=== PATIENT | male | born 1945 | race Caucasian/White ===

== ENCOUNTER 2017-12-24 13:02 | Outpatient (RCR) | payer MEDICARE, OTHER ==
[2017-10-02 13:20] VITALS: BP 120/92
[2017-11-10 13:25] VITALS: BP 144/110
[~2017-12-24] VITALS: Ht 177.8 cm; Wt 99.8 kg
[~2017-12-24 13:02] MED LIST: ASP81TEC PO; CANA100T PO; CHOL10003 PO; CYAN10006 PO; FAMO20TA5 PO; FENO145T2 PO; HCT25T PO; HYDR-34 PO; LISI10TA2 PO; LSNP20T PO; LUTE10TA PO; Lutein PO; METF-380 PO; MULT-608 PO; NAPR220T76 PO; PYRI100T2 PO; RIVA20TA PO; SITA1TAB6 PO; SOTA240T PO; WRF5T PO
[2017-12-24 13:54] VITALS: BP 153/111
== END 2017-12-31 | disposition home or self-care (01) ==
LOC: SDC 13:02
PROVIDERS: ATTEND Internal Medicine
DX: D75.1 Secondary polycythemia (principal)
CPT/HCPCS: 36592; 99195

== ENCOUNTER 2018-04-02 17:13 | Emergency (ER) | payer MEDICARE, OTHER ==
[~2018-04-02] VITALS: Ht 177.8 cm; Wt 89.4 kg
--- NOTE | 2018-04-02 18:58 | Diagnostic Imaging Report ---
PROCEDURE: CT head without contrast. TECHNIQUE: Multiple contiguous axial images were obtained through the brain without the use of intravenous contrast. INDICATION: Fall. Anticoagulation therapy. COMPARISON: None. FINDINGS: Moderate generalized cerebral and cerebellar parenchymal volume loss. Moderate leukoaraiosis. No CT evidence for territorial infarction. Intracranial vascular calcifications. No intracranial hemorrhage, mass effect, hydrocephalus, or extra-axial fluid collections. The visualized paranasal sinuses and mastoids are clear. Osseous structures are intact. IMPRESSION: No acute intracranial CT findings. Dictated by: Dictated on workstation # [id number]
--- NOTE | 2018-04-02 19:42 | ED Fall/Injury ---
General Chief Complaint: Trauma-Non Activation Stated Complaint: L ARM INJ Nursing Triage Note: PT TO ROOM FT2, PT STATES FELL AT HOME TRIPPED, PT HAS SKIN TEAR R FOREARM, PT HIT HEAD DENIES LOC, PT IS ON ELAQUIS. Source: patient Exam Limitations: no limitations History of Present Illness Date Seen by Provider: Apr 02, 2018 Time Seen by Provider: 17:50 Initial Comments This 72-year-old gentleman presents to the emergency room after having a fall at home. He tripped outside and struck his head on his stairs. This resulted in an abrasion to the top of his scalp and a skin tear of the left arm. He is up-to-date on his tetanus immunization. He denies any neck pain, loss of consciousness, or neurologic deficits. He is on Eliquis. Bleeding on the skin tear is controlled. Patient was running the weed eater when he tripped. Location Injury Occurred: HOME Occurred: just prior to arrival Allergies and Home Medications Allergies Coded Allergies: No Known Drug Allergies (Unverified , 10/20/11) Home Medications Cholecalciferol (Vitamin D3) 1,000 Unit Tablet, 1,000 UNIT PO HS, (Reported) Cyanocobalamin (Vitamin B-12) 1,000 Mcg Tablet, 1,000 MCG PO HS, (Reported) Famotidine 20 Mg Tablet, 20 MG PO DAILY, (Reported) Fenofibrate,Micronized 145 Mg Tablet, 145 MG PO DAILY, (Reported) Hydrochlorothiazide 25 Mg Tablet, 1 EACH PO DAILY, (Reported) Lisinopril 10 Mg Tablet, 10 MG PO BID, (Reported) Multivitamins 1 Tab Tablet, 1 TAB PO DAILY, (Reported) Naproxen Sodium 220 Mg Tablet, 220 MG PO BID, (Reported) Pyridoxine HCl 100 Mg Tablet, 100 MG PO HS, (Reported) Rivaroxaban 20 Mg Tablet, 20 MG PO HS, (Reported) Sitagliptin Phos/Metformin HCl 1 Each Tablet, 1 EACH PO BID, (Reported) Patient Home Medication List Home Medication List Reviewed: Yes Review of Systems Review of Systems Constitutional: no symptoms reported Eyes: No Symptoms Reported Ears, Nose, Mouth, Throat: no symptoms reported Respiratory: no symptoms reported Cardiovascular: no symptoms reported Gastrointestinal: no symptoms reported Genitourinary: no symptoms reported Musculoskeletal: no symptoms reported Skin: see HPI Psychiatric/Neurological: No Symptoms Reported Past Fwcmsan-Wuueem-Cnvmzp Hx Past Med/Social Hx: Reviewed and Corrections made Patient Social History Alcohol Use: Denies Use Recreational Drug Use: No Smoking Status: Never a Smoker Recent Foreign Travel: No Contact w/Someone Who Travel: No Recent Infectious Disease Expo: No Recent Hopitalizations: No Physical Abuse: No Sexual Abuse: No Immunizations Up To Date Tetanus Booster (TDap): Less than 5yrs Date of Pneumonia Vaccine: Apr 19, 2011 Date of Influenza Vaccine: Apr 19, 2011 Past Medical History Surgeries: Yes (ORAL, LEFT INGROWN THUMBNAIL REMOVED,) Respiratory: No Cardiac: Yes Atrial Fibrillation, Hypertension Neurological: No Reproductive Disorders: No Genitourinary: No Gastrointestinal: Yes Gastroesophageal Reflux Musculoskeletal: Yes Endocrine: Yes Diabetes, Non-Insulin dep Cancer: No Psychosocial: No Integumentary: No Blood Disorders: No Physical Exam Vital Signs Vital Signs - First Documented 04/02/18 04/02/18 17:30 19:46 Temp 98.1 Pulse 100 Resp 18 B/P (MAP) 115/92 (100) Pulse Ox 99 O2 Delivery Room Air Capillary Refill : Less Than 3 Seconds Height, Weight, BMI Height: 5'10.00" Weight: 197lbs. 0.0oz. [id number]; 31.6 BMI Method:Stated General Appearance: WD/WN, no apparent distress HEENT: PERRL/EOMI, other (minor abrasion on the top of his scalp) Neck: non-tender, normal inspection Cardiovascular: regular rate, rhythm, no edema, no murmur Respiratory: lungs clear, normal breath sounds, no respiratory distress, no accessory muscle use Extremities: other (large skin tear on the left forearm) Neurologic/Psychiatric: building attendant II-XII nml as tested, no motor/sensory deficits, alert, normal mood/affect, oriented x 3 Skin: normal color, warm/dry, other (abrasion on the scalp and large skin tear on the left forearm) [place] Coma Score Best Eye Response: (4) Open Spontaneously Best Verbal Response: (5) Oriented Best Motor Response: (6) Obeys Commands [place] Total: 15 Progress/Results/Core Measures Results/Orders My Orders Orders - INNA LOPEZ MD Ct Head Wo (04/02/18 18:00) Vital Signs/I&O 04/02/18 04/02/18 17:30 19:46 Temp 98.1 97.1 Pulse 100 80 Resp 18 18 B/P (MAP) 115/92 (100) 118/81 (100) Pulse Ox 99 98 O2 Delivery Room Air Blood Pressure Mean: 100 Progress Progress Note : Progress Note CT of the head was obtained and demonstrated no intracranial injury. Skin tear on the left arm was debrided of grass and other foreign bodies. It was thoroughly irrigated and folded back over the wound. Mepilex dressings were applied. Diagnostic Imaging Diagonstic Imaging: CT Plain Films/CT/US/NM/MRI: head Comments CT viewed by me and report reviewed. See report below: NAME: MONIQUE QUEEN [facility] REC#: [id number] PT STATUS: REG ER : 1945 PHYSICIAN: INNA LOPEZ MD ADMIT DATE: 04/02/18/ER Signed Date of Exam: 04/02/18 CT HEAD WO PROCEDURE: CT head without contrast. TECHNIQUE: Multiple contiguous axial images were obtained through the brain without the use of intravenous contrast. INDICATION: Fall. Anticoagulation therapy. COMPARISON: None. FINDINGS: Moderate generalized cerebral and cerebellar parenchymal volume loss. Moderate leukoaraiosis. No CT evidence for territorial infarction. Intracranial vascular calcifications. No intracranial hemorrhage, mass effect, hydrocephalus, or extra-axial fluid collections. The visualized paranasal sinuses and mastoids are clear. Osseous structures are intact. IMPRESSION: No acute intracranial CT findings. Dictated by: Dictated on workstation # [id number] Dict: 04/02/181838 Trans: 04/02/181904 Interpreted by: DEVYN MOON MD Electronically signed by: DEVYN MOON MD 04/02/181904 Departure Impression Primary Impression: Fall on same level Qualified Codes: W18.30XA - Fall on same level, unspecified, initial encounter Additional Impressions: Abrasion of scalp Qualified Codes: S00.01XA - Abrasion of scalp, initial encounter Skin tear of left upper extremity Anticoagulated Disposition: 01 HOME, SELF-CARE Condition: Improved Departure-Patient Inst. Decision time for Depature: 19:40 Referrals: JAMIE DOMINGO MD (PCP/Family) Primary Care Physician Patient Instructions: NO INSTRUCTIONS GIVEN Add. Discharge Instructions: Return to care if you develop any symptoms of worsening head injury such as confusion, headache, changes in vision, numbness or weakness of body parts, etc. Leave the dressing on your arm for 2 or 3 days. Replace after that time if desired. Remove the dressing starting near your wrist and pulling up toward your elbow. Monitor your wounds for signs of infection including increasing redness, increasing swelling, increasing pain, puslike drainage, or fever. Return to care promptly to notice these symptoms. All discharge instructions reviewed with patient and/or family. Voiced understanding. INNA LOPEZ MD Apr 02, 2018 19:42
[2018-04-02 19:46] VITALS: BP 118/81
== END 2018-04-02 19:48 | disposition home or self-care (01) ==
LOC: EDUNIT# 17:13 → ER 17:14
DX: S51.811A Laceration without foreign body of right forearm, initial encounter (principal); S00.01XA Abrasion of scalp, initial encounter; E11.9 Type 2 diabetes mellitus without complications; Z79.01 Long term (current) use of anticoagulants; W01.0XXA Fall on same level from slipping, tripping and stumbling without subsequent striking against object, initial encounter
CPT/HCPCS: 70450

== ENCOUNTER 2018-06-04 05:34 | Outpatient (CLI) | payer MEDICARE, OTHER ==
[~2018-06-04] VITALS: Ht 177.8 cm; Wt 89.4 kg
[2018-06-04] MEDS ORDERED: LISI-552 PO (12:58)
[2018-06-04] MEDS ORDERED: MULT1TAB69 PO (12:58)
[2018-06-04] MEDS ORDERED: METO-395 PO (12:58)
[2018-06-04] MEDS ORDERED: PROC5TAB52 PO (12:58)
[2018-06-04] MEDS ORDERED: APIX5TAB PO (12:58)
[2018-06-04] MEDS ORDERED: TRAM50TA2 PO (12:58)
[2018-06-04] MEDS ORDERED: FENO145T37 PO (12:58)
== END 2018-06-04 13:00 | disposition home or self-care (01) ==
LOC: PREOP 05:34
PROVIDERS: ATTEND Surgery
DX: Z01.818 Encounter for other preprocedural examination (principal)

== ENCOUNTER 2018-06-07 07:21 | Day surgery (SDC) | payer MEDICARE, OTHER ==
[~2018-06-07] VITALS: Ht 177.8 cm; Wt 89.4 kg
[~2018-06-07 07:21] MED LIST changes: +APIX5TAB PO; +FENO145T37 PO; +LISI-552 PO; +METO-395 PO; +MULT1TAB69 PO; +PROC5TAB52 PO; +TRAM50TA2 PO
[2018-06-07 07:50] VITALS: BP 168/108
[2018-06-07] MEDS ORDERED: LACTATED RINGERS 1,000 ML IV PRN (07:53)
[2018-06-07] MEDS ORDERED: CATHETER FLUSH 10 ML SYR IV PRN (08:00)
[2018-06-07] MEDS ORDERED: ceFAZolin INJECTION 1,000 MG in NS (IVPB) 50 ML IV ONE (08:00)
[2018-06-07] MEDS ORDERED: ANCEF 2 GM/50 ML PRE-MIXED IVPB IV ONE (08:15)
[2018-06-07] MEDS ORDERED: LIDOCAINE/EPI 1%-1:100,000 (XYLOCAINE) 20ML ONE (08:31)
--- NOTE | 2018-06-07 09:01 | Progress Note-Pre Operative ---
Pre-Operative Progress Note H&P Reviewed The H&P was reviewed, patient examined and no changes noted. Time Seen by Provider: 08:52 Date H&P Reviewed: Jun 07, 2018 Time H&P Reviewed: 08:53 Pre-Operative Diagnosis: scalp mass LANCE QUILES DO Jun 07, 2018 09:01
[2018-06-07] MEDS ORDERED: fentaNYL INJECTION 100 MCG/2 ML AMP ONE (09:03)
[2018-06-07] MEDS ORDERED: proPOfol 200 MG/20 ML (DIPRIVAN) VIAL IV ONE (09:19)
[2018-06-07] MEDS ORDERED: PHENYLEPHRINE 100 MCG/ML 10 ML (ANESTHESIA) SYR ONE (09:22)
--- NOTE | 2018-06-07 09:34 | Progress Note-Post Operative ---
Post-Operative Progess Note Surgeon (s)/Parachute Panel Joiner (s) Surgeon LANCE QUILES DO Parachute Panel Joiner: none Pre-Operative Diagnosis scalp mass Post-Operative Diagnosis same pending pathology Procedure & Operative Findings Date of Procedure 06/07/18 Procedure Performed/Findings Exc of scalp mass Anesthesia Type GET Estimated Blood Loss Estimated blood loss (mL): scant Specimens/Packing Specimens Removed scalp mass LANCE QUILES DO Jun 07, 2018 09:34
--- NOTE | 2018-06-07 09:37 | Discharge Inst-Surgical ---
Discharge Inst-Surgical Depart Medication/Instructions New, Converted or Re-Newed RX: Other (Pt can take Motrin or Tylenol for pain) Patient Instructions Follow up Appt: Make appointment for 1 week. Instructions: May shower in 24 hours, no tub bath or soaking. Use incentive spirometer at home as directed. No Smoking Skin/Wound Care: May remove bandages. You need to leave the sutures in place, they will get removed in 10-14 days. Symptoms to Report: Appetite Changes, Extremity Discoloration, Numbness/Tingling, Swelling Increased , Bleeding Excessive, Eyesight Changes, Pain Increased, Urine Color Change, Constipation(Persistent), Fever over 101 degree F, Pain/Pressure in chest, Urinating Difficulty, Cough Up/Vomit Blood, Heart Beat Irreg/Pounding, Pain/ Pressure in jaw, Cramps in feet or legs, Lightheadedness, Pain/Pressure in shoulder, Diarrhea(Persistent), Memory Changes Suddenly, Questions/Concerns, Weight gain consecutive days, Dizziness/Fainting, Nausea/Vomiting, Shortness of Breath, Weight gain over 2 pounds If questions or concerns contact your physician Or seek help at emergency department. Activity Activity Instructions: Avoid Stress to Incision Driving Instructions: No Driving for 24 Hours Diet Discharge Diet: No Restrictions Diet After 24 Hours: Clear Liquid if Nauseous If Any Problems/Questions/Issu: Contact Your Physician, Go to Emergency Room Skin/Wound Care Infection Signs and Symptoms: Increased Redness, Foul Odor of Wound, Increased Drainage, Skin Itchy or Has a Rash, Increased Swelling, Temperature Above 101 F Bathing Instructions: Shower Stitches/[place]/Dermabond Dis: Care of Stitches Ice Pack: Ice On and Off Site (as needed for pain) LANCE QUILES DO Jun 07, 2018 09:37
[2018-06-07 10:25] VITALS: BP 131/89
[2018-06-07 10:55] VITALS: BP 120/90
[2018-06-07 11:30] VITALS: BP 129/85
--- NOTE | 2018-06-07 14:05 | Anesthesia-General Post-Op ---
General Patient Condition Mental Status/LOC: Same as Preop Cardiovascular: Satisfactory Nausea/Vomiting: Absent Respiratory: Satisfactory Pain: Controlled Complications: Absent Post Op Complications Complications None Follow Up Care/Instructions Patient Instructions None needed. Anesthesia/Patient Condition Patient Condition Patient is doing well, no complaints, stable vital signs, no apparent adverse anesthesia problems. No complications reported per nursing. D/C home per [facility] Criteria: Yes VAL MAHER CRNA Jun 07, 2018 14:05
--- NOTE | 2018-06-07 18:22 | OPERATIVE REPORT ---
DATE OF SERVICE: 06/07/2018 PREOPERATIVE DIAGNOSIS: Posterior scalp mass. POSTOPERATIVE DIAGNOSIS: Posterior scalp mass, pending pathology. PROCEDURE PERFORMED: Excision of scalp mass. SURGEON: Dayo Box DO. OXYACETYLENE BURNER: None. ANESTHESIA: General endotracheal tube. SPECIMEN: Scalp mass. BLOOD LOSS: Scant. FLUIDS: Per Anesthesia. POSTOPERATIVE CONDITION: Stable. INDICATION FOR PROCEDURE: The patient is a 72-year-old male who has a mass in the back of the scalp, has bled and had some discharge. As this is causing him some discomfort and it bothers him every time he brushes his hair, he wants this removed. FINDINGS: The patient had a scalp mass, removed and sent to pathology. PROCEDURE NOTE: After informed consent was obtained, the patient was brought to the operating room, placed on the operating table. He was placed on table in the right lateral decubitus position, sterilely prepped and draped in normal fashion. Local lidocaine was used to infiltrate the area around this mass and then made an elliptical incision around the mass, measured 1.4 cm, carried down through the skin into the subcutaneous tissue, then deepened down to subcutaneous tissue with a sharp dissection with a #15 blade around the mass down through the subcutaneous tissue, going completely around this mass, staying away from it and able to remove this en bloc and passed this off the table, irrigated with normal saline and hemostasis obtained using Bovie electrocautery as well as pressure and then elected to close the incision with 3-0 Prolene 2 interrupted simple stitches. Area was cleaned and dried, dressing placed and patient then transferred to recovery room in stable condition. Sponge, instrument and needle count correct at the end of the case. Job ID: [id number] DocumentID: [id number] Dictated Date: 06/07/2018 09:40:08 Sales Promotion Representative Date: 06/07/2018 18:21:26 Dictated By: DAYO BOX DO
== END 2018-06-07 11:44 | disposition home or self-care (01) ==
LOC: SDC 07:21
PROVIDERS: ATTEND Surgery
DX: C79.2 Secondary malignant neoplasm of skin (principal); C64.9 Malignant neoplasm of unspecified kidney, except renal pelvis; Z11.2 Encounter for screening for other bacterial diseases; I48.91 Unspecified atrial fibrillation; E11.9 Type 2 diabetes mellitus without complications; I10 Essential (primary) hypertension; E78.5 Hyperlipidemia, unspecified; M48.00 Spinal stenosis, site unspecified; K21.9 Gastro-esophageal reflux disease without esophagitis; Z79.899 Other long term (current) drug therapy; Z79.01 Long term (current) use of anticoagulants; Z79.84 Long term (current) use of oral hypoglycemic drugs; Z90.5 Acquired absence of kidney
CPT/HCPCS: 82962; 87081; 88305; 88341; 88342

== ENCOUNTER 2019-03-08 19:51 | Inpatient (IN) | payer MEDICARE, OTHER ==
[~2019-03-08] VITALS: Ht 177.8 cm; Wt 83.9 kg
[~2019-03-08 19:51] MED LIST changes: +CYAN-41 PO; -CYAN10006 PO; -RIVA20TA PO; +RIVA20TA2 PO
--- NOTE | 2019-03-08 20:09 | NUR ---
Pt moved to room #2 per ED bed availability. Pt amb from family room to room #2 with ED staff stand by assist. Pt continues to remain a&ox4, denying any pain or discomfort.
[2019-03-08] MEDS ORDERED: NS IV 1000 ML 1,000 ML IV SCH (20:10)
[2019-03-08 20:21] LABS: BASOPHILS % (AUTO) 0 % (0-10); EOSINOPHILS # (AUTO) 0.4 10^3/uL (0.0-0.3); EOSINOPHILS % (AUTO) 6 % (0-10); HEMATOCRIT 52 % (40-54); HEMOGLOBIN 17.5 G/DL (13.3-17.7); LYMPHOCYTES # (AUTO) 1.2 X 10^3 (1.0-4.0); LYMPHOCYTES % (AUTO) 16 % (12-44); MEAN CORPUSCULAR HEMOGLOBIN 27 PG (25-34); MEAN CORPUSCULAR HGB CONC 34 G/DL (32-36); MEAN CORPUSCULAR VOLUME 82 FL (80-99); MEAN PLATELET VOLUME 10.1 FL (7.4-10.4); MONOCYTES # (AUTO) 0.7 X 10^3 (0.0-1.0); MONOCYTES % (AUTO) 9 % (0-12); NEUTROPHILS # (AUTO) 4.9 X 10^3 (1.8-7.8); NEUTROPHILS % (AUTO) 68 % (42-75); PLATELET COUNT 220 10^3/uL (130-400); RED CELL DISTRIBUTION WIDTH 32.3 % (10.0-14.5); WHITE BLOOD COUNT 7.1 10^3/uL (4.3-11.0)
--- NOTE | 2019-03-08 20:21 | ED Syncope ---
General Chief Complaint: Trauma-Non Activation Stated Complaint: AMS Source of Information: Patient, EMS Exam Limitations: No Limitations History of Present Illness Date Seen by Provider: Mar 08, 2019 Time Seen by Provider: 19:40 Initial Comments Patient presents to ER by EMS from home with chief complaint that last thing he remembers was at 10:30 going to the bathroom and woke up in the bathroom floor just prior to calling an ambulance. The is a diabetic. EMS reports his blood sugar was 68 and had not given him anything for it yet. Patient does not remember anything after 10:30 until he woke up. He is not having any pain anywhere. He denies any recent illness such as cough, sore throat, nausea, chest pain, palpitations, fevers, chills, nausea, diarrhea, constipation, belly pain, swelling in his hands or feet, shortness of breath etc. He is on chemotherapy through [facility] for kidney cancer. About a year and a half ago he had a left nephrectomy and subsequent surgery because they think they left something behind right after the first surgery. He does not have a history of syncopal episodes. He is with atrial fibrillation and takes Eliquis. Allergies and Home Medications Allergies Coded Allergies: No Known Drug Allergies (Unverified , 10/20/11) Home Medications Apixaban 5 Mg Tablet, 5 MG PO BID, (Reported) Cholecalciferol (Vitamin D3) 1,000 Unit Tablet, 1,000 UNIT PO HS, (Reported) Cyanocobalamin (Vitamin B-12) 1,000 Mcg Tablet, 1,000 MCG PO HS, (Reported) Fenofibrate Nanocrystallized 145 Mg Tablet, 145 MG PO DAILY, (Reported) Lisinopril 20 Mg Tablet, 20 MG PO DAILY, (Reported) Metoprolol Succinate 100 Mg Tab.er.24h, 100 MG PO HS, (Reported) Multivitamin 1 Each Tablet, 1 EACH PO DAILY, (Reported) Prochlorperazine Maleate 5 Mg Tablet, 5-10 MG PO Q6H PRN for NAUSEA/VOMITING, (Reported) Pyridoxine HCl 100 Mg Tablet, 100 MG PO HS, (Reported) Sitagliptin Phos/Metformin HCl 1 Each Tablet, 1 EACH PO BID, (Reported) Tramadol HCl 50 Mg Tablet, 50 MG PO Q6H PRN for PAIN-MILD, (Reported) Patient Home Medication List Home Medication List Reviewed: Yes Review of Systems Constitutional: No chills, No diaphoresis, No fever, No malaise EENTM: No ear discharge, No hearing loss, No ear pain Respiratory: No cough, No short of breath Cardiovascular: No chest pain, No edema Gastrointestinal: No abdominal pain, No constipation, No diarrhea, No nausea, No vomiting Genitourinary: No discharge, No dysuria Musculoskeletal: No back pain, No joint pain Skin: No pruritus, No rash Psychiatric/Neurological: Denies Headache, Denies Numbness, Denies Paresthesia, Denies Seizure, Denies Weakness Past Rmrkade-Eaepli-Goutsi Hx Patient Social History Alcohol Use: Denies Use Recreational Drug Use: No Smoking Status: Never a Smoker Recent Foreign Travel: No Contact w/Someone Who Travel: No Recent Hopitalizations: No Immunizations Up To Date Tetanus Booster (TDap): Less than 5yrs Date of Pneumonia Vaccine: Apr 19, 2011 Date of Influenza Vaccine: Apr 19, 2018 Seasonal Allergies Seasonal Allergies: No Past Medical History Surgeries: Yes (ORAL, LEFT INGROWN THUMBNAIL REMOVED,) Nephrectomy Respiratory: No Cardiac: Yes Atrial Fibrillation, Hypertension Neurological: No Reproductive Disorders: No Genitourinary: No Gastrointestinal: Yes Gastroesophageal Reflux Musculoskeletal: Yes Endocrine: Yes Diabetes, Non-Insulin dep Cancer: No Kidney Did You Recieve Any Treatments: Yes What Type of Treatment Did You: Chemotherapy, Surgical Intervention Psychosocial: No Integumentary: No Blood Disorders: No Physical Exam Vital Signs Vital Signs - First Documented 03/08/19 21:10 Pulse 127 Capillary Refill : Height, Weight, BMI Height: 5'10.00" Weight: 197lbs. 0.0oz. 89.945206cg; 28.3 BMI Method:Stated General Appearance: No Apparent Distress, WD/WN HEENT: PERRL/EOMI, TMs Normal, Normal ENT Inspection, Pharynx Normal, Moist Mucous Membranes, Other (atraumatic head with no Bernabe sign or hemotympanum) Neck: Normal Inspection, Non Tender Cardiovascular: Regular Rate, Rhythm, No Edema, Normal Peripheral Pulses Respiratory: Lungs Clear, Normal Breath Sounds, No Accessory Muscle Use, No Respiratory Distress Gastrointestinal: Normal Bowel Sounds, Non Tender, Soft Extremities: Normal Capillary Refill, Normal Inspection, Normal Range of Motion, Non Tender, No Pedal Edema Neurologic/Psychiatric: Alert, Oriented x3, Normal Mood/Affect Cranial Nerves: Normal Hearing, Normal Speech, PERRL Coordination/Gait: Normal Finger to Nose, Normal Gait Motor/Sensory: No Motor Deficit, No Sensory Deficit, No Pronator Drift Skin: Other (ecchymoses bilateral forearms. A 6 cm superficial skin tears that are hemostatic on the right forearm) Progress/Results/Core Measures Results/Orders Lab Results Laboratory Tests Test 03/08/19 19:58 03/08/19 20:07 03/08/19 20:26 03/08/19 20:40 Range/Units Glucometer 37 *L 51 *L 70-110 MG/DL White Blood Count 7.1 4.3-11.0 10^3/uL Red Blood Count 6.37 H 4.35-5.85 10^6/uL Hemoglobin 17.5 13.3-17.7 G/DL Hematocrit 52 40-54 % Mean Corpuscular Volume 82 80-99 FL Mean Corpuscular Hemoglobin 27 25-34 PG Mean Corpuscular Hemoglobin Concent 34 32-36 G/DL Red Cell Distribution Width 32.3 H 10.0-14.5 % Platelet Count 220 130-400 10^3/uL Mean Platelet Volume 10.1 7.4-10.4 FL Neutrophils (%) (Auto) 68 42-75 % Lymphocytes (%) (Auto) 16 12-44 % Monocytes (%) (Auto) 9 0-12 % Eosinophils (%) (Auto) 6 0-10 % Basophils (%) (Auto) 0 0-10 % Neutrophils # (Auto) 4.9 1.8-7.8 X 10^3 Lymphocytes # (Auto) 1.2 1.0-4.0 X 10^3 Monocytes # (Auto) 0.7 0.0-1.0 X 10^3 Eosinophils # (Auto) 0.4 H 0.0-0.3 10^3/uL Basophils # (Auto) 0.0 0.0-0.1 10^3/uL Sodium Level 140 135-145 MMOL/L Potassium Level 6.0 H 3.6-5.0 MMOL/L Chloride Level 108 H 98-107 MMOL/L Carbon Dioxide Level 17 L 21-32 MMOL/L Anion Gap 15 H 5-14 MMOL/L Blood Urea Nitrogen 14 7-18 MG/DL Creatinine 1.30 0.60-1.30 MG/DL Estimat Glomerular Filtration Rate 54 BUN/Creatinine Ratio 11 Glucose Level 76 70-105 MG/DL Calcium Level 9.7 8.5-10.1 MG/DL Corrected Calcium 9.9 8.5-10.1 MG/DL Total Bilirubin 0.6 0.1-1.0 MG/DL Aspartate Amino Transf (AST/SGOT) 67 H 5-34 U/L Alanine Aminotransferase (ALT/SGPT) 91 H 0-55 U/L Alkaline Phosphatase 46 40-136 U/L Total Creatine Kinase 135 30-200 U/L Troponin I < 0.028 <0.028 NG/ML C-Reactive Protein High Sensitivity 0.91 H 0.00-0.50 MG/DL B-Type Natriuretic Peptide 301.7 H <100.0 PG/ML Total Protein 6.8 6.4-8.2 GM/DL Albumin 3.7 3.2-4.5 GM/DL Test 03/08/19 21:05 03/08/19 22:15 Range/Units Glucometer 44 *L 70-110 MG/DL Potassium Level 5.3 H 3.6-5.0 MMOL/L My Orders Orders - STEVEN ADAN Accucheck Stat ONCE (03/08/19 20:10) Ua Culture If Indicated (03/08/19 20:10) Cbc With Automated Diff (03/08/19 20:10) Comprehensive Metabolic Panel (03/08/19 20:10) Hs C Reactive Protein (03/08/19 20:10) Ed Iv/Invasive Line Start (03/08/19 20:10) Ns Iv 1000 Ml (Sodium Chloride 0.9%) (03/08/19 20:10) Accucheck Stat ONCE (03/08/19 20:10) Chest Pa/Lat (2 View) (03/08/19 20:10) Troponin I (03/08/19 20:10) Creatine Kinase (03/08/19 20:10) Ct Head/Cervical Spine Wo (03/08/19 20:10) BNP (03/08/19 20:17) Diltiazem Injection (Cardizem Injection) (03/08/19 20:45) Ns (Ivpb) (Sodium C... W/Diltiazem Iv Fo (03/08/19 20:45) Accucheck Stat ONCE (03/08/19 20:56) D5 Ns 1000 Ml Iv Solution (Dextrose 5%/0 (03/08/19 21:01) Potassium (03/08/19 21:10) D5 Ns 1000 Ml Iv Solution (Dextrose 5%/0 (03/08/19 21:15) Ekg Tracing (03/08/19 21:52) Ekg Tracing (03/08/19 22:02) Medications Given in ED Current Medications Medications Dose Ordered Sig/Brittany Route Start Time Stop Time Status Last Admin Dose Admin Diltiazem HCl 10 mg ONCE ONCE IVP 03/08/19 20:45 03/08/19 20:46 DC 03/08/19 21:09 10 MG Vital Signs/I&O 03/08/19 21:10 Pulse 127 Progress Progress Note : Time: 20:36 Progress Note EKG reveals A. fib with rapid ventricular response. We then getting him to eat and his blood sugars, to 51. Plan to give him some Cardizem, IV fluids and a Cardizem drip. He is on metoprolol succinate 100 mg daily. Skin tears cleaned with sterile saline and chlorhexidine and dressed with triple antibiotic ointment and gauze by nursing. Patient states he is up-to-date on his tetanus vaccine this year. Initial ECG Impression Date: Mar 08, 2019 Initial ECG Impression Time: 20:21 Initial ECG Rate: 119 Initial ECG Rhythm: A Fib/Flutter Initial ECG Intervals: QT (456) Initial ECG Impression: Atrial Fibrillation w/RVR Comment Atrial fibrillation with rapid ventricular response. EKG : EKG Time: 21:59 Rate: 85 Rhythm: A Fib/Flutter Intervals: QT (433) ECG Comparisson: Changed ECG Impression: Atrial Fibrillation Comment No ST elevation or depression. Diagnostic Imaging Diagonstic Imaging: Xray Plain Films/CT/US/NM/MRI: chest Comments NAME: BERNARDANGELANIGELMONIQUE D MED REC#: [id number] PT STATUS: REG ER : 1945 PHYSICIAN: STEVEN ADAN MD ADMIT DATE: 03/08/19/ER Draft Date of Exam:03/08/19 CHEST PA/LAT (2 VIEW) INDICATION: Found down COMPARISON: None FINDINGS: Frontal and lateral views of the chest demonstrate slight cardiac enlargement. The lungs are clear. There is a small hiatal hernia. There is no pneumothorax. There is an expansile right posterior fifth rib lesion that was not seen on a 01/10/[address] CT examination. Recommend nonemergent CT of the chest. IMPRESSION: 1. Slight cardiac enlargement without pulmonary edema or infiltrate. 2. Small hiatal hernia. 3. Expansile right posterior fifth rib lesion. Recommend nonemergent CT imaging. Dictated on workstation # [id number] Dict: 03/08/192056 Trans: 03/08/192112 [facility] [id number] Interpreted by: PAIGE MICHAEL Electronically signed by: Reviewed: Reviewed by Oh Diagonstic Imaging: CT (Noncontrast) Plain Films/CT/US/NM/MRI: c-spine, head Comments NAME: MONIQUE QUEEN MED REC#: [id number] PHYSICIAN: STEVEN ADAN MD CC: PAIGE MICHAEL; STEVEN ADAN Page 2 of 2 RADIOLOGY REPORT [facility] [place] CC: PAIGE MICHAEL; STEVEN ADAN Page 1 of 1 RADIOLOGY REPORT NAME: MONIQUE QUEEN MED REC#: [id number] PT STATUS: REG ER : 1945 PHYSICIAN: STEVEN ADAN MD ADMIT DATE: 03/08/19/ER Signed Date of Exam: 03/08/19 CT HEAD/CERVICAL SPINE WO PROCEDURE: CT head and CT cervical spine without contrast. TECHNIQUE: Multiple contiguous axial images were obtained through the brain and cervical spine without the use of intravenous contrast. Sagittal and coronal reformations through the cervical spine were then performed. Auto Exposure Controls were utilized during the CT exam to meet ALARA standards for radiation dose reduction. INDICATION: Found down, hypoglycemic COMPARISON: CT head 04/02/2018 CT head: Age-related cerebral volume loss and microvascular changes are present. There is no midline shift or mass effect. There is no hemorrhage or evidence of acute ischemia. There is no extra-axial fluid collection. There is no skull fracture. There is mucous retention cyst seen in the maxillary sinuses. Otherwise, paranasal sinuses and mastoids are normal. There is no skull fracture. IMPRESSION: No acute intracranial abnormalities. CT cervical spine: The alignment is normal. There is no subluxation or fracture. No osseous lesion is identified. Mild degenerative changes seen throughout the disc spaces and facet joints. Minimal carotid atherosclerosis is present. IMPRESSION: No traumatic malalignment or fracture. Dictated by: Dictated on workstation # [id number] Dict: 03/08/192049 Trans: 03/08/192101 Interpreted by: PAIGE MICHAEL Electronically signed by: PAIGE MICHAEL 03/08/192101 Reviewed: Reviewed by Me Departure Communication (Admissions) Time/Spoke to Admitting Phy: 22:50 Discussed the case with Dr. Mckenzie and he is agreed to admit the patient. Time/Spoke to Consulting Phy: 22:00 Discussed the case with Dr. Morales and since the patient is known to Dr. Lopez he would have Dr. Lpoez see him in the morning. He is okay with [facility] and troponins. Impression Primary Impression: Syncope Qualified Codes: R55 - Syncope and collapse Additional Impressions: Atrial fibrillation with rapid ventricular response Skin tear Hypoglycemia Disposition: ADMITTED INPATIENT Condition: Stable Admissions Decision to Admit Reason: Admit from ER (General) Decision to Admit/Date: Mar 08, 2019 Time/Decision to Admit Time: 22:00 Departure-Patient Inst. Referrals: JAMIE DOMINGO MD (PCP/Family) Primary Care Physician STEVEN ADAN Mar 08, 2019 20:21
[2019-03-08] MEDS ORDERED: DILTIAZEM 25 MG/5 ML INJ (CARDIZEM) VIAL IVP ONE (20:45)
[2019-03-08] MEDS ORDERED: DILTIAZEM IV FOR DRIP 125 MG in NS (IVPB) 100 ML IV SCH (20:45)
--- NOTE | 2019-03-08 20:57 | Diagnostic Imaging Report ---
PROCEDURE: CT head and CT cervical spine without contrast. TECHNIQUE: Multiple contiguous axial images were obtained through the brain and cervical spine without the use of intravenous contrast. Sagittal and coronal reformations through the cervical spine were then performed. Auto Exposure Controls were utilized during the CT exam to meet ALARA standards for radiation dose reduction. INDICATION: Found down, hypoglycemic COMPARISON: CT head 04/02/2018 CT head: Age-related cerebral volume loss and microvascular changes are present. There is no midline shift or mass effect. There is no hemorrhage or evidence of acute ischemia. There is no extra-axial fluid collection. There is no skull fracture. There is mucous retention cyst seen in the maxillary sinuses. Otherwise, paranasal sinuses and mastoids are normal. There is no skull fracture. IMPRESSION: No acute intracranial abnormalities. CT cervical spine: The alignment is normal. There is no subluxation or fracture. No osseous lesion is identified. Mild degenerative changes seen throughout the disc spaces and facet joints. Minimal carotid atherosclerosis is present. IMPRESSION: No traumatic malalignment or fracture. Dictated by: Dictated on workstation # [id number]
--- NOTE | 2019-03-08 21:00 | NUR ---
Pt noted to have consumed x4 packs of peanut butter, x2 apple juices boxes, and a sprite in an attempt to raise blood sugar.
[2019-03-08] MEDS ORDERED: D5 NS 1000 ML IV SOLUTION 1,000 ML IV ONE (21:01)
[2019-03-08 21:05] LABS: ALANINE AMINOTRANSFERASE 91 U/L (0-55); ALBUMIN 3.7 GM/DL (3.2-4.5); ALKALINE PHOSPHATASE 46 U/L (40-136); BILIRUBIN,TOTAL 0.6 MG/DL (0.1-1.0); BUN/CREATININE RATIO 11; CALCIUM 9.7 MG/DL (8.5-10.1); CARBON DIOXIDE 17 MMOL/L (21-32); CHLORIDE 108 MMOL/L (98-107); CREATINE KINASE 135 U/L (30-200); GFR ESTIMATED 54; GLUCOSE 76 MG/DL (70-105); SODIUM 140 MMOL/L (135-145); TOTAL PROTEIN 6.8 GM/DL (6.4-8.2)
--- NOTE | 2019-03-08 21:14 | Diagnostic Imaging Report ---
INDICATION: Found down COMPARISON: None FINDINGS: Frontal and lateral views of the chest demonstrate slight cardiac enlargement. The lungs are clear. There is a small hiatal hernia. There is no pneumothorax. There is an expansile right posterior fifth rib lesion that was not seen on a 01/10/2016 CT examination. Recommend nonemergent CT of the chest. IMPRESSION: 1. Slight cardiac enlargement without pulmonary edema or infiltrate. 2. Small hiatal hernia. 3. Expansile right posterior fifth rib lesion. Recommend nonemergent CT imaging. Dictated by: Dictated on workstation # [id number]
[2019-03-08] MEDS ORDERED: D5 NS 1000 ML IV SOLUTION 1,000 ML IV SCH (21:15)
[2019-03-08] MEDS ORDERED: lisINopril 10 MG (PRINIVIL) TABLET ONE (23:11)
[2019-03-08] MEDS ORDERED: APIXABAN 5 MG (ELIQUIS) TABLET PO ONE (23:15)
[2019-03-08] MEDS ORDERED: lisINopril 20 MG (PRINIVIL) TABLET PO ONE (23:15)
[2019-03-09] VITALS (20 sets, daily range): BP systolic 113–153; BP diastolic 70–115
[2019-03-09] MEDS ORDERED: ONDANSETRON 4 MG/2 ML (SDV) Z0FRAN IV PRN (01:00)
[2019-03-09] MEDS ORDERED: ACETAMINOPHEN 500 MG TAB (TYLENOL) PO PRN (01:00)
[2019-03-09] MEDS ORDERED: niCARdipine 50 MG/NS 250 ML IV DRIP IV SCH ×2 (01:00)
[2019-03-09] MEDS ORDERED: D5 NS 1000 ML IV SOLUTION 1,000 ML IV SCH (01:00)
[2019-03-09 01:20] LABS: BILIRUBIN,URINE NEGATIVE (NEGATIVE); CLARITY,URINE CLEAR; COLOR,URINE YELLOW; GLUCOSE, URINE (UA) 4+ (NEGATIVE); KETONES,URINE NEGATIVE (NEGATIVE); LEUKOCYTE ESTERASE ,URINE NEGATIVE (NEGATIVE); NITRITE,URINE NEGATIVE (NEGATIVE); PH,URINE 6 (5-9); PROTEIN,URINE NEGATIVE (NEGATIVE); UROBILINOGEN,URINE NORMAL (NORMAL)
[2019-03-09 01:32] LABS: BACTERIA,URINE FEW /HPF; SQUAMOUS EPITHELIAL CELL,UR 0-2 /HPF; WBC,URINE RARE /HPF
[2019-03-09] MEDS ORDERED: NS (IVPB) 250 ML ONE (03:51)
[2019-03-09] MEDS ORDERED: niCARdipine IV FOR DRIP 50 MG KIT ONE (03:51)
[2019-03-09 03:56] LABS: BASOPHILS % (AUTO) 0 % (0-10); EOSINOPHILS # (AUTO) 0.4 10^3/uL (0.0-0.3); EOSINOPHILS % (AUTO) 7 % (0-10); HEMATOCRIT 47 % (40-54); HEMOGLOBIN 15.4 G/DL (13.3-17.7); LYMPHOCYTES # (AUTO) 1.4 X 10^3 (1.0-4.0); LYMPHOCYTES % (AUTO) 22 % (12-44); MEAN CORPUSCULAR HEMOGLOBIN 27 PG (25-34); MEAN CORPUSCULAR HGB CONC 33 G/DL (32-36); MEAN CORPUSCULAR VOLUME 84 FL (80-99); MEAN PLATELET VOLUME 9.7 FL (7.4-10.4); MONOCYTES # (AUTO) 0.6 X 10^3 (0.0-1.0); MONOCYTES % (AUTO) 9 % (0-12); NEUTROPHILS # (AUTO) 3.9 X 10^3 (1.8-7.8); NEUTROPHILS % (AUTO) 62 % (42-75); PLATELET COUNT 176 10^3/uL (130-400); RED CELL DISTRIBUTION WIDTH 31.6 % (10.0-14.5); WHITE BLOOD COUNT 6.2 10^3/uL (4.3-11.0)
[2019-03-09 04:32] LABS: ALANINE AMINOTRANSFERASE 71 U/L (0-55); ALKALINE PHOSPHATASE 38 U/L (40-136); BILIRUBIN,TOTAL 0.4 MG/DL (0.1-1.0); BUN/CREATININE RATIO 10; CALCIUM 8.7 MG/DL (8.5-10.1); CARBON DIOXIDE 23 MMOL/L (21-32); CHLORIDE 109 MMOL/L (98-107); CREATININE SERUM 1.12 MG/DL (0.60-1.30); GFR ESTIMATED > 60; MAGNESIUM 1.3 MG/DL (1.6-2.4); PHOSPHORUS 2.4 MG/DL (2.3-4.7); POTASSIUM 3.9 MMOL/L (3.6-5.0); SODIUM 142 MMOL/L (135-145); TOTAL PROTEIN 5.6 GM/DL (6.4-8.2)
[2019-03-09 04:42] LABS: GLUCOSE 52 MG/DL (70-105)
[2019-03-09] MEDS: DILTIAZEM 125 MG/NS 100 ML IV SCH ×2 (05:07)
[2019-03-09] MEDS ORDERED: MAGNESIUM 1 GM/100 ML IVPB 200 ML IV ONE (05:34)
--- NOTE | 2019-03-09 05:59 | Pulmonary Consultation ---
History of Present Illness History of Present Illness Date of Consultation 03/09/19 05:54 Time Seen by Provider: 06:18 Date of Admission History of Present Illness 73yo with hx of NIDDM, renal cell carcinoma with mets currently undergoing chemo with [facility] and hx of left nephrectomy presented to ED via EMS secondary to syncope. No prior episodes like this in the past. Pt does have an erythematous abrasion on left forehead. Pt's BS was 68 per EMS. Denies CP/abd pain, palpitations, N/v/d. CXR while in ED shows a rib lesion. Allergies and Home Medications Allergies Coded Allergies: No Known Drug Allergies (Unverified , 10/20/11) Home Medications Apixaban 5 Mg Tablet, 5 MG PO BID, (Reported) Cholecalciferol (Vitamin D3) 1,000 Unit Tablet, 1,000 UNIT PO HS, (Reported) Cyanocobalamin (Vitamin B-12) 1,000 Mcg Tablet, 1,000 MCG PO HS, (Reported) Fenofibrate Nanocrystallized 145 Mg Tablet, 145 MG PO DAILY, (Reported) Lisinopril 20 Mg Tablet, 20 MG PO DAILY, (Reported) Metoprolol Succinate 100 Mg Tab.er.24h, 100 MG PO HS, (Reported) Multivitamin 1 Each Tablet, 1 EACH PO DAILY, (Reported) Prochlorperazine Maleate 5 Mg Tablet, 5-10 MG PO Q6H PRN for NAUSEA/VOMITING, (R eported) Pyridoxine HCl 100 Mg Tablet, 100 MG PO HS, (Reported) Sitagliptin Phos/Metformin HCl 1 Each Tablet, 1 EACH PO BID, (Reported) Tramadol HCl 50 Mg Tablet, 50 MG PO Q6H PRN for PAIN-MILD, (Reported) Past Fqzhmfh-Qxuxky-Oflbms Hx Patient Social History Alcohol Use: Denies Use Recreational Drug Use: No Smoking Status: Never a Smoker 2nd Hand Smoke Exposure: No Recent Foreign Travel: No Contact w/Someone Who Travel: No Recent Infectious Disease Expo: No Recent Hopitalizations: No Immunizations Up To Date Tetanus Booster (TDap): Less than 5yrs Date of Pneumonia Vaccine: Apr 19, 2011 Date of Influenza Vaccine: Apr 19, 2018 Seasonal Allergies Seasonal Allergies: No Past Medical History Surgeries: Yes (ORAL, LEFT INGROWN THUMBNAIL REMOVED,) Nephrectomy Respiratory: No Cardiac: Yes Atrial Fibrillation, Hypertension Neurological: No Reproductive Disorders: No Genitourinary: No Gastrointestinal: Yes Gastroesophageal Reflux Musculoskeletal: Yes Endocrine: Yes Diabetes, Non-Insulin dep Cancer: Yes Kidney Did You Recieve Any Treatments: Yes What Type of Treatment Did You: Chemotherapy, Surgical Intervention Psychosocial: No Integumentary: No Blood Disorders: No Review of Systems Time Seen by Provider: 07:35 Constitutional: No: Fever, Chills, Sweats, Weakness, Malaise, Other Eyes: No: Pain, Vision change, Conjunctivae inflammation, Eyelid inflammation, Other, Redness ENT: No: Ear pain, Ear discharge, Nose pain, Nose discharge, Nose congestion, Mouth pain, Mouth swelling, Throat pain, Throat swelling, Other Respiratory: No: Cough, Dry, Shortness of breath, SOB with excertion, Wheezing, Hemoptysis, Pleuritic Pain, Sputum, Wheezing, Other Cardiovascular: No: Chest Pain, Palpitations, Orthopnea, Paroxysmal Noc. Dyspnea, Edema, Lt Headedness, Other Gastrointestinal: No: Nausea, Vomiting, Abdominal Pain, Diarrhea, Constipation, Melena, Hematochezia, Other Genitourinary: No Dysuria, No Frequency, No Incontinence, No Hematuria, No Retention, No Other Sepsis Event Evaluation Height, Weight, BMI Height: 5'10.00" Weight: 185lbs. 4.0oz. 84.903747sn; 26.6 BMI Method:Stated Exam Exam Vital Signs Date Time Temp Pulse Resp B/P (MAP) Pulse Ox O2 Delivery O2 Flow Rate FiO2 03/09/19 05:07 116/83 03/09/19 05:00 94 15 116/83 (94) 98 Room Air 03/09/19 04:00 96.6 89 14 124/101 (109) 97 Room Air 03/09/19 03:00 79 18 120/88 (99) 96 Room Air 03/09/19 02:00 75 16 126/70 (88) 97 Room Air 03/09/19 01:00 99 03/09/19 01:00 80 22 150/102 (118) 96 Room Air 03/09/19 00:02 96.7 95 19 153/99 (117) 98 Room Air 03/09/19 00:00 97.3 77 16 122/86 (98) 99 Room Air 03/08/19 21:10 127 8/20/19 20:00 96.2 111 17 142/108 (119) 99 Room Air 03/08/19 19:51 96.2 111 18 142/108 (119) 99 Room Air I & O 03/09/19 07:00 Intake Total 1110 ml Output Total 350 ml Balance 760 ml Height & Weight Height: 5'10.00" Weight: 185lbs. 4.0oz. 84.376587uk; 26.6 BMI Method:Stated General Appearance: No Apparent Distress, WD/WN HEENT: PERRL/EOMI, TMs Normal, Normal ENT Inspection, Pharynx Normal, Moist Mucous Membranes, Other (erythema/abrasion left forehead ) Neck: Normal Inspection, Non Tender Respiratory: Lungs Clear, Normal Breath Sounds, No Accessory Muscle Use, No Respiratory Distress Cardiovascular: Regular Rate, Rhythm, No Edema, Normal Peripheral Pulses Capillary Refill: Less Than 3 Seconds Gastrointestinal: normal bowel sounds, non tender, soft, no organomegaly Extremity: Normal Capillary Refill, Normal Inspection, Normal Range of Motion, Non Tender, No Pedal Edema Neurologic/Psychiatric: Alert, Oriented x3, Normal Mood/Affect Skin: Normal Color, Warm/Dry, Other (ecchymoses bilateral forearms. A 6 cm superficial skin tears that are hemostatic on the right forearm) Lymphatic: No Adenopathy Results Lab Laboratory Tests 03/08/19 20:07 03/08/19 20:40 03/08/19 22:15 03/09/19 03:37 Assessment/Plan Assessment/Plan s/p Syncope probably secondary to hypoglycemia -Head CT negative Afib RVR -Cardizem gtt -Pt has hx of Afib -Cardiology is consulted Hypoglycemia -Currently on D5 1/2 at 100 -Monitor close Rt posterior rib lesion - per CXR on admission-- probably secondary to metastatic renal cell carcinoma -Check CT of chest Hypokalemia, hypomag Elevated LFTs -Check abd US -Check amylase lipase -Hepatitis panel Hx of metastatic renal cell carcinoma -Follows with [facility] -Currently undergoing chem with SERA FLOYD DO Mar 09, 2019 05:59
[2019-03-09] MEDS: MAGNESIUM 1 GM/100 ML IVPB 100 ML IV SCH ×5 (06:00→09:22)
[2019-03-09] MEDS: POTASSIUM CL 10MEQ/50ML IVPB 50 ML IV SCH (06:37)
[2019-03-09] MEDS: KCL 20 MEQ TAB (K-DUR) PO SCH (06:37)
[2019-03-09 07:00] LABS: AMMONIA 24 UMOL/L (11-32); AMYLASE 64 U/L (25-125); LIPASE 51 U/L (8-78)
--- NOTE | 2019-03-09 07:45 | Diagnostic Imaging Report ---
EXAM: CHEST 1 VIEW, AP/PA ONLY INDICATION: Syncope. Arrhythmia. Hypoglycemia COMPARISON: Chest radiograph 03/08/2019. FINDINGS: Normal heart size and central pulmonary vascularity. No focal pulmonary opacity, pleural effusion or pneumothorax. Stable expansion of the right fifth rib. IMPRESSION: No acute cardiopulmonary findings. Stable indeterminate expansion of the posterior right fifth rib. Dictated by: Dictated on workstation # [id number]
--- NOTE | 2019-03-09 07:58 | Consultation-Cardiology ---
HPI-Cardiology Cardiology Consultation: Date of Consultation 03/09/19 Time Seen by a Provider: 09:10 Date of Admission 03-08-19 Attending Physician Ranjan Pate MD Admitting Physician Jacobo Owens MD Consulting Physician Calin Lopez MD HPI: Chief Complaint: Syncope A-fib with RVR Mr. Blevins is a 73 year old male admitted to ICU 5 from the ED d/t syncopal episode and a-fib with RVR. He states he lives at home alone. He reports yesterday morning he had been up and used the BR. He states it was around 10:00-10:30 in the morning. The next thing he recalls is waking up on the floor in his house and it was around 5:00 in the afternoon. He denies any loss of bowl or bladder control. He reports he has had episodes of low blood sugars at home and they have been adjusting his medications. He states he believes his blood sugar was 37 when he got to the ED. He denies any c/o CP, palpitations, dyspnea. LE swelling. He denies any nausea, but reports d/t chronic heart burn and bloating he has not been able to eat much. He reports recent episodes of diarrhea, but feels this is r/t his chemo for which he is following at [facility]. He reports he has been following with Dr. Zurita at [facility] for cardiac care. He states he has chronic a-fib and is on Eliquis. Review of Systems-Cardiology Review of Systems Constitutional: No chills, No fever Eyes: No vision change Ears/Nose/Throat: No epistaxis, No recent hearing loss Respiratory: As described under HPI Cardiovascular: As described under HPI Gastrointestinal: As described under HPI Genitourinary: No dysuria, No hematuria Musculoskeletal: no symptoms reported Skin: other (abrasions to right arm following fall at home) Psychiatric/Neurological: As described under HPI; No anxiety, No depression, No seizure Hematologic: No bleeding abnormalities COU-Dzhdwo-Eqcazl Hx Patient Social History Alcohol Use: Denies Use Recreational Drug Use: No Smoking Status: Never a Smoker 2nd Hand Smoke Exposure: No Recent Foreign Travel: No Recent Infectious Disease Expo: No Hospitalization with Isolation: Denies Immunizations Up To Date Tetanus Booster (TDap): Less than 5yrs Date of Pneumonia Vaccine: Apr 19, 2011 Date of Influenza Vaccine: Apr 19, 2018 Past Medical History PMH As described under Assessment. Allergies and Home Medications Allergies Coded Allergies: No Known Drug Allergies (Unverified , 10/20/11) Home Medications Amlodipine Besylate 10 Mg Tablet, 10 MG PO DAILY, (Reported) Apixaban 5 Mg Tablet, 5 MG PO BID, (Reported) C,E,Zinc,Copper 11/Gveql2i/Lut 1 Each Capsule, 1 CAP PO DAILY, (Reported) Cabozantinib S-Malate 60 Mg Tablet, 60 MG PO DAILY, (Reported) Cholecalciferol (Vitamin D3) 1,000 Unit Tablet, 1,000 UNIT PO 1500, (Reported) Cyanocobalamin (Vitamin B-12) 1,000 Mcg Tablet, 1,000 MCG PO DAILY, (Reported) Empagliflozin 25 Mg Tablet, 25 MG PO DAILY, (Reported) Famotidine 20 Mg Tablet, 20 MG PO 1500, (Reported) Fenofibrate Nanocrystallized 145 Mg Tablet, 145 MG PO 1500, (Reported) Ferrous Sulfate 325 Mg Tablet, 325 MG PO BID, (Reported) Glimepiride 2 Mg Tablet, 4 MG PO DAILY, (Reported) TAKES 2 (2MG) TABLETS Lisinopril 40 Mg Tablet, 40 MG PO HS, (Reported) Loperamide HCl 2 Mg Tablet, 4 MG PO BID PRN for DIARRHEA, (Reported) Lutein 20 Mg Capsule, 20 MG PO DAILY, (Reported) Metoprolol Succinate 100 Mg Tab.er.24h, 200 MG PO DAILY, (Reported) TAKES 2 (100MG) TABLETS Multivit-Min/FA/Lycopene/Lut 1 Each Tablet, 1 TAB PO 1500, (Reported) Omeprazole 20 Mg Capsule.dr, 20 MG PO DAILY, (Reported) Prednisone 10 Mg Tab, 15 MG PO DAILY, (Reported) TAKES 1 & 1/2 (10MG) TABLET Prochlorperazine Maleate 5 Mg Tablet, 10 MG PO HS, (Reported) TAKES 2 (5MG) TABLETS Promethazine HCl 25 Mg Tablet, 25 MG PO Q6H PRN for NAUSEA/VOMITING-1ST LINE, (Reported) Pyridoxine HCl 100 Mg Tablet, 100 MG PO HS, (Reported) Simethicone 125 Mg Capsule, 250-375 MG PO BID PRN for GAS, (Reported) Sitagliptin Phos/Metformin HCl 1 Each Tbmp.24hr, 1 TAB PO BID, (Reported) Tramadol HCl 50 Mg Tablet, 50 MG PO BID, (Reported) Patient Home Medication List Home Medication List Reviewed: Yes Physical Exam-Cardiology Physical Exam Vital Signs/I&O 03/09/19 03/09/19 03/09/19 03/10/19 20:00 20:00 20:00 00:00 Temp 96.6 Pulse 86 Resp 18 B/P (MAP) 137/108 (118) Pulse Ox 98 97 98 O2 Delivery Room Air Room Air Room Air 03/10/19 03/10/19 03/10/19 03/10/19 00:17 01:00 01:00 02:00 Pulse 73 75 75 84 Resp 17 16 13 B/P (MAP) 132/93 (106) 140/106 (117) 121/83 (96) Pulse Ox 95 96 96 O2 Delivery Room Air Room Air Room Air 03/10/19 03/10/19 03/10/19 03/10/19 03:00 04:00 04:00 04:55 Temp 96.8 Pulse 82 98 Resp 21 16 B/P (MAP) 140/109 (119) 143/103 (116) Pulse Ox 96 98 96 O2 Delivery Room Air Room Air Room Air 03/10/19 00:00 Intake Total 2030 ml Output Total 1700 ml Balance 330 ml Capillary Refill : Less Than 3 Seconds Constitutional: AAO x 3, well-developed, well-nourished HEENT: PERRL, hearing is well preserved, oral hygience is good Neck: No carotid bruit; carotid pulses are 2 + bilaterally Respiratory: No accessory muscle use, No respiratory distress; chest expansion is symmetric, chest is bilaterally symmetric, lungs clear to auscultation Cardiovascular: irregularly irregular; No JVD; S1 and S2 Gastrointestinal: No tender; soft, round, audible bowel sounds Extremities: no lower extremity edema bilateral Neurologic/Psychiatric: grossly intact Skin: other (right arm with dressing in place; drsg D&I - not removed) Data Review Labs Laboratory Tests 03/09/19 10:26: Glucometer 111H 03/09/19 12:58: Glucometer 103 03/09/19 16:03: Glucometer 106 03/09/19 20:19: Glucometer 137H 03/10/19 00:18: Glucometer 142H 03/10/19 03:19: White Blood Count 5.8, Red Blood Count 5.60, Hemoglobin 15.7, Hematocrit 47, Mean Corpuscular Volume 84, Mean Corpuscular Hemoglobin 28, Mean Corpuscular Hemoglobin Concent 34, Red Cell Distribution Width 31.7H, Platelet Count 133, Mean Platelet Volume 10.1, Neutrophils (%) (Auto) 61, Lymphocytes (%) (Auto) 22, Monocytes (%) (Auto) 9, Eosinophils (%) (Auto) 7, Basophils (%) (Auto) 1, Neutrophils # (Auto) 3.5, Lymphocytes # (Auto) 1.3, Monocytes # (Auto) 0.5, Eosinophils # (Auto) 0.4H, Basophils # (Auto) 0.0, Sodium Level 139, Potassium Level 4.2, Chloride Level 110H, Carbon Dioxide Level 20L, Anion Gap 9, Blood Urea Nitrogen 10, Creatinine 1.30, Estimat Glomerular Filtration Rate 54, BUN/Creatinine Ratio 8, Glucose Level 139H, Calcium Level 8.1L, Phosphorus Level 2.6, Magnesium Level 2.2 Radiology NAME: MONIQUE BLEVINS Kristin MED REC#: [id number] PT STATUS: ADM IN : 1945 PHYSICIAN: RANJAN PATE MD ADMIT DATE: 03/08/19/ICU Draft Date of Exam:03/09/19 CHEST 1 VIEW, AP/PA ONLY EXAM: CHEST 1 VIEW, AP/PA ONLY INDICATION: Syncope. Arrhythmia. Hypoglycemia COMPARISON: Chest radiograph 03/08/2019. FINDINGS: Normal heart size and central pulmonary vascularity. No focal pulmonary opacity, pleural effusion or pneumothorax. Stable expansion of the right fifth rib. IMPRESSION: No acute cardiopulmonary findings. Stable indeterminate expansion of the posterior right fifth rib. Dictated on workstation # [id number] Dict: 03/09/19 0739 Trans: 03/09/19 0745 [id number] Interpreted by: DEVYN MOON MD Electronically signed by: NAME: MONIQUE BLEVINS Kristin MED REC#: [id number] PT STATUS: REG ER : 1945 PHYSICIAN: STEVEN ADAN MD ADMIT DATE: 03/08/19/ER Signed Date of Exam: 03/08/19 CT HEAD/CERVICAL SPINE WO PROCEDURE: CT head and CT cervical spine without contrast. TECHNIQUE: Multiple contiguous axial images were obtained through the brain and cervical spine without the use of intravenous contrast. Sagittal and coronal reformations through the cervical spine were then performed. Auto Exposure Controls were utilized during the CT exam to meet ALARA standards for radiation dose reduction. INDICATION: Found down, hypoglycemic COMPARISON: CT head 04/02/2018 CT head: Age-related cerebral volume loss and microvascular changes are present. There is no midline shift or mass effect. There is no hemorrhage or evidence of acute ischemia. There is no extra-axial fluid collection. There is no skull fracture. There is mucous retention cyst seen in the maxillary sinuses. Otherwise, paranasal sinuses and mastoids are normal. There is no skull fracture. IMPRESSION: No acute intracranial abnormalities. CT cervical spine: The alignment is normal. There is no subluxation or fracture. No osseous lesion is identified. Mild degenerative changes seen throughout the disc spaces and facet joints. Minimal carotid atherosclerosis is present. IMPRESSION: No traumatic malalignment or fracture. Dictated by: Dictated on workstation # [id number] Dict: 03/08/192049 Trans: 03/08/192101 Interpreted by: PAIGE MICHAEL Electronically signed by: PAIGE MICHAEL 03/08/192101 ECG Impression ECG Initial ECG Impression: Atrial Fibrillation w/RVR A/P-Cardiology Assessment/Admission Diagnosis Syncope of undetermined etiology Hypoglycemic episode (blood glucose per lab in ED 37 on 03-08-19) A-fib with RVR Chronic atrial fibrillation - managed by Dr. Zurita at [facility] Cardiology [facility] for stroke prophylaxis MPI of 01/28/16 showed no ischemia or infarction and LVEF66% Hyperlipidemia Elevated BMI of approx 33.6 DJD Spinal stenosis L ankle chronically in a metallic brace following injury 2012 DM II Hypertension Renal cancer - chemo tx being managed at [facility] H/O left nephrectomy in 2016 at [facility] Elevated liver enzymes of undetermined etiology - management per medical services Hypomagnesium Discussion and Recomendations Syncopal episode of undetermined etiology (Unwitnessed) Hypoglycemic episode which may have caused syncopal episode A-fib with RVR - rate improved on Cardizem gtt - resume home dose of BB Continue OAC with Eliquis for stroke prophylaxis Management of hypoglycemia as per medical services Monitor lab Replace electrolytes Further recs will be based on his hospital course We would like to thank medical services for this consult Clinical Quality Measures DVT/VTE Risk/Contraindication: Risk Factor Score Per Nursin RFS Level Per Nursing on Admit: 4+=Very High CRISTINA BARTON Mar 09, 2019 07:58
[2019-03-09] MEDS: D5 1/2 NS 1000 ML IV SOLUTION 1,000 ML IV SCH ×2 (08:42→18:25)
[2019-03-09] MEDS: APIXABAN 5 MG (ELIQUIS) TABLET PO SCH ×2 (08:43→20:20)
[2019-03-09] MEDS: meTOprolol SUCCINATE 100 MG (TOPROL XL) TAB PO SCH ×2 (08:43→09:27)
[2019-03-09] MEDS ORDERED: SIME125C78 PO (09:03)
[2019-03-09] MEDS ORDERED: ALPH1TAB8 PO (09:03)
[2019-03-09] MEDS ORDERED: LISI40TA PO (09:03)
[2019-03-09] MEDS ORDERED: AMLO10TA7 PO (09:03)
[2019-03-09] MEDS ORDERED: MULT-1029 PO (09:10)
[2019-03-09] MEDS ORDERED: FAMO20TA3 PO (09:10)
[2019-03-09] MEDS ORDERED: PROM25TA14 PO (09:28)
[2019-03-09] MEDS ORDERED: CABO60TA PO (09:28)
[2019-03-09] MEDS ORDERED: GLIM2TAB PO (09:28)
[2019-03-09] MEDS ORDERED: C,E,1CAP PO (09:28)
[2019-03-09] MEDS ORDERED: SITA1TBM4 PO (09:28)
[2019-03-09] MEDS ORDERED: LOPE-134 PO (09:28)
[2019-03-09] MEDS ORDERED: OMEP20CA13 PO (09:28)
[2019-03-09] MEDS ORDERED: EMPA25TA PO (09:28)
[2019-03-09] MEDS ORDERED: PRD10T PO (09:28)
[2019-03-09] MEDS ORDERED: LUTE20CA2 PO (09:28)
[2019-03-09] MEDS ORDERED: PROC5TAB9 PO (09:28)
[2019-03-09] MEDS ORDERED: FERR325T18 PO (09:39)
--- NOTE | 2019-03-09 09:44 | NUR ---
SPOKE WITH THE PATIENT ABOUT HIS MEDICATIONS. HE HAD HIS BOTTLES WITH HIM AND I COMPARED IT WITH THE EXT MED HX. HE FILLED 10MG AND 5MG OF PREDNISONE RECENTLY. HE STATS HE HAS BEEN TAKING 1 & 1/2 OF THE 10MG TO USE UP HIS TABLETS. HE HAD BEEN TAKING 20MG DAILY FOR 6 MONTHS OR SO BUT IT WAS RECENTLY DECREASED TO 15MG DAILY. HE FILLED TRAMADOL 50MG #100 FOR A 16 DAY SUPPLY 02-23-19 - HE STATES HE TAKES IT BID HE FILLED PROCHLORPERAZINE 5MG #60 FOR 7 DAYS 07-17-19 - HE STATES HE TAKES 2 HS, HE HAS NOT HAD ANY NAUSEA BUT HE HAS BEEN TAKING THAT AND HASN'T STOPPED BECAUSE HE DOES NOT WANT NAUSEA TO RETURN. IN ADDITION TO WHAT IS SHOWN ON THE EXT MED HX HE HAS A BOTTLE OF PROMETHAZINE 25MG 1 Q6H PRN #90 FILLED 11-11-17 - HE STATES HE HAS NOT HAD TO USE THIS IN SOME TIME SINCE HIS NEW CHEMO MEDICATION BUT HE KEEPS IT ON HAND IF NEEDED. OTC MEDICATIONS: SIMETHICONE 125MG 2-3 BID PRN B6 100MG HS B12 1000MCG DAILY FAMOTIDINE 20MG DAILY MTV 1500 LUTEIN 20MG DAILY OCUVITE DAILY VITAMIN D3 1000 IU 1500 IRON BID IMODIUM 2 BID PRN HE HAS A BOTTLE OF BEANO WITH HIM BUT HE STATES THE SIMETHICONE HAS BEEN WORKING BETTER BECAUSE HE COULD NOT ALWAYS REMEMBER TO TAKE THE BEANO BEFORE STARTING TO EAT AND IT DID NOT SEEM TO WORK THEN.
--- NOTE | 2019-03-09 09:54 | Diagnostic Imaging Report ---
PROCEDURE: US abdomen complete. TECHNIQUE: Multiple real-time grayscale images were obtained over the abdomen in various projections. INDICATION: Elevated liver enzymes. FINDINGS: No comparison available. The liver is normal in size and echogenicity. Pancreas is obscured by bowel gas. The gallbladder contains large stones which are not mobile. The wall is thickened measuring 6 mm. The common bile duct is obscured by bowel gas. No intrahepatic ductal dilation is seen. The spleen is normal. The aorta is obscured by bowel gas. The inferior vena cava is normal. Right kidney is normal in size and echogenicity without hydronephrosis. The left kidney has been surgically removed. No ascites is seen. IMPRESSION: 1. Large non-mobile gallstones with gallbladder wall thickening. Findings would be concerning for cholecystitis if patient has right upper quadrant pain. Dictated by: Dictated on workstation # [id number]
[2019-03-09] MEDS: CABOZANTINIB 60 MG PO SCH (10:22)
--- NOTE | 2019-03-09 11:05 | NUR ---
Pt is [employer] and declines sacraments.
--- NOTE | 2019-03-09 14:22 | Consultation-Cardiology ---
HPI-Cardiology Cardiology Consultation: Date of Consultation 03/09/19 Time Seen by a Provider: 09:15 Date of Admission Attending Physician Alexei Mckenzie MD Admitting Physician Jacobo Owens MD Consulting Physician MELISSA JACOB MD, MA, FACP, FACC, [facility], CCDS Physician requesting consult: Dr Mckenzie HPI: Chief Complaint: Reason for consultation: Syncope, A-fib with RVR HPI Mr. Blevins is a 73 year old male admitted to ICU 5 from the ED d/t syncopal episode and a-fib with RVR. He states he lives at home alone. He reports yesterday morning he had been up and used the BR. He states it was around 10:00-10:30 in the morning. The next thing he recalls is waking up on the floor in his house and it was around 5:00 in the afternoon. He denies any loss of bowl or bladder control. He reports he has had episodes of low blood sugars at home and they have been adjusting his medications. He states he believes his blood sugar was 37 when he got to the ED. He denies any c/o CP, palpitations, dyspnea. LE swelling. He denies any nausea, but reports d/t chronic heart burn and bloating he has not been able to eat much. He reports recent episodes of diarrhea, but feels this is r/t his chemo for which he is following at [facility]. He reports he has been following with Dr. Zurita at [facility] for cardiac care. He states he has chronic a-fib and is on Eliquis. Review of Systems-Cardiology Review of Systems Constitutional: No chills, No fever Eyes: No vision change Ears/Nose/Throat: No epistaxis, No recent hearing loss Respiratory: As described under HPI Cardiovascular: As described under HPI Gastrointestinal: As described under HPI Genitourinary: No dysuria, No hematuria Musculoskeletal: no symptoms reported Skin: other (abrasions to right arm following fall at home) Psychiatric/Neurological: As described under HPI; No anxiety, No depression, No seizure Hematologic: No bleeding abnormalities KAO-Yaadcl-Bazwmo Hx Patient Social History Alcohol Use: Denies Use Recreational Drug Use: No Smoking Status: Never a Smoker 2nd Hand Smoke Exposure: No Recent Foreign Travel: No Recent Infectious Disease Expo: No Hospitalization with Isolation: Denies Immunizations Up To Date Tetanus Booster (TDap): Less than 5yrs Date of Pneumonia Vaccine: Apr 19, 2011 Date of Influenza Vaccine: Apr 19, 2018 Past Medical History PMH As described under Assessment. Allergies and Home Medications Allergies Coded Allergies: No Known Drug Allergies (Unverified , 10/20/11) Home Medications Amlodipine Besylate 10 Mg Tablet, 10 MG PO DAILY, (Reported) Apixaban 5 Mg Tablet, 5 MG PO BID, (Reported) C,E,Zinc,Copper 11/Lubxf0j/Lut 1 Each Capsule, 1 CAP PO DAILY, (Reported) Cabozantinib S-Malate 60 Mg Tablet, 60 MG PO DAILY, (Reported) Cholecalciferol (Vitamin D3) 1,000 Unit Tablet, 1,000 UNIT PO 1500, (Reported) Cyanocobalamin (Vitamin B-12) 1,000 Mcg Tablet, 1,000 MCG PO DAILY, (Reported) Empagliflozin 25 Mg Tablet, 25 MG PO DAILY, (Reported) Famotidine 20 Mg Tablet, 20 MG PO 1500, (Reported) Fenofibrate Nanocrystallized 145 Mg Tablet, 145 MG PO 1500, (Reported) Ferrous Sulfate 325 Mg Tablet, 325 MG PO BID, (Reported) Glimepiride 2 Mg Tablet, 4 MG PO DAILY, (Reported) TAKES 2 (2MG) TABLETS Lisinopril 40 Mg Tablet, 40 MG PO HS, (Reported) Loperamide HCl 2 Mg Tablet, 4 MG PO BID PRN for DIARRHEA, (Reported) Lutein 20 Mg Capsule, 20 MG PO DAILY, (Reported) Metoprolol Succinate 100 Mg Tab.er.24h, 200 MG PO DAILY, (Reported) TAKES 2 (100MG) TABLETS Multivit-Min/FA/Lycopene/Lut 1 Each Tablet, 1 TAB PO 1500, (Reported) Omeprazole 20 Mg Capsule.dr, 20 MG PO DAILY, (Reported) Prednisone 10 Mg Tab, 15 MG PO DAILY, (Reported) TAKES 1 & 1/2 (10MG) TABLET Prochlorperazine Maleate 5 Mg Tablet, 10 MG PO HS, (Reported) TAKES 2 (5MG) TABLETS Promethazine HCl 25 Mg Tablet, 25 MG PO Q6H PRN for NAUSEA/VOMITING-1ST LINE, (Reported) Pyridoxine HCl 100 Mg Tablet, 100 MG PO HS, (Reported) Simethicone 125 Mg Capsule, 250-375 MG PO BID PRN for GAS, (Reported) Sitagliptin Phos/Metformin HCl 1 Each Tbmp.24hr, 1 TAB PO BID, (Reported) Tramadol HCl 50 Mg Tablet, 50 MG PO BID, (Reported) Patient Home Medication List Home Medication List Reviewed: Yes Physical Exam-Cardiology Physical Exam Vital Signs/I&O 03/09/19 03/09/19 03/09/19 03/09/19 03:00 04:00 04:00 05:00 Temp 96.6 Pulse 79 89 94 Resp 18 14 15 B/P (MAP) 120/88 (99) 124/101 (109) 116/83 (94) Pulse Ox 96 97 98 98 O2 Delivery Room Air Room Air Room Air Room Air 03/09/19 03/09/19 03/09/19 03/09/19 05:07 06:00 07:00 07:00 Pulse 92 85 97 Resp 15 20 B/P (MAP) 116/83 130/94 (106) 132/100 (111) Pulse Ox 98 95 O2 Delivery Room Air Room Air 03/09/19 03/09/19 03/09/19 03/09/19 08:00 08:00 09:00 10:00 Temp 97.0 Pulse 85 93 84 Resp 18 22 9 B/P (MAP) 116/86 (96) 143/101 (115) 139/95 (110) Pulse Ox 98 99 99 97 O2 Delivery Room Air Room Air Room Air Room Air 03/09/19 03/09/19 03/09/19 03/09/19 11:00 12:00 12:00 12:30 Temp 97.1 Pulse 84 93 Resp 10 19 B/P (MAP) 127/88 (101) 150/105 (120) Pulse Ox 94 98 98 O2 Delivery Room Air Room Air Room Air 03/09/19 00:00 Intake Total 1000 ml Balance 1000 ml Capillary Refill : Less Than 3 Seconds Constitutional: AAO x 3, well-developed, well-nourished HEENT: PERRL, hearing is well preserved, oral hygience is good Neck: No carotid bruit; carotid pulses are 2 + bilaterally Respiratory: No accessory muscle use, No respiratory distress; chest expansion is symmetric, chest is bilaterally symmetric, lungs clear to auscultation Cardiovascular: irregularly irregular; No JVD; S1 and S2 Gastrointestinal: No tender; soft, round, audible bowel sounds Extremities: no lower extremity edema bilateral Neurologic/Psychiatric: grossly intact Skin: other (right arm with dressing in place; drsg D&I - not removed) Data Review Labs Laboratory Tests 03/08/19 19:58: Glucometer 37*L 03/08/19 20:07: White Blood Count 7.1, Red Blood Count 6.37H, Hemoglobin 17.5, Hematocrit 52, Mean Corpuscular Volume 82, Mean Corpuscular Hemoglobin 27, Mean Corpuscular Hemoglobin Concent 34, Red Cell Distribution Width 32.3H, Platelet Count 220, Mean Platelet Volume 10.1, Neutrophils (%) (Auto) 68, Lymphocytes (%) (Auto) 16, Monocytes (%) (Auto) 9, Eosinophils (%) (Auto) 6, Basophils (%) (Auto) 0, Neutrophils # (Auto) 4.9, Lymphocytes # (Auto) 1.2, Monocytes # (Auto) 0.7, Eosinophils # (Auto) 0.4H, Basophils # (Auto) 0.0 03/08/19 20:26: Glucometer 51*L 03/08/19 20:40: Sodium Level 140, Potassium Level 6.0H, Chloride Level 108H, Carbon Dioxide Level 17L, Anion Gap 15H, Blood Urea Nitrogen 14, Creatinine 1.30, Estimat Glomerular Filtration Rate 54, BUN/Creatinine Ratio 11, Glucose Level 76, Calcium Level 9.7, Corrected Calcium 9.9, Total Bilirubin 0.6, Aspartate Amino Transf (AST/SGOT) 67H, Alanine Aminotransferase (ALT/SGPT) 91H, Alkaline Phosphatase 46, Total Creatine Kinase 135, Troponin I < 0.028, C-Reactive Protein High Sensitivity 0.91H, B-Type Natriuretic Peptide 301.7H, Total Protein 6.8, Albumin 3.7 03/08/19 21:05: Glucometer 44*L 03/08/19 22:15: Potassium Level 5.3H 03/08/19 23:52: Glucometer 127H 03/09/19 00:09: Glucometer 90 03/09/19 01:00: Urine Color YELLOW, Urine Clarity CLEAR, Urine pH 6, Urine Specific Williamson 1.015L, Urine Protein NEGATIVE, Urine Glucose (UA) 4+H, Urine Ketones NEGATIVE, Urine Nitrite NEGATIVE, Urine Bilirubin NEGATIVE, Urine Urobilinogen NORMAL, Urine Leukocyte Esterase NEGATIVE, Urine RBC (Auto) NEGATIVE, Urine RBC NONE, Urine WBC RARE, Urine Squamous Epithelial Cells 0-2, Urine Crystals NONE, Urine Bacteria FEWH, Urine Casts NONE, Urine Mucus NEGATIVE, Urine Culture Indicated NO 03/09/19 03:37: White Blood Count 6.2, Red Blood Count 5.66, Hemoglobin 15.4, Hematocrit 47, Mean Corpuscular Volume 84, Mean Corpuscular Hemoglobin 27, Mean Corpuscular Hemoglobin Concent 33, Red Cell Distribution Width 31.6H, Platelet Count 176, Mean Platelet Volume 9.7, Neutrophils (%) (Auto) 62, Lymphocytes (%) (Auto) 22, Monocytes (%) (Auto) 9, Eosinophils (%) (Auto) 7, Basophils (%) (Auto) 0, Neutrophils # (Auto) 3.9, Lymphocytes # (Auto) 1.4, Monocytes # (Auto) 0.6, Eosinophils # (Auto) 0.4H, Basophils # (Auto) 0.0, Sodium Level 142, Potassium Level 3.9, Chloride Level 109H, Carbon Dioxide Level 23, Anion Gap 10, Blood Urea Nitrogen 11, Creatinine 1.12, Estimat Glomerular Filtration Rate > 60, BUN/Creatinine Ratio 10, Glucose Level 52*L, Calcium Level 8.7, Corrected Calcium 9.5, Phosphorus Level 2.4, Magnesium Level 1.3L, Total Bilirubin 0.4, Aspartate Amino Transf (AST/SGOT) 50H, Alanine Aminotransferase (ALT/SGPT) 71H, Alkaline Phosphatase 38L, Total Protein 5.6L, Albumin 3.0L 03/09/19 05:22: Glucometer 62L 03/09/19 05:47: Glucometer 73 03/09/19 06:20: Ammonia 24, Amylase Level 64, Lipase 51 03/09/19 10:26: Glucometer 111H 03/09/19 12:58: Glucometer 103 Laboratory Tests 03/08/19 20:07 03/08/19 20:40 03/08/19 22:15 03/09/19 03:37 A/P-Cardiology Assessment/Admission Diagnosis Syncope of undetermined etiology: unlikely to be cardiac (pt reports syncope for may hours) suspect hypoglycemic syncope Hypoglycemic episode (blood glucose per lab in ED 37 on 03-08-19) A-fib with RVR Chronic atrial fibrillation - managed by Dr. Motley at [facility] for stroke prophylaxis MPI of 01/28/16 showed no ischemia or infarction and LVEF66% Hyperlipidemia Elevated BMI of approx 33.6 DJD Spinal stenosis L ankle chronically in a metallic brace following injury 2012 DM II Hypertension Renal cancer - chemo tx being managed at [facility] H/O left nephrectomy in 2016 at [facility] Elevated liver enzymes of undetermined etiology - management per medical services Hypomagnesium Discussion and Recomendations * Replenish lytes * Resume bb * Continue OAC * Monitor labs * I discussed his CV issues with him in detail Clinical Quality Measures DVT/VTE Risk/Contraindication: Risk Factor Score Per Nursin RFS Level Per Nursing on Admit: 4+=Very High MELISSA JACOB MD FACP [facility] CCDS Mar 09, 2019 14:22
--- NOTE | 2019-03-09 16:44 | History & Physical-Hospitalist ---
History of Present Illness HPI/Chief Complaint The patient is a 73-year-old white male who noted over the past several days morning blood sugars of been a little lower than usual for him in the 50-70 range to get up and eat and feel better now. He got up later at around 1030 felt weak and the next thing he knew it was 7 hours later around 5 o'clock p.m. he alerted EMS services and apparently his blood sugar was 60 per his report in the field although by the time he got to the emergency room his blood sugar was 37 and he was feeling weak but apparently still conversant and was given sugar with some improvement in symptoms. 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 He was still taking 2 mg of glimepiride twice a day and then tapered down to 15 mg of prednisone daily. He had no syncopal episodes denied any previous problems with confusion and denied headache night sweats chills or fever. He al so had no chest discomfort orthopnea PND or pedal edema. Appetite had been normal for him and if he denied weight loss. Further past medical history is significant for long-standing chronic atrial fibrillation with good rate control and for which she takes Elavil [place]. He has renal cell carcinoma status post left nephrectomy with pulmonary and bony metastasis. He is cared for in regards to oncology at . Date Seen 03/09/19 Time Seen by a Provider: 08:00 Attending Physician Jamie Domingo MD PCP Jamie Domingo MD Referring Physician Date of Admission Mar 08, 2019 at 23:00 Home Medications & Allergies Home Medications Reviewed patient Home Medication Reconciliation performed by pharmacy medication reconciliations poultry service technician and/or nursing. Patients Allergies have been reviewed. Allergies Allergies Coded Allergies No Known Drug Allergies (Unverified10/20/11) Past Edeeros-Gcskpa-Fxvyjj Hx Past Med/Social Hx: Reviewed and Corrections made Patient Social History Alcohol Use: Denies Use Recreational Drug Use: No Smoking Status: Never a Smoker 2nd Hand Smoke Exposure: No Recent Foreign Travel: No Contact w/other who traveled: No Recent Hopitalizations: No Recent Infectious Disease Expo: No Immunizations Up To Date Tetanus Booster (TDap): Less than 5yrs Date of Pneumonia Vaccine: Apr 19, 2011 Date of Influenza Vaccine: Apr 19, 2018 Seasonal Allergies Seasonal Allergies: No Past Medical History Surgeries: Nephrectomy Cardiac: Atrial Fibrillation, Hypertension Reproductive: No Gastrointestinal: Gastroesophageal Reflux Endocrine: Diabetes, Non-Insulin dep Cancer: Kidney Did You Recieve Any Treatments: Yes What Type of Treatment Did You: Chemotherapy, Surgical Intervention History of Blood Disorders: No Review of Systems Constitutional: see HPI Physical Exam Physical Exam Vital Signs Vital Signs - First Documented 03/08/19 19:51 Temp 96.2 Pulse 111 Resp 18 B/P (MAP) 142/108 (119) Pulse Ox 99 O2 Delivery Room Air Capillary Refill : Less Than 3 Seconds Height, Weight, BMI Height: 5'10.00" Weight: 187lbs. 1.0oz. 84.229057ob; 26.6 BMI Method:Stated General Appearance: No Apparent Distress, Chronically ill HEENT: PERRL/EOMI, Pharynx Normal Neck: Full Range of Motion, Normal Inspection, Non Tender Respiratory: Chest Non Tender, Lungs Clear, Normal Breath Sounds, No Accessory Muscle Use, No Respiratory Distress Cardiovascular: No Gallop, No JVD, No Murmur, Irregularly Irregular Gastrointestinal: Normal Bowel Sounds, No Organomegaly, No Pulsatile Mass, Non Tender, Soft Extremity: Normal Range of Motion, Non Tender, No Calf Tenderness, No Pedal Edema Neurologic/Psychiatric: Alert, Oriented x3, No Motor/Sensory Deficits, Normal Mood/Affect, organ pipe voicer II-XII Norm as Tested Skin: Normal Color, Warm/Dry Results Results/Procedures Labs Laboratory Tests 03/08/19 20:07 03/08/19 20:40 03/08/19 22:15 03/09/19 03:37 Patient resulted labs reviewed. Assessment/Plan Admission Diagnosis 1. Syncopal event most likely secondary to hypoglycemia with concerns of possibility of a hypoglycemic related seizure. Patient blood sugars have remained normal off of medication possibly due to buildup of sulfonic urea. We'll be holding this medication and likely resume metformin if blood sugars become elevated. 2. Atrial fibrillation rapid ventricular response likely due to number 2 currently heart rate is in the 90s on 5 mg of Cartia per hour IV will resume beta lauren therapy now that her sugars have normalized and can be monitored and DC Cartia drip. 3. Electrolyte abnormality secondary to number 1 in regards to hyper kalemia now resolved and hypomagnesemia being replaced continue to monitor. 4. Renal cell carcinoma with known bony skin and pulmonary metastasis. Will DC CT scan patient is due for repeat surveillance CT evaluation including the head at as he is not exhibiting any current neurologic findings with recent negative MRI doubt cerebral metastasis. 5. 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 Admission Status: Inpatient Order (span 2 midnights) Reason for Inpatient Admission: Complex medical management as per admission diagnosis Clinical Quality Measures DVT/VTE Risk/Contraindication: Risk Factor Score Per Nursin RFS Level Per Nursing on Admit: 4+=Very High JAMIE DOMINGO MD Mar 09, 2019 16:44
--- NOTE | 2019-03-09 20:30 | NUR ---
This RN reported high blood pressure of 137/[address] Desai. Order received to restart lisinopril 40mg HS. Will continue to monitor.
[2019-03-09] MEDS ORDERED: lisINopril 40 MG (PRINIVIL) TABLET PO ONE (22:15)
[2019-03-10] VITALS (7 sets, daily range): BP systolic 117–150; BP diastolic 83–109
[2019-03-10] MEDS: D5 1/2 NS 1000 ML IV SOLUTION 1,000 ML IV SCH ×3 (00:45→08:25)
[2019-03-10 03:32] LABS: BASOPHILS % (AUTO) 1 % (0-10); EOSINOPHILS # (AUTO) 0.4 10^3/uL (0.0-0.3); EOSINOPHILS % (AUTO) 7 % (0-10); HEMATOCRIT 47 % (40-54); HEMOGLOBIN 15.7 G/DL (13.3-17.7); LYMPHOCYTES # (AUTO) 1.3 X 10^3 (1.0-4.0); LYMPHOCYTES % (AUTO) 22 % (12-44); MEAN CORPUSCULAR HEMOGLOBIN 28 PG (25-34); MEAN CORPUSCULAR HGB CONC 34 G/DL (32-36); MEAN CORPUSCULAR VOLUME 84 FL (80-99); MEAN PLATELET VOLUME 10.1 FL (7.4-10.4); MONOCYTES # (AUTO) 0.5 X 10^3 (0.0-1.0); MONOCYTES % (AUTO) 9 % (0-12); NEUTROPHILS # (AUTO) 3.5 X 10^3 (1.8-7.8); NEUTROPHILS % (AUTO) 61 % (42-75); PLATELET COUNT 133 10^3/uL (130-400); RED CELL DISTRIBUTION WIDTH 31.7 % (10.0-14.5); WHITE BLOOD COUNT 5.8 10^3/uL (4.3-11.0)
[2019-03-10 04:07] LABS: CALCIUM 8.1 MG/DL (8.5-10.1); CREATININE SERUM 1.3 MG/DL (0.60-1.30); MAGNESIUM 2.2 MG/DL (1.6-2.4); PHOSPHORUS 2.6 MG/DL (2.3-4.7); POTASSIUM 4.2 MMOL/L (3.6-5.0)
--- NOTE | 2019-03-10 05:17 | Pulmonary Progress Note ---
Subjective Time Seen by a Provider: 06:19 Subjective/Events-last exam No complications noted. Sepsis Event Evaluation Height, Weight, BMI Height: 5'10.00" Weight: 187lbs. 1.0oz. 84.501829qd; 26.6 BMI Method:Stated Exam Exam Vital Signs Date Time Temp Pulse Resp B/P (MAP) Pulse Ox O2 Delivery O2 Flow Rate FiO2 03/10/19 04:55 98 16 143/103 (116) 96 Room Air 03/10/19 03:00 82 21 140/109 (119) 96 Room Air 03/10/19 02:00 84 13 121/83 (96) 96 Room Air 03/10/19 01:00 75 03/10/19 01:00 75 16 140/106 (117) 96 Room Air 03/10/19 00:17 73 17 132/93 (106) 95 Room Air 03/10/19 00:00 98 Room Air 03/09/19 20:00 86 18 137/108 (118) 97 Room Air 03/09/19 20:00 96.6 03/09/19 20:00 98 Room Air 03/09/19 19:00 92 03/09/19 18:00 91 19 153/115 (128) 98 Room Air 03/09/19 17:00 89 16 149/113 (125) 97 Room Air 03/09/19 16:00 97.0 89 18 138/100 (113) 98 Room Air 03/09/19 16:00 98 Room Air 03/09/19 15:00 34 120/87 (98) 98 Room Air 03/09/19 14:00 78 16 113/88 (96) 98 Room Air 03/09/19 13:00 86 03/09/19 13:00 85 13 138/107 (117) 98 Room Air 03/09/19 12:30 97.1 03/09/19 12:00 98 Room Air 03/09/19 12:00 93 19 150/105 (120) 98 Room Air 03/09/19 11:00 84 10 127/88 (101) 94 Room Air 03/09/19 10:00 84 9 139/95 (110) 97 Room Air 03/09/19 09:00 93 22 143/101 (115) 99 Room Air 03/09/19 08:00 97.0 85 18 116/86 (96) 99 Room Air 03/09/19 08:00 98 Room Air 03/09/19 07:00 97 03/09/19 07:00 85 20 132/100 (111) 95 Room Air 03/09/19 06:00 92 15 130/94 (106) 98 Room Air I & O 03/10/19 07:00 Intake Total 3400 ml Output Total 2725 ml Balance 675 ml Height & Weight Height: 5'10.00" Weight: 187lbs. 1.0oz. 84.129730ok; 26.6 BMI Method:Stated General Appearance: No Apparent Distress, Chronically ill HEENT: PERRL/EOMI, Pharynx Normal Neck: Full Range of Motion, Normal Inspection, Non Tender Respiratory: Chest Non Tender, Lungs Clear, Normal Breath Sounds, No Accessory Muscle Use, No Respiratory Distress Cardiovascular: No Gallop, No JVD, No Murmur, Irregularly Irregular Capillary Refill: Less Than 3 Seconds Gastrointestinal: normal bowel sounds, non tender, soft, no organomegaly Extremity: Normal Range of Motion, Non Tender, No Calf Tenderness, No Pedal Gagan ma Neurologic/Psychiatric: Alert, Oriented x3, No Motor/Sensory Deficits, Normal Mood/Affect, social science teacher II-XII Norm as Tested Skin: Normal Color, Warm/Dry Lymphatic: No Adenopathy Results Lab Laboratory Tests 03/08/19 20:07 03/08/19 20:40 03/08/19 22:15 03/09/19 03:37 03/10/19 03:19 Assessment/Plan Assessment/Plan s/p Syncope probably secondary to hypoglycemia -Head CT negative Afib RVR -Cardizem -Pt has hx of Afib -Cardiology following Hypoglycemia -Currently on D5 07/21 at 100 -Monitor close Rt posterior rib lesion - per CXR on admission-- probably secondary to metastatic renal cell carcinoma - CT of chest through [facility] -Follows with [facility] Elevated LFTs -Monitor Hx of metastatic renal cell carcinoma -Follows with [facility] -Currently undergoing chem with [facility] Transfer to 4th floor. I am going to sign off. please call with any questions. SERA PAULINO DO Mar 10, 2019 05:17
[2019-03-10 06:48] LABS: HEPATITIS C ANTIBODY C Non-Reactive (Non-Reactive)
[2019-03-10] MEDS ORDERED: predniSONE 10 MG TAB PO SCH (07:00)
[2019-03-10] MEDS ORDERED: predniSONE 5 MG TAB PO SCH (07:00)
[2019-03-10] MEDS: POTASSIUM CL 10MEQ/50ML IVPB 50 ML IV SCH (07:11)
[2019-03-10] MEDS: DILTIAZEM 125 MG/NS 100 ML IV SCH ×2 (07:11)
[2019-03-10] MEDS: KCL 20 MEQ TAB (K-DUR) PO SCH (07:11)
[2019-03-10] MEDS: MAGNESIUM 1 GM/100 ML IVPB 100 ML IV SCH (07:11)
--- NOTE | 2019-03-10 07:51 | Diagnostic Imaging Report ---
Indication: Syncope, arrhythmia, hypoglycemia Portable chest 3:53 AM There are 2 opacities in the right mid chest. One appears laterally and pleural-based measuring 3 cm in diameter. The other is more central near the hilum and measures approximately 3 cm in diameter. This could be a lesion in the right posterior fifth rib. Left lung is clear. There are no effusions or pneumothoraces. Impression: 2 opacities right lung. Inflammatory changes versus neoplasia are in the differential diagnosis. Further evaluation with CT chest should be considered. Dictated by: Dictated on workstation # [id number]
[2019-03-10] MEDS: APIXABAN 5 MG (ELIQUIS) TABLET PO SCH (08:25)
--- NOTE | 2019-03-10 08:37 | Progress Note - Cardiology ---
Cardiology SOAP Progress Note Subjective: Up to recliner at the bedside. Denies any c/o CP, palpitations, syncope, near syncope or dyspnea. Objective: I&O/Vital Signs 03/10/19 03/10/19 03/10/19 03/10/19 00:00 00:17 01:00 01:00 Pulse 73 75 75 Resp 17 16 B/P (MAP) 132/93 (106) 140/106 (117) Pulse Ox 98 95 96 O2 Delivery Room Air Room Air Room Air 03/10/19 03/10/19 03/10/19 03/10/19 02:00 03:00 04:00 04:00 Temp 96.8 Pulse 84 82 Resp 13 21 B/P (MAP) 121/83 (96) 140/109 (119) Pulse Ox 96 96 98 O2 Delivery Room Air Room Air Room Air 03/10/19 03/10/19 03/10/19 03/10/19 04:55 07:00 08:00 08:28 Pulse 98 112 94 Resp 16 18 B/P (MAP) 143/103 (116) 150/109 (123) Pulse Ox 96 98 97 O2 Delivery Room Air Room Air Room Air 03/10/19 00:00 Intake Total 2030 ml Output Total 1700 ml Balance 330 ml Weight (Pounds): 185 Weight (Ounces): 1.0 Weight (Calculated Kilograms): 83.824722 Constitutional: AAO x 3, well-developed, well-nourished Respiratory: No accessory muscle use, No respiratory distress; chest expansion is symmetric, chest is bilaterally symmetric, lungs clear to auscultation Cardiovascular: irregularly irregular; No JVD; S1 and S2 Gastrointestional: No tender; soft, round, audible bowel sounds Extremities: no lower extremity edema bilateral Neurologic/Psychiatric: grossly intact Skin: other (right arm with dressing in place; drs D&I - not removed) Results/Procedures: Labs Laboratory Tests 03/09/19 10:26: Glucometer 111H 03/09/19 12:58: Glucometer 103 03/09/19 16:03: Glucometer 106 03/09/19 20:19: Glucometer 137H 03/10/19 00:18: Glucometer 142H 03/10/19 03:19: White Blood Count 5.8, Red Blood Count 5.60, Hemoglobin 15.7, Hematocrit 47, Mean Corpuscular Volume 84, Mean Corpuscular Hemoglobin 28, Mean Corpuscular Hemoglobin Concent 34, Red Cell Distribution Width 31.7H, Platelet Count 133, Mean Platelet Volume 10.1, Neutrophils (%) (Auto) 61, Lymphocytes (%) (Auto) 22, Monocytes (%) (Auto) 9, Eosinophils (%) (Auto) 7, Basophils (%) (Auto) 1, Neutrophils # (Auto) 3.5, Lymphocytes # (Auto) 1.3, Monocytes # (Auto) 0.5, Eosinophils # (Auto) 0.4H, Basophils # (Auto) 0.0, Sodium Level 139, Potassium Level 4.2, Chloride Level 110H, Carbon Dioxide Level 20L, Anion Gap 9, Blood Urea Nitrogen 10, Creatinine 1.30, Estimat Glomerular Filtration Rate 54, BUN/Creatinine Ratio 8, Glucose Level 139H, Calcium Level 8.1L, Phosphorus Level 2.6, Magnesium Level 2.2 A/P: Assessment: Syncope of undetermined etiology: unlikely to be cardiac (pt reports syncope for november hours) suspect hypoglycemic syncope Hypoglycemic episode (blood glucose per lab in ED 37 on 03-08-19) A-fib with RVR - rate controlled Chronic atrial fibrillation - managed by Dr. Motley at [facility] for stroke prophylaxis MPI of 01/28/16 showed no ischemia or infarction and LVEF66% Hyperlipidemia Elevated BMI of approx 33.6 DJD Spinal stenosis L ankle chronically in a metallic brace following injury 2012 DM II Hypertension Renal cancer with mets to the lung and bone - chemo tx being managed at [facility] H/O left nephrectomy in 2015 at [facility] Elevated liver enzymes of undetermined etiology - management per medical services Hypomagnesium Plan: * Continue current medication regimen * Continue OAC * Monitor labs * I discussed his CV issues with him in detail Physician Assessment Physician Assessment No cp or palp or shortness of breath at rest. No syncope since admission Lungs: fair to good bilat air entry Cor: irreg Ext: no c/c/e A&R * As documented in our note above that I updated (italics) and as noted below * Continue current regimen * Monitor labs * Ok for transfer to floor from cardiac standpoint CRISTINA BARTON G[employer] PLANT TECHNICIAN Mar 10, 2019 08:37 MELISSA JACOB MD [facility] Mar 10, 2019 09:25
[2019-03-10] MEDS ORDERED: meTOprolol SUCCINATE 100 MG (TOPROL XL) TAB PO SCH (09:00)
[2019-03-10] MEDS: CABOZANTINIB 60 MG PO SCH (11:05)
--- NOTE | 2019-03-10 11:10 | NUR ---
THIS RN NOTIFIED DR JACOB OF PT INCREASED HEART RATE RANGING FROM 105-130, ORDERS RECEIVED FOR CARDIZEM CD 120MG PO NOW AND DAILY.
[2019-03-10] MEDS ORDERED: DILTIAZEM 120 MG (CARDIZEM CD) CAP PO ONE (11:12)
[2019-03-10] MEDS ORDERED: DILTIAZEM 120 MG (CARDIZEM CD) CAP PO SCH (11:15)
--- NOTE | 2019-03-10 15:25 | NUR ---
THIS RN SPOKE WITH DR JACOB REGARDING DISCHARGE ORDERS FROM DR DOMINGO AND PT HEART RATE AT 105-120S AT REST AND 105-130S WHEN WALKING IN HALLS. DR JACOB OKAYED PT TO GO HOME BUT TO GIVE AN EXTRA DOSE OF 120MG CARDIZEM CD PO NOW AND ORDER PT CARDIZEM CD 180MG DAILY OUTPATIENT.
[2019-03-10] MEDS ORDERED: DILTIAZEM 120 MG (CARDIZEM CD) CAP PO NR (15:30)
[2019-03-10] MEDS ORDERED: DILT180C67 PO (15:31)
[2019-03-10] MEDS ORDERED: lisINopril 40 MG (PRINIVIL) TABLET PO SCH (21:00)
--- NOTE | 2019-03-11 16:30 | Physician Query-Final Dx ---
YAZAN PAGAN 03/11/19 1630: Final Diagnosis Give Final Diagnosis Please give Final Diagnosis JAMIE DOMINGO MD 03/15/19 0824: Final Diagnosis Give Final Diagnosis Severe hypoglycemic reaction with type 2 DM YAZAN PAGAN Mar 11, 2019 16:30 JAMIE DOMINGO MD Mar 15, 2019 08:24
== END 2019-03-10 16:15 | disposition home or self-care (01) | DRG 638 ==
LOC: EDUNIT# 19:51 → ER 19:52 → ICU 23:00
PROVIDERS: ADMIT Internal Medicine; ATTEND Internal Medicine
DX: E11.649 Type 2 diabetes mellitus with hypoglycemia without coma (principal); R55 Syncope and collapse; I48.2 Chronic atrial fibrillation; C64.2 Malignant neoplasm of left kidney, except renal pelvis; C79.51 Secondary malignant neoplasm of bone; S00.81XA Abrasion of other part of head, initial encounter; S51.811A Laceration without foreign body of right forearm, initial encounter; S50.12XA Contusion of left forearm, initial encounter; I10 Essential (primary) hypertension; K21.9 Gastro-esophageal reflux disease without esophagitis; E87.6 Hypokalemia; E83.42 Hypomagnesemia; E78.5 Hyperlipidemia, unspecified; M19.91 Primary osteoarthritis, unspecified site; M48.00 Spinal stenosis, site unspecified; R79.89 Other specified abnormal findings of blood chemistry; W19.XXXA Unspecified fall, initial encounter; Y92.009 Unspecified place in unspecified non-institutional (private) residence as the place of occurrence of the external cause; Z79.899 Other long term (current) drug therapy; Z90.5 Acquired absence of kidney; Z79.01 Long term (current) use of anticoagulants; Z79.84 Long term (current) use of oral hypoglycemic drugs
CPT/HCPCS: 36415; 70450; 71045; 71046; 72125; 76700; 80048; 80053; 80074; 81000; 82140; 82150; 82550; 82962; 83690; 83735; 83880; 84100; 84132; 84484; 85025; 86141; 87081; 93005; 96361; 96374

== ENCOUNTER 2019-05-28 16:26 | Emergency (ER) | payer MEDICARE, OTHER ==
[~2019-05-28] VITALS: Ht 177 cm; Wt 83.0 kg
[~2019-05-28 16:26] MED LIST changes: +ALPH1TAB8 PO; +AMLO10TA7 PO; +C,E,1CAP PO; +CABO60TA PO; +DILT180C67 PO; +EMPA25TA PO; +FAMO20TA3 PO; +FERR325T18 PO; +GLIM2TAB PO; +LISI40TA PO; +LOPE-134 PO; +LUTE20CA2 PO; +MULT-1029 PO; +OMEP20CA13 PO; +PRD10T PO; +PROC5TAB9 PO; +PROM25TA14 PO; +SIME125C78 PO; +SITA1TBM4 PO
--- NOTE | 2019-05-28 17:53 | ED GI ---
General Chief Complaint: Abdominal/GI Problems Stated Complaint: DIARRHEA Nursing Triage Note: PT REPORTS DIARRHEA X 1 WEEK, WITH IT TURNING "VILE DARK GREENISH-BLACK" TODAY. DENIES ABDOMINAL PAIN, N/V. PT IS ON CHEMO SINCE RECENT NEPHRECTOMY. NO RECENT ABX USE. Sepsis Screen: No Definite Risk Source of Information: Patient Exam Limitations: No Limitations History of Present Illness Date Seen by Provider: May 28, 2019 Time Seen by Provider: 17:49 Initial Comments To ER with reports of diarrhea for one week. He is currently on chemotherapy for renal cell carcinoma treated through the [facility]. For the past week she's had diarrhea which has been darker than he is comfortable. He was concerned this may have represented blood in his stool. He denies feeling poorly overall no shortness of breath no chest pain no weakness. Timing/Duration: 1 Week Severity/Quality: Mild (no discomfort) Activities at Onset: None Allergies and Home Medications Allergies Coded Allergies: No Known Drug Allergies (Unverified , 10/20/11) Home Medications Amlodipine Besylate 10 Mg Tablet, 10 MG PO DAILY, (Reported) Apixaban 5 Mg Tablet, 5 MG PO BID, (Reported) C,E,Zinc,Copper 11/Ejprf1y/Lut 1 Each Capsule, 1 CAP PO DAILY, (Reported) Cabozantinib S-Malate 60 Mg Tablet, 60 MG PO DAILY, (Reported) Cholecalciferol (Vitamin D3) 1,000 Unit Tablet, 1,000 UNIT PO 1500, (Reported) Cyanocobalamin (Vitamin B-12) 1,000 Mcg Tablet, 1,000 MCG PO DAILY, (Reported) Diltiazem HCl 180 Mg Cap.er.24h, 180 MG PO DAILY Prescribed by: JUSTINE ELIAS on 03/10/19 1531 Empagliflozin 25 Mg Tablet, 25 MG PO DAILY, (Reported) Famotidine 20 Mg Tablet, 20 MG PO 1500, (Reported) Fenofibrate Nanocrystallized 145 Mg Tablet, 145 MG PO 1500, (Reported) Ferrous Sulfate 325 Mg Tablet, 325 MG PO BID, (Reported) Lisinopril 40 Mg Tablet, 40 MG PO HS, (Reported) Loperamide HCl 2 Mg Tablet, 4 MG PO BID PRN for DIARRHEA, (Reported) Lutein 20 Mg Capsule, 20 MG PO DAILY, (Reported) Metoprolol Succinate 100 Mg Tab.er.24h, 200 MG PO DAILY, (Reported) TAKES 2 (100MG) TABLETS Multivit-Min/FA/Lycopene/Lut 1 Each Tablet, 1 TAB PO 1500, (Reported) Omeprazole 20 Mg Capsule.dr, 20 MG PO DAILY, (Reported) Prednisone 10 Mg Tab, 15 MG PO DAILY, (Reported) TAKES 1 & 1/2 (10MG) TABLET Prochlorperazine Maleate 5 Mg Tablet, 10 MG PO HS, (Reported) TAKES 2 (5MG) TABLETS Promethazine HCl 25 Mg Tablet, 25 MG PO Q6H PRN for NAUSEA/VOMITING-1ST LINE, (Reported) Pyridoxine HCl 100 Mg Tablet, 100 MG PO HS, (Reported) Simethicone 125 Mg Capsule, 250-375 MG PO BID PRN for GAS, (Reported) Tramadol HCl 50 Mg Tablet, 50 MG PO BID, (Reported) Patient Home Medication List Home Medication List Reviewed: Yes Review of Systems Review of Systems Constitutional: see HPI EENTM: No Symptoms Reported Respiratory: No Symptoms Reported Cardiovascular: No Symptoms Reported Gastrointestinal: See HPI; Denies Abdominal Pain; Diarrhea; Denies Nausea Genitourinary: No Symptoms Reported Musculoskeletal: no symptoms reported Skin: no symptoms reported Psychiatric/Neurological: No Symptoms Reported Endocrine: No Symptoms Reported Past Dyiydfy-Dbcnsm-Yzzqby Hx Patient Social History Alcohol Use: Denies Use Recreational Drug Use: No Smoking Status: Never a Smoker 2nd Hand Smoke Exposure: No Recent Foreign Travel: No Contact w/Someone Who Travel: No Recent Infectious Disease Expo: No Recent Hopitalizations: No Immunizations Up To Date Tetanus Booster (TDap): Less than 5yrs Date of Pneumonia Vaccine: Apr 19, 2011 Date of Influenza Vaccine: Apr 19, 2018 Seasonal Allergies Seasonal Allergies: No Past Medical History Surgeries: Yes (ORAL, LEFT INGROWN THUMBNAIL REMOVED,) Nephrectomy Respiratory: No Cardiac: Yes Atrial Fibrillation, Hypertension Neurological: No Reproductive Disorders: No Genitourinary: No Gastrointestinal: Yes Gastroesophageal Reflux Musculoskeletal: Yes Endocrine: Yes Diabetes, Non-Insulin dep Cancer: Yes Kidney Did You Recieve Any Treatments: Yes What Type of Treatment Did You: Chemotherapy, Surgical Intervention Psychosocial: No Integumentary: No Blood Disorders: No Physical Exam Vital Signs Vital Signs - First Documented 05/28/19 16:36 Pulse 102 Resp 20 B/P (MAP) 105/66 (79) Pulse Ox 99 O2 Delivery Room Air Capillary Refill : Less Than 3 Seconds Height/Weight/BMI Height: 5'10.00" Weight: 185lbs. 1.0oz. 83.465936ia; 26.00 BMI Method:Stated General Appearance: WD/WN, no apparent distress HEENT: PERRL/EOMI, normal ENT inspection Respiratory: no respiratory distress, no accessory muscle use Cardiovascular: no murmur, irregularly irregular (known atrial fibrillation, on Eliquis and Cardizem 180 mg. ) Gastrointestinal: normal bowel sounds, non tender, soft Extremities: normal range of motion, non-tender Neurologic/Psychiatric: alert, normal mood/affect, oriented x 3 Skin: normal color, warm/dry Progress/Results/Core Measures Results/Orders Lab Results Laboratory Tests Test 05/28/19 18:00 05/28/19 19:55 Range/Units White Blood Count 6.2 4.3-11.0 10^3/uL Red Blood Count 4.38 4.35-5.85 10^6/uL Hemoglobin 14.6 13.3-17.7 G/DL Hematocrit 43 40-54 % Mean Corpuscular Volume 99 80-99 FL Mean Corpuscular Hemoglobin 33 25-34 PG Mean Corpuscular Hemoglobin Concent 34 32-36 G/DL Red Cell Distribution Width 17.4 H 10.0-14.5 % Platelet Count 148 130-400 10^3/uL Mean Platelet Volume 10.2 7.4-10.4 FL Neutrophils (%) (Auto) 59 42-75 % Lymphocytes (%) (Auto) 30 12-44 % Monocytes (%) (Auto) 7 0-12 % Eosinophils (%) (Auto) 3 0-10 % Basophils (%) (Auto) 0 0-10 % Neutrophils # (Auto) 3.7 1.8-7.8 X 10^3 Lymphocytes # (Auto) 1.8 1.0-4.0 X 10^3 Monocytes # (Auto) 0.5 0.0-1.0 X 10^3 Eosinophils # (Auto) 0.2 0.0-0.3 10^3/uL Basophils # (Auto) 0.0 0.0-0.1 10^3/uL Prothrombin Time 13.7 12.2-14.7 SEC INR Comment 1.0 0.8-1.4 Sodium Level 144 135-145 MMOL/L Potassium Level 2.8 L 3.6-5.0 MMOL/L Chloride Level 104 98-107 MMOL/L Carbon Dioxide Level 25 21-32 MMOL/L Anion Gap 15 H 5-14 MMOL/L Blood Urea Nitrogen 20 H 7-18 MG/DL Creatinine 1.69 H 0.60-1.30 MG/DL Estimat Glomerular Filtration Rate 40 BUN/Creatinine Ratio 12 Glucose Level 189 H 70-105 MG/DL Calcium Level 7.9 L 8.5-10.1 MG/DL Corrected Calcium 8.1 L 8.5-10.1 MG/DL Total Bilirubin 0.6 0.1-1.0 MG/DL Aspartate Amino Transf (AST/SGOT) 37 H 5-34 U/L Alanine Aminotransferase (ALT/SGPT) 63 H 0-55 U/L Alkaline Phosphatase 36 L 40-136 U/L Total Protein 6.0 L 6.4-8.2 GM/DL Albumin 3.7 3.2-4.5 GM/DL Lipase 42 8-78 U/L My Orders Orders - JULIANNE MEJIA APRN Cbc With Automated Diff (05/28/19 17:40) Comprehensive Metabolic Panel (05/28/19 17:40) Ua Culture If Indicated (05/28/19 17:40) Ed Iv/Invasive Line Start (05/28/19 17:40) Protime With Inr (05/28/19 17:40) Lipase (05/28/19 17:40) Metoprolol Tartrate Injection (Lopressor (05/28/19 18:00) Ns Iv 500 Ml (Sodium Chloride 0.9%) (05/28/19 18:00) Magnesium Oxide Tablet (Mag Ox Tablet) (05/28/19 18:45) Potassium Cl 10meq/50ml Ivpb (Kcl 10 Meq (05/28/19 18:45) Ns (Ivpb) (Sodium Chloride 0.9%) (05/28/19 18:45) Potassium Chloride (Tablet) (Klor Con Ta (05/28/19 18:45) Medications Given in ED Current Medications Medications Dose Ordered Sig/Brittany Route Start Time Stop Time Status Last Admin Dose Admin Magnesium Oxide 400 mg ONCE ONCE PO 05/28/19 18:45 05/28/19 18:46 DC 05/28/19 18:50 400 MG Metoprolol Tartrate 5 mg ONCE ONCE IV 05/28/19 18:00 05/28/19 18:01 DC 05/28/19 18:08 5 MG Potassium Chloride 40 meq ONCE ONCE PO 05/28/19 18:45 05/28/19 18:46 DC 05/28/19 18:50 40 MEQ Potassium Chloride 50 ml @ 50 mls/hr ONCE ONCE IV 05/28/19 18:45 05/28/19 19:44 DC 05/28/19 18:50 50 MLS/HR Sodium Chloride 250 ml @ 999 mls/hr Q16M ONCE IV 05/28/19 18:45 05/28/19 19:00 DC 05/28/19 18:50 999 MLS/HR Vital Signs/I&O 05/28/19 16:36 Pulse 102 Resp 20 B/P (MAP) 105/66 (79) Pulse Ox 99 O2 Delivery Room Air Blood Pressure Mean: 79 POS Fecal Occult: Negative Departure Communication (Admissions) Bedside fecal occult blood negative Impression Primary Impression: Hypokalemia Additional Impression: Diarrhea Qualified Codes: R19.7 - Diarrhea, unspecified Disposition: HOME, SELF-CARE Condition: Stable Departure-Patient Inst. Decision time for Depature: 20:15 Referrals: JAMIE DOMINGO MD (PCP/Family) Primary Care Physician Patient Instructions: Diarrhea and Traveler's Diarrhea, Adult (DC), Hypokalemia (DC) Add. Discharge Instructions: 1. Return to Er for any concerns 2. Follow up with your doctor next week 3. Potassium twice daily has been sent to [facility] to be started tomorrow All discharge instructions reviewed with patient and/or family. Voiced underst anding. Scripts Potassium Chloride (Potassium Chloride) 10 Meq Capsule.er 10 MEQ PO BID, #8 CAP Prov: JULIANNE MEJIA APRN 05/28/19 Copy Copies To 1: JAMIE DOMINGO MD, PETER J RESEARCH SCHOLAR May 28, 2019 17:53 POS
[2019-05-28] MEDS ORDERED: meTOprolol 5 MG/5 ML (LOPRESSOR) VIAL IV ONE (18:00)
[2019-05-28] MEDS ORDERED: NS IV 500 ML 500 ML IV SCH (18:00)
[2019-05-28 18:10] LABS: BASOPHILS % (AUTO) 0 % (0-10); EOSINOPHILS # (AUTO) 0.2 10^3/uL (0.0-0.3); EOSINOPHILS % (AUTO) 3 % (0-10); HEMATOCRIT 43 % (40-54); HEMOGLOBIN 14.6 G/DL (13.3-17.7); LYMPHOCYTES # (AUTO) 1.8 X 10^3 (1.0-4.0); LYMPHOCYTES % (AUTO) 30 % (12-44); MEAN CORPUSCULAR HEMOGLOBIN 33 PG (25-34); MEAN CORPUSCULAR HGB CONC 34 G/DL (32-36); MEAN CORPUSCULAR VOLUME 99 FL (80-99); MEAN PLATELET VOLUME 10.2 FL (7.4-10.4); MONOCYTES # (AUTO) 0.5 X 10^3 (0.0-1.0); MONOCYTES % (AUTO) 7 % (0-12); NEUTROPHILS # (AUTO) 3.7 X 10^3 (1.8-7.8); NEUTROPHILS % (AUTO) 59 % (42-75); PLATELET COUNT 148 10^3/uL (130-400); RED CELL DISTRIBUTION WIDTH 17.4 % (10.0-14.5); WHITE BLOOD COUNT 6.2 10^3/uL (4.3-11.0)
[2019-05-28 18:21] LABS: PROTHROMBIN TIME PATIENT 13.7 SEC (12.2-14.7)
[2019-05-28 18:31] LABS: ALBUMIN 3.7 GM/DL (3.2-4.5); BILIRUBIN,TOTAL 0.6 MG/DL (0.1-1.0); CALCIUM 7.9 MG/DL (8.5-10.1); CREATININE SERUM 1.69 MG/DL (0.60-1.30); POTASSIUM 2.8 MMOL/L (3.6-5.0)
[2019-05-28] MEDS ORDERED: MAGNESIUM OXIDE (MAG-OX)400 MG TAB PO ONE (18:45)
[2019-05-28] MEDS ORDERED: POTASSIUM CL 10MEQ/50ML IVPB 50 ML IV ONE (18:45)
[2019-05-28] MEDS ORDERED: KCL 10 MEQ TAB (MICRO K) PO ONE (18:45)
[2019-05-28] MEDS ORDERED: NS (IVPB) 250 ML IV ONE (18:45)
[2019-05-28 20:04] LABS: BILIRUBIN,URINE NEGATIVE (NEGATIVE); CLARITY,URINE CLEAR; COLOR,URINE YELLOW; GLUCOSE, URINE (UA) NEGATIVE (NEGATIVE); KETONES,URINE TRACE (NEGATIVE); LEUKOCYTE ESTERASE ,URINE TRACE (NEGATIVE); NITRITE,URINE NEGATIVE (NEGATIVE); PROTEIN,URINE TRACE (NEGATIVE)
[2019-05-28] MEDS ORDERED: POTA10CA43 PO (20:16)
[2019-05-28 20:18] LABS: AMORPHOUS SEDIMENT,UR FEW AMOR URATES /LPF; BACTERIA,URINE TRACE /HPF; HYALINE CASTS, URINE 0-2 /LPF; SQUAMOUS EPITHELIAL CELL,UR 0-2 /HPF
[2019-05-28 20:34] VITALS: BP 148/100
== END 2019-05-28 20:34 | disposition home or self-care (01) ==
LOC: EDUNIT# 16:26 → ER 16:28
DX: R19.7 Diarrhea, unspecified (principal); E87.6 Hypokalemia; I48.91 Unspecified atrial fibrillation; I10 Essential (primary) hypertension; E11.9 Type 2 diabetes mellitus without complications; K21.9 Gastro-esophageal reflux disease without esophagitis; Z85.528 Personal history of other malignant neoplasm of kidney; Z79.52 Long term (current) use of systemic steroids; Z90.5 Acquired absence of kidney
CPT/HCPCS: 36415; 80053; 81000; 82274; 83690; 85025; 85610; 87077; 87088

== ENCOUNTER → 2019-07-04 | Outpatient (CLI) | payer MEDICARE, OTHER ==
[~2019-07-04] MED LIST changes: +POTA10CA43 PO
== END ==
LOC: CARD 12:26
PROVIDERS: ATTEND Internal Medicine Cardiovascular Disease
DX: I34.0 Nonrheumatic mitral (valve) insufficiency (principal); I10 Essential (primary) hypertension; E11.9 Type 2 diabetes mellitus without complications; E78.5 Hyperlipidemia, unspecified; M79.89 Other specified soft tissue disorders
CPT/HCPCS: 93306

== ENCOUNTER → 2019-12-20 | Outpatient (CLI) | payer MEDICARE, OTHER ==
[~2019-12-20] MED LIST changes: +FENO145T26 PO; -FENO145T37 PO; -GLIM2TAB PO; +GLIM2TAB4 PO; -METO-395 PO; +MTP100TCR PO; -OMEP20CA13 PO; +OMEP20CA18 PO; +PYRI100T10 PO; -PYRI100T2 PO; -TRAM50TA2 PO; +TRM50T PO
== END ==
LOC: WOUNDCARE 12:08
PROVIDERS: ATTEND Surgery
DX: E11.621 Type 2 diabetes mellitus with foot ulcer (principal); E11.65 Type 2 diabetes mellitus with hyperglycemia; E11.52 Type 2 diabetes mellitus with diabetic peripheral angiopathy with gangrene; L97.512 Non-pressure chronic ulcer of other part of right foot with fat layer exposed; L97.521 Non-pressure chronic ulcer of other part of left foot limited to breakdown of skin; I70.261 Atherosclerosis of native arteries of extremities with gangrene, right leg; B08.4 Enteroviral vesicular stomatitis with exanthem
CPT/HCPCS: 99214

== ENCOUNTER → 2019-12-27 | Outpatient (CLI) | payer MEDICARE, OTHER | LOC: WOUNDCARE 12:26 | PROVIDERS: ATTEND Surgery | DX: E11.621 Type 2 diabetes mellitus with foot ulcer (principal); E11.65 Type 2 diabetes mellitus with hyperglycemia; I70.235 Atherosclerosis of native arteries of right leg with ulceration of other part of foot; L97.512 Non-pressure chronic ulcer of other part of right foot with fat layer exposed; L97.521 Non-pressure chronic ulcer of other part of left foot limited to breakdown of skin | CPT/HCPCS: 99212 ==

== ENCOUNTER → 2020-01-02 | Outpatient (CLI) | payer MEDICARE, OTHER | LOC: WOUNDCARE 13:53 | PROVIDERS: ATTEND Surgery | DX: E11.621 Type 2 diabetes mellitus with foot ulcer (principal); E11.52 Type 2 diabetes mellitus with diabetic peripheral angiopathy with gangrene; E11.65 Type 2 diabetes mellitus with hyperglycemia; I96 Gangrene, not elsewhere classified; L97.521 Non-pressure chronic ulcer of other part of left foot limited to breakdown of skin; L97.511 Non-pressure chronic ulcer of other part of right foot limited to breakdown of skin | CPT/HCPCS: 99212 ==

== ENCOUNTER → 2020-01-03 | Outpatient (CLI) | payer MEDICARE, OTHER ==
--- NOTE | 2020-01-03 14:45 | Diagnostic Imaging Report ---
PROCEDURE: US Renal Bilateral. TECHNIQUE: Multiple real-time grayscale images were obtained over the kidneys in various projections bilaterally. INDICATION: Renal cell carcinoma. FINDINGS: Left kidney is surgically absent. Right kidney measures 13.1 x 6.6 x 7.6 cm. There is normal cortical thickness and echogenicity. No calculus or hydronephrosis is detected. Partially filled urinary bladder is unremarkable. Ureteral jets are not visualized. IMPRESSION: Status post left nephrectomy. The right kidney is unremarkable. Dictated by: Dictated on workstation # [id number]
== END ==
LOC: RAD 13:09
PROVIDERS: ATTEND Internal Medicine
DX: C64.9 Malignant neoplasm of unspecified kidney, except renal pelvis (principal); Z90.5 Acquired absence of kidney
CPT/HCPCS: 76770

== ENCOUNTER 2020-01-21 11:50 | Observation (INO) | payer MEDICARE, OTHER ==
[~2020-01-21] VITALS: Ht 175.3 cm; Wt 97.0 kg
[~2020-01-21 11:50] MED LIST changes: +MULT-567 PO; -MULT1TAB69 PO
--- OUTSIDE RECORDS SUMMARY | 2020-01-21 11:55 | XMS REPORT | Clinical Summary ---
Author Author [facility] Organization [facility] Address Unknown Phone Unavailable Care Team Providers Care Dope Heater Name Role Phone Jacobo Owens MD PCP Ezekiel Bacon MD Unavailable Ally Grayson Unavailable Unavailable Sharlene Knox RN Unavailable Unavailable Yessenia Julien MD Unavailable Shelby Astudillo MD 3 [phone] Source Comments Some departments are not documenting in the electronic medical record. If you d o not see the information that you expected, contact Release of Information in [facility] Health Information Management department at [phone] for further assistan ce in locating additional records.[facility] Allergies No Known Allergies Medications End Date Status Medication Sig Dispensed Refills Start Date Active famotidine (PEPCID) 20 mg Take 20 mg by 0 tablet mouth every morning. Active fenofibrate Take 145 mg 0 nanocrystallized (TRICOR) by mouth 145 mg tablet daily. Active vitamins, multiple tablet Take 1 Tab by 0 mouth daily. Active pyridoxine (vitamin B6) Take 100 mg 0 (VITAMIN B-6) 100 mg by mouth tablet daily. Active cyanocobalamin (VITAMIN Take 1,000 0 B-12) 1,000 mcg tablet mcg by mouth daily. Active VIT A/C/E AC/ZNOX/CUPRIC Take 1 tablet 0 OXIDE (EYE VITAMIN AND by mouth at MINERALS PO) bedtime daily. Active cholecalciferol (VITAMIN Take 1,000 0 D-3) 1,000 units tablet Units by mouth at bedtime daily. Active Lutein 20 mg cap Take 1 0 capsule by mouth daily. Active traMADol (ULTRAM) 50 mg Take 50 mg by 0 tablet mouth twice daily. Active metoprolol XL (TOPROL XL) Take 200 mg 0 07/21 100 mg extended release by mouth 8 tablet daily. Active furosemide (LASIX) 40 mg Take 40 mg by 0 tablet mouth three times weekly. Active ferrous sulfate (FEOSOL, Take one 90 tablet 3 0 FEROSUL) 325 mg (65 mg tablet by 9 iron) tablet mouth daily. Take on an empty stomach at least 1 hour before or 2 hours after food. Active albuterol (PROAIR HFA, Inhale two 1 Inhaler 1 VENTOLIN HFA, OR puffs by 9 PROVENTIL HFA) 90 mouth into mcg/actuation the lungs inhalerIndications: every 6 hours Metastatic renal cell as needed carcinoma to (Pentamidine intra-abdominal site induced (HCC) bronchial irritation). Shake well before use. Active lisinopril (PRINIVIL, Take one 90 tablet 3 09/17 ZESTRIL) 40 mg tablet tablet by 9 mouth daily. Additional Information Patient taking differently: 20 mg Oral DAILY, Informant: Self, Reported on 08/04/2019 9:44 AM Active diltiazem CD (CARDIZEM Take 180 mg 0 CD) 180 mg capsule by mouth daily. Active Simethicone 125 mg chew Chew 1 tablet 0 by mouth twice daily as needed. Active omeprazole DR (PRILOSEC) Take one 90 capsule 3 1 20 mg capsule capsule by 9 mouth daily before breakfast. Active JARDIANCE 25 mg tablet Take 25 mg by 0 01 mouth daily. 9 Active calcium carbonate (TUMS) Chew 1,000 mg 0 500 mg (200 mg elemental by mouth calcium) chewable tablet daily. Active glimepiride (AMARYL) 2 mg Take 2 mg by 0 tablet mouth twice daily. Active potassium chloride Take 8 mEq by 0 (KLOR-CON 8) 8 mEq tablet mouth daily. Active clobetasoL (TEMOVATE) Apply a small 60 g 1 0.05 % topical amount to 0 creamIndications: Palmar blisters/sore plantar places on erythrodysesthesia hands and feet once per day. 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 Active axitinib (INLYTA) 1 mg Take two 120 tablet 3 tabletIndications: tablets by 0 Metastatic renal cell mouth twice carcinoma to daily. 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 Bacon. Clear cell RCC; pT3a N0 Mx; Radha 2. CT Abd (06/27/2016): mild nodular soft tissue thickening in the operative bed which is concerning for residual or recurrent neoplasm. MRI (09/19/2016): enhancing metastatic nodules with intralesional fat in the left nephrectomy bed/left paraspina l musculature, consistent with recurrent disease. (L) retroperitoneal mass resection -- 0 10/07/2016; Dr. Bacon. Path: Metastatic renal cell carcinoma, clear cell type. Renal cell carcinoma of left kidney 01/30/2016 Overview: Left open radical nephrectomy -- 2015; Dr. Bacon. Clear cell RCC; pT3a N0 Mx; Radha 2. CT Abd (06/27/2016): mild nodular soft tissue thickening in the operative bed which is concerning for residual or recurrent neoplasm. MRI (09/19/2016): enhancing metastatic nodules with intralesional fat in the left nephrectomy bed/left paraspina l musculature, consistent with recurrent disease. (L) retroperitoneal mass resection -- 0 10/07/2016; Dr. Bacon. Path: Metastatic renal cell carcinoma, clear cell type. L ast Assessment & Plan: 01/08/17: CT Chest, abdomen, and pelvis with no evidence of new disease recurrence, final radiology read angelique g. Labs unremarkable other than known elevated creatinine. He will plan to see Nephrology in follow-up later today. RTC 3 month with a repeat CT C/A/P, lab s Solitary kidney, acquired 01/30/2016 Overview: (R) Solitary kidney d/t (L) radical nep hrectomy -- 01/30/2016. CKD (chronic kidney disease) stage 3, G FR 30-59 ml/min Encounters Care Team Description Date Type Specialty Shelby Astudillo MD Malignant neoplasm of left kidney (HCC) (Primary Dx); Secondary malignant neoplasm of both lungs (HCC); Palmar plantar erythrodysaesthesia; Hemoptysis; Cerebritis 01/12/2020 Office Visit Oncology Shelby Astudillo MD 01/12/2020 Hospital Lab Encounter Shelby Astudillo MD 01/12/2020 Hospital Radiology Encounter 01/12/2020 Travel Shelby Astudillo MD 01/02/2020 Documentation Oncology Shelby Astudillo MD 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 - abdominal site (HCC) (Primary Dx) 12/30/2019 Orders Only Oncology Shelby Astudillo MD ERRONEOUS ENCOUNTER--DISREGARD (Primary Dx) 12/22/2019 Office Visit Oncology Telehealth Shelby Astudillo MD 12/22/2019 Documentation Oncology Sehlby Astudillo MD Appointment Request 12/21/2019 Telephone Oncology Shelby Astudillo MD Appointment Request 12/09/2019 Telephone Oncology Shelby Astudillo MD Malignant neoplasm of left kidney (HCC) (Primary Dx); Secondary malignant neoplasm of bone (HCC); Secondary malignant neoplasm of both lungs (HCC); Hemoptysis; 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 12/08/2019 Office Visit Oncology Telehealth Shelby Astudillo MD Malignant neoplasm of left kidney (HCC) (Primary Dx); 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); Autoimmune cerebritis (HCC); 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; Hemoptysis 11/24/2019 Scheduled Oncology Telephone Rut Barkley, PHARMD Heme/Onc Care 11/22/2019 Telephone Oncology Montserrat De Leongail 11/09/2019 Documentation Pharmacy Montserrat De Leongail 11/09/2019 Documentation Pharmacy Gallo Barrett, PHARMD Chemotherapy 11/08/2019 Telephone Oncology Montserrat De Leongail 11/08/2019 Documentation Pharmacy Shelby Astudillo MD Malignant neoplasm of left kidney (HCC) (Primary Dx); Autoimmune cerebritis (HCC); 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); 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); 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 11/07/2019 Office Visit Oncology Shelby Astudillo MD 11/07/2019 Hospital Radiology Encounter Shelby Astudillo MD 11/07/2019 Hospital Radiology Encounter Abeba Peters, TONID 11/07/2019 Documentation Oncology 11/07/2019 Travel from Last 3 Months Family History * Patient is adopted Medical History Relation Name Comments None Reported Father None Reported Mother Relation Name Status Comments Father Other Mother Other Social History Date Tobacco Use Types Packs/Day Years Used Never Smoker Smokeless Tobacco: Never Used Drinks/Week oz/Week Comments Alcohol Use occasionally Yes Sex Assigned at Date Recorded Male 11/24/2019 10:36 AM CDT Industry Job Start Date Occupation Not on file Not on file Not on file Travel End Travel History Travel Start No recent travel history available. Date Recorded COVID-19 Exposure Response 01/12/2020 9:34 AM CDT In the last month, have you been in contact with No / Unsure someone who was confirmed or suspected to have Coronavirus / COVID-19? Last Filed Vital Signs Reading Time Taken Comments Vital Sign 107/63 01/12/2020 2:11 PM CDT Blood Pressure 96 01/12/2020 2:11 PM CDT Pulse 36.4 C (97.5 F) 01/12/2020 2:11 PM CDT Temperature 16 01/12/2020 2:11 PM CDT Respiratory Rate 100% 01/12/2020 2:11 PM CDT Oxygen Saturation - - Inhaled Oxygen Concentration 94.1 kg (207 lb 6.4 oz) 01/12/2020 2:11 PM CDT Weight 171.5 cm (5' 7.5") 01/12/2020 2:11 PM CDT Height 32 01/12/2020 2:11 PM CDT Body Mass Index Plan of Treatment Health Maintenance Due Date Last Done Comments MEDICARE ANNUAL WELLNESS 1945 VISIT DTAP/TDAP VACCINES (1 - 1965 Tdap) HEPATITIS C SCREENING 1965 PHYSICAL (COMPREHENSIVE) 1965 EXAM COLORECTAL CANCER 1997 SCREENING SHINGLES RECOMBINANT 1997 VACCINE (1 of 2) PNEUMONIA (PPSV23) 2012 VACCINE (1 of 1 - PPSV23) INFLUENZA VACCINE 04/19/2020 06/04/2019, 04/25/2004, 04/26/1999, Additional history exists Implants Device Identifier Shelf Expiration Date Model / Serial / L ot Implanted Type Area Manufactur er 05/19/2020 [id number] / N/A / [id number] System [employer] Tract Sealant - Chest Wall Surg ical Sn/A Specialtie Implanted: Qty: 1 on 07/28/2017 by Raghu Matthews MD at [facility] Procedures Comments Procedure Name Priority Date/Time Associated Diag nosis HC CBC W/ AUTOMATED DIFF Routine 01/12/2020 Metas tatic renal cell 11:40 AM CDT carcinoma to intra-abdominal site (HCC) COMPREHENSIVE METABOLIC Routine 01/12/2020 Metast atic renal cell PANEL 11:40 AM CDT carcinoma to intra-abdominal site (HCC) CT CHEST W CONTRAST Routine 01/12/2020 Metastatic renal cell 10:56 AM CDT carcinoma to intra-abdominal site (HCC) CT ABD/PELV W CONTRAST Routine 01/12/2020 Metasta tic renal cell 10:56 AM CDT carcinoma to intra-abdominal site (HCC) HC COMPREHENSIVE 01/12/2020 METABOLIC PANEL 10:[address] CHEST W CONTRAST Routine 11/07/2019 Metastatic renal cell 12:34 PM CDT carcinoma to intra-abdominal site (HCC) CT ABD/PELV W CONTRAST Routine 11/07/2019 Metasta tic renal cell 12:34 PM CDT carcinoma to intra-abdominal site (HCC) HC TSH SCREEN Routine 11/07/2019 Metastatic amberly l cell 12:00 PM CDT carcinoma to intra-abdominal site (HCC) HC COMPREHENSIVE Routine 11/07/2019 Metastatic re nal cell METABOLIC PANEL 12:00 PM CDT carcinoma to intra-abdominal site (HCC) HC CBC W/ AUTOMATED DIFF Routine 11/07/2019 Metas tatic renal cell 12:00 PM CDT carcinoma to intra-abdominal site (HCC) from Last 3 Months Results * CBC AND DIFF (01/12/2020 11:40 AM CDT) Only the most recent of 2 results within the time period is included. White Blood 9.4 4.5 - 11.0 K/UL [facility] Cells RBC 5.20 4.4 - 5.5 M/UL [facility] Hemoglobin 15.7 13.5 - 16.5 GM/DL [facility] Hematocrit 49.0 40 - 50 % [facility] MCV 94.2 80 - 100 FL [facility] MCH 30.1 26 - 34 PG [facility] MCHC 32.0 32.0 - 36.0 G/DL [facility] RDW 16.8 (H) 11 - 15 % [facility] Platelet Count 291 150 - 400 K/UL [facility] MPV 8.4 7 - 11 FL [facility] Neutrophils 71 41 - 77 % [facility] Lymphocytes 13 (L) 24 - 44 % [facility] Monocytes 11 4 - 12 % [facility] Eosinophils 4 0 - 5 % [facility] Basophils 1 0 - 2 % [facility] Absolute 6.70 1.8 - 7.0 K/UL [facility] Neutrophil Count Absolute Lymph 1.20 1.0 - 4.8 K/UL [facility] Count Absolute 1.00 (H) 0 - 0.80 K/UL [facility] Monocyte Count Absolute 0.40 0 - 0.45 K/UL [facility] Eosinophil Count Absolute 0.10 0 - 0.20 K/UL [facility] Basophil Count Specimen Blood Performing Organization Address [facility] one Number [facility] [address] [place] [address] * COMPREHENSIVE METABOLIC PANEL (01/12/2020 11:40 AM CDT) Only the most recent of 2 results within the time period is included. [facility] Sodium 137 137 - 147 MMOL/L [facility] Potassium 4.0 3.5 - 5.1 MMOL/L [facility] Chloride 99 98 - 110 MMOL/L [facility] Glucose 141 (H) 70 - 100 MG/DL [facility] Blood Urea 25 7 - 25 MG/DL [facility] Nitrogen Creatinine 1.92 (H) 0.4 - 1.24 MG/DL [facility] Calcium 10.0 8.5 - 10.6 MG/DL [facility] Total Protein 7.0 6.0 - 8.0 G/DL [facility] Total Bilirubin 0.7 0.3 - 1.2 MG/DL [facility] Albumin 3.9 3.5 - 5.0 G/DL [facility] Alk Phosphatase 27 25 - 110 U/L [facility] AST (SGOT) 16 7 - 40 U/L [facility] CO2 27 21 - 30 MMOL/L [facility] ALT (SGPT) 13 7 - 56 U/L [facility] Anion Gap 11 3 - 12 [facility] eGFR Non 35 (L) >60 mL/min [facility] Comment: [place] The eGFR is not validated f or use in drug dosing adjustments. Continue to use estimated creatinine clearance per dosing reference text. Please contact the Clinical Pharmacist for questions. eGFR 42 (L) >60 mL/min [facility] [place] Comment: The eGFR is not validated for use in drug dosing adjustments. Continue to use estimated creatinine clearance per dosing reference text. Please contact the Clinical Pharmacist for questions. Specimen Blood Performing Organization Address [facility] one Number [facility] [address] [place] [address] * CT ABD/PELV W CONTRAST (01/12/2020 10:56 AM CDT) Only the most recent of 2 results within the time period is included. Specimen Impressions Performed At CHEST: [facility] 1. Further increase in size of left h ilar metastatic lymphadenopathy with increased postobstructive atelectasis i n the lingula. 2. Unchanged residual right pleural met astases. No new or enlarging soft tissue pulmonary nodule. 3. Unchanged posterior right sixth rib osseous metastasis. ABDOMEN AND PELVIS: 1. Previous radical left nephrectomy. Slight increase in trace, nonspecific fluid in the inferior operative bed wit hout discrete measurable mass 2. No abdominopelvic lymphadenopathy. 3. Cholelithiasis. Finalized by CHRISTINA LIN M.D. on 020 2:14 PM. Dictated by CHRISTINA LIN M.D. on 01/12/2020 1:31 PM. Narrative Performed At CT CHEST, ABDOMEN AND PELVIS [facility] Clinical Indication: Male, 74 years o ld. 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-abdominal site. Restaging. Technique: Multiple contiguous axial im ages were obtained through the chest, abdomen and pelvis following the admini stration of IV contrast material. Post processing coronal and sagittal reconst ruction images were made from the axial images. IV contrast: Yes Bowel contrast: None Comparison: CT chest, abdomen, and pelv is on 11/07/2019. CHEST FINDINGS: Lower Neck: Unremarkable Axilla, Mediastinum and Carie: No axilla ry or mediastinal lymphadenopathy. Further increase in size of left hilar cassy metastasis measuring 3.6 x 2.8 cm (series 2 image 26) previously 2.8 x 1. 6 cm. Increased postobstructive atelectasis of the lingula. Heart and Great Vessels: Overall heart is normal in size with persistent left atrial enlargement. At least mild coron megan artery calcifications. Thoracic aorta normal in caliber. Airway, Lungs and Pleura: Minute retain ed secretions in the trachea. Increased mass effect and/or extension into the l eft lingular bronchus from left hilar metastasis with increased postobstructi ve atelectasis of the lingula. Azygos lobe. No new or enlarging soft tissue p arenchymal nodule. No significant change in multifocal right pleural nodularity. Previously measured right posterolateral pleural nodule measures 2.7 x 0.9 cm (s eries 2 image 19) previously 2.9 x 1 cm. No pleural effusion. Chest Wall and Osseous Structures: Thor acic spondylosis. No significant change in posterior right sixth rib metastasis . No definite new osseous lesion. ABDOMEN AND PELVIS FINDINGS: Liver and Biliary system: Liver is norm al in size. No enhancing hepatic mass. Cholelithiasis. No biliary ductal dilat ation. Spleen: Unremarkable. Adrenal Glands and Kidneys: Previous le ft nephrectomy and adrenalectomy. Slight increase in trace fluid in the lower op erative bed (series 2 image 143). No enhancing left renal fossa mass. Right adrenal gland unremarkable. Tiny right renal hypodensities are too small to ch aracterize. No hydronephrosis. Pancreas and Retroperitoneum: Unremarka ble. Aorta and Major Vessels: Normal caliber abdominal aorta. Mild atherosclerotic plaque. Bowel, Mesentery and Peritoneal space: Unremarkable. Normal appendix. Pelvis: Unremarkable. Abdominal wall and Osseous Structures: Lumbar spondylosis with left convex curvature and mild degenerative anterol isthesis of L4 and L5. No destructive osseous lesion. Procedure Note Interface, Radiant Results - 01/12/2020 2:[address] CHEST, ABDOMEN AND PELVIS Clinical Indication: Male, 74 years old. 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-abdominal site. Restaging. Technique: Multiple contiguous axial images were obtained through the chest, abdomen and pelvis following the administration of IV contrast material. Post processing coronal and sagittal reconstruction images were made from the axial images. IV contrast: Yes Bowel contrast: None Comparison: CT chest, abdomen, and pelvis on 11/07/2019. CHEST FINDINGS: Lower Neck: Unremarkable Axilla, Mediastinum and Carie: No axillary or mediastinal lymphadenopathy. Further increase in size of left hilar cassy metastasis measuring 3.6 x 2.8 cm (series 2 image 26) previously 2.8 x 1.6 cm. Increased postobstructive atelectasis of the lingula. Heart and Great Vessels: Overall heart is normal in size with persistent left atrial enlargement. At least mild coronary artery calcifications. Thoracic aorta normal in caliber. Airway, Lungs and Pleura: Minute retained secretions in the trachea. Increased mass effect and/or extension into the left lingular bronchus from left hilar metastasis with increased postobstructive atelectasis of the lingula. Azygos lobe. No new or enlarging soft tissue parenchymal nodule. No significant change in multifocal right pleural nodularity. Previously measured right posterolateral pleural nodule measures 2.7 x 0.9 cm (series 2 image 19) previously 2.9 x 1 cm. No pleural effusion. Chest Wall and Osseous Structures: Thoracic spondylosis. No significant change in posterior right sixth rib metastasis. No definite new osseous lesion. ABDOMEN AND PELVIS FINDINGS: Liver and Biliary system: Liver is normal in size. No enhancing hepatic mass. Cholelithiasis. No biliary ductal dilatation. Spleen: Unremarkable. Adrenal Glands and Kidneys: Previous left nephrectomy and adrenalectomy. Slight increase in trace fluid in the lower operative bed (series 2 image 143). No enhancing left renal fossa mass. Right adrenal gland unremarkable. Tiny right renal hypodensities are too small to characterize. No hydronephrosis. Pancreas and Retroperitoneum: Unremarkable. Aorta and Major Vessels: Normal caliber abdominal aorta. Mild atherosclerotic plaque. Bowel, Mesentery and Peritoneal space: Unremarkable. Normal appendix. Pelvis: Unremarkable. Abdominal wall and Osseous Structures: Lumbar spondylosis with left convex curvature and mild degenerative anterolisthesis of L4 and L5. No destructive osseous lesion. IMPRESSION CHEST: 1. Further increase in size of left hil ar metastatic lymphadenopathy with increased postobstructive atelectasis in the lingula. 2. Unchanged residual right pleural meta stases. No new or enlarging soft tissue pulmonary nodule. 3. Unchanged posterior right sixth rib o sseous metastasis. ABDOMEN AND PELVIS: 1. Previous radical left nephrectomy. S light increase in trace, nonspecific fluid in the inferior operative bed without discrete measurable mass 2. No abdominopelvic lymphadenopathy. 3. Cholelithiasis. Finalized by CHRISTINA LIN M.D. on 01/12/2020 2:14 PM. Dictated by CHRISTINA LIN M.D. on 01/12/2020 1:31 PM. Performing Organization Address City/State/[facility] Ph one Number [facility] * CT CHEST W CONTRAST (01/12/2020 10:56 AM CDT) Only the most recent of 2 results within the time period is included. Specimen Impressions Performed At CHEST: [facility] 1. Further increase in size of left h ilar metastatic lymphadenopathy with increased postobstructive atelectasis i n the lingula. 2. Unchanged residual right pleural met astases. No new or enlarging soft tissue pulmonary nodule. 3. Unchanged posterior right sixth rib osseous metastasis. ABDOMEN AND PELVIS: 1. Previous radical left nephrectomy. Slight increase in trace, nonspecific fluid in the inferior operative bed wit hout discrete measurable mass 2. No abdominopelvic lymphadenopathy. 3. Cholelithiasis. Finalized by CHRISTINA LIN M.D. on 020 2:14 PM. Dictated by CHRISTINA LIN M.D. on 01/12/2020 1:31 PM. Narrative Performed At CT CHEST, ABDOMEN AND PELVIS [facility] Clinical Indication: Male, 74 years o ld. 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-abdominal site. Restaging. Technique: Multiple contiguous axial im ages were obtained through the chest, abdomen and pelvis following the admini stration of IV contrast material. Post processing coronal and sagittal reconst ruction images were made from the axial images. IV contrast: Yes Bowel contrast: None Comparison: CT chest, abdomen, and pelv is on 11/07/2019. CHEST FINDINGS: Lower Neck: Unremarkable Axilla, Mediastinum and Carie: No axilla ry or mediastinal lymphadenopathy. Further increase in size of left hilar cassy metastasis measuring 3.6 x 2.8 cm (series 2 image 26) previously 2.8 x 1. 6 cm. Increased postobstructive atelectasis of the lingula. Heart and Great Vessels: Overall heart is normal in size with persistent left atrial enlargement. At least mild coron megan artery calcifications. Thoracic aorta normal in caliber. Airway, Lungs and Pleura: Minute retain ed secretions in the trachea. Increased mass effect and/or extension into the l eft lingular bronchus from left hilar metastasis with increased postobstructi ve atelectasis of the lingula. Azygos lobe. No new or enlarging soft tissue p arenchymal nodule. No significant change in multifocal right pleural nodularity. Previously measured right posterolateral pleural nodule measures 2.7 x 0.9 cm (s eries 2 image 19) previously 2.9 x 1 cm. No pleural effusion. Chest Wall and Osseous Structures: Thor acic spondylosis. No significant change in posterior right sixth rib metastasis . No definite new osseous lesion. ABDOMEN AND PELVIS FINDINGS: Liver and Biliary system: Liver is norm al in size. No enhancing hepatic mass. Cholelithiasis. No biliary ductal dilat ation. Spleen: Unremarkable. Adrenal Glands and Kidneys: Previous le ft nephrectomy and adrenalectomy. Slight increase in trace fluid in the lower op erative bed (series 2 image 143). No enhancing left renal fossa mass. Right adrenal gland unremarkable. Tiny right renal hypodensities are too small to ch aracterize. No hydronephrosis. Pancreas and Retroperitoneum: Unremarka ble. Aorta and Major Vessels: Normal caliber abdominal aorta. Mild atherosclerotic plaque. Bowel, Mesentery and Peritoneal space: Unremarkable. Normal appendix. Pelvis: Unremarkable. Abdominal wall and Osseous Structures: Lumbar spondylosis with left convex curvature and mild degenerative anterol isthesis of L4 and L5. No destructive osseous lesion. Procedure Note Interface, Radiant Results - 01/12/2020 2:[address] CHEST, ABDOMEN AND PELVIS Clinical Indication: Male, 74 years old. 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-abdominal site. Restaging. Technique: Multiple contiguous axial images were obtained through the chest, abdomen and pelvis following the administration of IV contrast material. Post processing coronal and sagittal reconstruction images were made from the axial images. IV contrast: Yes Bowel contrast: None Comparison: CT chest, abdomen, and pelvis on 11/07/2019. CHEST FINDINGS: Lower Neck: Unremarkable Axilla, Mediastinum and Carie: No axillary or mediastinal lymphadenopathy. Further increase in size of left hilar cassy metastasis measuring 3.6 x 2.8 cm (series 2 image 26) previously 2.8 x 1.6 cm. Increased postobstructive atelectasis of the lingula. Heart and Great Vessels: Overall heart is normal in size with persistent left atrial enlargement. At least mild coronary artery calcifications. Thoracic aorta normal in caliber. Airway, Lungs and Pleura: Minute retained secretions in the trachea. Increased mass effect and/or extension into the left lingular bronchus from left hilar metastasis with increased postobstructive atelectasis of the lingula. Azygos lobe. No new or enlarging soft tissue parenchymal nodule. No significant change in multifocal right pleural nodularity. Previously measured right posterolateral pleural nodule measures 2.7 x 0.9 cm (series 2 image 19) previously 2.9 x 1 cm. No pleural effusion. Chest Wall and Osseous Structures: Thoracic spondylosis. No significant change in posterior right sixth rib metastasis. No definite new osseous lesion. ABDOMEN AND PELVIS FINDINGS: Liver and Biliary system: Liver is normal in size. No enhancing hepatic mass. Cholelithiasis. No biliary ductal dilatation. Spleen: Unremarkable. Adrenal Glands and Kidneys: Previous left nephrectomy and adrenalectomy. Slight increase in trace fluid in the lower operative bed (series 2 image 143). No enhancing left renal fossa mass. Right adrenal gland unremarkable. Tiny right renal hypodensities are too small to characterize. No hydronephrosis. Pancreas and Retroperitoneum: Unremarkable. Aorta and Major Vessels: Normal caliber abdominal aorta. Mild atherosclerotic plaque. Bowel, Mesentery and Peritoneal space: Unremarkable. Normal appendix. Pelvis: Unremarkable. Abdominal wall and Osseous Structures: Lumbar spondylosis with left convex curvature and mild degenerative anterolisthesis of L4 and L5. No destructive osseous lesion. IMPRESSION CHEST: 1. Further increase in size of left hil ar metastatic lymphadenopathy with increased postobstructive atelectasis in the lingula. 2. Unchanged residual right pleural meta stases. No new or enlarging soft tissue pulmonary nodule. 3. Unchanged posterior right sixth rib o sseous metastasis. ABDOMEN AND PELVIS: 1. Previous radical left nephrectomy. S light increase in trace, nonspecific fluid in the inferior operative bed without discrete measurable mass 2. No abdominopelvic lymphadenopathy. 3. Cholelithiasis. Finalized by CHRISTINA LIN M.D. on 01/12/2020 2:14 PM. Dictated by CHRISTINA LIN M.D. on 01/12/2020 1:31 PM. Performing Organization Address [facility] Ph one Number [facility] RES[facility] * POC CREATININE, RAD (01/12/2020 10:27 AM CDT) Creatinine, POC 2.0 (H) 0.4 - 1.24 MG/DL [facility] Specimen Performing Organization Address [facility] Ph one Number MAIN LAB [address] [place] [address] * TSH WITH FREE T4 REFLEX (11/07/2019 12:00 PM CDT) TSH 3.93 0.35 - 5.00 MCU/ML [facility] Specimen Blood Performing Organization Address [facility] Ph one Number MAIN LAB [address] [place] [address] from Last 3 Months Additional Health Concerns Resolved Time Infection Noted Time MRSA 01/22/2016 9:27 AM CDT Insurance Type Payer Benefit Subscriber ID Effective Phone Address Plan / Dates Group Medicare MEDICARE MEDICARE xxxxxxxxxxx 2012-P PART A AND resent B Medicare CIGNA CIGNA xxxxxxxxxx 2016- MEDICARE Present SUPPLEMENT -[id number] Advance Directives Patient Animal Daycare Provider Explanation Type Date Recorded Advance 01/31/2016 12:13 PM Directive/DPOA Advance 04/01/2019 12:12 PM Directive/DPOA Date Inactivated Comments Code Status Date Activated 09/02/2018 8:23 PM Full Code 08/30/2018 7:45 PM Provider has discussed Code Status Yes w/Patient or Family? 08/30/2018 7:45 PM Full Code 08/30/2018 7:45 PM Provider has discussed Code Status Yes w/Patient or Family? 10/09/2016 3:28 PM Full Code 10/07/2016 3:43 PM Provider has discussed Code Status Yes w/Patient or Family? 02/04/2016 7:07 PM Full Code 01/31/2016 7:45 PM Provider has discussed Code Status No, discussion no t w/Patient or Family? necessary based on Dx
--- OUTSIDE RECORDS SUMMARY | 2020-01-21 11:55 | XMS REPORT | Encounter Summary ---
Author Author [facility] Organization [facility] Address Unknown Phone Unavailable Care Team Providers Care University Manager Name Role Phone Jacobo wOens MD PCP Ezekiel Bacon MD Unavailable [phone] Ally Grayson Unavailable Unavailable Sharlene Knox RN Unavailable Unavailable Yessenia Julien MD Unavailable Shelby Astudillo MD 3 [phone] Reason for Visit * Reason Comments Labs Only Encounter Details Care Team Description Date Type Department Shelby Astudillo MD [address] [place] [address] [phone] 01/12/2020 [facility] [address] [phone] Social History Date Tobacco Use Types Packs/Day [...] or suspected to have Coronavirus / COVID-19? documented as of this encounter Functional Status Date of Assessment Functional Status Response 11/25/2018 Does the patient have a hearing impairment: No 11/25/2018 Does the patient have a visual impairment: Yes 11/25/2018 Does the patient have impaired ambulation: Yes 11/25/2018 Does the patient have an activity of daily living No (ADL) impairment: 11/25/2018 Does the patient have an instrumental activity of No daily living (IADL) impairment: Date of Assessment Cognitive Status Response 11/25/2018 Does the patient have a cognitive impairment: No documented as of this encounter Medications at Time of Discharge Start Date End Date Medication Sig Dispensed Refills 09/27/2018 albuterol (PROAIR HFA, Inhale two 1 Inhaler 1 VENTOLIN HFA, OR puffs by PROVENTIL HFA) 90 mouth into mcg/actuation the lungs inhalerIndications: every 6 hours Metastatic renal cell as needed carcinoma to (Pentamidine intra-abdominal site induced (HCC) bronchial irritation). Shake well before use. 11/07/2019 axitinib (INLYTA) 1 mg Take two 120 tablet 3 tabletIndications: tablets by Metastatic renal cell mouth twice carcinoma to daily. intra-abdominal site (HCC) calcium carbonate (TUMS) Chew 1,000 mg 0 500 mg (200 mg elemental by mouth calcium) chewable tablet daily. cholecalciferol (VITAMIN Take 1,000 0 D-3) 1,000 units tablet Units by mouth at bedtime daily. 10/19/2019 clobetasoL (TEMOVATE) Apply a small 60 g 1 0.05 % topical amount to creamIndications: Palmar blisters/sore plantar places on erythrodysesthesia hands and feet once per day. cyanocobalamin (VITAMIN Take 1,000 0 B-12) 1,000 mcg tablet mcg by mouth daily. diltiazem CD (CARDIZEM Take 180 mg 0 CD) 180 mg capsule by mouth daily. famotidine (PEPCID) 20 mg Take 20 mg by 0 tablet mouth every morning. fenofibrate Take 145 mg 0 nanocrystallized (TRICOR) by mouth 145 mg tablet daily. 09/02/2018 ferrous sulfate (FEOSOL, Take one 90 tablet 3 FEROSUL) 325 mg (65 mg tablet by iron) tablet mouth daily. Take on an empty stomach at least 1 hour before or 2 hours after food. furosemide (LASIX) 40 mg Take 40 mg by 0 tablet mouth three times weekly. glimepiride (AMARYL) 2 mg Take 2 mg by 0 tablet mouth twice daily. 06/23/2019 JARDIANCE 25 mg tablet Take 25 mg by 0 mouth daily. 10/01/2018 lisinopril (PRINIVIL, Take one 90 tablet 3 ZESTRIL) 40 mg tablet tablet by mouth daily. Lutein 20 mg cap Take 1 0 capsule by mouth daily. 08/13/2017 metoprolol XL (TOPROL XL) Take 200 mg 0 100 mg extended release by mouth tablet daily. 06/23/[address] (PRILOSEC) Take one 90 capsule 3 20 mg capsule capsule by mouth daily before breakfast. potassium chloride Take 8 mEq by 0 (KLOR-CON 8) 8 mEq tablet mouth daily. 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 pyridoxine (vitamin B6) Take 100 mg 0 (VITAMIN B-6) 100 mg by mouth tablet daily. Simethicone 125 mg chew Chew 1 tablet 0 by mouth twice daily as needed. traMADol (ULTRAM) 50 mg Take 50 mg by 0 tablet mouth twice daily. VIT A/C/E AC/ZNOX/CUPRIC Take 1 tablet 0 OXIDE (EYE VITAMIN AND by mouth at MINERALS PO) bedtime daily. vitamins, multiple tablet Take 1 Tab by 0 mouth daily. documented as of this encounter Miscellaneous Notes * Addendum Note - Deborah Tipton RN - 01/12/2020 1:30 PM CDT Encounter addended by: Deborah Tipton RN on: 01/12/2020 11:49 AM Actions taken: Flowsheet accepted, LDA properties accepted documented in this encounter Plan of Treatment Not on filedocumented as of this encounter Procedures Comments Procedure Name Priority Date/Time Associated Diag nosis HC CBC W/ AUTOMATED DIFF Routine 01/12/2020 Metas tatic renal cell 11:40 AM CDT carcinoma to intra-abdominal site (HCC) COMPREHENSIVE METABOLIC Routine 01/12/2020 Metast atic renal cell PANEL 11:40 AM CDT carcinoma to intra-abdominal site (HCC) documented in this encounter Results * CBC AND DIFF (01/12/2020 11:40 AM CDT) Pathologist [facility] White Blood 9.4 4.5 - 11.0 K/UL [...] Basophil Count Specimen Blood Performing Organization Address City/State/Zipcode Ph one Number [facility] [address] [place] [address] * COMPREHENSIVE METABOLIC PANEL (01/12/2020 11:40 AM CDT) [facility] Sodium 137 137 - 147 MMOL/L [facility] [...] 35 (L) >60 mL/min [facility] Comment: [place] The eGFR is not validated f or use in drug dosing adjustments. Continue to use estimated creatinine clearance per dosing reference text. Please contact the Clinical Pharmacist for questions. eGFR 42 (L) >60 mL/min [facility] [place] Comment: The eGFR is not validated for use in drug dosing adjustments. Continue to use estimated creatinine clearance per dosing reference text. Please contact the Clinical Pharmacist for questions. 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
--- OUTSIDE RECORDS SUMMARY | 2020-01-21 11:55 | XMS REPORT | Encounter Summary ---
Author Author [facility] Organization [facility] Address Unknown Phone Unavailable Care Team Providers Care Life Enrichment Specialist Name Role Phone Jacobo Owens MD PCP Ezekiel Bacon MD Unavailable [phone] Ally Grayson Unavailable Unavailable Sharlene Knox RN Unavailable Unavailable Yessenia Julien MD Unavailable Shelby Astudillo MD 3 [phone] Encounter Details Care Team Description Date Type Department 01/12/2020 Travel Social History Date Tobacco Use Types Packs/Day [...] impairment: No documented as of this encounter Plan of Treatment Not on filedocumented as of this encounter Visit Diagnoses Not on filedocumented in this encounter Additional Health Concerns Resolved Time Infection Noted Time MRSA 01/22/2016 9:27 AM CDT documented as of this encounter
--- OUTSIDE RECORDS SUMMARY | 2020-01-21 11:56 | XMS REPORT | Encounter Summary ---
Author Author [facility] Organization [facility] Address Unknown Phone Unavailable Care Team Providers Care System Software Developer Name Role Phone Jacobo Owens MD PCP Ezekiel Bacon MD Unavailable [phone] Ally Grayson Unavailable Unavailable Sharlene Knox RN Unavailable Unavailable Yessenia Julien MD Unavailable Shelby Astudillo MD 3 [phone] Encounter Details Care Team Description Date Type Department Abeba Peters, PHARMD 11/07/2019 Documentation [facility] [address] [id number] Social History Date Tobacco Use Types Packs/Day Years Used Never Smoker Smokeless Tobacco: Never Used Drinks/Week oz/Week Comments Alcohol Use occasionally Yes Sex Assigned at Date Recorded Male Industry Job Start Date Occupation Not on file Not on file Not on file Travel End Travel History Travel Start No recent travel history available. Date Recorded COVID-19 Exposure Response 11/07/2019 11:20 AM CDT In the last month, have [...] impairment: No documented as of this encounter Progress Notes * Abeba Peters, PHARMD - 11/07/2019 3:38 PM CDT Initial Assessment: Oral Chemotherapy Axitinib (Inlyta) Bal Blevins is a 74 y.o. male with a diagnosis of advanced renal cell c arcinoma. Indication/Regimen Axitinib (Inlyta) is being used appropriately for treatment of renal cell carc inoma. The dosing regimen of 2 mg by mouth twice daily is appropriate for Bal Blevins. It is planned to continue until disease progression or unacceptable tox icity. Dose reduced to start for tolerability and PS. Patient History: Cancer Diagnosis: RCC Relevant drug-specific markers: N/A Past treatment regimens: Past Treatment Plans ONCOLOGY 1 Plan Name Cycles Start Date Discontinue Date Discontinue Reason Discontinue Use r OP CABOZANTINIB (TABLETS) -1 of 6 cycles 08/27/2018 11/07/2019 Toxicity (refr actory PPE despite treatment breaks and dose reduction to 20 mg) Shelby Salazar MD OP GU NIVOLUMAB (EVERY 2 WEEKS) 4 of 10 cycles started 05/24/2018 08/18/2018 Pro gression Shelby Astudillo MD OP PAZOPANIB 8 of 9 cycles planned 08/07/2017 05/18/2018 Progression Shelby Mcdonough MD Wt Readings from Last 1 Encounters: 10/21/19 94.3 kg (207 lb 12.8 oz) Estimated body surface area is 2.15 meters squared as calculated from the follow ing: Height as of an earlier encounter on 11/07/19: 171.4 cm (67.48"). Weight as of an earlier encounter on 11/07/19: 96.8 kg (213 lb 6.4 oz). Allergies: No Known Allergies Baseline Labs: CBC w/Diff Lab Results Component Value Date/Time WBC 6.4 11/07/2019 12:00 PM RBC 5.14 11/07/2019 12:00 PM HGB 15.2 11/07/2019 12:00 PM HCT 45.8 11/07/2019 12:00 PM MCV 89.1 11/07/2019 12:00 PM MCH 29.6 11/07/2019 12:00 PM MCHC 33.2 11/07/2019 12:00 PM RDW 20.4 (H) 11/07/2019 12:00 PM PLTCT 194 11/07/2019 12:00 PM MPV 8.4 11/07/2019 12:00 PM Lab Results Component Value Date/Time NEUT 69 11/07/2019 12:00 PM ANC 4.50 11/07/2019 12:00 PM LYMA 18 (L) 11/07/2019 12:00 PM ALC 1.10 11/07/2019 12:00 PM ANDREINA 10 11/07/2019 12:00 PM AMC 0.60 11/07/2019 12:00 PM EOSA 2 11/07/2019 12:00 PM AEC 0.10 11/07/2019 12:00 PM BASA 1 11/07/2019 12:00 PM ABC 0.00 11/07/2019 12:00 PM Comprehensive Metabolic Profile Lab Results Component Value Date/Time NA 138 11/07/2019 12:00 PM K 4.7 11/07/2019 12:00 PM CL 107 11/07/2019 12:00 PM CO2 24 11/07/2019 12:00 PM GAP 7 11/07/2019 12:00 PM BUN 25 11/07/2019 12:00 PM CR 1.34 (H) 11/07/2019 12:00 PM GLU 106 (H) 11/07/2019 12:00 PM Lab Results Component Value Date/Time CA 9.3 11/07/2019 12:00 PM PO4 1.4 (LL) 02/04/2016 09:50 AM ALBUMIN 3.7 11/07/2019 12:00 PM TOTPROT 6.4 11/07/2019 12:00 PM ALKPHOS 22 (L) 11/07/2019 12:00 PM AST 40 11/07/2019 12:00 PM ALT 36 11/07/2019 12:00 PM TOTBILI 0.6 11/07/2019 12:00 PM GFR 52 (L) 11/07/2019 12:00 PM GFRAA >60 11/07/2019 12:00 PM Serum creatinine: 1.34 mg/dL (H) 11/07/19 1200 Estimated creatinine clearance: 55.7 mL/min (A) status The patients status was assessed. As patient is a male, education w ill be provided regarding adequate contraception for female partners of reproduc tive potential and contacting his physician immediately should his partner becom e . Medication Reconciliation Home Medications Medication Sig albuterol (PROAIR HFA, VENTOLIN HFA, OR PROVENTIL HFA) 90 mcg/actuation inhaler Inhale two puffs by mouth into the lungs every 6 hours as needed (Pentamidine in duced bronchial irritation). Shake well before use. apixaban (ELIQUIS) 5 mg tablet Take one tablet by mouth twice daily. axitinib (INLYTA) 1 mg tablet Take two tablets by mouth twice daily. cabozantinib (CABOMETYX) 20 mg tablet Take one tablet by mouth daily. Take on an empty stomach, at least 1 hour before or 2 hours after food. calcium carbonate (TUMS) 500 mg (200 mg elemental calcium) chewable tablet Chew 1,000 mg by mouth daily. cholecalciferol (VITAMIN D-3) 1,000 units tablet Take 1,000 Units by mouth at be dtime daily. clobetasoL (TEMOVATE) 0.05 % topical cream Apply a small amount to blisters/sore places on hands and feet once per day. cyanocobalamin (VITAMIN B-12) 1,000 mcg tablet Take 1,000 mcg by mouth daily. diltiazem CD (CARDIZEM CD) 180 mg capsule Take 180 mg by mouth daily. famotidine (PEPCID) 20 mg tablet Take 20 mg by mouth every morning. fenofibrate nanocrystallized (TRICOR) 145 mg tablet Take 145 mg by mouth daily. ferrous sulfate (FEOSOL, FEROSUL) 325 mg (65 mg iron) tablet Take one tablet by mouth daily. Take on an empty stomach at least 1 hour before or 2 hours after fo od. furosemide (LASIX) 40 mg tablet Take 40 mg by mouth three times weekly. glimepiride (AMARYL) 2 mg tablet Take 2 mg by mouth twice daily. JARDIANCE 25 mg tablet Take 25 mg by mouth daily. lisinopril (PRINIVIL, ZESTRIL) 40 mg tablet Take one tablet by mouth daily. Patient taking differently: Take 20 mg by mouth daily. Lutein 20 mg cap Take 1 capsule by mouth daily. metoprolol XL (TOPROL XL) 100 mg extended release tablet Take 200 mg by mouth da denilson. omeprazole DR (PRILOSEC) 20 mg capsule Take one capsule by mouth daily before br eakfast. potassium chloride (KLOR-CON 8) 8 mEq tablet Take 8 mEq by mouth daily. predniSONE (DELTASONE) 5 mg tablet Take one tablet by mouth daily with breakfast . pyridoxine (vitamin B6) (VITAMIN B-6) 100 mg tablet Take 100 mg by mouth daily. Simethicone 125 mg chew Chew 1 tablet by mouth twice daily as needed. traMADol (ULTRAM) 50 mg tablet Take 50 mg by mouth twice daily. VIT A/C/E AC/ZNOX/CUPRIC OXIDE (EYE VITAMIN AND MINERALS PO) Take 1 tablet by mo uth at bedtime daily. vitamins, multiple tablet Take 1 Tab by mouth daily. Medication reconciliation is based on the patients most recent medication lis t in the electronic medical record (EMR) including herbal products and OTC medic ations. The patient's medication list will be updated during patient education, after speaking with the patient and prior to dispensing the medication. Drug-drug interactions (DDIs) DDIs were evaluated: The following drug-drug interactions were identified: Dilti azem may increase the concentration of Axitinib and they will be managed by denny cotto for toxicity from Axitinib (already starting at <50% standard dose). Drug-Food Interactions Drug-food interactions were evaluated. Doses may be taken with or without food. Avoid grapefruit. Contraindications ? Use is not recommended in patients with untreated brain metastasis (has not be en studied) ? Recent or active gastrointestinal bleeding Vaccination Status Assessment There is no immunization history on file for this patient. Vaccine history was reviewed. The patient will be reminded about the importance of receiving an annual influenza vaccine as indicated. Safety Precautions The following safety precautions to the use of axitinib were reviewed: ? Cardiac events ? Gastrointestinal perforation and fistulas ? Hemorrhagic events ? Hypertension, including hypertensive crisis has been reported ? Proteinuria ? Reversible posterior leukoencephalopathy syndrome ? Thrombotic events (both arterial and venous) ? Thyroid dysfunction ? Wound healing complications (discontinue axitinib at least 24 hours prior to s cheduled surgeries) Safety precautions for this medication have been reviewed for Bal rdz. No concerns have been identified. Risk Evaluation and Mitigation Strategy (REMS) Assessment No REMS is required for this medication. Initial therapy assessment has been completed and the patient will be contacted to complete education on their regimen. Abeba Peters, PHARMKristin Clinical Pharmacist 11/07/19 documented in this encounter Plan of Treatment Not on filedocumented as of this encounter Visit Diagnoses Not on filedocumented in this encounter Additional Health Concerns Resolved Time Infection Noted Time MRSA 01/22/2016 9:27 AM CDT documented as of this encounter
--- OUTSIDE RECORDS SUMMARY | 2020-01-21 11:56 | XMS REPORT | Encounter Summary ---
Author Author [facility] Organization [facility] Address Unknown Phone Unavailable Care Team Providers Care Loop Tender Name Role Phone Jacobo Owens MD PCP Ezekiel Bacon MD Unavailable [phone] Ally Grayson Unavailable Unavailable Sharlene Knox RN Unavailable Unavailable Yessenia Julien MD Unavailable Shelby Astudillo MD 3 [phone] Reason for Visit * Reason Comments Follow Up Erroneous encounter-disregard Encounter Details Care Team Description Date Type Department Shelby Astudillo MD [address] [place] [address] [phone] ERRONEOUS ENCOUNTER--DISREGARD (Primary Dx) 12/22/2019 Office Visit [facility] [address] [phone] Social History Date Tobacco Use Types Packs/Day Years Used Never Smoker Smokeless Tobacco: Never Used Drinks/Week oz/Week Comments Alcohol Use occasionally Yes Sex Assigned at Date Recorded Male 11/24/2019 10:36 AM CDT Industry Job Start Date Occupation Not on file Not on file Not on file Travel End Travel History Travel Start No recent travel history available. documented as of this encounter Functional Status [...] as of this encounter Progress Notes * Shelby Astudillo MD - 12/22/2019 4:40 PM CDT This encounter was created in error. Please disregard. P M CDT documented in this encounter Plan of Treatment Not on filedocumented as of this encounter Visit Diagnoses Diagnosis ERRONEOUS ENCOUNTER--DISREGARD documented in this encounter Additional Health Concerns Resolved Time Infection Noted Time MRSA 01/22/2016 9:27 AM CDT documented as of this encounter
--- OUTSIDE RECORDS SUMMARY | 2020-01-21 11:56 | XMS REPORT | Encounter Summary ---
Author Author [facility] Organization [facility] Address Unknown Phone Unavailable Care Team Providers Care Pastoral Assistant Name Role Phone Jacobo Owens MD PCP Ezekiel Bacon MD Unavailable [phone] Ally Grayson Unavailable Unavailable Sharlene Knox RN Unavailable Unavailable Yessenia Julien MD Unavailable Shelby Astudillo MD 3 Reason for Referral * Radiology Services (Routine) Referred By Contact Referred To Contact Status Reason Specialty Diagnoses / Procedures Shelby Astudillo MD [address] [place] [address] [place] [address] No Auth Needed Radiology Diagnoses 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) P rocedures CT CHEST W CONTRAST DC CT ABDOMEN & PELVIS W/CONTRAST MATERIAL * Radiology Services (Routine) Referred By Contact Referred To Contact Status Reason Specialty Diagnoses / Procedures Shelby Astudillo MD [address] [place] [address] New Request Radiology Diagnoses 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) P rocedures CT ABD/PELV W CONTRAST Reason for Visit * Radiology Services (Routine) Referred By Contact Referred To Contact Status Reason Specialty Diagnoses / Procedures Shelby Astudillo MD [address] [place] [address] [place] [address] No Auth Needed Radiology Diagnoses 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) P rocedures CT CHEST W CONTRAST DC CT ABDOMEN & PELVIS W/CONTRAST MATERIAL Encounter Details Care Team Description Date Type Department Shelby Astudillo MD [address] [place] [address] [phone] 01/12/2020 [facility] [address] [place], [place] [id number] Social History Date Tobacco Use Types Packs/Day [...] mouth daily. documented as of this encounter Plan of Treatment Not on filedocumented as of this encounter Procedures Comments Procedure Name Priority Date/Time Associated Diag nosis CT ABD/PELV W CONTRAST Routine 01/12/2020 Metasta tic renal cell 10:56 AM CDT carcinoma to intra-abdominal site (HCC) CT CHEST W CONTRAST Routine 01/12/2020 Metastatic renal cell 10:56 AM CDT carcinoma to intra-abdominal site (HCC) HC COMPREHENSIVE 01/12/2020 METABOLIC PANEL 10:27 AM CDT documented in this encounter Results * CT CHEST W CONTRAST (01/12/2020 10:56 AM CDT) Specimen Impressions Performed At CHEST: [facility] [...] on 01/12/2020 1:31 PM. Performing Organization Address [facility] * CT ABD/PELV W CONTRAST (01/12/2020 10:56 AM CDT) Specimen Impressions Performed At CHEST: [facility] [...] on 01/12/2020 1:31 PM. Performing Organization Address City/[place] RES[facility] * POC CREATININE, RAD (01/12/2020 10:27 AM CDT) Creatinine, POC 2.0 (H) 0.4 - 1.24 MG/DL [facility] Specimen Performing Organization Address City/[facility] MA[facility] LAB [address] [place] [address] documented in this encounter Visit Diagnoses Diagnosis Metastatic renal cell carcinoma to intr a-abdominal site (HCC) Secondary malignant neoplasm of other s pecified sites documented in this encounter Administered Medications Action Date Dose Rate Site Medication Order MAR Action 01/12/2020 10:52 AM CDT 100 mL iohexoL (OMNIPAQUE-350) 350 mg/mL Given injection 100 mL 100 mL, Intravenous, ONCE, 1 dose, Lydia 01/12/20 at 1100, NOTE: This is a HIGH ALERT Medication., 01/12/2020 10:52 AM CDT 50 mL sodium chloride PF 0.9% injection 50 mL Given 50 mL, Intravenous, ONCE, 1 dose, Lydia 01/12/20 at 1100, DO NOT SEND this medication unless it is requested. This med is usually available in floor stock., Intra-procedure (IR) documented in this encounter Additional Health Concerns Resolved Time Infection Noted Time MRSA 01/22/2016 9:27 AM CDT documented as of this encounter
--- OUTSIDE RECORDS SUMMARY | 2020-01-21 11:56 | XMS REPORT | Encounter Summary ---
Author Author [facility] Organization [facility] Address Unknown Phone Unavailable Care Team Providers Care Dry End Operator Name Role Phone Jacobo Owens MD PCP Ezekiel Bacon MD Unavailable [phone] Ally Grayson Unavailable Unavailable Sharlene Knox RN Unavailable Unavailable Yessenia Julien MD Unavailable Shelby Astudillo MD 3 [phone] Encounter Details Care Team Description Date Type Department Shelby Astudillo MD [address] [place] [address] [phone] 12/22/2019 Documentation [facility] [address] [address] Social History Date Tobacco Use Types Packs/Day [...] as of this encounter Progress Notes * Dana Glass RN - 12/22/2019 5:42 PM CDT Pt unable to connect to TH visit. Phone call placed to pt who reports he was see n locally by wound care Dr Hussain Velazco at [facility] on Thursday. Pt was recom mended to start Bacitracin and feels there has been improvement in his toes on r ight foot. Pt had dopplers today as they are "concerned about blood flow and hea ling." Pt scheduled to see them again on . Dr Astudillo updated. Pt t o send pictures of his wounds in the next few days. Reinforced we will send note s to Dr Velazco as we are concerned about wound healing and trying to start Inlyta . Pt verbalizes understanding. Will call pt for update next week. documented in this encounter Plan of Treatment Not on filedocumented as of this encounter Visit Diagnoses Not on filedocumented in this encounter Additional Health Concerns Resolved Time Infection Noted Time MRSA 01/22/2016 9:27 AM CDT documented as of this encounter
--- OUTSIDE RECORDS SUMMARY | 2020-01-21 11:56 | XMS REPORT | Encounter Summary ---
Author Author [facility] Organization [facility] Address Unknown Phone Unavailable Care Team Providers Care Final Finisher Name Role Phone Jacobo Owens MD PCP Ezekiel Bacon MD Unavailable [phone] Ally Grayson Unavailable Unavailable Sharlene Knox RN Unavailable Unavailable Yessenia Julien MD Unavailable Shelby Astudillo MD 3 [phone] Reason for Visit * Reason Comments Cancer Follow Up Encounter Details Care Team Description Date Type Department Shelby Astudillo MD [address] [place], [place] [id number] Malignant neoplasm of left kidney (HCC) (Primary Dx); Secondary malignant neoplasm of bone (HCC); Secondary malignant neoplasm of both lungs (HCC); Hemoptysis; 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 DATE OF SERVICE: 12/08/2019 Subjective: Reason for Visit: Metastatic clear cell renal cell carcinoma Cancer and Follow Up Subjective Cancer Staging 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) Staging form: Kidney, AJCC 7th Edition - Clinical stage from 01/31/2016: Stage III (T3a, N0, M0) - Signed by Shelby Morales MD on 04/21/2017 - Pathologic stage from 10/13/2016: Stage IV (M1) - Signed by Wade Astudillo MD on 04/21/2017 - Pathologic stage from 07/28/2017: Stage IV (TX, NX, M1) - Signed by Shelby Le MD on 08/07/2017 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) 01/31/2016 Initial Diagnosis 01/31/2016 Surgery Radical left nephrectomy, pathology revealing 10/07/2016 Surgery Resection of left retroperitoneal mass, pathology revealed clear cell renal ce ll carcinoma 10/07/2016 Progression 04/09/[address] scan of the abdomen/pelvis revealed recurrent soft tissue abnormality in th e left retroperitoneum/tumor bed, concerning for local recurrence. CT scan of the chest without pulmonary nodules or pathologic-appearing lymphaden opathy 04/09/2017 Progression 05/15/2017 Other Ablation of L renal fossa mass 07/06/[address] c/a/p: Multiple 8-10 mm pulmonary nodules in bilateral lower lobes, biopsy consistent with clear cell RCC 08/16/2017 - 05/17/2018 Chemotherapy Pazopanib, given without curative intent. Titrating up to 800 mg per day 05/24/2018 - 08/16/2018 Chemotherapy Nivolumab 480 mg IV q4 weeks, given without curative intent 11/25/2018 - Chemotherapy Started cabozantinib 20 mg daily and titrated up to 60 mg daily 11/21/2019 - Chemotherapy OP AXITINIB Plan Provider: Shelby Astudillo MD Treatment goal: Palliative History of Present Illness This is a telehealth (AUDIO & VIDEO) visit secondary to COVID19 public health emergency. No tech disruptions during visit. Obtained patient's verbal consent to treat them and their agreement to [facility] policy and NPP via this telehealth visit during the Coronavirus Public He alth Emergency Hemoptysis: He reports that he has had rare episodes of scant hemoptysis over the past few w eeks, generally 1-2 times over 2 weeks. Denies increasing chest pain, dyspnea, o r cough. PPE: Reports that he has begun using medihoney on his feet and that it seems to be he lping his wound care from his palmar-plantar erythrodysesthesia. Lesions are les s painful and drying up. He otherwise feels well and denies any other new or concerning symptoms. Specifi yuliana, he denies any dyspnea, cough, nausea, vomiting, abdominal pain, diarrhea, constipation, or rash. Review of Systems Constitutional: Negative for appetite change. HENT: Negative. Eyes: Negative. Respiratory: Negative. Cardiovascular: Negative. Gastrointestinal: Negative. Negative for nausea. Endocrine: Negative. Genitourinary: Negative. Musculoskeletal: Positive for arthralgias (mostly just chronic L ankle pain). Ne gative for myalgias. Skin: Positive for rash (tiny areas of superficial ulceration on both great toes ). Allergic/Immunologic: Negative. Neurological: Negative. Negative for speech difficulty. Hematological: Negative. Psychiatric/Behavioral: Negative. Negative for confusion. Objective: Past medical, surgical, family, and social history have been reviewed with the p atient on 12/08/2019, and confirmed accuracy of the information outlined below: Medical History: Diagnosis Date A-fib (HCC) Arthritis Chronic kidney disease (CKD), stage III (moderate) (HCC) CKD (chronic kidney disease) stage 3, GFR 30-59 ml/min (HCC) Diabetes mellitus, type II (HCC) High blood pressure 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) 10/07/2016 OA (osteoarthritis) Renal cell carcinoma of left kidney (HCC) 01/30/2016 Left open radical nephrectomy -- 01/30/2016; Dr. Bacon. Clear cell RCC; pT3a N0 Mx; Radha 2. CT Abd (06/27/2016): mild nodular soft tissue thickening in the operative bed which is concerning for residual or recurrent neoplasm. Solitary kidney, acquired 01/30/2016 (R) Solitary kidney d/t (L) radical nephrectomy -- 01/30/2016. Spinal stenosis at L4-L5 level Surgical History: Procedure Laterality Date OPEN LEFT RADICAL NEPHRECTOMY (SUBCOSTAL), LEFT RETRO PERITONEAL LYMPH NODE DISSECTION Left 01/31/2016 Performed by Ezekiel Bacon MD at [facility] OR RESECTION OF LEFT RETROPERITONEAL MASS Left 10/07/2016 Performed by Ezekiel Bacon MD at [facility] OR BIOPSY MASS back of his head COLONOSCOPY FINGER NAIL SURGERY Left thumb nail KNEE ARTHROSCOPY Left knee Family History Adopted: Yes Problem Relation Age of Onset None Reported Mother None Reported Father Social History Socioeconomic History Marital status: Single Spouse name: Not on file Number of children: Not on file Years of education: Not on file Highest education level: Not on file Occupational History Not on file Tobacco Use Smoking status: Never Smoker Smokeless tobacco: Never Used Substance and Sexual Activity Alcohol use: Yes Comment: occasionally Drug use: No Sexual activity: Not Currently Other Topics Concern Not on file Social History Narrative Not on file albuterol (PROAIR HFA, VENTOLIN HFA, OR PROVENTIL HFA) 90 mcg/actuation inha ler Inhale two puffs by mouth into the lungs every 6 hours as needed (Pentamidin e induced bronchial irritation). Shake well before use. axitinib (INLYTA) 1 mg tablet Take two tablets by mouth twice daily. calcium carbonate (TUMS) 500 mg (200 mg elemental calcium) chewable tablet C hew 1,000 mg by mouth daily. cholecalciferol (VITAMIN D-3) 1,000 units tablet Take 1,000 Units by mouth a t bedtime daily. clobetasoL (TEMOVATE) 0.05 % topical cream Apply a small amount to blisters/ sore places on hands and feet once per day. cyanocobalamin (VITAMIN B-12) 1,000 mcg tablet Take 1,000 mcg by mouth daily . diltiazem CD (CARDIZEM CD) 180 mg capsule Take 180 mg by mouth daily. famotidine (PEPCID) 20 mg tablet Take 20 mg by mouth every morning. fenofibrate nanocrystallized (TRICOR) 145 mg tablet Take 145 mg by mouth zack ly. ferrous sulfate (FEOSOL, FEROSUL) 325 mg (65 mg iron) tablet Take one tablet by mouth daily. Take on an empty stomach at least 1 hour before or 2 hours after food. furosemide (LASIX) 40 mg tablet Take 40 mg by mouth three times weekly. glimepiride (AMARYL) 2 mg tablet Take 2 mg by mouth twice daily. JARDIANCE 25 mg tablet Take 25 mg by mouth daily. lisinopril (PRINIVIL, ZESTRIL) 40 mg tablet Take one tablet by mouth daily. (Patient taking differently: Take 20 mg by mouth daily.) Lutein 20 mg cap Take 1 capsule by mouth daily. metoprolol XL (TOPROL XL) 100 mg extended release tablet Take 200 mg by mout h daily. omeprazole DR (PRILOSEC) 20 mg capsule Take one capsule by mouth daily befor e breakfast. potassium chloride (KLOR-CON 8) 8 mEq tablet Take 8 mEq by mouth daily. predniSONE (DELTASONE) 5 mg tablet Take one tablet by mouth daily with break fast. pyridoxine (vitamin B6) (VITAMIN B-6) 100 mg tablet Take 100 mg by mouth zack ly. Simethicone 125 mg chew Chew 1 tablet by mouth twice daily as needed. traMADol (ULTRAM) 50 mg tablet Take 50 mg by mouth twice daily. VIT A/C/E AC/ZNOX/CUPRIC OXIDE (EYE VITAMIN AND MINERALS PO) Take 1 tablet b y mouth at bedtime daily. vitamins, multiple tablet Take 1 Tab by mouth daily. Vitals: 12/08/19 1612 PainSc: Two There is no height or weight on file to calculate BMI. Pain Score: Two Pain Loc: Toe Pain Addressed: Current regimen working to control pain. Patient Evaluated for a Clinical Trial: No treatment clinical trial available fo r this patient. Eastern Cooperative Oncology Group performance status is 1, Restricted in physic ally strenuous activity but ambulatory and able to carry out work of a light or sedentary nature, e.g., light house work, office work. Physical Exam EXAM - VIDEO VISIT General appearance: no acute distress, awake, no grimace, well-developed, sittin g, Eyes: eyelids open, no discharge, no icterus, ENT: no nasal drainage, no voice changes, Lungs: no secretions, no acc muscle use, no apnea, Neuro: awake, no myoclonus, no masked face nor facial droop Psych: calm, interactive, normal memory and judgement, good insight, oriented x3 based on conversation Skin: Reviewed images of his feet from today, which reveal stable size of small and superficial ulcers over the same locations of his feet (mostly his great toe s), but they appear drier and pulverizer tender and to show signs of healing Data: I have ordered and reviewed the patient's CBC/differential and compared to prior values. The full CBC is as follows: CBC with Diff Latest Ref Rng & Units 11/07/2019 10/21/2019 09/05/2019 07/18/2019 06/27/2019 WBC 4.5 - 11.0 K/UL 6.4 6.7 9.4 11.9(H) 10.4 RBC 4.4 - 5.5 M/UL 5.14 6.58(H) 5.78(H) 5.24 4.30(L) HGB 13.5 - 16.5 GM/DL 15.2 19.2(H) 18.0(H) 17.6(H) 14.6 HCT 40 - 50 % 45.8 58.6(H) 54.1(H) 53.8(H) 44.5 MCV 80 - 100 FL 89.1 89.0 93.6 102.6(H) 103.7(H) MCH 26 - 34 PG 29.6 29.2 31.1 33.7 33.9 MCHC 32.0 - 36.0 G/DL 33.2 32.9 33.2 32.8 32.7 RDW 11 - 15 % 20.4(H) 17.6(H) 15.7(H) 15.8(H) 16.4(H) PLT 150 - 400 K/UL 194 210 216 249 231 MPV 7 - 11 FL 8.4 8.3 8.4 8.8 9.0 NEUT 41 - 77 % 69 51 70 75 86(H) ANC 1.8 - 7.0 K/UL 4.50 3.40 6.50 9.10(H) 9.10(H) LYMA 24 - 44 % 18(L) 37 20(L) 14(L) 6(L) ALYM 1.0 - 4.8 K/UL 1.10 2.50 1.90 1.60 0.60(L) ANDREINA 4 - 12 % 10 8 6 8 6 AMONO 0 - 0.80 K/UL 0.60 0.50 0.60 1.00(H) 0.60 EOSA 0 - 5 % 2 3 2 2 1 AEOS 0 - 0.45 K/UL 0.10 0.20 0.20 0.20 0.10 BASA 0 - 2 % 1 1 2 1 1 ABAS 0 - 0.20 K/UL 0.00 0.00 0.20 0.10 0.10 I have ordered and reviewed the patient's CMP and compared to prior values. The full CMP is as follows: CMP Latest Ref Rng & Units 11/07/2019 10/21/2019 09/05/2019 08/03/2019 07/18/2019 NA 137 - 147 MMOL/L 138 137 134(L) 138 141 K 3.5 - 5.1 MMOL/L 4.7 4.3 4.8 4.8 4.1 CL 98 - 110 MMOL/L 107 99 104 102 102 CO2 21 - 30 MMOL/L 24 28 22 23 28 GAP 3 - 12 7 10 8 13(H) 11 BUN 7 - 25 MG/DL 25 30(H) 38(H) 44(H) 38(H) CR 0.4 - 1.24 MG/DL 1.34(H) 1.86(H) 1.77(H) 1.80(H) 1.85(H) GLUX 70 - 100 MG/DL 106(H) 93 150(H) 229(H) 138(H) CA 8.5 - 10.6 MG/DL 9.3 9.8 9.2 9.7 10.0 TP 6.0 - 8.0 G/DL 6.4 7.2 6.4 - 6.9 ALB 3.5 - 5.0 G/DL 3.7 4.0 3.8 - 4.0 ALKP 25 - 110 U/L 22(L) 33 38 - 38 ALT 7 - 56 U/L 36 78(H) 43 - 17 TBILI 0.3 - 1.2 MG/DL 0.6 0.6 0.4 - 0.8 GFR >60 mL/min 52(L) 36(L) 38(L) 37(L) 36(L) GFRAA >60 mL/min >60 43(L) 46(L) 45(L) 44(L) Thyroid Studies Lab Results Component Value Date/Time TSH 3.93 11/07/2019 12:00 PM No results found for: FREET3, [id number], THYBINDGLB Assessment and Plan: Mr. Blevins is a 74 y.o. 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 1. Metastatic renal cell carcinoma to lungs, retroperitoneum: Reviewed Mr. Blevins's symptoms and it seems that he still has grade 2 hand-f oot syndrome, so we must still delay the initiation of Axitinib until it is grad e 1. Continue current supportive care and will have follow-up visit via telemedici nein 2 weeks to consider initiation of Axitinib 2. Hemoptysis: Low-volume (1/4 tsp) X 4 occurrences and then 1/8 tsp on 2 occurrences Likely due to L hilar pulmonary metastasis, previously exacerbated by Apixaba n but now improved. Continue to hold Apixaban and continue to monitor. Counseled him to seek emergent care if he expectorates 1/2 cup or greater but to notify us if he does not have resolution of hemoptysis. 3. Palmar-plantar erythrodysesthesia: Still CTCAE grade 2, due to Cabozantinib (subseuqently discontinued) Continue supportive care with topical steroids. 4. Checkpoint inhibitor-induced cerebritis/hypophysitis: Continue Prednisone 5 mg [id number] X 1 month, then stop. Continue PPI for GI protection until he has completed steroid taper. 5. Polycythemia: Improving, likely due to testosterone supplementation +/- contribution from R CC. Continue holding testosterone and and following CBC monthly. Goals of care: The patient has historically had good prognostic awareness of the significanc e of metastatic disease. The patient stated goal is longevity, although he indicated that he is concer curt about the potential medical burden of systemic therapy. The patient would benefit from advanced care planning in the future, includin g identification of surrogate decision maker. Total [id number]-[id number] time for visit: 25 minutes, all (> 50%) of which was spent in education and counseling with patient via telephone per [facility] COVID-19 policy, which incorporates guidelines from the Centers for Disease Control [CDC]. Discussed the patient's cancer diagnosis and management, PPE, medical decision-making, cerebritis and management, and goals. 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
--- OUTSIDE RECORDS SUMMARY | 2020-01-21 11:56 | XMS REPORT | Encounter Summary ---
Author Author [facility] Organization [facility] Address Unknown Phone Unavailable Care Team Providers Care Portfolio Lead Name Role Phone Jacobo Owens MD PCP Ezekiel Bacon MD Unavailable [phone] Ally Grayson Unavailable Unavailable Sharlene Knox RN Unavailable Unavailable Yessenia Julien MD Unavailable Shelby Astudillo MD 3 [phone] Encounter Details Care Team Description Date Type Department Irene De Leon 11/09/2019 Documentation The [address] [address] Social History Date Tobacco Use Types Packs/Day [...] as of this encounter Progress Notes * Irene De Leon - 11/09/2019 1:27 PM CDT The Prior Authorization for Inlyta was submitted for Bal Blevins via ph one. Will continue to follow. [facility] Patient Advocate [phone] documented in this encounter Plan of Treatment Not on filedocumented as of this encounter Visit Diagnoses Not on filedocumented in this encounter Additional Health Concerns Resolved Time Infection Noted Time MRSA 01/22/2016 9:27 AM CDT documented as of this encounter
--- OUTSIDE RECORDS SUMMARY | 2020-01-21 11:56 | XMS REPORT | Encounter Summary ---
Author Author [facility] Organization [facility] Address Unknown Phone Unavailable Care Team Providers Care Rn International Name Role Phone Jacobo Owens MD PCP Ezekiel Bacon MD Unavailable [phone] Ally Grayson Unavailable Unavailable Sharlene Knox RN Unavailable Unavailable Yessenia Julien MD Unavailable Shelby Astudillo MD 3 [phone] Encounter Details Care Team Description Date Type Department 11/07/2019 Travel Social History Date Tobacco Use Types [...]
--- OUTSIDE RECORDS SUMMARY | 2020-01-21 11:56 | XMS REPORT | Encounter Summary ---
Author Author [facility] Organization [facility] Address Unknown Phone Unavailable Care Team Providers Care Director Peoples[employer] Name Role Phone Jacobo Owens MD PCP Ezekiel Bacon MD Unavailable [phone] Ally Grayson Unavailable Unavailable Sharlene Knox RN Unavailable Unavailable Yessenia Julien MD Unavailable Shelby Astudillo MD 3 [phone] Encounter Details Care Team Description Date Type Department Irene De Leon 11/08/2019 Documentation The [address] [address] Social History Date Tobacco Use Types Packs/Day [...] Progress Notes * Irene De Leon - 11/08/2019 9:03 AM CDT The prior authorization for Inlyta for Bal Blevins has been initiated via [place]. Once the forms have been received via fax, specialty pharmacy will complete the prior authorization. Will continue to follow, [facility] Patient Advocate [phone] documented in this encounter Plan of Treatment Not on filedocumented as of this encounter Visit Diagnoses Not on filedocumented in this encounter Additional Health Concerns Resolved Time Infection Noted Time MRSA 01/22/2016 9:27 AM CDT documented as of this encounter
--- OUTSIDE RECORDS SUMMARY | 2020-01-21 11:56 | XMS REPORT | Encounter Summary ---
Author Author [facility] Organization [facility] Address Unknown Phone Unavailable Care Team Providers Care Clutch Inspector Name Role Phone Jacobo Owens MD PCP Ezekiel Bacon MD Unavailable [phone] Ally Grayson Unavailable Unavailable Sharlene Knox RN Unavailable Unavailable Yessenia Julien MD Unavailable Shelby Astudillo MD 3 [phone] Reason for Visit * Reason Comments Chemotherapy Encounter Details Care Team Description Date Type Department Gallo Barrett, PHARMD Chemotherapy 11/08/2019 Telephone [facility] [place] [phone] Social History Date Tobacco Use Types Packs/Day [...] impairment: No documented as of this encounter Miscellaneous Notes * Telephone Encounter - Gallo Barrett, ROGER - 11/08/2019 11:09 AM CDT Oral Chemotherapy Counseling Axitinib (Inlyta) Bal Blevins was provided medication education regarding his new oral ch emotherapy. I reviewed the role of specialty pharmacy, including access to medication ass istance specialists if needed. How to take the medication: Bal Blevins was educated on Axitinib (Inlyta), the indication for oswald atment, dose, route, frequency and duration of therapy. Directions: 2 mg by mouth twice daily with or without food (may be increased to 7 and then 10 mg twice daily if tolerated). Patient was educated to swallow tablets whole and not to crush, chew or open tablets. Patient was educated to avoid grapefruit. How to Store Medication: Bal Blevins was educated to store Axitinib (Inlyta) at room temperatu re in a safe place away from humidity, pets, and children. I instructed the jackson ent that it was okay to store axitinib in a pill box, if needed. I recommended if family members would be handling the medication, they should use gloves. Ad ditionally, I recommended cleaning any surfaces touched by Axitinib (Inlyta) w ith bleach, if possible. Adherence: Patient was educated on the importance of adherence and that the consequences of non-adherence could include disease progression. The patient's ability to be ad herent with drug therapies was discussed and the patient was provided options fo r tools/resources that promote adherence to therapy. For Bal Blevins, a larms, calendars, pill box, and technology (reminder apps) were recommended and/ or provided. How to Manage Missed Doses: I instructed the patient that if a dose is missed or vomited up, to take the ne xt dose at the regularly scheduled time and not to take any extra to make up for it. Contraindications / Safety Precautions / Adverse Effects: Contraindications to therapy, safety precautions, and common adverse effects (li sted below) were discussed with the patient. I explained that most patients do NOT experience all these side effects and that this list was not inclusive. I i nstructed patient to report any adverse effects to their doctor, pharmacist or miriam garcia. Most common adverse effects: ? Hypertension ? Fatigue, voice disorder, heache ? Palmar-plantar erythrodysesthesia, skin rash ? Electrolyte abnormalities ? Weight loss ? Diarrhea ? Decreased appetite ? Nausea/vomiting ? Constipation ? Increased liver function tests ? Weakness ? Increased serum creatinine Potentially severe adverse effects: ? Blood clots ? Bleeding ? Cardiac events ? Thyroid dysfunction Vaccination Status Education The patient was reminded about the importance of receiving an annual influenza v accine as indicated. REMS Program: No REMS is required for this medication. Drug-Drug Interactions: A medication history and reconciliation was performed (including prescription me dications, supplements, over the counter medications, and herbal products). The medication list was updated and the patients current medication list is inclu ded below. I stressed the importance of maintaining an accurate medication list and informing their medical team prior to taking any new medications. Home Medications Medication Sig albuterol (PROAIR HFA, [...] tablet Take 1 Tab by mouth daily. Drug-drug and drug-food interactions with the new therapy were assessed and revi ewed with the patient. The following drug-drug interactions were identified: Dil tiazem may increase the concentration of Axitinib and they will be managed by mo nitoring for toxicity from Axitinib (already starting at <50% standard dose). Reproductive Concerns: Reproductive concerns were reviewed with the patient. As patient is a male, educ ation was provided regarding adequate contraception for female partners of repro ductive potential and contacting his physician immediately should his partner be come . What to do with any unused or medications: Bal Blevins was instructed to return any unused or medication t o a disposal bin at one of the retail pharmacy locations or to [facility] a [facility]. Instructed not to flush the medication down the toil et. Monitoring: Monitoring and follow-up plan was discussed with patient. Bal Blevins w as instructed to contact the oral chemotherapy pharmacist at [phone] if the y have any questions or concerns regarding their medication therapy. Informed t he patient that we would send the prescription to a specialty pharmacy and that the pharmacy would be calling the patient to schedule a shipment. Emphasized if their phone calls were not answered, the specialty pharmacy would not ship the medication. This medication is considered high risk per our internal oral chemotherapy risk categorization and the patient will be contacted for education, toxicity check a t 2 weeks, and reassessment every 3 months, if applicable (high risk monitoring) . Questions: Patient was given the opportunity to ask questions. Patient verbalized understan sue, agreed with the plan and had no questions or concerns regarding therapy. Gallo Barrett, PHARMD Clinical Pharmacist 11/08/19 documented in this encounter Plan of Treatment Not on filedocumented as of this encounter Visit Diagnoses Not on filedocumented in this encounter Additional Health Concerns Resolved Time Infection Noted Time MRSA 01/22/2016 9:27 AM CDT documented as of this encounter
--- OUTSIDE RECORDS SUMMARY | 2020-01-21 11:56 | XMS REPORT | Encounter Summary ---
Author Author [facility] Organization [facility] Address Unknown Phone Unavailable Care Team Providers Care Manager Strategy Name Role Phone Jacobo Owens MD PCP Ezekiel Bacon MD Unavailable [phone] Ally Grayson Unavailable Unavailable Sharlene Knox RN Unavailable Unavailable Yessenia Julien MD Unavailable Shelby Astudillo MD 3 [phone] Encounter Details Care Team Description Date Type Department Shelby Astudillo MD [address] [place] [address] [phone] 01/02/2020 Documentation [facility] [address] [phone] Social History Date Tobacco Use Types Packs/Day [...] Progress Notes * Dana Glass RN - 01/02/2020 12:48 PM CDT Pt given follow up appt same day as scans. pt notes wound on left big toe starti ng again and he will see wound care today. Pt verbalizes understanding. documented in this encounter Plan of Treatment Not on filedocumented as of this encounter Visit Diagnoses Not on filedocumented in this encounter Additional Health Concerns Resolved Time Infection Noted Time MRSA 01/22/2016 9:27 AM CDT documented as of this encounter
--- OUTSIDE RECORDS SUMMARY | 2020-01-21 11:56 | XMS REPORT | Encounter Summary ---
Author Author [facility] Organization [facility] Address Unknown Phone Unavailable Care Team Providers Care Truant Officer Name Role Phone Jacobo Owens MD PCP Ezekiel Bacon MD Unavailable [phone] Ally Grayson Unavailable Unavailable Sharlene Knox RN Unavailable Unavailable Yessenia Julien MD Unavailable Shelby Astudillo MD 3 [phone] Reason for Visit * Reason Comments Heme/Onc Care Encounter Details Care Team Description Date Type Department Rut Barkley, ROGER Heme/Onc Care 11/22/[address] [phone] Social History Date Tobacco Use Types Packs/Day [...] encounter Miscellaneous Notes * Telephone Encounter - Rut Barkley PHARMD - 11/22/2019 10:01 AM CDT Oral Chemotherapy Pharmacist Note Bal Blevins was contacted to perform a toxicity check on axitinib. The patient has received the medication but has yet to start the axitinib. Per Mehdi orjas, he will start axitinib once his PPE from cabozantinib has resolved. He has fo llow-up planned with Dr. Astudillo on 11/23 to reassess. We will call back for a reassessment once he has started the medication. Rut Barkley PHARMD Clinical Pharmacist 11/22/2019 documented in this encounter Plan of Treatment Not on filedocumented as of this encounter Visit Diagnoses Not on filedocumented in this encounter Additional Health Concerns Resolved Time Infection Noted Time MRSA 01/22/2016 9:27 AM CDT documented as of this encounter
--- OUTSIDE RECORDS SUMMARY | 2020-01-21 11:56 | XMS REPORT | Encounter Summary ---
Author Author [facility] Organization [facility] Address Unknown Phone Unavailable Care Team Providers Care Grinder Set Up Operator Universal Name Role Phone Jacobo Owens MD PCP Ezekiel Bacon MD Unavailable [phone] Ally Grayson Unavailable Unavailable Sharlene Knox RN Unavailable Unavailable Yessenia Julien MD Unavailable Shelby Astudillo MD 3 [phone] Reason for Visit * Reason Comments Follow Up Encounter Details Care Team Description Date Type Department Shelby Astudillo MD [address] [place] [address] [phone] Malignant neoplasm of left kidney (HCC) (Primary Dx); Secondary malignant neoplasm of both lungs (HCC); Palmar plantar erythrodysaesthesia; Hemoptysis; Cerebritis 01/12/[address] [facility] [address] [phone] Social History Date Tobacco Use Types Packs/Day [...] / COVID-19? documented as of this encounter Last Filed Vital Signs Reading Time Taken [...] 01/12/2020 2:11 PM CDT Body Mass Index documented in this encounter Functional Status Date of Assessment [...] Progress Notes * Shelby Astudillo MD - 01/12/2020 2:20 PM CDT Name: Bal Blevins : 1945 AGE: [age] y.o. DATE OF SERVICE: 01/12/2020 Subjective: Reason for Visit: Metastatic clear cell renal cell carcinoma Follow Up Subjective Cancer Staging Metastatic renal [...] IV (TX, NX, M1) - Signed by Solitario coyne, Shelby Albarran MD on 08/07/2017 Metastatic renal cell carcinoma [...] Treatment goal: Palliative History of Present Illness Mr. Blevins returns for consideration of Axitinib therapy for metastatic kidney cancer. Hemoptysis: He continues to have scant, rare hemoptysis, no more than a couple of drops when ever it does happen. PPE: This hasn't improved significantly since our last telemedicine. Continues to hav e lesions on L great toe, R toe, and a small amount on the heel. He has continue d wound care and has underwent ABIs to try and work up PVD as a possible cause. Atrial fibrillation: He is upset and agitated today because of an interaction he had recently with ri s manufacturing test technician. It seems that there was somewhat of a confrontation related to h is current cardiac meds (particularly his beta lauren[?]) but he wasn't able to provide a clear narrative about all of the details. He otherwise feels well and denies any other new or concerning symptoms. Specifi yuliana, he denies any dyspnea, nausea, vomiting, abdominal pain, diarrhea, consti pation, or rash. Review of Systems Constitutional: Negative for appetite change. HENT: Negative. Eyes: Negative. Respiratory: Negative. Cough: occasional low-volume hemoptysis. Cardiovascular: Negative. Gastrointestinal: Negative. Negative for nausea. [...] been reviewed with the p atient on 01/12/2020 and confirmed accuracy of the information outlined [...] 01/31/2016 Performed by Ezekiel Bacon MD at [facility] OR RESECTION OF LEFT RETROPERITONEAL MASS Left 10/07/2016 Performed by Ezekiel Bacon MD at [facility] OR BIOPSY MASS back of his head [...] least 1 hour before or 2 hours afte r food. furosemide (LASIX) 40 mg tablet Take [...] Take 1 Tab by mouth daily. Vitals: 01/12/20 1411 BP: 107/63 BP Source: Arm, Left Upper Patient Position: Sitting Pulse: 96 Resp: 16 Temp: 36.4 C (97.5 F) SpO2: 100% Weight: 94.1 kg (207 lb 6.4 oz) Height: 171.5 cm (67.5") PainSc: Three Body mass index is 32 kg/m. Pain Score: Three Pain Loc: Foot Pain Addressed: Current regimen working to control pain. Patient Evaluated for a Clinical Trial: No treatment clinical trial available fo r this patient. Eastern Cooperative Oncology Group performance status is 1, Restricted in physic ally strenuous activity but ambulatory and able to carry out work of a light or sedentary nature, e.g., light house work, office work. Physical Exam Constitutional: Well-developed, well-nourished gentleman sitting comfortably in exam room. Eyes: EOMI, no conjunctival injection, anicteric sclerae ENT: Wearing mask over mouth and nose CV: Normal rate, regular rhythm, no murmur, rub, or gallop. No pitting edema. Respiratory: Normal work of breathing on room air. Good air movement throughout chest, no wheeze, rales, or rhonchi. GI: Abdomen soft and nondistended. Bowel sounds present in all 4 quadrants. No t enderness to palpation. No hepatomegaly, spleen tip not palpated. : No catheter present Msk: Normal muscle bulk and tone. No joint deformities or arthritic abnormalitie s. Neuro: Cranial nerves grossly intact and symmetric. No focal neurologic deficits . Normal gait. Integument/skin: Stable size of small and superficial ulcers over the same locat ions of his feet (mostly his great toes), but they appear bone drier operator Heme/lymph: No pathologic-appearing bruising. No cervical or supraclavicular lym phdenopathy. Psych: Alert and oriented to person, place, date, and situation. Affect agitated . Good insight and judgement. Data: I have ordered and reviewed the patient's CBC/differential and compared to prior values. The full CBC is as follows: CBC with Diff Latest Ref Rng & Units 01/12/2020 11/07/2019 10/21/2019 09/05/2019 07/18/2019 WBC 4.5 - 11.0 K/UL 9.4 6.4 6.7 9.4 11.9(H) RBC 4.4 - 5.5 M/UL 5.20 5.14 6.58(H) 5.78(H) 5.24 HGB 13.5 - 16.5 GM/DL 15.7 15.2 19.2(H) 18.0(H) 17.6(H) HCT 40 - 50 % 49.0 45.8 58.6(H) 54.1(H) 53.8(H) MCV 80 - 100 FL 94.2 89.1 89.0 93.6 102.6(H) MCH 26 - 34 PG 30.1 29.6 29.2 31.1 33.7 MCHC 32.0 - 36.0 G/DL 32.0 33.2 32.9 33.2 32.8 RDW 11 - 15 % 16.8(H) 20.4(H) 17.6(H) 15.7(H) 15.8(H) PLT 150 - 400 K/UL 291 194 210 216 249 MPV 7 - 11 FL 8.4 8.4 8.3 8.4 8.8 NEUT 41 - 77 % 71 69 51 70 75 ANC 1.8 - 7.0 K/UL 6.70 4.50 3.40 6.50 9.10(H) LYMA 24 - 44 % 13(L) 18(L) 37 20(L) 14(L) ALYM 1.0 - 4.8 K/UL 1.20 1.10 2.50 1.90 1.60 ANDREINA 4 - 12 % 11 10 8 6 8 AMONO 0 - 0.80 K/UL 1.00(H) 0.60 0.50 0.60 1.00(H) EOSA 0 - 5 % 4 2 3 2 2 AEOS 0 - 0.45 K/UL 0.40 0.10 0.20 0.20 0.20 BASA 0 - 2 % 1 1 1 2 1 ABAS 0 - 0.20 K/UL 0.10 0.00 0.00 0.20 0.10 I have ordered and reviewed the patient's CMP and compared to prior values. The full CMP is as follows: CMP Latest Ref Rng & Units 01/12/2020 11/07/2019 10/21/2019 09/05/2019 08/03/2019 NA 137 - 147 MMOL/L 137 138 137 134(L) 138 K 3.5 - 5.1 MMOL/L 4.0 4.7 4.3 4.8 4.8 CL 98 - 110 MMOL/L 99 107 99 104 102 CO2 21 - 30 MMOL/L 27 24 28 22 23 GAP 3 - 12 11 7 10 8 13(H) BUN 7 - 25 MG/DL 25 25 30(H) 38(H) 44(H) CR 0.4 - 1.24 MG/DL 1.92(H) 1.34(H) 1.86(H) 1.77(H) 1.80(H) GLUX 70 - 100 MG/DL 141(H) 106(H) 93 150(H) 229(H) CA 8.5 - 10.6 MG/DL 10.0 9.3 9.8 9.2 9.7 TP 6.0 - 8.0 G/DL 7.0 6.4 7.2 6.4 - ALB 3.5 - 5.0 G/DL 3.9 3.7 4.0 3.8 - ALKP 25 - 110 U/L 27 22(L) 33 38 - ALT 7 - 56 U/L 13 36 78(H) 43 - TBILI 0.3 - 1.2 MG/DL 0.7 0.6 0.6 0.4 - GFR >60 mL/min 35(L) 52(L) 36(L) 38(L) 37(L) GFRAA >60 mL/min 42(L) >60 43(L) 46(L) 45(L) Thyroid Studies Lab Results Component Value Date/Time TSH 3.93 11/07/2019 12:00 PM No results found for: FREET3, B4CLHBXRF, THYBINDGLB Assessment and Plan: Mr. Blevins is [...] we must still delay the initiation of a tyrosine kinase inhibit or. We had a lengthy discussion today about the realities of our situation -- he has progressive metastatic cancer but our ability to treat this is limited due t o his refractory palmar-plantar erythrodysesthesia (PPE). This is likely refract ory due to his longstanding history of diabetes and peripheral vascular disease, but it is unclear if we have any way to intervene upon these comorbid condition s in order to allow him to resume a TKI. Given his ongoing hemoptysis I believe we must move forward with treatment of his cancer, but in order to determine which treatment this will be, we will do the following: A) Obtain ABIs and speak to cardiology regarding whether he has an indication fo r a PVD intervention that could facilitate healing of ulcers (which is required to resume a TKI) B) Refer to dermatology regarding whether there are other causes that can be mulugeta igated If we can't mitigate his skin toxicity we will start Everolimus with close mo nitoring. 2. Hemoptysis: Low-volume (1/4 tsp) X 4 [...] CTCAE grade 2, due to Cabozantinib (subseuqently discontinued), diabete s, peripheral vascular disease. See #1 above regarding Continue supportive care with topical steroids, wound care. Refer to dermatology regarding whether there are any other potentially revers ible causes and/or topical therapies that may be of assistance. 4. 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 Total [id number] time for visit: 41 minutes, all (> 50%) of which was spent in education and counseling with patient via telephone per [facility] COVID-19 policy, which incorporates guidelines from the Centers for Disease Control [CDC]. Discussed the patient's cancer diagnosis and management, PPE, medical decision-making, cerebritis and management, and goals. P M CDT documented in this encounter Plan of Treatment Not on filedocumented as of this encounter Visit Diagnoses Diagnosis Malignant neoplasm of left kidney (HCC) Secondary malignant neoplasm of both estefany ngs (HCC) Palmar plantar erythrodysaesthesia Hemoptysis Hemoptysis, unspecified Cerebritis Unspecified cause of encephalitis, myel itis, and encephalomyelitis documented in this encounter Additional Health Concerns Resolved Time Infection Noted Time MRSA 01/22/2016 9:27 AM CDT documented as of this encounter
--- OUTSIDE RECORDS SUMMARY | 2020-01-21 11:56 | XMS REPORT | Encounter Summary ---
Author Author [facility] Organization [facility] Address Unknown Phone Unavailable Care Team Providers Care Sales And Marketing Administrator Name Role Phone Jacobo Owens MD PCP Ezekiel Bacon MD Unavailable [phone] Ally Grayson Unavailable Unavailable Sharlene Knox RN Unavailable Unavailable Yessenia Julien MD Unavailable Shelby Astudillo MD 3 [phone] Reason for Visit * Reason Comments Appointment Request Encounter Details Care Team Description Date Type Department Shelby Astudillo MD [address] [place] [address] [phone] Appointment Request 12/21/2019 Telephone [facility] [address] [phone] Social History Date Tobacco Use Types Packs/Day [...] encounter Miscellaneous Notes * Telephone Encounter - Nevin Ramos - 12/21/2019 2:58 PM CDT Spoke with the patient about moving his telehealth appt to 440 and he was ok wit h that documented in this encounter Plan of Treatment Not on filedocumented as of this encounter Visit Diagnoses Not on filedocumented in this encounter Additional Health Concerns Resolved Time Infection Noted Time MRSA 01/22/2016 9:27 AM CDT documented as of this encounter
--- OUTSIDE RECORDS SUMMARY | 2020-01-21 11:56 | XMS REPORT | Encounter Summary ---
Author Author [facility] Organization [facility] Address Unknown Phone Unavailable Care Team Providers Care Film Casting Operator Name Role Phone Jacobo Owens MD PCP Ezekiel Bacon MD Unavailable Ally Grayson Unavailable Unavailable Sharlene Knox RN Unavailable Unavailable Yessenia Julien MD Unavailable Shelby Astudillo MD 3 Reason for Referral * Radiology Services (Routine) Referred By Contact Referred To Contact Status Reason Specialty Diagnoses / Procedures Shelby Astudillo MD [address] [place] [address] [place] [address] No Auth Needed Radiology Diagnoses 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) P rocedures CT CHEST W CONTRAST [place] CT ABDOMEN & PELVIS W/CONTRAST MATERIAL * Radiology Services (Routine) Referred By Contact Referred To Contact Status Reason Specialty Diagnoses / Procedures Shelby Astudillo MD [address] [place] [address] New Request Radiology Diagnoses 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) P rocedures CT ABD/PELV W CONTRAST Encounter Details Care Team Description Date Type Department Shelby Astudillo MD [address] [place] [address] [phone] 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 -abdominal site (HCC) (Primary Dx) 12/30/2019 Orders Only [facility] [place] [address] [place] [phone] Social History Date Tobacco Use Types Packs/Day [...] of this encounter Progress Notes * Dana Glass, RN - 12/30/2019 10:43 AM CDT Pt instructed to not start Inlyta yet even though wounds are healed as he is sti ll having foot pain making it difficult to walk. Dr Astudillo updated and pt scheduled for scans 01/11 and will make follow up from there. Pt verbalizes u nderstanding. documented in this encounter Plan of Treatment Not on filedocumented as of this encounter Results * COMPREHENSIVE METABOLIC PANEL (01/12/2020 11:40 AM CDT) Sodium 137 137 - 147 MMOL/L [facility] [...] 35 (L) >60 mL/min [facility] Comment: [place]cu[place] The eGFR is not validated f or use in drug dosing adjustments. Continue to use estimated creatinine clearance per dosing reference text. Please contact the Clinical Pharmacist for questions. eGFR 42 (L) >60 mL/min [facility] [place]orean Comment: The eGFR is not validated for use in drug dosing adjustments. Continue to use estimated creatinine clearance per dosing reference text. Please contact the Clinical Pharmacist for questions. Specimen Blood Performing Organization Address City/State/Zipcode Ph one Number [facility] [address] [place] [phone] * CBC AND DIFF (01/12/2020 11:40 AM CDT) White Blood 9.4 4.5 - 11.0 K/UL [...] City/State/Zipcode Ph one Number [facility] [address] [place] [address] * CT CHEST W CONTRAST (01/12/2020 10:56 [...] on 01/12/2020 1:31 PM. Performing Organization Address City/State/Zipcode Ph one Number [facility] RESULTS * [...] on 01/12/2020 1:31 PM. Performing Organization Address City/State/Zipcode Ph one Number [facility] documented in this encounter Visit Diagnoses Diagnosis Metastatic renal cell carcinoma to intr a-abdominal site (HCC) Secondary malignant neoplasm of other s pecified sites documented in this encounter Additional Health Concerns Resolved Time Infection Noted Time MRSA 01/22/2016 9:27 AM CDT documented as of this encounter
--- OUTSIDE RECORDS SUMMARY | 2020-01-21 11:56 | XMS REPORT | Encounter Summary ---
Author Author [facility] Organization [facility] Address Unknown Phone Unavailable Care Team Providers Care Valver Name Role Phone Jacobo Owens MD PCP Ezekiel Bacon MD Unavailable [phone] Ally Grayson Unavailable Unavailable Sharlene Knox RN Unavailable Unavailable Yessenia Julien MD Unavailable Shelby Astudillo MD 3 [phone] Encounter Details Care Team Description Date Type Department Irene De Leon 11/09/2019 Documentation The [address] [address] Social History Date Tobacco Use Types Packs/Day [...] Notes * Irene De Leon - 11/09/2019 3:51 PM CDT The Prior Authorization for Inlyta was approved for Bal Blevins from until further notice. The copay is $580.15 The patient has a ester through [employer] to cover the copay. The spec [facility] pharmacy will pursue additional copay assistance as necessary. [facility] out to the provider's nurse if the copay becomes unaffor dable. A voicemail was left for the patient to schedule shipment. [facility] Patient Advocate [phone] documented in this encounter Plan of Treatment Not on filedocumented as of this encounter Visit Diagnoses Not on filedocumented in this encounter Additional Health Concerns Resolved Time Infection Noted Time MRSA 01/22/2016 9:27 AM CDT documented as of this encounter
--- OUTSIDE RECORDS SUMMARY | 2020-01-21 11:56 | XMS REPORT | Encounter Summary ---
Author Author [facility] Organization [facility] Address Unknown Phone Unavailable Care Team Providers Care Computer Systems Technology Instructor Name Role Phone Jacobo Owens MD PCP Ezekiel Bacon MD Unavailable [phone] Ally Grayson Unavailable Unavailable Sharlene Knox RN Unavailable Unavailable Yessenia Julien MD Unavailable Shelby Astudillo MD 3 [phone] Reason for Visit * Reason Comments Appointment Request Encounter Details Care Team Description Date Type Department Shelby Astudillo MD [address] [place] [address] [phone] Appointment Request 12/09/2019 Telephone The [facility] [address] [address] Social History Date Tobacco Use Types Packs/Day [...] encounter Miscellaneous Notes * Telephone Encounter - Shonna Britton - 12/09/2019 9:57 AM CDT Spoke to patient, informed him that his return with Dr. Astudillo on 2019 has been changed to telehealth. Patient verbalized understanding. documented in this encounter Plan of Treatment Not on filedocumented as of this encounter Visit Diagnoses Not on filedocumented in this encounter Additional Health Concerns Resolved Time Infection Noted Time MRSA 01/22/2016 9:27 AM CDT documented as of this encounter
--- OUTSIDE RECORDS SUMMARY | 2020-01-21 11:56 | XMS REPORT | Encounter Summary ---
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 DATE OF SERVICE: 11/24/2019 Subjective: Reason for Visit: Metastatic clear cell [...] History of Present Illness This is a telephone (AUDIO only as video component would not work) visit richya markie to [place] [address] public health emergency. No tech disruptions during visit. Obtained patient's verbal consent to treat them and their agreement to [facility] policy and NPP via this telehealth visit during the Coronavirus Public He alth Emergency Hemoptysis: Today he reports that he woke up with a cough today and that he has had sputum p roduction X 1 but 4 episodes of low-volume hemoptysis (he estimates one small cl ot per episode, around 1/4 teaspoon each time. Denies dyspnea, chest pain. O2sat 99%. He continues on Eliquis. PPE: Reports that this is improving and that he no longer has any pain but that he st ill continues to have ulcerated lesions on plantar aspect of great toes and 2nd toe on R foot as well. He otherwise feels well and denies any [...] history [facility], and confirmed accuracy of the information outlined [...] 01/31/2016 Performed by Ezekiel Bacon MD at [facility] OR RESECTION OF LEFT RETROPERITONEAL MASS Left 10/07/2016 Performed by Ezekiel Bacon MD at [facility] OR BIOPSY MASS back of his head [...] induced bronchial irritation). Shake well before use. apixaban [...] Take 1 Tab by mouth daily. Vitals: 11/24/19 1220 PainSc: Zero There is no height or weight on file to calculate BMI. Pain Score: Zero Pain Addressed: Current regimen working to control pain. Patient Evaluated for a Clinical Trial: No treatment clinical trial available fo r this patient. Eastern Cooperative Oncology Group performance status is 1, Restricted in physic ally strenuous activity but ambulatory and able to carry out work of a light or sedentary nature, e.g., light house work, office work. Physical Exam Exam -- phone visit Data: I have ordered and reviewed the [...] 12:00 PM No results found for: FREET3, P7JRSLIIS, THYBINDGLB Assessment and Plan: Mr. Blevins is [...] supportive care and will have follow-up visit in 2 weeks to consider initiation of Axitinib 2. Hemoptysis: Low-volume (1/4 tsp) X 4 occurrences Likely due to L hilar pulmonary metastasis, exacerbated by Apixaban. Counseled him to seek emergent care if he expectorates 1/2 cup or greater but to notify us if he does not have resolution of hemoptysis. Will follow up by one on 11/27. Discontinue Apixaban and monitor closely for resolution. If this resolves kathleen l maintain him off of Apixaban until 2-3 months post-initiation of Axitinib. 3. Palmar-plantar erythrodysesthesia: Still CTCAE grade 2, due to Cabozantinib (subseuqently discontinued) Continue supportive care with topical steroids. 4. Checkpoint inhibitor-induced cerebritis/hypophysitis: Continue Prednisone 5 mg PO daily X 2 more weeks, at which time we will decre ase to 5 mg [id number] X 1 month, then stop. Continue PPI [...] g identification of surrogate decision maker. Total discontinuous telephonetime for visit: 21 minutes, > 50% of which was spent in education and counseling with patient via telephone (video would not work). Discussed the patient's cancer diagnosis and management, PPE, medical decision-making, cerebritis and management, and goals. 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
--- OUTSIDE RECORDS SUMMARY | 2020-01-21 11:57 | XMS REPORT | Encounter Summary ---
Author Author [facility] Organization [facility] Address Unknown Phone Unavailable Care Team Providers Care Tobacco Acreage Measurer Name Role Phone Jacobo Owens MD PCP Ezekiel Bacon MD Unavailable [phone] Ally Grayson Unavailable Unavailable Sharlene Knox RN Unavailable Unavailable Yessenia Julien MD Unavailable Shelby Astudillo MD 3 [phone] Encounter Details Care Team Description Date Type Department 10/21/2019 Travel Social History Date Tobacco Use Types Packs/Day Years Used Never Smoker Smokeless Tobacco: Never Used Drinks/Week oz/Week Comments Alcohol Use occasionally Yes Sex Assigned at Date Recorded Male Industry Job Start Date Occupation Not on file Not on file Not on file Travel End Travel History Travel Start No recent travel history available. Date Recorded COVID-19 Exposure Response 10/21/2019 9:48 AM CDT In the last month, have [...]
--- OUTSIDE RECORDS SUMMARY | 2020-01-21 11:57 | XMS REPORT | Encounter Summary ---
Author Author [facility] Organization [facility] Address Unknown Phone Unavailable Care Team Providers Care Manager Water Name Role Phone Jacobo Owens MD PCP Ezekiel Bacon MD Unavailable [phone] Ally Grayson Unavailable Unavailable Sharlene Knox RN Unavailable Unavailable Yessenia Julien MD Unavailable Shelby Astudillo MD 3 [phone] Reason for Visit * Reason Comments Heme/Onc Care Encounter Details Care Team Description Date Type Department Shelby Astudillo MD [address] [place], [place] [phone] Malignant neoplasm of left kidney (HCC) (Primary Dx); Autoimmune cerebritis (HCC); 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); 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); 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 11/07/2019 Office Visit [facility] [address] [phone] Social History Date Tobacco Use Types Packs/Day [...] Signs Reading Time Taken Comments Vital Sign 138/89 11/07/2019 12:57 PM CDT Blood Pressure 85 11/07/2019 12:57 PM CDT Pulse 36.2 C (97.2 F) 11/07/2019 12:57 PM CDT Temperature 16 11/07/2019 12:57 PM CDT Respiratory Rate 100% 11/07/2019 12:57 PM CDT Oxygen Saturation - - Inhaled Oxygen Concentration 96.8 kg (213 lb 6.4 oz) 11/07/2019 12:57 PM CDT Weight 171.4 cm (5' 7.48") 11/07/2019 12:57 PM CDT Height 32.95 11/07/2019 12:57 PM CDT Body Mass Index documented in [...] Progress Notes * Shelby Astudillo MD - 11/07/2019 4:00 PM CDT Name: Bal Blevins : 1945 AGE: [age] y.o. DATE OF SERVICE: 11/07/2019 Subjective: Reason for Visit: Metastatic clear cell renal cell carcinoma Heme/Onc Care Subjective Cancer Staging Metastatic renal cell carcinoma [...] Palliative History of Present Illness Mr. Blevins presents for evaluation and management of checkpoint inhibitor-induc ed hypophysitis/cerebritis and metastatic RCC. Since his last visit he again ne eded to hold Cabozantinib at a dose of 20 mg PO daily due to palmar-plantar eryt hrodysesthesia (PPE). Today he reports that he has continued to have pain and skin changes on his feet from PPE. He has had improvement on his fingers and resolution of any discomfort or ulcerations there, but his feet are soaping machine back tender and make walking uncomfort able. He otherwise feels well and denies any [...] history have been reviewed with the p miguel on 11/07/2019, and confirmed accuracy of the information outlined [...] 01/31/2016 Performed by Ezekiel Bacon MD at [facility] OR RESECTION OF LEFT RETROPERITONEAL MASS Left 10/07/2016 Performed by Ezekiel Bacon MD at [facility] OR BIOPSY MASS back of his [...] Take 1 Tab by mouth daily. Vitals: 11/07/19 1257 11/07/19 1300 BP: 138/89 BP Source: Arm, Left Upper Patient Position: Sitting Pulse: 85 Resp: 16 Temp: 36.2 C (97.2 F) TempSrc: Oral SpO2: 100% Weight: 96.8 kg (213 lb 6.4 oz) Height: 171.4 cm (67.48") PainSc: Zero Body mass index is 32.95 kg/m. Pain Score: Zero Pain Addressed: Current regimen working to control pain. Patient Evaluated for a Clinical Trial: No treatment clinical trial available fo r this patient. Eastern Cooperative Oncology Group performance status is 1, Restricted in physic ally strenuous activity but ambulatory and able to carry out work of a light or sedentary nature, e.g., light house work, office work. Physical Exam Constitutional: Somewhat chronically-ill appearing gentleman sitting comfortably in exam room. Well-kept. Eyes: EOMI, no conjunctival injection, anicteric sclerae ENT: Nares patent, lips and oral mucosae moist, good dentition, no thrush, ulcer ations. No stridor. CV: Normal rate, irregular rhythm, no murmur, rub, or gallop. No pitting edema. Respiratory: Normal work of breathing on room air. Good air movement throughout, CTAB. Normal work of breathing on room air, good air movement. No wheeze, rales, or rhonchi. GI: Abdomen soft and nondistended. Bowel sounds present in all 4 quadrants. No t enderness to palpation. No hepatomegaly, spleen tip not palpated. : No catheter present Msk: Normal muscle bulk and tone. No joint effusions or limitations to active r petr of motion. Neuro: Cranial nerves grossly intact and symmetric. Normal gait. No speech laten cy Integument/skin: Mild erythema on the plantar surface of both feet. 2-3 mm areas of extremely superficial ulceration on great toes and L 2nd toe. Heme/lymph: No pathologic-appearing bruising. No cervical or supraclavicular lym phadenopathy Psych: Alert and oriented to person, place, date, and situation. Good insight, j udgement good. Data: I have ordered and reviewed the [...] 12:00 PM No results found for: FREET3, F1JIEJJVJ, THYBINDGLB I personally reviewed images from the patient's CT c/a/p dated 11/07/19, and my i mpression is that his L hilar lymph node conglomorate is larger than previously. Formal interpretation is as follows: "IMPRESSION CHEST: 1. Further increase in metastatic left hilar lymphadenopathy with lingular bro nchial narrowing and postobstructive atelectasis. 2. Unchanged right pleural metastatic disease without pleural effusion. 3. Stable right posterior sixth rib osseous metastasis. ABDOMEN AND PELVIS: 1. Prior radical left nephrectomy without locally recurrent mass or abdominal/ pelvic metastatic disease. 2. Cholelithiasis. By my electronic signature, I attest that I have personally reviewed the images for this examination and formulated the interpretations and opinions expressed i n this report Finalized by Alex Yanes M.D. on 11/07/2019 3:27 PM. Dictated by Andre Vela MD on 11/07/2019 2:11 PM." Assessment and Plan: Mr. Blevins is a 74 y.o. 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 1. Metastatic renal cell carcinoma to lungs, retroperitoneum: Reviewed imaging and I shared with Mr. Blevins that he has had progression of one site of his cancer, with stability of mild pleural metastatic disease. I informed him that I believe his disease is progressing not because he doesn 't clinically benefit from Cabozantinib, but rather because his dermatologic tox icity is too great for him to be able to tolerate Cabozantinib (which effectivel y means he hasn't been taking it, despite our best efforts). I recommend that we discontinue cabozantinib and try another agent at a low d ose. I recommended Axitinib 2 mg PO q12h. I do not believe Lenvatinib + Everolim us would be better tolerated than Cabozantinib or Axitinib. He is not a candidat e for a trial at our institution as the only trial we have to offer in his "spac e" is Axitinib + an immunomodulatory agent, which is not safe for him given his history of cerebritis on current steroids. We may trial Cabozantinib in the future, perhaps at a dose of 20 mg PO every- other-day, maybe even with scheduled treatment breaks. Will follow up by phone in 2 weeks regarding PPE, and if resolved will start Axitinib at that time. Telemedicine follow up in 1 month Consent: Today I discussed the potential benefits and risks associated with chem otherapy including, but not limited to, myelosuppression, (with risks of infecti on and need for transfusions or erythropoeitin), alopecia, nausea and vomiting, stomatitis, diarrhea, constipation, dehydration, electrolyte abnormalities, amberly l injury, peripheral neuropathy, renal injury, dehydration, electrolyte abnormal ities, increased risks of thrombosis, lung injury, cardiac injury, the need for additional procedures or medications, and as a complication of any of thes e side effects. I also discussed the potential risks associated with the transf usion of blood products, if needed. The patient verbally assented to treatment a nd consent was signed and scanned on the date of this appointment. 2. Checkpoint inhibitor-induced cerebritis/hypophysitis: Will wean Prednisone further to 5 mg PO daily X 1 month, then 5 mg every-othe r-day X 1 month, then stop. Continue PPI for GI protection until he has completed steroid taper. 3. Palmar-plantar erythrodysesthesia: CTCAE grade 2, due to Cabozantinib Have discontinued Cabozantinib 4. Hypertension: Continue Lisinopril 20 mg PO daily 5. Polycythemia: Likely due to testosterone supplementation +/- contribution from RCC. Continue holding testosterone and and following CBC [...] identification of surrogate decision maker. Total discontinuous [id number] time for visit: 25 minutes, > 50% of which was spent in education and counseling with patient in clinic. Discussed the patient's cancer diagnosis and management, PPE, medical decision-making, cerebritis and management, and goals. 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
--- OUTSIDE RECORDS SUMMARY | 2020-01-21 11:57 | XMS REPORT | Encounter Summary ---
Author Author [facility] Organization [facility] Address Unknown Phone Unavailable Care Team Providers Care Financial Aid Officer Name Role Phone Jacobo Owens MD PCP Ezekiel Bacon MD Unavailable Ally Grayson Unavailable Unavailable Sharlene Knox RN Unavailable Unavailable Yessenia Julien MD Unavailable Shelby Astudillo MD 3 Encounter Details Care Team Description Date Type Department Shelby Astudillo MD [address] [place] [address] 11/07/2019 [facility] [address] [phone] Social History Date Tobacco Use Types Packs/Day [...] (HCC) bronchial irritation). Shake well before use. calcium carbonate (TUMS) Chew 1,000 mg 0 [...] (KLOR-CON 8) 8 mEq tablet mouth daily. pyridoxine (vitamin B6) Take 100 mg 0 [...] Take 1 Tab by 0 mouth daily. 04/01/2019 11/24/2019 apixaban (ELIQUIS) 5 mg Take one 180 tablet 2 tablet tablet by mouth twice daily. documented as of this encounter Plan of Treatment Not on filedocumented as of this encounter Visit Diagnoses Not on filedocumented in this encounter Additional Health Concerns Resolved Time Infection Noted Time MRSA 01/22/2016 9:27 AM CDT documented as of this encounter
--- OUTSIDE RECORDS SUMMARY | 2020-01-21 11:57 | XMS REPORT | Encounter Summary ---
Author Author [facility] Organization [facility] Address Unknown Phone Unavailable Care Team Providers Care Field Cane Scaler Name Role Phone Jacobo Owens MD PCP Ezekiel Bacon MD Unavailable [phone] Ally Grayson Unavailable Unavailable Sharlene Knox RN Unavailable Unavailable Yessenia Julien MD Unavailable Shelby Astudillo MD 3 [phone] Reason for Visit * Reason Comments Treatment TP Encounter Details Care Team Description Date Type Department Sharlene Baires PA-C [address] [facility] [place] [address] [phone] 10/21/2019 [facility] [address] [phone] Social History Date Tobacco Use Types Packs/Day [...] 2 tablet tablet by mouth twice daily. 07/18/2019 11/07/2019 cabozantinib (CABOMETYX) Take one 30 tablet 3 20 mg tabletIndications: tablet by Metastatic renal cell mouth daily. carcinoma to Take on an intra-abdominal site empty (HCC) stomach, at least 1 hour before or 2 hours after food. 09/05/2019 11/07/2019 predniSONE (DELTASONE) 5 Alternate 2 50 tablet 1 mg tablet tablets with one tablet until further notice documented as of this encounter Progress Notes * Tom Garibay RN - 10/21/2019 12:30 PM CDT Patient here for therapeutic phlebotomy. Patient tolerated well, 500cc taken fro m left wrist. Patient left ambulatory with no complaints or concerns at this sofia e. documented in this encounter Plan of Treatment Not on filedocumented as of this encounter Visit Diagnoses Not on filedocumented in this encounter Additional Health Concerns Resolved Time Infection Noted Time MRSA 01/22/2016 9:27 AM CDT documented as of this encounter
--- OUTSIDE RECORDS SUMMARY | 2020-01-21 11:57 | XMS REPORT | Encounter Summary ---
Author Author [facility] Organization [facility] Address Unknown Phone Unavailable Care Team Providers Care Slip Operator Name Role Phone Jacobo Owens MD PCP Ezekiel Bacon MD Unavailable Ally Grayson Unavailable Unavailable Sharlene Knox RN Unavailable Unavailable Yessenia Julien MD Unavailable Shelby Astudillo MD 3 [phone] Encounter Details Care Team Description Date Type Department Sharlene Baires PA-C [address] [place] [address] [phone] 10/21/2019 Documentation The [facility] [address] [address] Social History Date Tobacco Use Types Packs/Day [...] Progress Notes * Dana Glass RN - 10/21/2019 4:06 PM CDT Lab results from today sent via [employer] to Dr Jacobo Owens documented in this encounter Plan of Treatment Not on filedocumented as of this encounter Visit Diagnoses Not on filedocumented in this encounter Additional Health Concerns Resolved Time Infection Noted Time MRSA 01/22/2016 9:27 AM CDT documented as of this encounter
--- OUTSIDE RECORDS SUMMARY | 2020-01-21 11:57 | XMS REPORT | Encounter Summary ---
Author Author [facility] Organization [facility] Address Unknown Phone Unavailable Care Team Providers Care Certified Respiratory Therapist Name Role Phone Jacobo Owens MD PCP Ezekiel Bacon MD Unavailable [phone] Ally Grayson Unavailable Unavailable Sharlene Knox RN Unavailable Unavailable Yessenia Julien MD Unavailable Shelby Astudillo MD 3 [phone] Encounter Details Care Team Description Date Type Department Jacobo Owens MD [address] [facility] [address] [place] [address] 10/21/2019 [place] [id number] Social History Date Tobacco Use Types Packs/Day [...] further notice documented as of this encounter Plan of Treatment Not on filedocumented as of this encounter Procedures Comments Procedure Name Priority Date/Time Associated Diag nosis HC TSH SCREEN 10/21/2019 10:01 AM CDT HC HEMOGLOBIN A1C 10/21/2019 10:01 AM CDT documented in this encounter Results * TSH WITH FREE T4 REFLEX (10/21/2019 10:01 AM CDT) TSH 13.65 (H) 0.35 - 5.00 [facility] Specimen Performing Organization Address City/State/Zipcode [facility] Number [facility] [address] [place] [address] * HEMOGLOBIN A1C (10/21/2019 10:01 AM CDT) Hemoglobin A1C 10.0 (H) 4.0 - 6.0 % [facility] Comment: The ADA recommends that most patients with type 1 and type 2 diabetes maintain an A1c level <7%. Specimen Performing Organization Address City/State/[facility] [address] [place] [address] documented in this encounter Visit Diagnoses Not on filedocumented in this encounter Additional Health Concerns Resolved Time Infection Noted Time MRSA 01/22/2016 9:27 AM CDT documented as of this encounter
--- OUTSIDE RECORDS SUMMARY | 2020-01-21 11:57 | XMS REPORT | Encounter Summary ---
Author Author [facility] Organization [facility] Address Unknown Phone Unavailable Care Team Providers Care Pan Dumper Name Role Phone Jacobo Owens MD PCP Ezekiel Bacon MD Unavailable [phone] Ally Grayson Unavailable Unavailable Sharlene Knox RN Unavailable Unavailable Yessenia Julien MD Unavailable Shelby Astudillo MD 3 Reason for Referral * Radiology Services (Routine) Referred By Contact Referred To Contact Status Reason Specialty Diagnoses / Procedures Shelby Astudillo MD [address] [place] [address] New Request Radiology Diagnoses 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) P rocedures CT CHEST W CONTRAST * Radiology Services (Routine) Referred By Contact Referred To Contact Status Reason Specialty Diagnoses / Procedures Shelby Astudillo MD [address] [place] [address] [place] [address] No Auth Needed Radiology Diagnoses 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) P rocedures CT ABD/PELV W CONTRAST CT CHEST W CONTRAST Reason for Visit * Radiology Services (Routine) Referred By Contact Referred To Contact Status Reason Specialty Diagnoses / Procedures Shelby Astudillo MD [address] [place] [address] [address] No Auth Needed Radiology Diagnoses 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) P rocedures CT ABD/PELV W CONTRAST CT CHEST W CONTRAST Encounter Details Care Team Description Date Type Department Shelby Astudillo MD [address] [place] [address] [phone] 11/07/2019 [facility] [address] [place] [address] [id number] Social History Date Tobacco Use Types Packs/Day [...] Diag nosis CT ABD/PELV W CONTRAST Routine 11/07/2019 Metasta tic renal cell 12:34 PM CDT carcinoma to intra-abdominal site (HCC) CT CHEST W CONTRAST Routine 11/07/2019 Metastatic [...] PM CDT carcinoma to intra-abdominal site (HCC) documented in this encounter Results * CT CHEST W CONTRAST (11/07/2019 12:34 PM CDT) Specimen Impressions Performed At CHEST: [facility] 1. Further increase in metastatic lef t hilar lymphadenopathy with lingular bronchial narrowing and postobstructive atelectasis. 2. Unchanged right pleural metastatic disease without pleural effusion. 3. Stable right posterior sixth rib o sseous metastasis. ABDOMEN AND PELVIS: 1. Prior radical left nephrectomy wit hout locally recurrent mass or abdominal/pelvic metastatic disease. 2. Cholelithiasis. By my electronic signature, I attest th at I have personally reviewed the images for this examination and formulated the interpretations and opinions expressed in this report Finalized by Alex Yanes M.D. on 11/06 3:27 PM. Dictated by Andre Nolan MD on 11/07/2019 2:11 PM. Narrative Performed At CT CHEST, ABDOMEN AND PELVIS [facility] Clinical Indication: Male, 74 years o ld. Metastatic renal cell carcinoma Technique: Multiple contiguous axial im ages were obtained through the chest, abdomen and pelvis following the admini stration of IV contrast material. Arterial, portal venous, and delayed ph ase imaging was performed. Post processing coronal and sagittal reconst ruction images were made from the axial images. IV contrast: Omnipaque-350 Bowel contrast: None Comparison: CT chest/abdomen/pelvis fro m 07/18/2019. CHEST FINDINGS: Lower Neck: Unremarkable Axilla, Mediastinum and Carie: No axilla ry adenopathy. Mild increase in size of heterogeneously enhancing left hilar ly mph node now measuring 2.8 x 1.6 cm (series 2, image 28) compared to 2.3 x 1.3 cm previously. A previously measured prominent though technically normal-siz e right paratracheal lymph node measures 1.0 x 0.8 cm (series 2, image 20) janis red to 1.0 x 0.8 cm previously. Heart and Great Vessels: Stable left at rial enlargement without significant pericardial effusion. Dense three-vesse l coronary artery calcification is noted. The great vessels are normal in caliber . Airway, Lungs and Pleura: Incidental no te is made of an azygos fissure. There appears to be development of compressio n of multiple segmental and subsegmental bronchi within the lingula secondary to mass effect from the the left hilar mass. Development of lingular atelectas is. Unchanged perifissural nodularity along both major fissures. A calcified granuloma is again noted within the right lower lobe. No significant change in mu ltifocal pleural nodularity involving the right hemithorax. A right posterolatera l pleural nodule measures 2.9 x 1.0 cm (series 3, image 86) compared to 2.9 x 1.0 cm previously. No new or enlarging pulmonary or pleural nodules are identi fied. No pleural effusion. Chest Wall and Osseous Structures: Mild symmetric bilateral gynecomastia. Multilevel thoracic spondylosis. No sig nificant change in appearance of osseous metastasis involving the posterior righ t sixth rib. ABDOMEN AND PELVIS FINDINGS: Liver and Biliary system: The liver is normal in size. A few subcentimeter hypodensities are noted within the righ t hepatic lobe, which are too small to characterize though likely benign. No s uspicious hepatic lesions are identified. Major portal veins are patent. Cholelit hiasis. The gallbladder is nondilated. No significant bile duct dilation. Spleen: Unremarkable. Adrenal Glands and Kidneys: The right a drenal is unremarkable. Prior radical left nephrectomy with unchanged soft ti ssue thickening within or adjacent to the operative bed, greatest medially and po steriorly (series 2, image 115). There are a few subcentimeter hypodensities w ithin the right kidney which are too small to characterize though likely rep resent cysts. No hydronephrosis. No urothelial filling defect is identified on delayed phase imaging. Pancreas and Retroperitoneum: The pancr eas is unremarkable. No retroperitoneal adenopathy. Aorta and Major Vessels: The abdominal aorta is normal in caliber with mild aortoiliac atherosclerotic calcificatio n. Bowel, Mesentery and Peritoneal space: Large and small bowel loops are normal in caliber. The appendix is normal. No sig nificant mesenteric adenopathy or ascites. Pelvis: The partially opacified urinary bladder is unremarkable. A right ureteral jet is noted. The prostate is unremarkable. No pelvic adenopathy. Abdominal wall and Osseous Structures: Unchanged grade 1 anterolisthesis of L4 on L5. No destructive osseous lesion. Procedure Note Interface, Radiant Results - 11/07/2019 3:[address] CHEST, ABDOMEN AND PELVIS Clinical Indication: Male, 74 years old. Metastatic renal cell carcinoma Technique: Multiple contiguous axial images were obtained through the chest, abdomen and pelvis following the administration of IV contrast material. Arterial, portal venous, and delayed phase imaging was performed. Post processing coronal and sagittal reconstruction images were made from the axial images. IV contrast: Omnipaque-350 Bowel contrast: None Comparison: CT chest/abdomen/pelvis from 07/18/2019. CHEST FINDINGS: Lower Neck: Unremarkable Axilla, Mediastinum and Carie: No axillary adenopathy. Mild increase in size of heterogeneously enhancing left hilar lymph node now measuring 2.8 x 1.6 cm (series 2, image 28) compared to 2.3 x 1.3 cm previously. A previously measured prominent though technically normal-size right paratracheal lymph node measures 1.0 x 0.8 cm (series 2, image 20) compared to 1.0 x 0.8 cm previously. Heart and Great Vessels: Stable left atrial enlargement without significant pericardial effusion. Dense three-vessel coronary artery calcification is noted. The great vessels are normal in caliber. Airway, Lungs and Pleura: Incidental note is made of an azygos fissure. There appears to be development of compression of multiple segmental and subsegmental bronchi within the lingula secondary to mass effect from the the left hilar mass. Development of lingular atelectasis. Unchanged perifissural nodularity along both major fissures. A calcified granuloma is again noted within the right lower lobe. No significant change in multifocal pleural nodularity involving the right hemithorax. A right posterolateral pleural nodule measures 2.9 x 1.0 cm (series 3, image 86) compared to 2.9 x 1.0 cm previously. No new or enlarging pulmonary or pleural nodules are identified. No pleural effusion. Chest Wall and Osseous Structures: Mild symmetric bilateral gynecomastia. Multilevel thoracic spondylosis. No significant change in appearance of osseous metastasis involving the posterior right sixth rib. ABDOMEN AND PELVIS FINDINGS: Liver and Biliary system: The liver is normal in size. A few subcentimeter hypodensities are noted within the right hepatic lobe, which are too small to characterize though likely benign. No suspicious hepatic lesions are identified. Major portal veins are patent. Cholelithiasis. The gallbladder is nondilated. No significant bile duct dilation. Spleen: Unremarkable. Adrenal Glands and Kidneys: The right adrenal is unremarkable. Prior radical left nephrectomy with unchanged soft tissue thickening within or adjacent to the operative bed, greatest medially and posteriorly (series 2, image 115). There are a few subcentimeter hypodensities within the right kidney which are too small to characterize though likely represent cysts. No hydronephrosis. No urothelial filling defect is identified on delayed phase imaging. Pancreas and Retroperitoneum: The pancreas is unremarkable. No retroperitoneal adenopathy. Aorta and Major Vessels: The abdominal aorta is normal in caliber with mild aortoiliac atherosclerotic calcification. Bowel, Mesentery and Peritoneal space: Large and small bowel loops are normal in caliber. The appendix is normal. No significant mesenteric adenopathy or ascites. Pelvis: The partially opacified urinary bladder is unremarkable. A right ureteral jet is noted. The prostate is unremarkable. No pelvic adenopathy. Abdominal wall and Osseous Structures: Unchanged grade 1 anterolisthesis of L4 on L5. No destructive osseous lesion. IMPRESSION CHEST: 1. Further increase in metastatic left hilar lymphadenopathy with lingular bronchial narrowing and postobstructive atelectasis. 2. Unchanged right pleural metastatic d isease without pleural effusion. 3. Stable right posterior sixth rib oss eous metastasis. ABDOMEN AND PELVIS: 1. Prior radical left nephrectomy witho ut locally recurrent mass or abdominal/pelvic metastatic disease. 2. Cholelithiasis. By my electronic signature, I attest that I have personally reviewed the images for this examination and formulated the interpretations and opinions expressed in this report Finalized by Alex Yanes M.D. on 11/07/2019 3:27 PM. Dictated by Andre Nolan MD on 11/07/2019 2:11 PM. Performing Organization Address City/State/Zipcode Ph one Number [facility] * CT ABD/PELV W CONTRAST (11/07/2019 12:34 PM CDT) Specimen Impressions Performed At CHEST: [facility] 1. Further increase in metastatic lef t hilar lymphadenopathy with lingular bronchial narrowing and postobstructive atelectasis. 2. Unchanged right pleural metastatic disease without pleural effusion. 3. Stable right posterior sixth rib o sseous metastasis. ABDOMEN AND PELVIS: 1. Prior radical left nephrectomy wit hout locally recurrent mass or abdominal/pelvic metastatic disease. 2. Cholelithiasis. By my electronic signature, I attest th at I have personally reviewed the images for this examination and formulated the interpretations and opinions expressed in this report Finalized by Alex Yanes M.D. on 11/06 3:27 PM. Dictated by Andre Nolan MD on 11/07/2019 2:11 PM. Narrative Performed At CT CHEST, ABDOMEN AND PELVIS [facility] Clinical Indication: Male, 74 years o ld. Metastatic renal cell carcinoma Technique: Multiple contiguous axial im ages were obtained through the chest, abdomen and pelvis following the admini stration of IV contrast material. Arterial, portal venous, and delayed ph ase imaging was performed. Post processing coronal and sagittal reconst ruction images were made from the axial images. IV contrast: Omnipaque-350 Bowel contrast: None Comparison: CT chest/abdomen/pelvis fro m 07/18/2019. CHEST FINDINGS: Lower Neck: Unremarkable Axilla, Mediastinum and Carie: No axilla ry adenopathy. Mild increase in size of heterogeneously enhancing left hilar ly mph node now measuring 2.8 x 1.6 cm (series 2, image 28) compared to 2.3 x 1.3 cm previously. A previously measured prominent though technically normal-siz e right paratracheal lymph node measures 1.0 x 0.8 cm (series 2, image 20) janis red to 1.0 x 0.8 cm previously. Heart and Great Vessels: Stable left at rial enlargement without significant pericardial effusion. Dense three-vesse l coronary artery calcification is noted. The great vessels are normal in caliber . Airway, Lungs and Pleura: Incidental no te is made of an azygos fissure. There appears to be development of compressio n of multiple segmental and subsegmental bronchi within the lingula secondary to mass effect from the the left hilar mass. Development of lingular atelectas is. Unchanged perifissural nodularity along both major fissures. A calcified granuloma is again noted within the right lower lobe. No significant change in mu ltifocal pleural nodularity involving the right hemithorax. A right posterolatera l pleural nodule measures 2.9 x 1.0 cm (series 3, image 86) compared to 2.9 x 1.0 cm previously. No new or enlarging pulmonary or pleural nodules are identi fied. No pleural effusion. Chest Wall and Osseous Structures: Mild symmetric bilateral gynecomastia. Multilevel thoracic spondylosis. No sig nificant change in appearance of osseous metastasis involving the posterior righ t sixth rib. ABDOMEN AND PELVIS FINDINGS: Liver and Biliary system: The liver is normal in size. A few subcentimeter hypodensities are noted within the righ t hepatic lobe, which are too small to characterize though likely benign. No s uspicious hepatic lesions are identified. Major portal veins are patent. Cholelit hiasis. The gallbladder is nondilated. No significant bile duct dilation. Spleen: Unremarkable. Adrenal Glands and Kidneys: The right a drenal is unremarkable. Prior radical left nephrectomy with unchanged soft ti ssue thickening within or adjacent to the operative bed, greatest medially and po steriorly (series 2, image 115). There are a few subcentimeter hypodensities w ithin the right kidney which are too small to characterize though likely rep resent cysts. No hydronephrosis. No urothelial filling defect is identified on delayed phase imaging. Pancreas and Retroperitoneum: The pancr eas is unremarkable. No retroperitoneal adenopathy. Aorta and Major Vessels: The abdominal aorta is normal in caliber with mild aortoiliac atherosclerotic calcificatio n. Bowel, Mesentery and Peritoneal space: Large and small bowel loops are normal in caliber. The appendix is normal. No sig nificant mesenteric adenopathy or ascites. Pelvis: The partially opacified urinary bladder is unremarkable. A right ureteral jet is noted. The prostate is unremarkable. No pelvic adenopathy. Abdominal wall and Osseous Structures: Unchanged grade 1 anterolisthesis of L4 on L5. No destructive osseous lesion. Procedure Note Interface, Radiant Results - 11/07/2019 3:[address] CHEST, ABDOMEN AND PELVIS Clinical Indication: Male, 74 years old. Metastatic renal cell carcinoma Technique: Multiple contiguous axial images were obtained through the chest, abdomen and pelvis following the administration of IV contrast material. Arterial, portal venous, and delayed phase imaging was performed. Post processing coronal and sagittal reconstruction images were made from the axial images. IV contrast: Omnipaque-350 Bowel contrast: None Comparison: CT chest/abdomen/pelvis from 07/18/2019. CHEST FINDINGS: Lower Neck: Unremarkable Axilla, Mediastinum and Carie: No axillary adenopathy. Mild increase in size of heterogeneously enhancing left hilar lymph node now measuring 2.8 x 1.6 cm (series 2, image 28) compared to 2.3 x 1.3 cm previously. A previously measured prominent though technically normal-size right paratracheal lymph node measures 1.0 x 0.8 cm (series 2, image 20) compared to 1.0 x 0.8 cm previously. Heart and Great Vessels: Stable left atrial enlargement without significant pericardial effusion. Dense three-vessel coronary artery calcification is noted. The great vessels are normal in caliber. Airway, Lungs and Pleura: Incidental note is made of an azygos fissure. There appears to be development of compression of multiple segmental and subsegmental bronchi within the lingula secondary to mass effect from the the left hilar mass. Development of lingular atelectasis. Unchanged perifissural nodularity along both major fissures. A calcified granuloma is again noted within the right lower lobe. No significant change in multifocal pleural nodularity involving the right hemithorax. A right posterolateral pleural nodule measures 2.9 x 1.0 cm (series 3, image 86) compared to 2.9 x 1.0 cm previously. No new or enlarging pulmonary or pleural nodules are identified. No pleural effusion. Chest Wall and Osseous Structures: Mild symmetric bilateral gynecomastia. Multilevel thoracic spondylosis. No significant change in appearance of osseous metastasis involving the posterior right sixth rib. ABDOMEN AND PELVIS FINDINGS: Liver and Biliary system: The liver is normal in size. A few subcentimeter hypodensities are noted within the right hepatic lobe, which are too small to characterize though likely benign. No suspicious hepatic lesions are identified. Major portal veins are patent. Cholelithiasis. The gallbladder is nondilated. No significant bile duct dilation. Spleen: Unremarkable. Adrenal Glands and Kidneys: The right adrenal is unremarkable. Prior radical left nephrectomy with unchanged soft tissue thickening within or adjacent to the operative bed, greatest medially and posteriorly (series 2, image 115). There are a few subcentimeter hypodensities within the right kidney which are too small to characterize though likely represent cysts. No hydronephrosis. No urothelial filling defect is identified on delayed phase imaging. Pancreas and Retroperitoneum: The pancreas is unremarkable. No retroperitoneal adenopathy. Aorta and Major Vessels: The abdominal aorta is normal in caliber with mild aortoiliac atherosclerotic calcification. Bowel, Mesentery and Peritoneal space: Large and small bowel loops are normal in caliber. The appendix is normal. No significant mesenteric adenopathy or ascites. Pelvis: The partially opacified urinary bladder is unremarkable. A right ureteral jet is noted. The prostate is unremarkable. No pelvic adenopathy. Abdominal wall and Osseous Structures: Unchanged grade 1 anterolisthesis of L4 on L5. No destructive osseous lesion. IMPRESSION CHEST: 1. Further increase in metastatic left hilar lymphadenopathy with lingular bronchial narrowing and postobstructive atelectasis. 2. Unchanged right pleural metastatic d isease without pleural effusion. 3. Stable right posterior sixth rib oss eous metastasis. ABDOMEN AND PELVIS: 1. Prior radical left nephrectomy witho ut locally recurrent mass or abdominal/pelvic metastatic disease. 2. Cholelithiasis. By my electronic signature, I attest that I have personally reviewed the images for this examination and formulated the interpretations and opinions expressed in this report Finalized by Alex Yanes M.D. on 11/07/2019 3:27 PM. Dictated by Andre Nolan MD on 11/07/2019 2:11 PM. Performing Organization Address City/State/Zipcode Ph one Number [facility] * TSH WITH FREE T4 REFLEX (11/07/2019 12:00 PM CDT) TSH 3.93 0.35 - 5.00 MCU/ML [facility] Specimen Blood Performing Organization Address City/[facility] one Number [facility] [address] [place] [address] * COMPREHENSIVE METABOLIC PANEL (11/07/2019 12:00 PM CDT) Sodium 138 137 - 147 MMOL/L [facility] Potassium 4.7Comment: SLT HEMOLYSIS 3.5 - 5.1 MMOL/L [facility] Chloride 107 98 - 110 MMOL/L [facility] Glucose 106 (H) 70 - 100 MG/DL [facility] Blood Urea 25 7 - 25 MG/DL [facility] Nitrogen Creatinine 1.34 (H) 0.4 - 1.24 MG/DL [facility] Calcium 9.3 8.5 - 10.6 MG/DL [facility] Total Protein 6.4 6.0 - 8.0 G/DL [facility] Total Bilirubin 0.6 0.3 - 1.2 MG/DL [facility] Albumin 3.7 3.5 - 5.0 G/DL [facility] Alk Phosphatase 22 (L) 25 - 110 U/L [facility] AST (SGOT) 40 7 - 40 U/L [facility] CO2 24 21 - 30 MMOL/L [facility] ALT (SGPT) 36 7 - 56 U/L [facility] Anion Gap 7 3 - 12 [facility] eGFR Non 52 (L) >60 mL/min [facility] Comment: [place] The eGFR is not validated f or use in drug dosing adjustments. Continue to use estimated creatinine clearance per dosing reference text. Please contact the Clinical Pharmacist for questions. eGFR >60 >60 mL/min [facility] [place] Comment: The eGFR is not validated for use in drug dosing adjustments. Continue to use estimated creatinine clearance per dosing reference text. Please contact the Clinical Pharmacist for questions. Specimen Performing Organization Address City/[facility] one Number [facility] [address] [place] [address] * CBC AND DIFF (11/07/2019 12:00 PM CDT) White Blood 6.4 4.5 - 11.0 K/UL [facility] Cells RBC 5.14 4.4 - 5.5 M/UL [facility] Hemoglobin 15.2 13.5 - 16.5 GM/DL [facility] Hematocrit 45.8 40 - 50 % [facility] MCV 89.1 80 - 100 FL [facility] MCH 29.6 26 - 34 PG [facility] MCHC 33.2 32.0 - 36.0 G/DL [facility] RDW 20.4 (H) 11 - 15 % [facility] Platelet Count 194 150 - 400 K/UL [facility] MPV 8.4 7 - 11 FL [facility] Neutrophils 69 41 - 77 % [facility] Lymphocytes 18 (L) 24 - 44 % [facility] Monocytes 10 4 - 12 % [facility] Eosinophils 2 0 - 5 % [facility] Basophils 1 0 - 2 % [facility] Absolute 4.50 1.8 - 7.0 K/UL [facility] Neutrophil Count Absolute Lymph 1.10 1.0 - 4.8 K/UL [facility] Count Absolute 0.60 0 - 0.80 K/UL [facility] Monocyte Count Absolute 0.10 0 - 0.45 K/UL [facility] Eosinophil Count Absolute 0.00 0 - 0.20 K/UL [facility] Basophil Count Specimen Performing Organization Address [facility] one Number [facility] [address] [place] [address] documented in this encounter Visit Diagnoses Diagnosis Metastatic renal cell carcinoma to intr a-abdominal site (HCC) 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 This med is usually available in floor stock., Intra-procedure (IR) documented in this encounter Additional Health Concerns Resolved Time Infection Noted Time MRSA 01/22/2016 9:27 AM CDT documented as of this encounter
--- OUTSIDE RECORDS SUMMARY | 2020-01-21 11:57 | XMS REPORT | Encounter Summary ---
Author Author [facility] Organization [facility] Address Unknown Phone Unavailable Care Team Providers Care Clinical Therapist Name Role Phone Jacobo Owens MD PCP Ezekiel Bacon MD Unavailable [phone] Ally Grayson Unavailable Unavailable Sharlene Knox RN Unavailable Unavailable Yessenia Julien MD Unavailable Shelby Astudillo MD 3 [phone] Reason for Visit * Reason Comments Appointment Request Encounter Details Care Team Description Date Type Department Shelby Astudillo MD [address] [place] [address] [phone] Appointment Request 10/17/2019 Telephone [facility] [address] [phone] Social History Date Tobacco Use Types Packs/Day [...] * Telephone Encounter - Nevin Ramos - 10/17/2019 3:01 PM CDT Left patient a Vm regarding upcoming telehealth appt 10/19 2:30 documented in this encounter Plan of Treatment Not on filedocumented as of this encounter Visit Diagnoses Not on filedocumented in this encounter Additional Health Concerns Resolved Time Infection Noted Time MRSA 01/22/2016 9:27 AM CDT documented as of this encounter
--- OUTSIDE RECORDS SUMMARY | 2020-01-21 11:57 | XMS REPORT | Encounter Summary ---
Author Author [facility] Organization [facility] Address Unknown Phone Unavailable Care Team Providers Care Surgical Specialist Name Role Phone Jacobo Owens MD PCP Ezekiel Bacon MD Unavailable [phone] Ally Grayson Unavailable Unavailable Sharlene Knox RN Unavailable Unavailable Yessenia Julien MD Unavailable Shelby Astudillo MD 3 [phone] Reason for Visit * Reason Comments Medication Refill Encounter Details Care Team Description Date Type Department Shelby Astudillo MD [address] [place] [address] [phone] Palmar plantar erythrodysesthesia 10/19/[address]ill The [address] [phone] Social History Date Tobacco Use Types Packs/Day [...] as of this encounter Visit Diagnoses Diagnosis Palmar plantar erythrodysesthesia Dermatitis due to drugs and medicines amy zamora internally documented in this encounter Additional Health Concerns Resolved Time Infection Noted Time MRSA 01/22/2016 9:27 AM CDT documented as of this encounter
--- OUTSIDE RECORDS SUMMARY | 2020-01-21 11:57 | XMS REPORT | Encounter Summary ---
Author Author [facility] Organization [facility] Address Unknown Phone Unavailable Care Team Providers Care Box Liner Name Role Phone Jacobo Owens MD PCP Ezekiel Bacon MD Unavailable [phone] Ally Grayson Unavailable Unavailable Sharlene Knox RN Unavailable Unavailable Yessenia Julien MD Unavailable Shelby Astudillo MD 3 [phone] Reason for Visit * Reason Comments Follow Up Encounter Details Care Team Description Date Type Department Sharlene Baires PA-C [address] [place], [place] [phone] 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 -abdominal site (HCC) (Primary Dx) 10/21/2019 Office Visit [facility] [address] [phone] Social History Date Tobacco Use Types Packs/Day [...] Signs Reading Time Taken Comments Vital Sign 127/88 10/21/2019 10:04 AM CDT Blood Pressure 88 10/21/2019 10:04 AM CDT Pulse 36.9 C (98.5 F) 10/21/2019 10:04 AM CDT Temperature 16 10/21/2019 10:04 AM CDT Respiratory Rate 99% 10/21/2019 10:04 AM CDT Oxygen Saturation - - Inhaled Oxygen Concentration 94.3 kg (207 lb 12.8 oz) 10/21/2019 10:04 AM CDT Weight 171.4 cm (5' 7.48") 10/21/2019 10:04 AM CDT Height 32.08 10/21/2019 10:04 AM CDT Body Mass Index documented in this [...] as of this encounter Progress Notes * Sharlene Baires PA-C - 10/21/2019 11:30 AM CDT Name: Bal Blevins : 1945 AGE: 9 2 y.o. DATE OF SERVICE: 10/21/2019 Subjective: Reason for Visit: Follow Up Bal Blevins is a 74 y.o. male. Cancer Staging Metastatic renal cell carcinoma to [...] and titrated up to 60 mg daily History of Present Illness Mr. Blevins is a very pleasant 74-year-old gentleman who presents today for ongo ing evaluation of his metastatic renal cell carcinoma. He continues on treatmen t with cabozantinib at 20 mg once daily which he restarted in early August aft er an extended break secondary to palmar plantar erythrodysesthesia. The patient feels that he is overall tolerating the cabozantinib well. He state s that several sores on his feet have "not cleared up as well as in the past." He notes at least one sore on his left great toe but is unable to see the bottom of his right foot so he is unsure if he has any wounds. The patient states that several days ago he did have severe cramps in both hands which resolved after he took an extra dose of tramadol. He feels that the swelling in his feet is stable. He has not noticed any recurrence of the scalp lesion. He has been staying home as much as possible but relates that his computer quit working so he is periodically having to come to [place] to buy pieces to rep air his computer that he built himself. He does bring in a log of his home bloo d pressure readings and blood sugars Review of Systems Constitutional: Positive for fatigue. Negative for activity change, appetite el nge, chills, fever and unexpected weight change. HENT: Negative for dental problem, hearing loss, mouth sores, nosebleeds, rhinor shine, sinus pain, sneezing, sore throat, tinnitus, trouble swallowing and voice change. Eyes: Negative for visual disturbance. Respiratory: Negative for cough, chest tightness, shortness of breath and wheezi ng. Cardiovascular: Positive for leg swelling. Negative for chest pain and palpitati ons. Gastrointestinal: Negative for abdominal pain, blood in stool, constipation, rafaela rrhea, nausea and vomiting. Genitourinary: Negative for decreased urine volume, difficulty urinating, dysuri a, flank pain, frequency, hematuria and urgency. Musculoskeletal: Negative for arthralgias, back pain, gait problem and myalgias. Cramps in both hands X 1 Skin: Positive for wound. Negative for rash. Neurological: Negative for syncope, weakness, light-headedness and headaches. Psychiatric/Behavioral: Negative for confusion, dysphoric mood and sleep disturb ance. The patient is not nervous/anxious. Objective: albuterol (PROAIR HFA, VENTOLIN HFA, OR PROVENTIL HFA) 90 mcg/actuation inha ler Inhale two puffs by mouth into the lungs every 6 hours as needed (Pentamidin e induced bronchial irritation). Shake well before use. apixaban (ELIQUIS) 5 mg tablet Take one tablet by mouth twice daily. cabozantinib (CABOMETYX) 20 mg tablet Take one tablet by mouth daily. Take o n an empty stomach, at least 1 hour [...] mouth daily. predniSONE (DELTASONE) 5 mg tablet Alternate 2 tablets with one tablet until further notice pyridoxine (vitamin B6) (VITAMIN B-6) 100 mg [...] Take 1 Tab by mouth daily. Vitals: 10/21/19 1004 BP: 127/88 Patient Position: Sitting Pulse: 88 Resp: 16 Temp: 36.9 C (98.5 F) SpO2: 99% Weight: 94.3 kg (207 lb 12.8 oz) Height: 171.4 cm (67.48") Body mass index is 32.08 kg/m. Pain Addressed: Patient to call office if pain not relieved or worsened and Cur rent regimen working to control pain. Patient Evaluated for a Clinical Trial: Patient not eligible for a treatment tri al (including not needing treatment, needs palliative care, in remission). Eastern Cooperative Oncology Group performance status is 1, Restricted in physic ally strenuous activity but ambulatory and able to carry out work of a light or sedentary nature, e.g., light house work, office work. Physical Exam Constitutional: General: He is not in acute distress. Appearance: Normal appearance. He is well-developed. He is not toxic-appearin g or diaphoretic. HENT: Head: Normocephalic and atraumatic. Mouth/Throat: Mouth: Mucous membranes are moist. Pharynx: No oropharyngeal exudate or posterior oropharyngeal erythema. Eyes: General: No scleral icterus. Extraocular Movements: Extraocular movements intact. Pupils: Pupils are equal, round, and reactive to light. Neck: Musculoskeletal: Normal range of motion and neck supple. Cardiovascular: Rate and Rhythm: Normal rate and regular rhythm. Heart sounds: Normal heart sounds. No murmur. Pulmonary: Effort: Pulmonary effort is normal. No respiratory distress. Breath sounds: Normal breath sounds. No wheezing, rhonchi or rales. Abdominal: General: Bowel sounds are normal. There is no distension. Palpations: Abdomen is soft. There is no mass. Tenderness: There is no abdominal tenderness. Musculoskeletal: Normal range of motion. General: No swelling. Lymphadenopathy: Cervical: No cervical adenopathy. Skin: General: Skin is warm and dry. Findings: No rash. Comments: Left great toe 1 cm area of superficial ulceration with ~2 mm centr al area of deeper breakdown Arch of left foot has ~2 cm area of erythema that blanches Right great toe has 1 cm area of superficial ulceration Tip of right second toe has 1 cm area of superficial ulceration with pinpoint ar ea of deeper ulceration/breakdown Neurological: General: No focal deficit present. Mental Status: He is alert and oriented to person, place, and time. Mental st atus is at baseline. Deep Tendon Reflexes: Reflexes are normal and symmetric. Psychiatric: Mood and Affect: Mood normal. Behavior: Behavior normal. Thought Content: Thought content normal. Judgment: Judgment normal. Lab Results Component Value Date/Time WBC 6.7 10/21/2019 10:00 AM ANC 3.40 10/21/2019 10:00 AM HGB 19.2 (H) 10/21/2019 10:00 AM HCT 58.6 (H) 10/21/2019 10:00 AM PLTCT 210 10/21/2019 10:00 AM Lab Results Component Value Date/Time NA 134 (L) 09/05/2019 01:15 PM K 4.8 09/05/2019 01:15 PM BUN 38 (H) 09/05/2019 01:15 PM CR 1.77 (H) 09/05/2019 01:15 PM GLU 150 (H) 09/05/2019 01:15 PM CA 9.2 09/05/2019 01:15 PM AST 32 09/05/2019 01:15 PM ALT 43 09/05/2019 01:15 PM ALKPHOS 38 09/05/2019 01:15 PM TSH is 13 and Hemoglobin a1c is 10; results faxed to PCP who ordered tests Assessment and Plan: Mr. Blevins is a pleasant 74-year-old gentleman with a past medical history sign ificant for atrial fibrillation as well as stage III chronic kidney disease who is seen today in evaluation for his metastatic clear-cell renal cell carcinoma o f the kidney. 1. Metastatic renal cell carcinoma. -Patient has been on cabozantinib 20 mg dailydose previously reduced secondar y to palmar plantar erythrodysesthesia. -Due to worsening palmar plantar erythrodysesthesia, we will hold cabozantinib f or now. -He will return to clinic in approximately 2 to 3 weeks with repeat labs as well as restaging scans. 2. Palmar plantar erythrodysesthesia. -Grade 2-3; Worsening. Therefore, we will hold cabozantinib as noted above -Assisted patient with wound care today. 3. Checkpoint inhibitorinduced cerebritis/hypophysitis. -Did not adjust prednisone taper at today's visit. We will discuss further at h is upcoming appointment in approximately 2 weeks. -Continue with PPI for GI protection until he has completed steroid taper. 4. Hypertension. -Reviewed log of home blood pressure readings. Blood pressure appears relativel y well controlled. -Continue lisinopril 20 mg daily. 5. Polycythemia. -Patient discontinued testosterone supplementation approximately 6 weeks ago. -Question if this is related to disease progression so we will obtain repeat sca ns in approximately 2 weeks. -He will have a therapeutic phlebotomy today. 6. Abnormal labs. -Patient requested TSH and hemoglobin A1c be added on to today's lab draw. Glad to assist with coordination of care and we will fax these results to his office as per request. The above plan was discussed in detail with the patient. All questions were ans wered to his apparent satisfaction and he was asked to contact us anytime with q uestions or concerns. Sharlene Baires PA-C Supervising physician: Shelby Astudillo MD documented in this encounter Plan of Treatment Not on filedocumented as of this encounter Results * TSH WITH FREE T4 REFLEX (11/07/2019 12:00 PM CDT) TSH 3.93 0.35 - 5.00 MCU/ML [facility] Specimen Blood Performing Organization Address City/State/Zipcode Ph one Number [facility] [address] [place] [address] * COMPREHENSIVE METABOLIC PANEL (11/07/2019 12:00 PM [...] 52 (L) >60 mL/min [facility] Comment: [place] The eGFR is not validated f or use in drug dosing adjustments. Continue to use estimated creatinine clearance per dosing reference text. Please contact the Clinical Pharmacist for questions. eGFR >60 >60 mL/min [facility] [place] Comment: The eGFR is not validated for use in drug dosing adjustments. Continue to use estimated creatinine clearance per dosing reference text. Please contact the Clinical Pharmacist for questions. 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
--- OUTSIDE RECORDS SUMMARY | 2020-01-21 11:57 | XMS REPORT | Encounter Summary ---
Author Author [facility] Organization [facility] Address Unknown Phone Unavailable Care Team Providers Care Informatics Spec Name Role Phone Jacobo Owens MD PCP Ezekiel Bacon MD Unavailable [phone] Ally Grayson Unavailable Unavailable Sharlene Knox RN Unavailable Unavailable Yessenia Julien MD Unavailable Shelby Astudillo MD 3 [phone] Reason for Visit * Reason Comments Chemotherapy Follow up Encounter Details Care Team Description Date Type Department Gallo Brarett, PHARMD 09/05/2019 Clinical The [place] [id number] Social History Date Tobacco Use Types Packs/Day [...] as of this encounter Progress Notes * Gallo Barrett, PHARMD - 09/05/2019 2:55 PM [facility] Oral Chemotherapy Reassessment Note Appropriateness of Therapy Bal Blevins continues on cabozantinib for the treatment of metastatic r enal cell carcinoma. The regimen of cabozantinib 20mg by mouth daily is appropri ate to continue at this time. Dose was adjusted due to significant hand-foot ski n reaction experienced. No renal or hepatic dose adjustment is required at this time. Treatment will continue until progression or unacceptable toxicity. CBC w diff Lab Results Component Value Date/Time WBC 9.4 09/05/2019 01:15 PM RBC 5.78 (H) 09/05/2019 01:15 PM HGB 18.0 (H) 09/05/2019 01:15 PM HCT 54.1 (H) 09/05/2019 01:15 PM MCV 93.6 09/05/2019 01:15 PM MCH 31.1 09/05/2019 01:15 PM MCHC 33.2 09/05/2019 01:15 PM RDW 15.7 (H) 09/05/2019 01:15 PM PLTCT 216 09/05/2019 01:15 PM MPV 8.4 09/05/2019 01:15 PM Lab Results Component Value Date/Time NEUT 70 09/05/2019 01:15 PM ANC 6.50 09/05/2019 01:15 PM LYMA 20 (L) 09/05/2019 01:15 PM ALC 1.90 09/05/2019 01:15 PM ANDREINA 6 09/05/2019 01:15 PM AMC 0.60 09/05/2019 01:15 PM EOSA 2 09/05/2019 01:15 PM AEC 0.20 09/05/2019 01:15 PM BASA 2 09/05/2019 01:15 PM ABC 0.20 09/05/2019 01:15 PM Comprehensive Metabolic Profile Lab Results Component Value Date/Time NA 134 (L) 09/05/2019 01:15 PM K 4.8 09/05/2019 01:15 PM CL 104 09/05/2019 01:15 PM CO2 22 09/05/2019 01:15 PM GAP 8 09/05/2019 01:15 PM BUN 38 (H) 09/05/2019 01:15 PM CR 1.77 (H) 09/05/2019 01:15 PM GLU 150 (H) 09/05/2019 01:15 PM Lab Results Component Value Date/Time CA 9.2 09/05/2019 01:15 PM PO4 1.4 (LL) 02/04/2016 09:50 AM ALBUMIN 3.8 09/05/2019 01:15 PM TOTPROT 6.4 09/05/2019 01:15 PM ALKPHOS 38 09/05/2019 01:15 PM AST 32 09/05/2019 01:15 PM ALT 43 09/05/2019 01:15 PM TOTBILI 0.4 09/05/2019 01:15 PM GFR 38 (L) 09/05/2019 01:15 PM GFRAA 46 (L) 09/05/2019 01:15 PM Serum creatinine: 1.77 mg/dL (H) 09/05/19 1315 Estimated creatinine clearance: 44.2 mL/min (A) Response to Therapy Patients electronic medical record has been reviewed. No evidence of progress ion that would necessitate a change of therapy has been identified. Imaging: CT-C/A/P 07/18/2019 below: CHEST: 1. Mild increased metastatic left hilar lymphadenopathy. 2. Unchanged right pleural and posterior right sixth rib osseous metastases. 2. No new or enlarging pulmonary nodule. ABDOMEN AND PELVIS: Prior radical left nephrectomy without discrete enhancing mass or abdominopelvic lymphadenopathy. Adverse Effects Assessment Bal Blevins is still experiencing hand-foot skin reaction, but this has been significantly improved since previous visit. No other adverse effects were reported by the patient at today's clinic appointment. Adherence Assessment aBl Blevins reports missing 0 doses over the past two weeks not related to toxicity. Patient was re-educated on importance of adherence. Medication Reconciliation A medication history and reconciliation was performed (including prescription me dications, supplements, over the counter medications, and herbal products). The medication list was updated and the patients current medication list is inclu ded below. Prior to Admission medications Medication Sig Start Date End Date Taking? Authorizing Provider albuterol (PROAIR HFA, VENTOLIN HFA, OR PROVENTIL HFA) 90 mcg/actuation inhaler Inhale two puffs by mouth into the lungs every 6 hours as needed (Pentamidine in duced bronchial irritation). Shake well before use. 09/27/18 Shelby Astudillo MD apixaban (ELIQUIS) 5 mg tablet Take one tablet by mouth twice daily. 04/01/19 Shelby Goff MD cabozantinib (CABOMETYX) 20 mg tablet Take one tablet by mouth daily. Take on an empty stomach, at least 1 hour before or 2 hours after food. 07/18/19 Shelby Mcdonough MD calcium carbonate (TUMS) 500 mg (200 mg elemental calcium) chewable tablet Chew 1,000 mg by mouth daily. HISTORICAL PROVIDER cholecalciferol (VITAMIN D-3) 1,000 units tablet Take 1,000 Units by mouth at dtime daily. Provider, Historical clobetasol (TEMOVATE) 0.05 % topical cream Apply a small amount to blisters/sore places on hands and feet once per day. 05/02/19 Shelby Astudillo MD cyanocobalamin (VITAMIN B-12) 1,000 mcg tablet Take 1,000 mcg by mouth daily. HISTORICAL PROVIDER diltiazem CD (CARDIZEM CD) 180 mg capsule Take 180 mg by mouth daily. HISTORI LUPE PROVIDER famotidine (PEPCID) 20 mg tablet Take 20 mg by mouth every morning. HISTORICA L PROVIDER fenofibrate nanocrystallized (TRICOR) 145 mg tablet Take 145 mg by mouth daily. HISTORICAL PROVIDER ferrous sulfate (FEOSOL, FEROSUL) 325 mg (65 mg iron) tablet Take one tablet by mouth daily. Take on an empty stomach at least 1 hour before or 2 hours after fo od. 09/02/18 Luis Smith MD furosemide (LASIX) 40 mg tablet Take 40 mg by mouth three times weekly. HISTO RICAL PROVIDER glimepiride (AMARYL) 2 mg tablet Take 2 mg by mouth twice daily. HISTORICAL P ROVIDER JARDIANCE 25 mg tablet Take 25 mg by mouth daily. 06/23/19 HISTORICAL PROVIDER lisinopril (PRINIVIL, ZESTRIL) 40 mg tablet Take one tablet by mouth daily. Patient taking differently: Take 20 mg by mouth daily. 10/01/18 Shelby Salazar MD Lutein 20 mg cap Take 1 capsule by mouth daily. HISTORICAL PROVIDER metoprolol XL (TOPROL XL) 100 mg extended release tablet Take 200 mg by mouth da denilson. 08/13/17 Provider, Historical omeprazole DR (PRILOSEC) 20 mg capsule Take one capsule by mouth daily before br eakfast. 06/23/19 Sharlene Baires PA-C potassium chloride (KLOR-CON 8) 8 mEq tablet Take 8 mEq by mouth daily. HISTO RICAL PROVIDER predniSONE (DELTASONE) 5 mg tablet Alternate 2 tablets with one tablet until fur ther notice 09/05/19 Shelby Astudillo MD pyridoxine (vitamin B6) (VITAMIN B-6) 100 mg tablet Take 100 mg by mouth daily. HISTORICAL PROVIDER Simethicone 125 mg chew Chew 1 tablet by mouth twice daily as needed. HISTORI LUPE PROVIDER traMADol (ULTRAM) 50 mg tablet Take 50 mg by mouth twice daily. HISTORICAL VA OVIDER VIT A/C/E AC/ZNOX/CUPRIC OXIDE (EYE VITAMIN AND MINERALS PO) Take 1 tablet by mo uth at bedtime daily. HISTORICAL PROVIDER vitamins, multiple tablet Take 1 Tab by mouth daily. HISTORICAL PROVIDER Drug-drug and drug-food interactions between the patients specialty medicatio n and their medication list were assessed and reviewed with the patient. No significant drug-drug interactions were identified. The patient was instructed to speak with their health care provider and/or the [facility] before starting any new drug, including prescription or over the counter, natural / herbal products, or vitamins. No Known Allergies Reproductive Risk Assessment Bal Blevins is a 74 y.o. male As patient is a male, education was provided regarding adequate contraception fo r female partners of reproductive potential and contacting his physician immalexandru hutson should his partner become . Risk Evaluation and Mitigation Strategy (REMS) Assessment No REMS is required for this medication. Follow-up Plan The patient was encouraged to call the oral chemotherapy pharmacist at [phone] with questions. This medication is considered high risk per our regulatory affairs intern al oral chemotherapy risk categorization and the patient will be contacted for e ducation, toxicity check at 2 weeks, and reassessment every 3 months, if applica ble (high risk monitoring). Re-assessment has been completed. Next reassessment planned for 3 months from to day. Gallo Barrett, PHARMD Oncology Clinical Pharmacist 09/05/2019 [facility] documented in this encounter Plan of Treatment Not on filedocumented as of this encounter Visit Diagnoses Not on filedocumented in this encounter Additional Health Concerns Resolved Time Infection Noted Time MRSA 01/22/2016 9:27 AM CDT documented as of this encounter
--- OUTSIDE RECORDS SUMMARY | 2020-01-21 11:58 | XMS REPORT | Encounter Summary ---
Author Author [facility] Organization [facility] Address Unknown Phone Unavailable Care Team Providers Care Continuous Improvement Engineer Name Role Phone Jacobo Owens MD PCP Ezekiel Bacon MD Unavailable [phone] Ally Grayson Unavailable Unavailable Sharlene Knox RN Unavailable Unavailable Yessenia Julien MD Unavailable Shelby Astduillo MD 3 [phone] Reason for Visit * Reason Comments Chronic Kidney Disease 6 MTH FUV Encounter Details Care Team Description Date Type Department Darrion Hernandez MBBS [address] [facility] [address] [place] [address] Chronic kidney disease, stage 3 (HCC) (P rimary Dx); Vitamin D deficiency; SUSHILA (acute kidney injury) (HCC); Solitary kidney 08/03/2019 Office Visit [facility] [address] [address] Social History Date Tobacco Use Types Packs/Day Years Used Never Smoker Smokeless Tobacco: Never Used Drinks/Week oz/Week Comments Alcohol Use occasionally Yes Sex Assigned at Date Recorded Male Industry Job Start Date Occupation Not on file Not on file Not on file Travel End Travel History Travel Start No recent travel history available. documented as of this encounter Last Filed Vital Signs Reading Time Taken Comments Vital Sign 136/75 08/03/2019 3:06 PM CASINO SUPERVISOR Blood Pressure 110 08/03/2019 3:06 PM CASINO SUPERVISOR Pulse 36.5 C (97.7 F) 08/03/2019 3:05 PM CASINO SUPERVISOR Temperature 18 08/03/2019 3:05 PM CASINO SUPERVISOR Respiratory Rate 100% 08/03/2019 3:05 PM CASINO SUPERVISOR Oxygen Saturation - - Inhaled Oxygen Concentration 93.9 kg (207 lb) 08/03/2019 3:05 PM CASINO SUPERVISOR Weight 177.8 cm (5' 10") 08/03/2019 3:05 PM CASINO SUPERVISOR Height 29.7 08/03/2019 3:05 PM CASINO SUPERVISOR Body Mass Index documented in this encounter [...] as of this encounter Progress Notes * Darrion Hernandez MBBS - 08/03/2019 3:20 PM CASINO SUPERVISOR Date of Service: 08/03/2019 Subjective: Bal Blevins is a 74 y.o. male. History of Present Illness Mr. Blevins is a very pleasant 72 year old male patient with history of renal ce ll carcinoma s/p left radical nephrectomy in January 2016. He had multiple imaging since then with concerns about increasing nodularity in the left renal bed indic ating recurrent disease s/p resection 10/07/16. He has had history of hypertensio n for many years. He is currently on Lasix only but he was previously on Lisinop ril and diltiazem as well. He is also known to have DM-II and has been maintaine d on oral hypoglycemic agents with reportedly good control. He has reported prio r use of NSAIDs mainly Celebrex for many years but he was instructed to disconti nue at the time of his surgery in January 2016. Reviewing his labs showed a Cr of 1.05 prior to his left nephrectomy in January 6 with Cr up to 1.4 post nephrectomy. Mr Blevins was treated with Nivolumab but he developed acute encephalopathy for which he was hospitalized. There was a concern about checkpoint inhibitor-induce d hypophysitis vs cerebritis. Nivolumab was held and he was started on high dose Prednisone with slow tapering. He was then started on cabozantinib in november 2018. Interval History: He has been feeling relatively well. He reports developing bilateral palmar plan tar erythrodysesthesia. Cabozantinib has been on hold for the last 6-8 weeks for that reason. He denies any dyspnea and denies any chest pain. He has intermitte nt lower extremity edema and has been taking PRN lasix. He had CT chest and abdo men with contrast on 07/18/2019 but his creatinine was up to 1.8 on that day. He reports good BP control. He has been avoiding NSAIDs Review of Systems Constitutional: Negative for fatigue and unexpected weight change. HENT: Negative. Eyes: Negative. Respiratory: Negative for cough and shortness of breath. Cardiovascular: Negative for chest pain and leg swelling. Gastrointestinal: Negative for diarrhea, nausea and vomiting. Genitourinary: Negative for dysuria, flank pain, frequency and hematuria. Musculoskeletal: Negative for back pain and joint swelling. Skin: Negative for rash. Neurological: Negative for dizziness and weakness. Hematological: Does not bruise/bleed easily. Psychiatric/Behavioral: Negative. Medical History: Diagnosis Date A-fib (HCC) Arthritis [...] 01/31/2016 Performed by Ezekiel Bacon MD at [facility] RESECTION OF LEFT RETROPERITONEAL MASS Left 10/07/2016 Performed by Ezekiel Bacon MD at [facility] BIOPSY MASS back of his head COLONOSCOPY [...] file Social History Narrative Not on file Objective: albuterol (PROAIR HFA, VENTOLIN HFA, OR [...] Units by mouth a t bedtime daily. clobetasol (TEMOVATE) 0.05 % topical cream Apply [...] tablet Take one tablet by mouth daily. Lutein 20 mg cap Take 1 capsule by mouth daily. metoprolol XL (TOPROL XL) 100 mg extended release tablet Take 200 mg by mout h daily. omeprazole DR (PRILOSEC) 20 mg capsule Take one capsule by mouth daily befor e breakfast. potassium chloride (KLOR-CON 8) 8 mEq tablet Take 8 mEq by mouth daily. prednisone (DELTASONE) 10 mg tablet Take one 10 mg tablet and one 5 mg table t once daily by mouth with food. pyridoxine (vitamin B6) (VITAMIN B-6) 100 mg [...] Take 1 Tab by mouth daily. Vitals: 08/03/19 1505 08/03/19 1506 BP: 127/81 136/75 Pulse: 120 110 Resp: 18 Temp: 36.5 C (97.7 F) TempSrc: Oral SpO2: 100% Weight: 93.9 kg (207 lb) Height: 177.8 cm (70") Body mass index is 29.7 kg/m. Physical Exam Eyes: General: No scleral icterus. Conjunctiva/sclera: Conjunctivae normal. Neck: Thyroid: No thyromegaly. Vascular: No JVD. Cardiovascular: Rate and Rhythm: Normal rate and regular rhythm. Heart sounds: Normal heart sounds. No murmur. No friction rub. Pulmonary: Effort: No respiratory distress. Breath sounds: No wheezing or rales. Abdominal: General: Bowel sounds are normal. There is no distension. Palpations: Abdomen is soft. Tenderness: There is no abdominal tenderness. Musculoskeletal: General: No tenderness. Lymphadenopathy: Cervical: No cervical adenopathy. Skin: General: Skin is warm. Coloration: Skin is not pale. Findings: No erythema or rash. Neurological: Mental Status: He is alert and oriented to person, place, and time. Creatinine Date Value Ref Range Status 07/18/2019 1.85 (H) 0.4 - 1.24 MG/DL Final 05/30/2019 1.17 0.4 - 1.24 MG/DL Final 05/02/2019 1.24 0.4 - 1.24 MG/DL Final 04/01/2019 1.34 (H) 0.4 - 1.24 MG/DL Final 02/10/2019 1.24 0.4 - 1.24 MG/DL Final 01/17/2019 1.51 (H) 0.4 - 1.24 MG/DL Final 01/06/2019 1.24 0.4 - 1.24 MG/DL Final 12/16/2018 1.34 (H) 0.4 - 1.24 MG/DL Final 12/07/2018 1.24 0.4 - 1.24 MG/DL Final 11/25/2018 1.23 0.4 - 1.24 MG/DL Final Creatinine, POC Date Value Ref Range Status 04/01/2019 1.4 (H) 0.4 - 1.24 MG/DL Final Assessment: SUSHILA: -Cr up to 1.8 on 07/18/2019. -Possibly prerenal in the setting of Lasix and ACEi. -He received contrast on 07/18 despite the higher creatinine. Chronic kidney disease stage 3: -In the setting of solitary kidney, DM, HTN and prior NSAIDs use. -Normal renal function prior to left nephrectomy. -Unremarkable right kidney except for tiny cyst, -Contrast exposure every six months since 06/2016. -Concern about hx of checkpoint inhibitor-induced hypophysitis vs cerebritis but there was no clear evidence of nephritis. Hypertension: -BP better controlled. . -On Metoprolol, Lisinopril, cardizem and PRN Lasix. Proteinuria screening: -Check urine microalbumin/Cr. Vitamin D deficiency: -On daily Cholecalciferol. Renal cell carcinoma: -S/P left nephrectomy. -Concerns about metastasis. -Switched from Pazopanib to Nivolumab but developed acute encephalopathy with co ncerns about checkpoint inhibitor-induced hypophysitis. Currently on low dose. -Started cabozantinib in November 2018 but is currently on hold given bilateral palm ar plantar erythrodysesthesia Plan -Check urine microalbumin/Cr. -Obtain repeat BMP today. -Check PTH and Vitamin D 25. -Low threshold to hold Lisinopril given risk of SUSHILA and the need for frequent im aging with contrast. -Would avoid tight BP control. -Instructed to Avoid NSAIDs. -Minimize contrast exposure as much as possible. -Instructed him to increase hydration, and to hold lLisinopril one day before co ntrast exposure and one day after. -Use Lasix only PRN for weight gain more than 3 lbs. -Check BP at home and keep BP log. -Have advised a Low salt diet. ISH Hilton NO SUPERVISOR documented in this encounter Plan of Treatment Not on filedocumented as of this encounter Results * MICROALB/CR RATIO-URINE RANDOM (08/03/2019 3:40 PM CASINO SUPERVISOR) Microalbumin, 14.7 <19 MCG/ML [facility] Random Creatinine, 47 MG/DL [facility] Random Microalbumin/CR 31.28 (H)Comment: NOTE NEW <30 ug/mg [facility] ratio Urine REFERENCE RANGES Specimen Urine - Urine Performing Organization Address [facility] Ph one Number [facility] [address] [place] [address] * 25-OH VITAMIN D (D2 + D3) (08/03/2019 3:35 PM CASINO SUPERVISOR) Vitamin 36.2 30 - 80 NG/ML [facility] D(25-OH)Total Specimen Performing Organization Address City/[facility] Ph one Number [facility] [address] [place] [address] * PARATHYROID HORMONE (08/03/2019 3:35 PM CASINO SUPERVISOR) PTH Hormone 22.2 10 - 65 PG/ML [facility] Specimen Performing Organization Address [facility] Ph one Number [facility] [address] [place] [address] * BASIC METABOLIC PANEL (08/03/2019 3:35 PM CASINO SUPERVISOR) Sodium 138 137 - 147 MMOL/L [facility] Potassium 4.8 3.5 - 5.1 MMOL/L [facility] Chloride 102 98 - 110 MMOL/L [facility] CO2 23 21 - 30 MMOL/L [facility] Anion Gap 13 (H) 3 - 12 [facility] Glucose 229 (H) 70 - 100 MG/DL [facility] Blood Urea 44 (H) 7 - 25 MG/DL [facility] Nitrogen Creatinine 1.80 (H) 0.4 - 1.24 MG/DL [facility] Calcium 9.7 8.5 - 10.6 MG/DL [facility] eGFR Non 37 (L) >60 mL/min [facility] Comment: English The eGFR is not validated f or use in drug dosing adjustments. Continue to use estimated creatinine clearance per dosing reference text. Please contact the Clinical Pharmacist for questions. eGFR 45 (L) >60 mL/min [facility] English Comment: The eGFR is not validated for use in drug dosing adjustments. Continue to use estimated creatinine clearance per dosing reference text. Please contact the Clinical Pharmacist for questions. Specimen Performing Organization Address City/State/Zipcode Ph one Number MAIN LAB [address] [place] [address] documented in this encounter Visit Diagnoses Diagnosis Chronic kidney disease, stage 3 (HCC) Chronic kidney disease, Stage III (mode rate) Vitamin D deficiency Unspecified vitamin D deficiency SUSHILA (acute kidney injury) (HCC) Acute kidney failure, unspecified Solitary kidney Congenital renal agenesis and dysgenesi s documented in this encounter Additional Health Concerns Resolved Time Infection Noted Time MRSA 01/22/2016 9:27 AM CDT documented as of this encounter
--- OUTSIDE RECORDS SUMMARY | 2020-01-21 11:58 | XMS REPORT | Encounter Summary ---
Author Author [facility] Organization [facility] Address Unknown Phone Unavailable Care Team Providers Care Bed And Breakfast Cook Name Role Phone Jacobo Owens MD PCP Ezekiel Bacon MD Unavailable [phone] Ally Grayson Unavailable Unavailable Sharlene Knox RN Unavailable Unavailable Yessenia Julien MD Unavailable Shelby Astudillo MD 3 [phone] Encounter Details Care Team Description Date Type Department Darrion Hernandez MBBS [address] [facility] [address] [place] [id number] Vitamin D deficiency, unspecified 08/03/2019 [facility] [address] [address] Social History Date Tobacco Use Types Packs/Day [...] tablet Units by mouth at bedtime daily. cyanocobalamin (VITAMIN Take 1,000 0 B-12) 1,000 [...] hour before or 2 hours after food. 05/02/2019 10/19/2019 clobetasol (TEMOVATE) Apply a small 60 g 1 0.05 % topical amount to creamIndications: Palmar blisters/sore plantar places on erythrodysesthesia hands and feet once per day. 02/15/2019 08/10/2019 prednisone (DELTASONE) 10 Take one 10 30 tablet 3 mg tablet mg tablet and one 5 mg tablet once daily by mouth with food. documented as of this encounter Progress Notes * Kim Yanes LPN - 08/03/2019 3:40 PM BLOCKING MACHINE TENDER Pt notified. Pt verbalized understanding. Pt had no further questions. Kim nolan LPN KING MACHINE TENDER documented in this encounter Plan of Treatment Not on filedocumented as of this encounter Procedures Comments Procedure Name Priority Date/Time Associated Diag nosis HC MICROALB/CR RATIO, Routine 08/03/2019 Chronic kidney disease, RANDOM 3:40 PM BLOCKING MACHINE TENDER stage 3 (HCC) HC PTH Routine 08/03/2019 Chronic kidney disease, 3:35 PM BLOCKING MACHINE TENDER stage 3 (HCC) HC 25-OH VITAMIN D Routine 08/03/2019 Vitamin D d eficiency 3:35 PM BLOCKING MACHINE TENDER HC BASIC METABOLIC PANEL Routine 08/03/2019 Chron ic kidney disease, 3:35 PM BLOCKING MACHINE TENDER stage 3 (HCC) documented in this encounter Results * MICROALB/CR RATIO-URINE RANDOM (08/03/2019 3:40 PM BLOCKING MACHINE TENDER) Microalbumin, 14.7 <19 MCG/ML [facility] Random Creatinine, 47 MG/DL [facility] Random Microalbumin/CR 31.28 (H)Comment: NOTE NEW <30 ug/mg [facility] ratio Urine REFERENCE RANGES Specimen Urine - Urine Performing Organization Address [facility] Ph one Number [facility] LAB [address] [place] [address] * 25-OH VITAMIN D (D2 + D3) (08/03/2019 3:35 PM BLOCKING MACHINE TENDER) Vitamin 36.2 30 - 80 NG/ML [facility] D(25-OH)Total Specimen Performing Organization Address [facility] Ph one Number MAIN LAB [address] [place] [address] * PARATHYROID HORMONE (08/03/2019 3:35 PM BLOCKING MACHINE TENDER) PTH Hormone 22.2 10 - 65 PG/ML [facility] Specimen Performing Organization Address [facility] one Number MAIN LAB [address] [place] [address] * BASIC METABOLIC PANEL (08/03/2019 3:35 PM BLOCKING MACHINE TENDER) Sodium 138 137 - 147 MMOL/L [facility] [...] (L) >60 mL/min [facility] Comment: Bangladeshi The eGFR is not validated f or use in drug dosing adjustments. Continue to use estimated creatinine clearance per dosing reference text. Please contact the Clinical Pharmacist for questions. eGFR 45 (L) >60 mL/min [facility] Bangladeshi Comment: The eGFR is not validated for use in drug dosing adjustments. Continue to use estimated creatinine clearance per dosing reference text. Please contact the Clinical Pharmacist for questions. Specimen Performing Organization Address City/State/Zipcode Ph one Number [facility] [address] [place] [address] documented in this encounter Visit Diagnoses Diagnosis Chronic kidney disease, stage 3 (HCC) Chronic kidney disease, Stage III (mode rate) Vitamin D deficiency Unspecified vitamin D deficiency documented in this encounter Additional Health Concerns Resolved Time Infection Noted Time MRSA 01/22/2016 9:27 AM CDT documented as of this encounter
--- OUTSIDE RECORDS SUMMARY | 2020-01-21 11:58 | XMS REPORT | Encounter Summary ---
Author Author [facility] Organization [facility] Address Unknown Phone Unavailable Care Team Providers Care Packaging Designer Name Role Phone Jacobo Owens MD PCP Ezekiel Bacon MD Unavailable [phone] Ally Grayson Unavailable Unavailable Sharlene Knox RN Unavailable Unavailable Yessenia Julien MD Unavailable Shelby Astudillo MD 3 Reason for Visit * Reason Comments Results Encounter Details Care Team Description Date Type Department Darrion Hernandez MBBS [address] [facility] [address] [address] Results 08/04/2019 Telephone [facility] [address] [place] [address] Social History Date Tobacco Use Types Packs/Day [...] encounter Miscellaneous Notes * Telephone Encounter - Kim Yanes LPN - 08/04/2019 9:44 AM BARREL LOADER AND CLEANER Pt notified and verbalized understanding. Med list updated.Kim Yanes LPN EL LOADER AND CLEANER * Telephone Encounter - Kim Yanes LPN - 08/04/2019 9:43 AM BARREL LOADER AND CLEANER ----- Message from ISH Hilton sent at 08/03/2019 10:58 PM BARREL LOADER AND CLEANER ----- Creatinine remains elevated at 1.8. Please ask him to decrease Lisinopril dose to 20 mg daily. He will need to keep checking BP at home. Thanks EL LOADER AND CLEANER documented in this encounter Plan of Treatment Not on filedocumented as of this encounter Visit Diagnoses Not on filedocumented in this encounter Additional Health Concerns Resolved Time Infection Noted Time MRSA 01/22/2016 9:27 AM CDT documented as of this encounter
--- OUTSIDE RECORDS SUMMARY | 2020-01-21 11:58 | XMS REPORT | Encounter Summary ---
Author Author [facility] Organization [facility] Address Unknown Phone Unavailable Care Team Providers Care Member Services Representative Name Role Phone Jacobo Owens MD PCP Ezekiel Bacon MD Unavailable [phone] Ally Grayson Unavailable Unavailable Sharlene Knox RN Unavailable Unavailable Yessenia Julien MD Unavailable Shelby Astudillo MD 3 Reason for Referral * Radiology Services (Routine) Referred By Contact Referred To Contact Status Reason Specialty Diagnoses / Procedures Shelby Astudillo MD [address] [place] [address] New Request Radiology Diagnoses 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) P rocedures CT CHEST W CONTRAST * Radiology Services (Routine) Referred By Contact Referred To Contact Status Reason Specialty Diagnoses / Procedures Shelby Astudillo MD [address] [place] [address] [place] [address] No Auth Needed Radiology Diagnoses 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) P rocedures CT ABD/PELV W CONTRAST CT CHEST W CONTRAST Reason for Visit * Reason Comments Follow Up Encounter Details Care Team Description Date Type Department Shelby Astudillo MD [address] [place] [address] [phone] Malignant neoplasm of left kidney (HCC) (Primary Dx); 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); Secondary malignant neoplasm of both lungs (HCC); Secondary malignant neoplasm of retroperitoneum (HCC); 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; Renal polycythemia; Secondary polycythemia 09/05/2019 Office Visit [facility] [address] [address] Social History Date Tobacco Use Types Packs/Day [...] Signs Reading Time Taken Comments Vital Sign 125/78 09/05/2019 1:41 PM BRUSH CUTTER Blood Pressure 84 09/05/2019 1:41 PM BRUSH CUTTER Pulse 36.8 C (98.2 F) 09/05/2019 1:41 PM BRUSH CUTTER Temperature 16 09/05/2019 1:41 PM BRUSH CUTTER Respiratory Rate 98% 09/05/2019 1:41 PM BRUSH CUTTER Oxygen Saturation - - Inhaled Oxygen Concentration 97.7 kg (215 lb 6.4 oz) 09/05/2019 1:41 PM BRUSH CUTTER Weight 177.8 cm (5' 10") 09/05/2019 1:41 PM BRUSH CUTTER Height 30.91 09/05/2019 1:41 PM BRUSH CUTTER Body Mass Index documented in this encounter [...] impairment: No documented as of this encounter Patient Instructions * Patient Instructions* Dana Glass RN - 09/05/2019 2:00 PM BRUSH CUTTER Alternate Prednisone 10mg with Prednisone 5mg-new prescription for 5mg sent to [facility] documented in this encounter Progress Notes * Shelby Astudillo MD - 09/05/2019 2:00 PM BRUSH CUTTER Name: Bal Blevins : 1945 AGE: [age] y.o. DATE OF SERVICE: 09/05/2019 Subjective: Reason for Visit: Metastatic clear cell [...] daily History of Present Illness Mr. Blevins presents for evaluation and management of checkpoint inhibitor-induc ed hypophysitis/cerebritis and metastatic RCC. Since his last visit he resumed Cabozantinib at a dose of 20 mg PO daily. Today he reports that he is doing quite well. He reports that he has two small a reas of ulceration on the bottom of both great toes but has otherwise not had re currence of PPE. Has mild fatigue but denies nausea, vomiting, diarrhea, abdominal pain. His cogn ition and mood have been good and at recent baseline. Denies any other new or co ncerning symptoms. Specifically, he denies any dyspnea, cough, nausea, vomiting, [...] been reviewed with the p atient on 09/05/2019, and confirmed accuracy of the information outlined [...] mouth daily. prednisone (DELTASONE) 10 mg tablet TAKE ONE 10MG TABLET DAILY pyridoxine (vitamin B6) (VITAMIN B-6) 100 mg [...] Take 1 Tab by mouth daily. Vitals: 09/05/19 1341 09/05/19 1347 BP: 125/78 Patient Position: Sitting Pulse: 84 Resp: 16 Temp: 36.8 C (98.2 F) SpO2: 98% Weight: 97.7 kg (215 lb 6.4 oz) Height: 177.8 cm (70") PainSc: Zero Body mass index is 30.91 kg/m. Pain Score: Zero Pain Addressed: Current [...] present Msk: Normal muscle bulk and tone. Left ankle is in a brace (stable). No joint ef fusions or limitations to active range of motion. Neuro: Cranial nerves grossly intact and symmetric. Normal gait. No speech laten cy Integument/skin: Mild erythema on the plantar surface of most toes. 3-4 mm areas of extremely superficial ulceration on great toes. Heme/lymph: No pathologic-appearing bruising. No cervical or supraclavicular lym phadenopathy Psych: Alert and oriented to person, place, date, and situation. Good insight, j udgement good. Data: I have ordered and reviewed the patient's CBC/differential and compared to prior values. The full CBC is as follows: CBC with Diff Latest Ref Rng & Units 09/05/2019 07/18/2019 06/27/2019 05/30/2019 05/02/2019 WBC 4.5 - 11.0 K/UL 9.4 11.9(H) 10.4 7.5 5.5 RBC 4.4 - 5.5 M/UL 5.78(H) 5.24 4.30(L) 4.51 5.29 HGB 13.5 - 16.5 GM/DL 18.0(H) 17.6(H) 14.6 15.3 17.2(H) HCT 40 - 50 % 54.1(H) 53.8(H) 44.5 46.2 50.9(H) MCV 80 - 100 FL 93.6 102.6(H) 103.7(H) 102.6(H) 96.1 MCH 26 - 34 PG 31.1 33.7 33.9 33.9 32.4 MCHC 32.0 - 36.0 G/DL 33.2 32.8 32.7 33.0 33.8 RDW 11 - 15 % 15.7(H) 15.8(H) 16.4(H) 17.7(H) 25.0(H) PLT 150 - 400 K/UL 216 249 231 146(L) 165 MPV 7 - 11 FL 8.4 8.8 9.0 8.5 7.7 NEUT 41 - 77 % 70 75 86(H) 65 68 ANC 1.8 - 7.0 K/UL 6.50 9.10(H) 9.10(H) 4.90 3.80 LYMA 24 - 44 % 20(L) 14(L) 6(L) 25 21(L) ALYM 1.0 - 4.8 K/UL 1.90 1.60 0.60(L) 1.90 1.10 ANDREINA 4 - 12 % 6 8 6 6 8 AMONO 0 - 0.80 K/UL 0.60 1.00(H) 0.60 0.40 0.40 EOSA 0 - 5 % 2 2 1 4 2 AEOS 0 - 0.45 K/UL 0.20 0.20 0.10 0.30 0.10 BASA 0 - 2 % 2 1 1 0 1 ABAS 0 - 0.20 K/UL 0.20 0.10 0.10 0.00 0.00 I have ordered and reviewed the patient's CMP and compared to prior values. The full CMP is as follows: CMP Latest Ref Rng & Units 09/05/2019 08/03/2019 07/18/2019 05/30/2019 05/02/2019 NA 137 - 147 MMOL/L 134(L) 138 141 139 135(L) K 3.5 - 5.1 MMOL/L 4.8 4.8 4.1 3.8 4.0 CL 98 - 110 MMOL/L 104 102 102 103 103 CO2 21 - 30 MMOL/L 22 23 28 27 24 GAP 3 - 12 8 13(H) 11 9 8 BUN 7 - 25 MG/DL 38(H) 44(H) 38(H) 18 26(H) CR 0.4 - 1.24 MG/DL 1.77(H) 1.80(H) 1.85(H) 1.17 1.24 GLUX 70 - 100 MG/DL 150(H) 229(H) 138(H) 106(H) 149(H) CA 8.5 - 10.6 MG/DL 9.2 9.7 10.0 9.0 10.2 TP 6.0 - 8.0 G/DL 6.4 - 6.9 6.2 6.5 ALB 3.5 - 5.0 G/DL 3.8 - 4.0 3.7 4.1 ALKP 25 - 110 U/L 38 - 38 29 34 ALT 7 - 56 U/L 43 - 17 47 54 TBILI 0.3 - 1.2 MG/DL 0.4 - 0.8 0.7 0.7 GFR >60 mL/min 38(L) 37(L) 36(L) >60 57(L) GFRAA >60 mL/min 46(L) 45(L) 44(L) >60 >60 Thyroid Studies Lab Results Component Value Date/Time TSH 2.760 09/24/2018 08:30 AM No results found for: FREET3, [id number], THYBINDGLB Assessment and Plan: Mr. Blevins is a 74 y.o. 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 1. 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 RTC in 1 month for ongoing care and observation, at which time we will repeat restaging imaging. 2. Checkpoint inhibitor-induced cerebritis/hypophysitis: Will wean Prednisone further to 10 mg PO alternating with 5 mg every other da y. Next month will taper to 5 mg daily X 1 month, then 5 mg [id number], the n stop. Continue PPI for GI protection until he has completed steroid taper. 3. Palmar-plantar erythrodysesthesia: CTCAE grade 1, due to Cabozantinib Continue Cabozantinib at 20 mg PO daily and follow with monthly visits and sk in checks. 4. Hypertension: Continue Lisinopril 20 mg PO daily 5. Polycythemia: Likely due to testosterone supplementation +/- contribution from RCC. Recommend holding testosterone indefinitely and following CBC monthly. Goals of care: [...] identification of surrogate decision maker. Total discontinuous [id number] time for visit: 22 minutes, > 50% of which was spent in education and counseling with patient and friend, Mr. Antoine, in clinic. Discussed the patient's cancer diagnosis and management, PPE P M BRUSH CUTTER documented in this encounter Plan of Treatment Order Schedule Name Type Priority Associated Diag noses Expected: 11/03/2019 (Approximate), Expi res: 09/04/2020 CBC AND DIFF Lab Routine Metastatic amberly l cell carcinoma to intra-abdominal site (HCC) Expected: 11/03/2019 (Approximate), Expi res: 09/04/2020 COMPREHENSIVE METABOLIC Lab Routine Metast atic renal cell PANEL carcinoma to intra-abdominal site (HCC) documented as of this encounter Results * CT CHEST W [...] Bowel contrast: None Comparison: CT chest/abdomen/pelvis fro 07/18/2019. CHEST FINDINGS: Lower Neck: Unremarkable Axilla, [...] on 11/07/2019 2:11 PM. Performing Organization Address [facility] Ph one Number [facility] RESULTS * COMPREHENSIVE METABOLIC PANEL (10/21/2019 10:00 AM CDT) Sodium 137 137 - 147 MMOL/L [facility] Potassium 4.3 3.5 - 5.1 MMOL/L [facility] Chloride 99 98 - 110 MMOL/L [facility] Glucose 93 70 - 100 MG/DL [facility] Blood Urea 30 (H) 7 - 25 MG/DL [facility] Nitrogen Creatinine 1.86 (H) 0.4 - 1.24 MG/DL [facility] Calcium 9.8 8.5 - 10.6 MG/DL [facility] Total Protein 7.2 6.0 - 8.0 G/DL [facility] Total Bilirubin 0.6 0.3 - 1.2 MG/DL [facility] Albumin 4.0 3.5 - 5.0 G/DL [facility] Alk Phosphatase 33 25 - 110 U/L [facility] AST (SGOT) 58 (H) 7 - 40 U/L [facility] CO2 28 21 - 30 MMOL/L [facility] ALT (SGPT) 78 (H) 7 - 56 U/L [facility] Anion Gap 10 3 - 12 [facility] eGFR Non 36 (L) >60 mL/min [facility] Comment: Slovenian The eGFR is not validated f or use in drug dosing adjustments. Continue to use estimated creatinine clearance per dosing reference text. Please contact the Clinical Pharmacist for questions. eGFR 43 (L) >60 mL/min [facility] [place]ian Comment: The eGFR is not validated for use in drug dosing adjustments. Continue to use estimated creatinine clearance per dosing reference text. Please contact the Clinical Pharmacist for questions. Specimen Blood Performing Organization Address [facility] Ph one Number [facility] [address] [place] [address] * CBC AND DIFF (10/21/2019 10:00 AM CDT) White Blood 6.7 4.5 - 11.0 K/UL [facility] Cells RBC 6.58 (H) 4.4 - 5.5 M/UL [facility] Hemoglobin 19.2 (H) 13.5 - 16.5 GM/DL [facility] Hematocrit 58.6 (H) 40 - 50 % [facility] MCV 89.0 80 - 100 FL [facility] MCH 29.2 26 - 34 PG [facility] MCHC 32.9 32.0 - 36.0 G/DL [facility] RDW 17.6 (H) 11 - 15 % [facility] Platelet Count 210 150 - 400 K/UL [facility] MPV 8.3 7 - 11 FL [facility] Neutrophils 51 41 - 77 % [facility] Lymphocytes 37 24 - 44 % [facility] Monocytes 8 4 - 12 % [facility] Eosinophils 3 0 - 5 % [facility] Basophils 1 0 - 2 % [facility] Absolute 3.40 1.8 - 7.0 K/UL [facility] Neutrophil Count Absolute Lymph 2.50 1.0 - 4.8 K/UL [facility] Count Absolute 0.50 0 - 0.80 K/UL [facility] Monocyte Count Absolute 0.20 0 - 0.45 K/UL [facility] Eosinophil Count Absolute 0.00 0 - 0.20 K/UL [facility] Basophil Count Specimen Blood Performing Organization Address [facility] [address] [place] [address] documented in this encounter Visit Diagnoses Diagnosis Metastatic renal cell carcinoma to intr a-abdominal site (HCC) Secondary malignant neoplasm of other s pecified sites Malignant neoplasm of left kidney (HCC) Secondary malignant neoplasm of both estefany ngs (HCC) 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
--- OUTSIDE RECORDS SUMMARY | 2020-01-21 11:58 | XMS REPORT | Encounter Summary ---
Author Author [facility] Organization [facility] Address Unknown Phone Unavailable Care Team Providers Care Environmental Attorney Name Role Phone Jacobo Owens MD PCP Ezekiel Bacon MD Unavailable [phone] Ally Grayson Unavailable Unavailable Sharlene Knox RN Unavailable Unavailable Yessenia Julien MD Unavailable Shelby Astudillo MD 3 [phone] Reason for Visit * Reason Comments Chemotherapy Follow up Encounter Details Care Team Description Date Type Department Gallo Barrett PHARMD Chemotherapy Follow up 08/02/2019 Telephone [facility] [place] [phone] Social History Date Tobacco Use Types Packs/Day [...] Miscellaneous Notes * Telephone Encounter - Gallo Barrett PHARMD - 08/02/2019 1:09 PM INSIDE [employer] Attempted to call Bal Blevins to perform reassessment for oral chemothe rapy medication. Mr. Blevins is currently holding cabozantinib under the direct ion of Dr. Astudillo due to hand-foot skin reaction; he reports that this has largely resolved. He has an appointment with Dr. Astudillo on 08/25/19 to discuss possible resumption of therapy, will follow-up with patient at alexandra t time. Gallo Barrett PHARMD Oncology Clinical Pharmacist 08/02/2019 [place] [employer] documented in this encounter Plan of Treatment Not on filedocumented as of this encounter Visit Diagnoses Not on filedocumented in this encounter Additional Health Concerns Resolved Time Infection Noted Time MRSA 01/22/2016 9:27 AM CDT documented as of this encounter
--- OUTSIDE RECORDS SUMMARY | 2020-01-21 11:58 | XMS REPORT | Encounter Summary ---
Author Author [facility] Organization [facility] Address Unknown Phone Unavailable Care Team Providers Care Plaster Machine Tender Name Role Phone Jacobo Owens MD PCP Ezekiel Bacon MD Unavailable [phone] Ally Grayson Unavailable Unavailable Sharlene Knox RN Unavailable Unavailable Yessenia Julien MD Unavailable Shelby Astudillo MD 3 [phone] Reason for Visit * Reason Comments Wheezing Encounter Details Care Team Description Date Type Department Sharlene Baires PA-C [address] [place] [address] [phone] Wheezing 08/16/2019 Telephone [facility] [address] [address] Social History Date Tobacco Use Types Packs/Day [...] encounter Miscellaneous Notes * Telephone Encounter - Dana Glass RN - 08/16/2019 11:57 AM DONOR SPECIALIST Pt called to report late Thursday pm he noted wheezing and experienced 2 episodes of blood tinged sputum. Pt denies fever. He also notes the lesion on his head is again coming back and is 1/4in in size. Sharlene Baires PA-C updated. Questioned pt if he had started on his Cabo reduced dose yet and pt reports he thought he was not to start until he returned 08/25. Confirmed with Sharlene Baires PA-C that pt should strt med and spoke with pharmacy and they will reach out to pt to s chedule delivery. Pt was also instructed to contact PCP about his wheezing. Pt v erbalizes understanding of all information and is in agreement. R SPECIALIST documented in this encounter Plan of Treatment Not on filedocumented as of this encounter Visit Diagnoses Not on filedocumented in this encounter Additional Health Concerns Resolved Time Infection Noted Time MRSA 01/22/2016 9:27 AM CDT documented as of this encounter
--- OUTSIDE RECORDS SUMMARY | 2020-01-21 11:58 | XMS REPORT | Encounter Summary ---
Author Author [facility] Organization [facility] Address Unknown Phone Unavailable Care Team Providers Care Skid Road Worker Name Role Phone Jacobo Owens MD PCP Ezekiel Bacon MD Unavailable [phone] Ally Grayson Unavailable Unavailable Sharlene Knox RN Unavailable Unavailable Yessenia Julien MD Unavailable Shelby Astudillo MD 3 [phone] Reason for Visit * Reason Comments Medication Refill Encounter Details Care Team Description Date Type Department Shelby Astudillo MD [address] [place] [address] [phone] 08/09/2019 Refill [facility] [place] [address] [place] [phone] Social History Date Tobacco Use Types Packs/Day [...]
--- OUTSIDE RECORDS SUMMARY | 2020-01-21 11:59 | XMS REPORT | Continuity of Care Document ---
Author Organization Unknown Address Unknown Phone Unavailable Allergies Active Description Code Type Severity Reaction Onset Reported/Identified Relationship to Patient Clinical Status Yes No Known Drug Allergies [id number] Drug Allergy Unknown N/A 10/20/2011 Medications There is no data. Problems Date Dx Coded Attending Type Code Diagnosis Diagnosed By 09/10/2011 Ot 459.81 DORIAN OUS INSUFFICIENCY NOS 09/10/2011 Ot V57.21 ENC OUNTER FOR OCCUPATIONAL THERAPY 10/22/2011 Ot 250.00 NICO B HEYDI WO COMPL, TYPE II OR UNSPEC TY 10/22/2011 Ot 401.9 HYPE RTENSION NOS 10/22/2011 Ot 427.31 ATR IAL FIBRILLATION 10/22/2011 Ot 703.0 INGR OWING NAIL 10/22/2011 Ot V58.61 ANTICOAGULANTS,LT,CURRENT USE 10/22/2011 Ot V58.66 BENITO G-TERM (CURRENT) USE OF ASPIRIN 10/22/2011 Ot V58.69 OTH MED,LT,CURRENT USE 12/12/2011 Ot V58.31 ENC OUNTER FOR CHANGE OR REMOVAL OF SURGI 04/04/2015 SHAWN NGUYEN MD Ot 250.00 DIAB HEYDI WO COMPL, TYPE II OR UNSPEC TY 04/04/2015 SHAWN NGUYEN MD Ot 401.9 HYPERTENSION NOS 04/04/2015 SHAWN NGUYEN MD Ot 427.31 ATRIAL FIBRILLATION 04/04/2015 SHAWN NGUYEN MD Ot 717.2 DERANG POST MED MENISCUS 04/04/2015 SHAWN NGUYEN MD Ot 717.7 CHONDROMALACIA PATELLAE 04/04/2015 SHAWN NGUYEN MD Ot 733.92 CHONDROMALACIA 04/04/2015 SHAWN NGUYEN MD Ot V57.1 PHYSICAL THERAPY NEC 04/04/2015 SHAWN NGUYEN MD Ot V58.69 OTH MED,LT,CURRENT USE 04/25/2015 SHAWN NGUYEN MD Ot 717.7 04/25/2015 SHAWN NGUYEN MD Ot V72.81 04/25/2015 HSAWN NGUYEN MD Ot V74.8 11/24/2015 Ot 703.0 INGR OWING NAIL 11/24/2015 Ot V72.84 EXA M PRE- OPERATIVE NOS 11/24/2015 Ot V74.8 SCRE EN-BACTERIAL DIS NEC 11/24/2015 SHAWN NGUYEN MD Ot 717.7 CHONDROMALACIA PATELLAE 11/24/2015 SHAWN NGUYEN MD Ot V72.81 [id number]-[id number]-JLAWVNNMT CARDIOVASCULAR 11/24/2015 SHAWN NGUYEN MD Ot V74.8 SCREEN-BACTERIAL DIS NEC 11/26/2015 JAMIE DOMINGO MD Ot M51. 16 INTERVERTEBRAL DISC DISORDERS W RADICULO 12/28/2015 JAMIE DOMINGO MD Ot M51. 16 INTERVERTEBRAL DISC DISORDERS W RADICULO 01/08/2016 Ot N28.89 OT ER SPECIFIED DISORDERS OF KIDNEY AND 01/11/2016 JAMIE DOMINGO MD Ot N28. 89 OTHER SPECIFIED DISORDERS OF KIDNEY AND 01/11/2016 JAMIE DOMINGO MD Ot R59. 0 LOCALIZED ENLARGED LYMPH NODES 01/30/2016 CECIL RODRIGUEZ FACC, MELISSA FACP CCDS Ot E11.9 TYPE 2 DIABETES MELLITUS WITHOUT COMPLIC 01/30/2016 CECIL RODRIGUEZ FACC, MELISSA FACP CCDS Ot E78.4 OTHER HYPERLIPIDEMIA 01/30/2016 CECIL RODRIGUEZ FACC, ALI FACP CCDS Ot I10 ESSENTIAL (PRIMARY) HYPERTENSION 01/30/2016 CECIL RODRIGUEZ FACC, ALI FACP CCDS Ot I48.2 CHRONIC ATRIAL FIBRILLATION 01/30/2016 CECIL RODRIGUEZ FACC, ALI FACP CCDS Ot N28.89 OTHER SPECIFIED DISORDERS OF KIDNEY AND 02/08/2016 Ot N28.89 OT ER SPECIFIED DISORDERS OF KIDNEY AND 02/08/2016 JAMIE DOMINGO MD Ot N28. 89 OTHER SPECIFIED DISORDERS OF KIDNEY AND 02/08/2016 JAMIE DOMINGO MD Ot R59. 0 LOCALIZED ENLARGED LYMPH NODES 02/29/2016 CECIL RODRIGUEZ FACC, ALI FACP CCDS Ot E11.9 TYPE 2 DIABETES MELLITUS WITHOUT COMPLIC 02/29/2016 CECIL RODRIGUEZ FACC, ALI FACP CCDS Ot E78.4 OTHER HYPERLIPIDEMIA 02/29/2016 CECIL RODRIGUEZ FACC, ALI FACP CCDS Ot I10 ESSENTIAL (PRIMARY) HYPERTENSION 02/29/2016 CECIL RODRIGUEZ FACC, MELISSA FACP CCDS Ot I48.2 CHRONIC ATRIAL FIBRILLATION 02/29/2016 CECIL RODRIGUEZ FACC, ALI FACP CCDS Ot N28.89 OTHER SPECIFIED DISORDERS OF KIDNEY AND 03/05/2016 CECIL RODRIGUEZ FACSuzi, ALI FACP CCDS Ot E11.9 TYPE 2 DIABETES MELLITUS WITHOUT COMPLIC 03/05/2016 CECIL RODRIGUEZ FACC, ALI FACP CCDS Ot E78.4 OTHER HYPERLIPIDEMIA 03/05/2016 CECIL RODRIGUEZ FACC, ALI FACP CCDS Ot I10 ESSENTIAL (PRIMARY) HYPERTENSION 03/05/2016 CECIL RODRIGUEZ FACC, ALI FACP CCDS Ot I48.2 CHRONIC ATRIAL FIBRILLATION 03/05/2016 CECIL RODRIGUEZ FACC, ALI FACP CCDS Ot N28.89 OTHER SPECIFIED DISORDERS OF KIDNEY AND 03/05/2016 Ot 703.0 INGR OWING NAIL 03/05/2016 Ot V72.84 EXA M PRE- OPERATIVE NOS 03/05/2016 Ot V74.8 SCRE EN-BACTERIAL DIS NEC 03/05/2016 SHANW NGUYEN MD Ot 717.7 CHONDROMALACIA PATELLAE 03/05/2016 SHAWN NGUYEN MD Ot V72.81 [id number]-TDS-[id number] CARDIOVASCULAR 03/05/2016 SHAWN NGUYEN MD Ot V74.8 SCREEN-BACTERIAL DIS NEC 03/05/2016 JAMIE DOMINGO MD Ot M51. 16 INTERVERTEBRAL DISC DISORDERS W RADICULO 03/05/2016 Ot N28.89 OTH ER SPECIFIED DISORDERS OF KIDNEY AND 03/05/2016 JAMIE DOMINGO MD Ot N28. 89 OTHER SPECIFIED DISORDERS OF KIDNEY AND 03/05/2016 JAMIE DOMINGO MD Ot R59. 0 LOCALIZED ENLARGED LYMPH NODES 03/05/2016 CECIL RODRIGUEZ FACC, MELISSA FACP CCDS Ot E11.9 TYPE 2 DIABETES MELLITUS WITHOUT COMPLIC 03/05/2016 CECIL RODRIGUEZ FACC, MELISSA FACP CCDS Ot E78.4 OTHER HYPERLIPIDEMIA 03/05/2016 CECIL RODRIGUEZ FACC, ALI FACP CCDS Ot I10 ESSENTIAL (PRIMARY) HYPERTENSION 03/05/2016 CECIL RODRIGUEZ FACC, MELISSA FACP CCDS Ot I48.2 CHRONIC ATRIAL FIBRILLATION 03/05/2016 CECIL RODRIGUEZ FACC, ALI FACP CCDS Ot N28.89 OTHER SPECIFIED DISORDERS OF KIDNEY AND 03/05/2016 Ot N28.89 [facility] ER SPECIFIED DISORDERS OF KIDNEY AND 04/03/2016 Ot 703.0 INGR OWING NAIL 04/03/2016 Ot V72.84 EXA M PRE- OPERATIVE NOS 04/03/2016 Ot V74.8 SCRE EN-BACTERIAL DIS NEC 04/03/2016 SHAWN NGUYEN MD Ot 717.7 CHONDROMALACIA PATELLAE 04/03/2016 SHAWN NGUYEN MD Ot V72.81 DMMB-MHZ-[id number] CARDIOVASCULAR 04/03/2016 SHAWN NGUYEN MD Ot V74.8 SCREEN-BACTERIAL DIS NEC 04/03/2016 JAMIE DOMINGO MD Ot M51. 16 INTERVERTEBRAL DISC DISORDERS W RADICULO 04/03/2016 Ot N28.89 [facility] ER SPECIFIED DISORDERS OF KIDNEY AND 04/03/2016 JAMIE DOMINGO MD Ot N28. 89 OTHER SPECIFIED DISORDERS OF KIDNEY AND 04/03/2016 JAMIE DOMINGO MD Ot R59. 0 LOCALIZED ENLARGED LYMPH NODES 04/03/2016 CECIL RODRIGUEZ FACC, ALI FACP CCDS Ot E11.9 TYPE 2 DIABETES MELLITUS WITHOUT COMPLIC 04/03/2016 CECIL RODRIGUEZ FACC, ALI FACP CCDS Ot E78.4 OTHER HYPERLIPIDEMIA 04/03/2016 CECIL RODRIGUEZ FACSuzi, ALI FACP CCDS Ot I10 ESSENTIAL (PRIMARY) HYPERTENSION 04/03/2016 CECIL RODRIGUEZ FACC, ALI FACP CCDS Ot I48.2 CHRONIC ATRIAL FIBRILLATION 04/03/2016 CECIL RODRIGUEZ FACC, ALI FACP CCDS Ot N28.89 OTHER SPECIFIED DISORDERS OF KIDNEY AND 04/03/2016 JAMIE DOMINGO MD Ot N28. 89 OTHER SPECIFIED DISORDERS OF KIDNEY AND 04/03/2016 JAMIE DOMINGO MD Ot R59. 0 LOCALIZED ENLARGED LYMPH NODES 04/03/2016 CECIL RODRIGUEZ FACC, ALI FACP CCDS Ot E11.9 TYPE 2 DIABETES MELLITUS WITHOUT COMPLIC 04/03/2016 CECIL RODRIGUEZ FACC, ALI FACP CCDS Ot E78.4 OTHER HYPERLIPIDEMIA 04/03/2016 CECIL BOLESC, ALI FACP CCDS Ot I10 ESSENTIAL (PRIMARY) HYPERTENSION 04/03/2016 CECIL RODRIGUEZ FACC, ALI FACP CCDS Ot I48.2 CHRONIC ATRIAL FIBRILLATION 04/03/2016 CECIL RODRIGUEZ FACC, ALI FACP CCDS Ot N28.89 OTHER SPECIFIED DISORDERS OF KIDNEY AND 10/02/2017 SHAWN NGUYEN MD Ot 717.7 CHONDROMALACIA PATELLAE 10/02/2017 SHAWN NGUYEN MD Ot V72.81 DYYC-FIO-HABMCYCCI CARDIOVASCULAR 10/02/2017 SHAWN NGUYEN MD Ot V74.8 SCREEN-BACTERIAL DIS NEC 10/02/2017 JAMIE DOMINGO MD Ot M51. 16 INTERVERTEBRAL DISC DISORDERS W RADICULO 10/02/2017 Ot N28.89 OTH ER SPECIFIED DISORDERS OF KIDNEY AND 10/02/2017 JAMIE DOMINGO MD Ot N28. 89 OTHER SPECIFIED DISORDERS OF KIDNEY AND 10/02/2017 JAMIE DOMINGO MD Ot R59. 0 LOCALIZED ENLARGED LYMPH NODES 10/02/2017 CECIL RODRIGUEZ FACC, ALI FACP CCDS Ot E11.9 TYPE 2 DIABETES MELLITUS WITHOUT COMPLIC 10/02/2017 CECIL RODRIGUEZ FACC, ALI FACP CCDS Ot E78.4 OTHER HYPERLIPIDEMIA 10/02/2017 CECIL RODRIGUEZ FACC, ALI FACP CCDS Ot I10 ESSENTIAL (PRIMARY) HYPERTENSION 10/02/2017 CECIL RODRIGUEZ FACC, ALI FACP CCDS Ot I48.2 CHRONIC ATRIAL FIBRILLATION 10/02/2017 CECIL RODRIGUEZ FACC, ALI FACP CCDS Ot N28.89 OTHER SPECIFIED DISORDERS OF KIDNEY AND 11/10/2017 JAMIE DOMINGO MD Ot D75. 1 SECONDARY POLYCYTHEMIA 11/11/2017 JAMIE DOMINGO MD Ot D75. 1 SECONDARY POLYCYTHEMIA 12/24/2017 JAMIE DOMINGO MD Ot D75. 1 SECONDARY POLYCYTHEMIA 12/31/2017 JAMIE DOMINGO MD Ot D75. 1 SECONDARY POLYCYTHEMIA 01/01/2018 JAMIE DOMINGO MD Ot D75. 1 SECONDARY POLYCYTHEMIA 01/06/2018 JAMIE DOMINGO MD Ot D75. 1 SECONDARY POLYCYTHEMIA 04/02/2018 SHAWN NGUYEN MD Ot 717.7 CHONDROMALACIA PATELLAE 04/02/2018 SHAWN NGUYEN MD Ot V72.81 RKYM-SPS-JSNEEUAWS CARDIOVASCULAR 04/02/2018 SHAWN NGUYEN MD Ot V74.8 SCREEN-BACTERIAL DIS NEC 04/02/2018 JAMIE DOMINGO MD Ot M51. 16 INTERVERTEBRAL DISC DISORDERS W RADICULO 04/02/2018 Ot N28.89 OTH ER SPECIFIED DISORDERS OF KIDNEY AND 04/02/2018 JAMIE DOMINGO MD Ot N28. 89 OTHER SPECIFIED DISORDERS OF KIDNEY AND 04/02/2018 JAMIE DOMINGO MD Ot R59. 0 LOCALIZED ENLARGED LYMPH NODES 04/02/2018 CECIL RODRIGUEZ FAC, ALI FACP CCDS Ot E11.9 TYPE 2 DIABETES MELLITUS WITHOUT COMPLIC 04/02/2018 CECIL RODRIGUEZ FAC, ALI FACP CCDS Ot E78.4 OTHER HYPERLIPIDEMIA 04/02/2018 CECIL RODRIGUEZ FAC, ALI FACP CCDS Ot I10 ESSENTIAL (PRIMARY) HYPERTENSION 04/02/2018 CECIL RODRIGUEZ FAC, ALI FACP CCDS Ot I48.2 CHRONIC ATRIAL FIBRILLATION 04/02/2018 CECIL RODRIGUEZ [facility], ALI FACP CCDS Ot N28.89 OTHER SPECIFIED DISORDERS OF KIDNEY AND 04/02/2018 JAMIE DOMINGO MD Ot D75. 1 SECONDARY POLYCYTHEMIA 04/02/2018 INNA LOPEZ MD Ot E11.9 TYPE 2 DIABETES MELLITUS WITHOUT COMPLIC 04/02/2018 INNA LOPEZ MD Ot S00.01XA ABRASION OF SCALP, INITIAL ENCOUNTER 04/02/2018 INNA LOPEZ MD Ot S51.811A LACERATION W/O FOREIGN BODY OF RIGHT FOR 04/02/2018 INNA LOPEZ MD Ot W01.0XXA FALL SAME LEV FROM SLIP/TRIP W/O STRIKE 04/02/2018 INNA LOPEZ MD Ot Z79.01 HALFWAY (CURRENT) USE OF ANTICOAGULANT 04/05/2018 INNA LOPEZ MD Ot E11.9 TYPE 2 DIABETES MELLITUS WITHOUT COMPLIC 04/05/2018 INNA LOPEZ MD Ot S00.01XA ABRASION OF SCALP, INITIAL ENCOUNTER 04/05/2018 INNA LOPEZ MD Ot S51.811A LACERATION W/O FOREIGN BODY OF RIGHT FOR 04/05/2018 INNA LOPEZ MD Ot W01.0XXA FALL SAME LEV FROM SLIP/TRIP W/O STRIKE 04/05/2018 INNA LOPEZ MD Ot Z79.01 DIRECTOR PRIVATE MUSIC THERAPY AGENCY (CURRENT) USE OF ANTICOAGULANT 06/04/2018 SHAWN NGUYEN MD Ot 717.7 CHONDROMALACIA PATELLAE 06/04/2018 SHAWN NGUYEN MD Ot V72.81 GEUS-GWY-FCIRQLOGH CARDIOVASCULAR 06/04/2018 SHAWN NGUYEN MD Ot V74.8 SCREEN-BACTERIAL DIS NEC 06/04/2018 JAMIE DOMINGO MD Ot M51. 16 INTERVERTEBRAL DISC DISORDERS W RADICULO 06/04/2018 Ot N28.89 OTH ER SPECIFIED DISORDERS OF KIDNEY AND 06/04/2018 JAMIE DOMINGO MD Ot N28. 89 OTHER SPECIFIED DISORDERS OF KIDNEY AND 06/04/2018 JAMIE DOMINGO MD Ot R59. 0 LOCALIZED ENLARGED LYMPH NODES 06/04/2018 CECIL RODRIGUEZ FACC, ALI FACP CCDS Ot E11.9 TYPE 2 DIABETES MELLITUS WITHOUT COMPLIC 06/04/2018 CECIL RODRIGUEZ FACC, ALI FACP CCDS Ot E78.4 OTHER HYPERLIPIDEMIA 06/04/2018 CECIL RODRIGUEZ FACC, ALI FACP CCDS Ot I10 ESSENTIAL (PRIMARY) HYPERTENSION 06/04/2018 CECIL RODRIGUEZ FACC, ALI FACP CCDS Ot I48.2 CHRONIC ATRIAL FIBRILLATION 06/04/2018 CECIL RODRIGUEZ FACC, ALI FACP CCDS Ot N28.89 OTHER SPECIFIED DISORDERS OF KIDNEY AND 06/04/2018 JAMIE DOMINGO MD Ot D75. 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 06/07/2018 ETTA DO LANCE B Ot E11.9 TYPE 2 DIABETES MELLITUS WITHOUT COMPLIC 06/07/2018 ETTA DO, LANCE B Ot E78.5 HYPERLIPIDEMIA, UNSPECIFIED 06/07/2018 ETTA DO LANCE B Ot I10 ESSENTIAL (PRIMARY) HYPERTENSION 06/07/2018 ETTA HOWE LANCE B Ot I48.9 1 UNSPECIFIED ATRIAL FIBRILLATION 06/07/2018 ETTA HOWE LANCE B Ot K21.9 GASTRO-ESOPHAGEAL REFLUX DISEASE WITHOUT 06/07/2018 ETTA DO, LANCE B Ot M48.0 0 SPINAL STENOSIS, SITE UNSPECIFIED 06/07/2018 DELMAN DO, LANCE B Ot R22.0 LOCALIZED SWELLING, MASS AND LUMP, HEAD 06/07/2018 MERLY QUILES DOIC B Ot Z11.2 ENCOUNTER FOR SCREENING FOR OTHER BACTER 06/07/2018 MERLY QUILES DOIC B Ot Z79.0 1 HALFWAY (CURRENT) USE OF ANTICOAGULANT 06/07/2018 GILMARKULWINDER DO LANCE B Ot Z79.8 4 DIRECTOR PRIVATE MUSIC THERAPY AGENCY (CURRENT) USE OF ORAL HYPOGLYC 06/07/2018 GILMARKULWINDER HOWE LANCE B Ot Z79.8 99 OTHER HALFWAY (CURRENT) DRUG THERAPY 06/07/2018 MERLY QUILES DOIC B Ot Z90.5 ACQUIRED ABSENCE OF KIDNEY 06/15/2018 ETTA HOWE LANCE B Ot C64.9 MALIGNANT NEOPLASM OF UNSP KIDNEY, EXCEP 06/15/2018 ETTA HOWE LANCE B Ot 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 06/15/2018 ETTA HOWE LANCE B Ot E11.9 TYPE 2 DIABETES MELLITUS WITHOUT COMPLIC 06/15/2018 GILMARKULWINDER HOWE LANCE B Ot E78.5 HYPERLIPIDEMIA, UNSPECIFIED 06/15/2018 MERLY QUILES DOIC B Ot I10 ESSENTIAL (PRIMARY) HYPERTENSION 06/15/2018 MERLY QUILES DOIC B Ot I48.9 1 UNSPECIFIED ATRIAL FIBRILLATION 06/15/2018 MERLY QUILES DOIC B Ot K21.9 GASTRO-ESOPHAGEAL REFLUX DISEASE WITHOUT 06/15/2018 MERLY QUILES DOIC B Ot M48.0 0 SPINAL STENOSIS, SITE UNSPECIFIED 06/15/2018 MERLY QUILES DOIC B Ot Z11.2 ENCOUNTER FOR SCREENING FOR OTHER BACTER 06/15/2018 ETTA DO LANCE B Ot Z79.0 1 HALFWAY (CURRENT) USE OF ANTICOAGULANT 06/15/2018 GILMARKULWINDER DO LANCE B Ot Z79.8 4 HALFWAY (CURRENT) USE OF ORAL HYPOGLYC 06/15/2018 GILMARKULWINDER DO LANCE B Ot Z79.8 99 OTHER HALFWAY (CURRENT) DRUG THERAPY 06/15/2018 GILMARKULWINDER MERLY HOWEIC B Ot Z90.5 ACQUIRED ABSENCE OF KIDNEY 03/08/2019 PATRICK RODRIGUEZ, SHAWN Brock Ot 717.7 CHONDROMALACIA PATELLAE 03/08/2019 PATRICK RODRIGUEZ, SHAWN Brock Ot V72.81 XWQK-MGN-YBWEKEVIG CARDIOVASCULAR 03/08/2019 PATRICK RODRIGUEZ, SHAWN Brock Ot V74.8 SCREEN-BACTERIAL DIS NEC 03/08/2019 JAMIE DOMINGO MD Ot M51. 16 INTERVERTEBRAL DISC DISORDERS W RADICULO 03/08/2019 Ot N28.89 OTH ER SPECIFIED DISORDERS OF KIDNEY AND 03/08/2019 JAMIE DOMINGO MD Ot N28. 89 OTHER SPECIFIED DISORDERS OF KIDNEY AND 03/08/2019 JAMIE DOMINGO MD Ot R59. 0 LOCALIZED ENLARGED LYMPH NODES 03/08/2019 CECIL RODRIGUEZ FAC, ALI FACP CCDS Ot E11.9 TYPE 2 DIABETES MELLITUS WITHOUT COMPLIC 03/08/2019 CECIL RODRIGUEZ FACC, ALI FACP CCDS Ot E78.4 OTHER HYPERLIPIDEMIA 03/08/2019 CECIL RODRIGUEZ FACC, ALI FACP CCDS Ot I10 ESSENTIAL (PRIMARY) HYPERTENSION 03/08/2019 CECIL RODRIGUEZ FACC, ALI FACP CCDS Ot I48.2 CHRONIC ATRIAL FIBRILLATION 03/08/2019 CECIL RODRIGUEZ FACC, ALI FACP CCDS Ot N28.89 OTHER SPECIFIED DISORDERS OF KIDNEY AND 03/08/2019 JAMIE DOMINGO MD Ot D75. 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, EXCEP 03/09/2019 RANJAN PATE MD Ot C79.51 SECONDARY MALIGNANT NEOPLASM OF BONE 03/09/2019 RANJAN PATE MD Ot E11.649 TYPE 2 DIABETES MELLITUS WITH HYPOGLYCEM 03/09/2019 RANJAN PATE MD Ot E78 .5 HYPERLIPIDEMIA, UNSPECIFIED 03/09/2019 RANJAN PATE MD Ot E83.42 HYPOMAGNESEMIA 03/09/2019 RANJAN PATE MD Ot E87 .6 HYPOKALEMIA 03/09/2019 RANJAN PATE MD Ot I10 ESSENTIAL (PRIMARY) HYPERTENSION 03/09/2019 RANJAN PATE MD Ot I48.91 UNSPECIFIED ATRIAL FIBRILLATION 03/09/2019 RANJAN PATE MD Ot K21 .9 GASTRO-ESOPHAGEAL REFLUX DISEASE WITHOUT 03/09/2019 RANJAN PATE MD Ot M19.91 PRIMARY OSTEOARTHRITIS, UNSPECIFIED SITE 03/09/2019 RANJAN PATE MD Ot M48.00 SPINAL STENOSIS, SITE UNSPECIFIED 03/09/2019 RANJAN PATE MD Ot R55 SYNCOPE AND COLLAPSE 03/09/2019 RANJAN PATE MD Ot R79.89 OTHER SPECIFIED ABNORMAL FINDINGS OF BLO 03/09/2019 RANJAN PATE MD Ot S00.81XA ABRASION OF OTHER PART OF HEAD, INITIAL 03/09/2019 RANJAN PATE MD Ot S50.12XA CONTUSION OF LEFT FOREARM, INITIAL ENCOU 03/09/2019 RANJAN PATE MD Ot S51.811A LACERATION W/O FOREIGN BODY OF RIGHT FOR 03/09/2019 RANJAN PATE MD Ot W19.XXXA UNSPECIFIED FALL, INITIAL ENCOUNTER 03/09/2019 RANJAN PATE MD Ot Y92.[address] IN [facility] NON-INSTITUT (PRIVATE 03/09/2019 RANJAN PATE MD Ot Z79.01 HALFWAY (CURRENT) USE OF ANTICOAGULANT 03/09/2019 RANJAN PATE MD Ot Z79.84 DIRECTOR PRIVATE MUSIC THERAPY AGENCY (CURRENT) USE OF ORAL HYPOGLYC 03/09/2019 RANJAN APTE MD Ot Z79.899 OTHER DIRECTOR PRIVATE MUSIC THERAPY AGENCY (CURRENT) DRUG THERAPY 03/09/2019 RANJAN PATE MD Ot Z90 .5 ACQUIRED ABSENCE OF KIDNEY 03/10/2019 RANJAN PATE MD Ot 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, EXCEP 03/10/2019 RANJAN PATE MD Ot C79.51 SECONDARY MALIGNANT NEOPLASM OF BONE 03/10/2019 RANJAN PATE MD Ot E11.649 TYPE 2 DIABETES MELLITUS WITH HYPOGLYCEM 03/10/2019 RANJAN PATE MD Ot E78 .5 HYPERLIPIDEMIA, UNSPECIFIED 03/10/2019 RANJAN PATE MD Ot E83.42 HYPOMAGNESEMIA 03/10/2019 RANJAN PATE MD Ot E87 .6 HYPOKALEMIA 03/10/2019 RANJAN PATE MD Ot I10 ESSENTIAL (PRIMARY) HYPERTENSION 03/10/2019 RANJAN PATE MD Ot I48.91 UNSPECIFIED ATRIAL FIBRILLATION 03/10/2019 RANJAN PATE MD Ot K21 .9 GASTRO-ESOPHAGEAL REFLUX DISEASE WITHOUT 03/10/2019 RANJAN PATE MD Ot M19.91 PRIMARY OSTEOARTHRITIS, UNSPECIFIED SITE 03/10/2019 RANJAN PATE MD Ot M48.00 SPINAL STENOSIS, SITE UNSPECIFIED 03/10/2019 RANJAN PATE MD Ot R55 SYNCOPE AND COLLAPSE 03/10/2019 RANJAN PATE MD Ot R79.89 OTHER SPECIFIED ABNORMAL FINDINGS OF BLO 03/10/2019 RANJAN PATE MD Ot S00.81XA ABRASION OF OTHER PART OF HEAD, INITIAL 03/10/2019 RANJAN PATE MD Ot S50.12XA CONTUSION OF LEFT FOREARM, INITIAL ENCOU 03/10/2019 RANJAN PATE MD Ot S51.811A LACERATION W/O FOREIGN BODY OF RIGHT FOR 03/10/2019 RANJAN PATE MD Ot W19.XXXA UNSPECIFIED FALL, INITIAL ENCOUNTER 03/10/2019 RANJAN PATE MD Ot Y92.[address] [facility] [address] IN [facility] NON-[facility] (PRIVATE 03/10/2019 RANJAN PATE MD, Ot Z79.01 HALFWAY (CURRENT) USE OF ANTICOAGULANT 03/10/2019 RANJAN PATE MD Ot Z79.84 DIRECTOR PRIVATE MUSIC THERAPY AGENCY (CURRENT) USE OF ORAL HYPOGLYC 03/10/2019 RANJAN PATE MD Ot Z79.899 OTHER HALFWAY (CURRENT) DRUG THERAPY 03/10/2019 RANJAN PATE MD Ot Z90 .5 ACQUIRED ABSENCE OF KIDNEY 03/10/2019 RANJAN PATE MD Ot 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, EXCEP 03/10/2019 RANJAN PATE MD Ot C79.51 SECONDARY MALIGNANT NEOPLASM OF BONE 03/10/2019 RANJAN PATE MD Ot E11.649 TYPE 2 DIABETES MELLITUS WITH HYPOGLYCEM 03/10/2019 RANJAN PATE MD Ot E78 .5 HYPERLIPIDEMIA, UNSPECIFIED 03/10/2019 RANJAN PATE MD Ot E83.42 HYPOMAGNESEMIA 03/10/2019 RANJAN PATE MD Ot E87 .6 HYPOKALEMIA 03/10/2019 RANJAN PATE MD Ot I10 ESSENTIAL (PRIMARY) HYPERTENSION 03/10/2019 RANJAN PATE MD Ot I48 .2 CHRONIC ATRIAL FIBRILLATION 03/10/2019 RANJAN PATE MD Ot I48.91 UNSPECIFIED ATRIAL FIBRILLATION 03/10/2019 RANJAN PATE MD Ot K21 .9 GASTRO-ESOPHAGEAL REFLUX DISEASE WITHOUT 03/10/2019 RANJAN PATE MD Ot M19.91 PRIMARY OSTEOARTHRITIS, UNSPECIFIED SITE 03/10/2019 RANJAN PATE MD Ot M48.00 SPINAL STENOSIS, SITE UNSPECIFIED 03/10/2019 RANJAN PATE MD Ot R55 SYNCOPE AND COLLAPSE 03/10/2019 RANJAN PATE MD Ot R79.89 OTHER SPECIFIED ABNORMAL FINDINGS OF BLO 03/10/2019 RANJAN PATE MD Ot S00.81XA ABRASION OF OTHER PART OF HEAD, INITIAL 03/10/2019 RANJAN PATE MD Ot S50.12XA CONTUSION OF LEFT FOREARM, INITIAL ENCOU 03/10/2019 RANJAN PATE MD, Ot S51.811A LACERATION W/O FOREIGN BODY OF RIGHT FOR 03/10/2019 RANJAN PATE MD Ot W19.XXXA UNSPECIFIED FALL, INITIAL ENCOUNTER 03/10/2019 RANJAN PATE MD Ot Y92.[address] [facility] [address] IN [facility] NON-[facility] (PRIVATE 03/10/2019 RANJAN PATE MD Ot Z79.01 HALFWAY (CURRENT) USE OF ANTICOAGULANT 03/10/2019 RANJAN PATE MD Ot Z79.84 HALFWAY (CURRENT) USE OF ORAL HYPOGLYC 03/10/2019 RANJAN PATE MD, Ot Z79.899 OTHER HALFWAY (CURRENT) DRUG THERAPY 03/10/2019 RANJAN PATE MD Ot Z90 .5 ACQUIRED ABSENCE OF KIDNEY 05/28/2019 JULIANNE MEJIA APRN Ot E11 .9 TYPE 2 DIABETES MELLITUS WITHOUT COMPLIC 05/28/2019 JULIANNE MEJIA APRN Ot E87 .6 HYPOKALEMIA 05/28/2019 JULIANNE MEJIA APRN Ot I10 ESSENTIAL (PRIMARY) HYPERTENSION 05/28/2019 JULIANNE MEJIA APRN Ot I48.91 UNSPECIFIED ATRIAL FIBRILLATION 05/28/2019 JULIANNE MEJIA APRN Ot K21 .9 GASTRO-ESOPHAGEAL REFLUX DISEASE WITHOUT 05/28/2019 JULIANNE MEJIA APRN Ot R19 .7 DIARRHEA, UNSPECIFIED 05/28/2019 JULIANNE MEJIA APRN Ot Z79.52 HALFWAY (CURRENT) USE OF SYSTEMIC STER 05/28/2019 JULIANNE MEJIA APRN Ot Z85.528 PERSONAL HISTORY OF OTHER MALIGNANT NEOP 05/28/2019 JULIANNE MEJIA APRN Ot Z90 .5 ACQUIRED ABSENCE OF KIDNEY 07/26/2019 CECIL RODRIGUEZ [facility], [facility] CCDS Ot E11.9 TYPE 2 DIABETES MELLITUS WITHOUT COMPLIC 07/26/2019 CECIL RODRIGUEZ [facility] CCD[facility] Ot E78.5 HYPERLIPIDEMIA, UNSPECIFIED 07/26/2019 CECIL RODRIGUEZ [facility], [facility] CCDS Ot I10 ESSENTIAL (PRIMARY) HYPERTENSION 07/26/2019 CECIL RODRIGUEZ [facility], [facility] CCDS Ot I34.0 NONRHEUMATIC MITRAL (VALVE) INSUFFICIENC 07/26/2019 CECIL RODRIGUEZ [facility], [facility] CCDS Ot M79.89 OTHER SPECIFIED SOFT TISSUE DISORDERS 12/22/2019 SHAWN AVENDAÑO MD, Ot B08 .4 ENTEROVIRAL VESICULAR STOMATITIS WITH EX 12/22/2019 SHAWN AVENDAÑO MD, Ot E11.52 TYPE 2 DIABETES W DIABETIC PERIPHERAL AN 12/22/2019 SHAWN AVENDAÑO MD, Ot E11.621 TYPE 2 DIABETES MELLITUS WITH FOOT ULCER 12/22/2019 SHAWN AVENDAÑO MD, Ot E11.65 TYPE 2 DIABETES MELLITUS WITH HYPERGLYCE 12/22/2019 SHAWN AVENDAÑO MD Ot 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 12/22/2019 SHAWN AVENDAÑO MD Ot L97.512 NON-PRS CHRONIC ULCER OTH PRT RIGHT FOOT 12/22/2019 SHAWN AVENDAÑO MD Ot L97.521 NON-PRS CHRONIC ULCER OTH PRT L FOOT ROBLES 12/30/2019 SHAWN AVENDAÑO MD Ot E11.621 TYPE 2 DIABETES MELLITUS WITH FOOT ULCER 12/30/2019 SHAWN AVENDAÑO MD, Ot E11.65 TYPE 2 DIABETES MELLITUS WITH HYPERGLYCE 12/30/2019 SHAWN AVENDAÑO MD Ot I70.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 5 ACQUIRED ABSENCE OF KIDNEY 01/10/2020 SHAWN AVENDAÑO MD, Ot E11.52 TYPE 2 DIABETES W DIABETIC PERIPHERAL AN 01/10/2020 SHAWN AVENDAÑO MD, Ot E11.621 TYPE 2 DIABETES MELLITUS WITH FOOT ULCER 01/10/2020 SHAWN AVENDAÑO MD, Ot E11.65 TYPE 2 DIABETES MELLITUS WITH HYPERGLYCE 01/10/2020 SHAWN AVENDAÑO MD, Ot I96 GANGRENE, NOT ELSEWHERE CLASSIFIED 01/10/2020 SHAWN AVENDAÑO MD, Ot L97.511 NON-PRS CHRONIC ULCER OTH PRT R FOOT ROBLES 01/10/2020 SHAWN AVENDAÑO MD, Ot L97.521 NON-PRS CHRONIC ULCER OTH PRT L FOOT ROBLES 01/18/2020 SHAWN AVENDAÑO MD, Ot E11.621 TYPE 2 DIABETES MELLITUS WITH FOOT ULCER 01/18/2020 SHAWN AVENDAÑO MD, Ot E11.65 TYPE 2 DIABETES MELLITUS WITH HYPERGLYCE 01/18/2020 SHAWN AVENDAÑO MD, Ot I70.235 ATHSCL KIVALINA ARTERIES OF RIGHT LEG W UL 01/18/2020 SHAWN AVENDAÑO MD, Ot L97.512 NON-PRS CHRONIC ULCER OTH PRT RIGHT FOOT 01/18/2020 SHAWN AVENDAÑO MD, Ot L97.521 NON-PRS CHRONIC ULCER OTH PRT L FOOT ROBLES Procedures There is no data. Results Test Result Range Methicillin resistant Staphylococcus aur eus (MRSA) screening culture - 06/07/18 07:45 Methicillin resistant Staphylococcus aureus (MRSA) scr eening culture NEG NRG Capillary blood glucose measurement by g lucometer (mass/volume) - 06/07/18 07:50 Capillary blood glucose measurement by glucometer (mas s/volume) 169 mg/dL 70-110 Capillary blood glucose measurement by g lucometer (mass/volume) - 03/08/19 19:58 Capillary blood glucose measurement by glucometer (mas s/volume) 37 mg/dL 70-110 Complete blood count (CBC) with automate d white blood cell (WBC) differential - 03/08/19 20:07 Blood leukocytes automated count (number/volume) 7.1 10*3/uL 4.3-11.0 Blood erythrocytes automated count (number/volume) 6.37 10*6/uL 4.35-5.85 Venous blood hemoglobin measurement (mass/volume) 17.5 g/dL 13.3-17.7 Blood hematocrit (volume fraction) 52 % 40-54 Automated erythrocyte mean corpuscular volume 82 [ foz_us] 80-99 Automated erythrocyte mean corpuscular h emoglobin (mass per erythrocyte) 27 pg 25-34 Automated erythrocyte mean corpuscular h emoglobin concentration measurement (mass/volume) 34 g/dL 32-36 Automated erythrocyte distribution width ratio 32. 3 % 10.0- 14.5 Automated blood platelet count (count/volume) 220 10*3/uL 130-400 Automated blood platelet mean volume measurement 10.1 [foz_us] 7.4-10.4 Automated blood neutrophils/100 leukocytes 68 % 42-75 Automated blood lymphocytes/100 leukocytes 16 % 12-44 Blood monocytes/100 leukocytes 9 % 0-12 Automated blood eosinophils/100 leukocytes 6 % 0-10 Automated blood basophils/100 leukocytes 0 % 0-10 Blood neutrophils automated count (number/volume) 4.9 10*3 1.8-7.8 Blood lymphocytes automated count (number/volume) 1.2 10*3 1.0-4.0 Blood monocytes automated count (number/volume) 0. 7 10*3 0.0-1.0 Automated eosinophil count 0.4 10*3/uL 0 .0-0.3 Automated blood basophil count (count/volume) 0.0 10*3/uL 0.0-0.1 Capillary blood glucose measurement by g lucometer (mass/volume) - 03/08/19 20:26 Capillary blood glucose measurement by glucometer (mas s/volume) 51 mg/dL 70-110 Comprehensive metabolic panel - 03/08/19 20:40 Serum or plasma sodium measurement (moles/volume) 140 mmol/L 135-145 Serum or plasma potassium measurement (moles/volume) 6.0 mmol/L 3.6-5.0 Serum or plasma chloride measurement (moles/volume) 108 mmol/L 98-107 Carbon dioxide 17 mmol/L 21-32 Serum or plasma anion gap determination (moles/volume) 15 mmol/L 5-14 Serum or plasma urea nitrogen measurement (mass/volume ) 14 mg/dL 7-18 Serum or plasma creatinine measurement (mass/volume) 1.30 mg/dL 0.60-1.30 Serum or plasma urea nitrogen/creatinine mass ratio 11 NRG Serum or plasma creatinine measurement w ith calculation of estimated glomerular filtration rate 54 NRG Serum or plasma glucose measurement (mass/volume) 76 mg/dL 70-105 Serum or plasma calcium measurement (mass/volume) 9.7 mg/dL 8.5-10.1 Serum or plasma total bilirubin measurement (mass/volu me) 0.6 mg/dL 0.1-1.0 Serum or plasma alkaline phosphatase justin surement (enzymatic activity/volume) 46 U/L 40-136 Serum or plasma aspartate aminotransfera se measurement (enzymatic activity/volume) 67 U/L 5-34 Serum or plasma alanine aminotransferase measurement (enzymatic activity/volume) 91 U/L 0-55 Serum or plasma protein measurement (mass/volume) 6.8 g/dL 6.4-8.2 Serum or plasma albumin measurement (mass/volume) 3.7 g/dL 3.2-4.5 CALCIUM CORRECTED 9.9 mg/dL 8.5-10.1 Serum or plasma creatine kinase measurem ent (enzymatic activity/volume) - 03/08/19 20:40 Serum or plasma creatine kinase measurem ent (enzymatic activity/volume) 135 U/L 30-200 Serum or plasma troponin i.cardiac measu rement (mass/volume) - 03/08/19 20:40 Serum or plasma troponin i.cardiac measurement (mass/v olume) < ng/mL <0.028 Serum or plasma C reactive protein measu rement (mass/volume) - 03/08/19 20:40 Serum or plasma C reactive protein measurement (mass/v olume) 0.91 mg/dL 0.00-0.50 Serum or plasma lithium measurement (mol es/volume) - 03/08/19 20:40 BNP PT 301.7 pg/mL <100.0 Capillary blood glucose measurement by g lucometer (mass/volume) - 03/08/19 21:05 Capillary blood glucose measurement by glucometer (mas s/volume) 44 mg/dL 70-110 Serum or plasma potassium measurement (m oles/volume) - 03/08/19 22:15 Serum or plasma potassium measurement (moles/volume) 5.3 mmol/L 3.6-5.0 Capillary blood glucose measurement by g lucometer (mass/volume) - 03/08/19 23:52 Capillary blood glucose measurement by glucometer (mas s/volume) 127 mg/dL 70-110 Capillary blood glucose measurement by g lucometer (mass/volume) - 03/09/19 00:09 Capillary blood glucose measurement by glucometer (mas s/volume) 90 mg/dL 70-110 Complete urinalysis with reflex to cultu re - 03/09/19 01:00 Urine color determination YELLOW NRG Urine clarity determination CLEAR NR G Urine pH measurement by test strip 6 5-9 Specific gravity of urine by test strip 1.015 1.016-1.022 Urine protein assay by test strip, semi-quantitative NEGATIVE NEGATIVE Urine glucose detection by automated test strip 4+ NEGATIVE Erythrocytes detection in urine sediment by light micr oscopy NEGATIVE NEGATIVE Urine ketones detection by automated test strip NE GATIVE NEGATIVE Urine nitrite detection by test strip NEGATIVE NEGATIVE Urine total bilirubin detection by test strip NEGA TIVE NEGATIVE Urine urobilinogen measurement by automated test strip (mass/volume) NORMAL NORMAL Urine leukocyte esterase detection by dipstick NEG ATIVE NEGATIVE Automated urine sediment erythrocyte cou nt by microscopy (number/high power field) NONE NRG Automated urine sediment leukocyte count by microscopy (number/high power field) RARE NRG Bacteria detection in urine sediment by light microsco py FEW NRG Squamous epithelial cells detection in u rine sediment by light microscopy 0-2 NRG Crystals detection in urine sediment by light microsco py NONE NRG Casts detection in urine sediment by light microscopy NONE NRG Mucus detection in urine sediment by light microscopy NEGATIVE NRG Complete urinalysis with reflex to culture NO NRG Methicillin resistant Staphylococcus aur eus (MRSA) screening culture - 03/09/19 01:00 Methicillin resistant Staphylococcus aureus (MRSA) scr eening culture NEG NRG Complete blood count (CBC) with automate d white blood cell (WBC) differential - 03/09/19 03:37 Blood leukocytes automated count (number/volume) 6.2 10*3/uL 4.3-11.0 Blood erythrocytes automated count (number/volume) 5.66 10*6/uL 4.35-5.85 Venous blood hemoglobin measurement (mass/volume) 15.4 g/dL 13.3-17.7 Blood hematocrit (volume fraction) 47 % 40-54 Automated erythrocyte mean corpuscular volume 84 [ foz_us] 80-99 Automated erythrocyte mean corpuscular h emoglobin (mass per erythrocyte) 27 pg 25-34 Automated erythrocyte mean corpuscular h emoglobin concentration measurement (mass/volume) 33 g/dL 32-36 Automated erythrocyte distribution width ratio 31. 6 % 10.0- 14.5 Automated blood platelet count (count/volume) 176 10*3/uL 130-400 Automated blood platelet mean volume measurement 9.7 [foz_us] 7.4-10.4 Automated blood neutrophils/100 leukocytes 62 % 42-75 Automated blood lymphocytes/100 leukocytes 22 % 12-44 Blood monocytes/100 leukocytes 9 % 0-12 Automated blood eosinophils/100 leukocytes 7 % 0-10 Automated blood basophils/100 leukocytes 0 % 0-10 Blood neutrophils automated count (number/volume) 3.9 10*3 1.8-7.8 Blood lymphocytes automated count (number/volume) 1.4 10*3 1.0-4.0 Blood monocytes automated count (number/volume) 0. 6 10*3 0.0-1.0 Automated eosinophil count 0.4 10*3/uL 0 .0-0.3 Automated blood basophil count (count/volume) 0.0 10*3/uL 0.0-0.1 Comprehensive metabolic panel - 03/09/19 03:37 Serum or plasma sodium measurement (moles/volume) 142 mmol/L 135-145 Serum or plasma potassium measurement (moles/volume) 3.9 mmol/L 3.6-5.0 Serum or plasma chloride measurement (moles/volume) 109 mmol/L 98-107 Carbon dioxide 23 mmol/L 21-32 Serum or plasma anion gap determination (moles/volume) 10 mmol/L 5-14 Serum or plasma urea nitrogen measurement (mass/volume ) 11 mg/dL 7-18 Serum or plasma creatinine measurement (mass/volume) 1.12 mg/dL 0.60-1.30 Serum or plasma urea nitrogen/creatinine mass ratio 10 NRG Serum or plasma creatinine measurement w ith calculation of estimated glomerular filtration rate > NRG Serum or plasma glucose measurement (mass/volume) 52 mg/dL 70-105 Serum or plasma calcium measurement (mass/volume) 8.7 mg/dL 8.5-10.1 Serum or plasma total bilirubin measurement (mass/volu me) 0.4 mg/dL 0.1-1.0 Serum or plasma alkaline phosphatase justin surement (enzymatic activity/volume) 38 U/L 40-136 Serum or plasma aspartate aminotransfera se measurement (enzymatic activity/volume) 50 U/L 5-34 Serum or plasma alanine aminotransferase measurement (enzymatic activity/volume) 71 U/L 0-55 Serum or plasma protein measurement (mass/volume) 5.6 g/dL 6.4-8.2 Serum or plasma albumin measurement (mass/volume) 3.0 g/dL 3.2-4.5 CALCIUM CORRECTED 9.5 mg/dL 8.5-10.1 Serum or plasma phosphate measurement (m ass/volume) - 03/09/19 03:37 Serum or plasma phosphate measurement (mass/volume) 2.4 mg/dL 2.3-4.7 Magnesium - 03/09/19 03:37 Magnesium 1.3 mg/dL 1.6-2.4 Acute hepatitis panel - 03/09/19 03:37 HEPATITIS A ANTIBODY IGM Non-Reactive N on-Reactive HEPATITIS B CORE SHANE IGM Non-Reactive N on-Reactive Confirmatory quantitative serum or plasm a hepatitis B virus surface antigen measurement Non-Reactive Non-Reactive Serum hepatitis C virus antibody detection Non-[place] ctive Non-Reactive Capillary blood glucose measurement by g lucometer (mass/volume) - 03/09/19 05:22 Capillary blood glucose measurement by glucometer (mas s/volume) 62 mg/dL 70-110 Capillary blood glucose measurement by g lucometer (mass/volume) - 03/09/19 05:47 Capillary blood glucose measurement by glucometer (mas s/volume) 73 mg/dL 70-110 Serum or plasma amylase measurement (enz ymatic activity/volume) - 03/09/19 06:20 Serum or plasma amylase measurement (enzymatic activit y/volume) 64 U/L 25-125 Lipase - 03/09/19 06:20 Lipase 51 U/L 8-78 Ammonia - 03/09/19 06:20 Ammonia 24 umol/L 11-32 Capillary blood glucose measurement by g lucometer (mass/volume) - 03/09/19 10:26 Capillary blood glucose measurement by glucometer (mas s/volume) 111 mg/dL 70-110 Capillary blood glucose measurement by g lucometer (mass/volume) - 03/09/19 12:58 Capillary blood glucose measurement by glucometer (mas s/volume) 103 mg/dL 70-110 Capillary blood glucose measurement by g lucometer (mass/volume) - 03/09/19 16:03 Capillary blood glucose measurement by glucometer (mas s/volume) 106 mg/dL 70-110 Capillary blood glucose measurement by g lucometer (mass/volume) - 03/09/19 20:19 Capillary blood glucose measurement by glucometer (mas s/volume) 137 mg/dL 70-110 Capillary blood glucose measurement by g lucometer (mass/volume) - 03/10/19 00:18 Capillary blood glucose measurement by glucometer (mas s/volume) 142 mg/dL 70-110 Complete blood count (CBC) with automate d white blood cell (WBC) differential - 03/10/19 03:19 Blood leukocytes automated count (number/volume) 5.8 10*3/uL 4.3-11.0 Blood erythrocytes automated count (number/volume) 5.60 10*6/uL 4.35-5.85 Venous blood hemoglobin measurement (mass/volume) 15.7 g/dL 13.3-17.7 Blood hematocrit (volume fraction) 47 % 40-54 Automated erythrocyte mean corpuscular volume 84 [ foz_us] 80-99 Automated erythrocyte mean corpuscular h emoglobin (mass per erythrocyte) 28 pg 25-34 Automated erythrocyte mean corpuscular h emoglobin concentration measurement (mass/volume) 34 g/dL 32-36 Automated erythrocyte distribution width ratio 31. 7 % 10.0- 14.5 Automated blood platelet count (count/volume) 133 10*3/uL 130-400 Automated blood platelet mean volume measurement 10.1 [foz_us] 7.4-10.4 Automated blood neutrophils/100 leukocytes 61 % 42-75 Automated blood lymphocytes/100 leukocytes 22 % 12-44 Blood monocytes/100 leukocytes 9 % 0-12 Automated blood eosinophils/100 leukocytes 7 % 0-10 Automated blood basophils/100 leukocytes 1 % 0-10 Blood neutrophils automated count (number/volume) 3.5 10*3 1.8-7.8 Blood lymphocytes automated count (number/volume) 1.3 10*3 1.0-4.0 Blood monocytes automated count (number/volume) 0. 5 10*3 0.0-1.0 Automated eosinophil count 0.4 10*3/uL 0 .0-0.3 Automated blood basophil count (count/volume) 0.0 10*3/uL 0.0-0.1 Whole blood basic metabolic panel - 02/18 09/07 03:19 Serum or plasma sodium measurement (moles/volume) 139 mmol/L 135-145 Serum or plasma potassium measurement (moles/volume) 4.2 mmol/L 3.6-5.0 Serum or plasma chloride measurement (moles/volume) 110 mmol/L 98-107 Carbon dioxide 20 mmol/L 21-32 Serum or plasma anion gap determination (moles/volume) 9 mmol/L 5-14 Serum or plasma urea nitrogen measurement (mass/volume ) 10 mg/dL 7-18 Serum or plasma creatinine measurement (mass/volume) 1.30 mg/dL 0.60-1.30 Serum or plasma urea nitrogen/creatinine mass ratio 8 NRG Serum or plasma creatinine measurement w ith calculation of estimated glomerular filtration rate 54 NRG Serum or plasma glucose measurement (mass/volume) 139 mg/dL 70-105 Serum or plasma calcium measurement (mass/volume) 8.1 mg/dL 8.5-10.1 Serum or plasma phosphate measurement (m ass/volume) - 03/10/19 03:19 Serum or plasma phosphate measurement (mass/volume) 2.6 mg/dL 2.3-4.7 Magnesium - 03/10/19 03:19 Magnesium 2.2 mg/dL 1.6-2.4 Capillary blood glucose measurement by g lucometer (mass/volume) - 03/10/19 12:24 Capillary blood glucose measurement by glucometer (mas s/volume) 198 mg/dL 70-110 Complete blood count (CBC) with automate d white blood cell (WBC) differential - 05/28/19 18:00 Blood leukocytes automated count (number/volume) 6.2 10*3/uL 4.3-11.0 Blood erythrocytes automated count (number/volume) 4.38 10*6/uL 4.35-5.85 Venous blood hemoglobin measurement (mass/volume) 14.6 g/dL 13.3-17.7 Blood hematocrit (volume fraction) 43 % 40-54 Automated erythrocyte mean corpuscular volume 99 [ foz_us] 80-99 Automated erythrocyte mean corpuscular h emoglobin (mass per erythrocyte) 33 pg 25-34 Automated erythrocyte mean corpuscular h emoglobin concentration measurement (mass/volume) 34 g/dL 32-36 Automated erythrocyte distribution width ratio 17. 4 % 10.0- 14.5 Automated blood platelet count (count/volume) 148 10*3/uL 130-400 Automated blood platelet mean volume measurement 10.2 [foz_us] 7.4-10.4 Automated blood neutrophils/100 leukocytes 59 % 42-75 Automated blood lymphocytes/100 leukocytes 30 % 12-44 Blood monocytes/100 leukocytes 7 % 0-12 Automated blood eosinophils/100 leukocytes 3 % 0-10 Automated blood basophils/100 leukocytes 0 % 0-10 Blood neutrophils automated count (number/volume) 3.7 10*3 1.8-7.8 Blood lymphocytes automated count (number/volume) 1.8 10*3 1.0-4.0 Blood monocytes automated count (number/volume) 0. 5 10*3 0.0-1.0 Automated eosinophil count 0.2 10*3/uL 0 .0-0.3 Automated blood basophil count (count/volume) 0.0 10*3/uL 0.0-0.1 PT panel in platelet poor plasma by coag ulation assay - 05/28/19 18:00 Prothrombin time (PT) in platelet poor plasma by coagu lation assay 13.7 s 12.2-14.7 INR in platelet poor plasma or blood by coagulation as say 1.0 0.8-1.4 Comprehensive metabolic panel - 05/28/19 18:00 Serum or plasma sodium measurement (moles/volume) 144 mmol/L 135-145 Serum or plasma potassium measurement (moles/volume) 2.8 mmol/L 3.6-5.0 Serum or plasma chloride measurement (moles/volume) 104 mmol/L 98-107 Carbon dioxide 25 mmol/L 21-32 Serum or plasma anion gap determination (moles/volume) 15 mmol/L 5-14 Serum or plasma urea nitrogen measurement (mass/volume ) 20 mg/dL 7-18 Serum or plasma creatinine measurement (mass/volume) 1.69 mg/dL 0.60-1.30 Serum or plasma urea nitrogen/creatinine mass ratio 12 NRG Serum or plasma creatinine measurement w ith calculation of estimated glomerular filtration rate 40 NRG Serum or plasma glucose measurement (mass/volume) 189 mg/dL 70-105 Serum or plasma calcium measurement (mass/volume) 7.9 mg/dL 8.5-10.1 Serum or plasma total bilirubin measurement (mass/volu me) 0.6 mg/dL 0.1-1.0 Serum or plasma alkaline phosphatase justin surement (enzymatic activity/volume) 36 U/L 40-136 Serum or plasma aspartate aminotransfera se measurement (enzymatic activity/volume) 37 U/L 5-34 Serum or plasma alanine aminotransferase measurement (enzymatic activity/volume) 63 U/L 0-55 Serum or plasma protein measurement (mass/volume) 6.0 g/dL 6.4-8.2 Serum or plasma albumin measurement (mass/volume) 3.7 g/dL 3.2-4.5 CALCIUM CORRECTED 8.1 mg/dL 8.5-10.1 Lipase - 05/28/19 18:00 Lipase 42 U/L 8-78 Complete urinalysis with reflex to cultu re - 05/28/19 19:55 Urine color determination YELLOW NRG Urine clarity determination CLEAR NR G Urine pH measurement by test strip 6.0 5-9 Specific gravity of urine by test strip 1.015 1.016-1.022 Urine protein assay by test strip, semi-quantitative TRACE NEGATIVE Urine glucose detection by automated test strip NE GATIVE NEGATIVE Erythrocytes detection in urine sediment by light micr oscopy NEGATIVE NEGATIVE Urine ketones detection by automated test strip TR JESSICA NEGATIVE Urine nitrite detection by test strip NEGATIVE NEGATIVE Urine total bilirubin detection by test strip NEGA TIVE NEGATIVE Urine urobilinogen measurement by automated test strip (mass/volume) 0.2 mg/dL < = 1.0 Urine leukocyte esterase detection by dipstick TRA CE NEGATIVE Automated urine sediment erythrocyte cou nt by microscopy (number/high power field) NONE NRG Automated urine sediment leukocyte count by microscopy (number/high power field) [HPF] NRG Bacteria detection in urine sediment by light microsco py TRACE NRG Squamous epithelial cells detection in u rine sediment by light microscopy 0-2 NRG Crystals detection in urine sediment by light microsco py PRESENT NRG Casts detection in urine sediment by light microscopy PRESENT NRG Mucus detection in urine sediment by light microscopy SMALL NRG Complete urinalysis with reflex to culture YES NRG Amorphous sediment detection in urine sediment by ligh t microscopy FEW NIKKO URATES NRG Hyaline casts detection in urine sediment by light kwame roscopy 0-2 NRG Bacterial urine culture - 05/28/19 19:55 Bacterial urine culture [id number] NRG COLONY COUNT >100,000/ML NRG FTX;REPORTABLE SUSCEPTIBILITY TO FOLLOW NRG Encounters ACCT No. Visit Date/Time Discharge Status Pt. Type Provider Facility Loc./Unit Complaint [id number] 01/12/2020 14:31:00 23:59:59 CLS Preadmit SHAWN AVENDAÑO MD [facility] WOUND[facility] [id number] 01/03/2020 13:09:00 23:59:59 CLS Outpatient JAMIE DOMINGO MD [facility] RAD RENAL CELL CA [id number] 01/02/2020 13:53:00 23:59:59 CLS Outpatient SHAWN AVENDAÑO MD [facility] WOUND[facility] [id number] 12/27/2019 12:26:00 23:59:59 CLS Outpatient SHAWN AVENDAÑO MD [facility] [id number] 12/20/2019 12:08:00 23:59:59 CLS Outpatient SHAWN AVENDAÑO MD [facility] WOUND[facility] [id number] 07/04/2019 12:26:00 23:59:59 CLS Outpatient CECIL RODRIGUEZ FACC, MELISSA BOLESP CC DS [facility] CARD DM,HTN,HYPERLIPIDEMIA,LEG SWELLING [id number] 05/28/2019 16:28:00 20:34:00 DIS Emergency JULIANNE MEJIA PIZZA CHEF [facility] ER DIARRHEA [id number] 03/08/2019 23:00:00 16:15:00 DIS Inpatient RANJAN PATE MD [facility] ICU SYNCOPE COLLAPSE;AFIB W RVR,HYPOGLYCEMIA [id number] 06/07/2018 07:21:00 23:59:59 CLS Outpatient LANCE QUILES DO [facility] SDC LESION ON BACK OF SCALP [id number] 06/04/2018 05:34:00 13:00:00 DIS Outpatient LANCE QUILES DO [facility] PREOP LESION BACK OF SCALP [id number] 04/02/2018 17:14:00 19:48:00 DIS Emergency JESSICA RODRIGUEZ, INNA T [facility] ER L ARM INJ [id number] 01/01/2018 00:09:00 23:59:59 CLS Preadmit JAMIE DOMINGO MD [facility] [id number] 12/24/2017 13:02:00 00:01:00 DIS Outpatient JAMIE DOMINGO MD [facility] [id number] 01/28/2016 11:07:00 23:59:59 CLS Outpatient CECIL RODRIGUEZ FACC, MELISSA FACP CC DS [facility] CARD AFIB,DM,HTN ,RENAL MASS LT,HLP [id number] 01/10/2016 10:29:00 23:59:59 CLS Outpatient JAMIE DOMINGO MD [facility] RAD LEFT KIDNEY MASS [id number] 11/24/2015 09:06:00 016 23:59:59 CLS Outpatient JAMIE DOMINGO MD [facility] RAD RADICULOPATHY LUMBAR RE GION LOW BACK PAIN [id number] 04/04/2015 09:50:00 015 16:20:00 DIS Outpatient SHAWN NGUYEN MD [facility] LEFT KNEE [place]OM[place] [id number] 03/29/2015 09:33:00 015 23:59:59 CLS Outpatient SHAWN NGUYEN MD [facility] PREOP LEFT KNEE [place] [id number] 01/08/2016 08:53:00 Document Registration [id number] 12/10/2011 14:45:00 Document Registration [id number] 10/22/2011 05:37:00 Document Registration [id number] 10/20/2011 13:55:00 Document Registration [id number] 09/05/2011 09:35:00 Document Registration
[2020-01-21 12:05] LABS: BASOPHILS # (AUTO) 0.1 10^3/uL (0.0-0.1); BASOPHILS % (AUTO) 1 % (0-10); EOSINOPHILS # (AUTO) 0.5 10^3/uL (0.0-0.3); EOSINOPHILS % (AUTO) 4 % (0-10); HEMATOCRIT 48 % (40-54); HEMOGLOBIN 15.7 G/DL (13.3-17.7); LYMPHOCYTES # (AUTO) 1.5 X 10^3 (1.0-4.0); LYMPHOCYTES % (AUTO) 14 % (12-44); MEAN CORPUSCULAR HEMOGLOBIN 30 PG (25-34); MEAN CORPUSCULAR HGB CONC 33 G/DL (32-36); MEAN CORPUSCULAR VOLUME 93 FL (80-99); MEAN PLATELET VOLUME 10.5 FL (7.4-10.4); MONOCYTES % (AUTO) 10 % (0-12); NEUTROPHILS # (AUTO) 7.5 X 10^3 (1.8-7.8); NEUTROPHILS % (AUTO) 72 % (42-75); PLATELET COUNT 285 10^3/uL (130-400); RED CELL DISTRIBUTION WIDTH 15.2 % (10.0-14.5); WHITE BLOOD COUNT 10.5 10^3/uL (4.3-11.0)
--- NOTE | 2020-01-21 12:05 | ED Cardiac General ---
History of Present Illness General Chief Complaint: Cardiac/General Problems Stated Complaint: LOW BLOOD PRESSURE Source: patient Exam Limitations: no limitations History of Present Illness Date Seen by Provider: Jan 21, 2020 Time Seen by Provider: 12:03 Initial Comments Patient drove himself to the emergency room with reports of low blood pressure and dizziness since this morning. He thinks he might have taken an extra blood pressure medication. He is very difficult to get any history from him, but in reviewing his old chart he has a history of type 2 diabetes, renal cell c arcinoma with bony metastasis status post left nephrectomy. 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 Timing/Duration: changing over time Severity: moderate Activities at Onset: none NTG SL ELEVATOR INSTALLER APPRENTICE: No ASA po ELEVATOR INSTALLER APPRENTICE: No Associated Systoms: Denies Symptoms; No Chest Pain Allergies and Home Medications Allergies Coded Allergies: No Known Drug Allergies (Unverified , 10/20/11) Home Medications Apixaban 5 Mg Tablet, 5 MG PO BID, (Reported) C,E,Zinc,Copper 11/Obhit7j/Lut 1 Each Capsule, 1 CAP PO DAILY, (Reported) Diltiazem HCl 180 Mg Cap.er.24h, 180 MG PO DAILY Prescribed by: JUSTINE ELIAS on 03/10/19 153 Empagliflozin 25 Mg Tablet, 25 MG PO DAILY, (Reported) Fenofibrate Nanocrystallized 145 Mg Tablet, 145 MG PO 1500, (Reported) Ferrous Sulfate 325 Mg Tablet, 325 MG PO BID, (Reported) Lisinopril 40 Mg Tablet, 40 MG PO HS, (Reported) Omeprazole 20 Mg Capsule.dr, 20 MG PO DAILY, (Reported) Potassium Chloride 10 Meq Capsule.er, 10 MEQ PO BID Prescribed by: JULIANNE MEJIA on 05/28/192015 Prednisone 10 Mg Tab, 15 MG PO DAILY, (Reported) TAKES 1 & 1/2 (10MG) TABLET Pyridoxine HCl 100 Mg Tablet, 100 MG PO HS, (Reported) Simethicone 125 Mg Capsule, 250-375 MG PO BID PRN for GAS, (Reported) Tramadol HCl 50 Mg Tablet, 50 MG PO BID, (Reported) Patient Home Medication List Home Medication List Reviewed: Yes Review of Systems Review of Systems Constitutional: see HPI EENTM: No Symptoms Reported Respiratory: No Symptoms Reported Cardiovascular: See HPI; Denies Chest Pain, Denies Edema Genitourinary: No Symptoms Reported Musculoskeletal: no symptoms reported Skin: no symptoms reported Psychiatric/Neurological: No Symptoms Reported Endocrine: No Symptoms Reported Hematologic/Lymphatic: No Symptoms Reported Past Yzcfjgv-Yjixmr-Ebtesw Hx Patient Social History Alcohol Use: Denies Use Recreational Drug Use: No Smoking Status: Never a Smoker 2nd Hand Smoke Exposure: No Recent Foreign Travel: No Contact w/Someone Who Travel: No Recent Hopitalizations: No Physical Abuse: No Sexual Abuse: No Immunizations Up To Date Tetanus Booster (TDap): Less than 5yrs Date of Pneumonia Vaccine: Apr 19, 2011 Date of Influenza Vaccine: Apr 19, 2018 Seasonal Allergies Seasonal Allergies: No Past Medical History Surgeries: Yes (ORAL, LEFT INGROWN THUMBNAIL REMOVED,) Nephrectomy Respiratory: No Cardiac: Yes Atrial Fibrillation, Hypertension Neurological: No Reproductive Disorders: No Genitourinary: No Gastrointestinal: Yes Gastroesophageal Reflux Musculoskeletal: Yes Endocrine: Yes Diabetes, Non-Insulin dep Cancer: Yes Kidney Did You Recieve Any Treatments: Yes What Type of Treatment Did You: Chemotherapy, Surgical Intervention Psychosocial: No Integumentary: No Blood Disorders: No Physical Exam Vital Signs Vital Signs - First Documented 01/21/20 11:50 Temp 36.5 Pulse 73 Resp 18 B/P (MAP) 92/74 (80) Pulse Ox 98 Capillary Refill : Less Than 3 Seconds Height, Weight, BMI Height: 5'10.00" Weight: 185lbs. 1.0oz. 83.283501ja; 26.00 BMI Method:Stated General Appearance: No Apparent Distress, WD/WN, Other (initial blood pressure 92/74, heart rate 74 irregular) HEENT: PERRL/EOMI, TMs Normal Neck: Full Range of Motion, Normal Inspection Respiratory: No Accessory Muscle Use, No Respiratory Distress Cardiovascular: Regular Rate, Rhythm, Normal Peripheral Pulses Gastrointestinal: Normal Bowel Sounds, Non Tender, Soft Extremity: Normal Capillary Refill, Normal Inspection Neurologic/Psychiatric: Alert, Other (he initially states that he has someone here with him. He then states that he is here by himself. His verbal responses are slow. Would suspect some element of dementia.) Skin: Normal Color, Warm/Dry Progress/Results/Core Measures Results/Orders Lab Results Laboratory Tests Test 01/21/20 11:52 01/21/20 12:41 Range/Units White Blood Count 10.5 4.3-11.0 10^3/uL Red Blood Count 5.20 4.35-5.85 10^6/uL Hemoglobin 15.7 13.3-17.7 G/DL Hematocrit 48 40-54 % Mean Corpuscular Volume 93 80-99 FL Mean Corpuscular Hemoglobin 30 25-34 PG Mean Corpuscular Hemoglobin Concent 33 32-36 G/DL Red Cell Distribution Width 15.2 H 10.0-14.5 % Platelet Count 285 130-400 10^3/uL Mean Platelet Volume 10.5 H 7.4-10.4 FL Neutrophils (%) (Auto) 72 42-75 % Lymphocytes (%) (Auto) 14 12-44 % Monocytes (%) (Auto) 10 0-12 % Eosinophils (%) (Auto) 4 0-10 % Basophils (%) (Auto) 1 0-10 % Neutrophils # (Auto) 7.5 1.8-7.8 X 10^3 Lymphocytes # (Auto) 1.5 1.0-4.0 X 10^3 Monocytes # (Auto) 1.0 0.0-1.0 X 10^3 Eosinophils # (Auto) 0.5 H 0.0-0.3 10^3/uL Basophils # (Auto) 0.1 0.0-0.1 10^3/uL Prothrombin Time 13.6 12.2-14.7 SEC INR Comment 1.0 0.8-1.4 Activated Partial Thromboplast Time 29 24-35 SEC Sodium Level 137 135-145 MMOL/L Potassium Level 4.1 3.6-5.0 MMOL/L Chloride Level 104 98-107 MMOL/L Carbon Dioxide Level 20 L 21-32 MMOL/L Anion Gap 13 5-14 MMOL/L Blood Urea Nitrogen 23 H 7-18 MG/DL Creatinine 1.98 H 0.60-1.30 MG/DL Estimat Glomerular Filtration Rate 33 BUN/Creatinine Ratio 12 Glucose Level 210 H 70-105 MG/DL Calcium Level 10.1 8.5-10.1 MG/DL Corrected Calcium 10.1 8.5-10.1 MG/DL Magnesium Level 2.3 1.6-2.4 MG/DL Total Bilirubin 0.4 0.1-1.0 MG/DL Aspartate Amino Transf (AST/SGOT) 16 5-34 U/L Alanine Aminotransferase (ALT/SGPT) 12 0-55 U/L Alkaline Phosphatase 34 L 40-136 U/L Myoglobin 65.3 10.0-92.0 NG/ML Troponin I < 0.028 <0.028 NG/ML B-Type Natriuretic Peptide 204.6 H <100.0 PG/ML Total Protein 7.3 6.4-8.2 GM/DL Albumin 4.0 3.2-4.5 GM/DL My Orders Orders - JULIANNE MEJIA MECHANICAL TECH Cbc With Automated Diff (01/21/20 12:00) Magnesium (01/21/20 12:00) Chest 1 View, Ap/Pa Only (01/21/20 12:00) Ekg Tracing (01/21/20 12:00) Comprehensive Metabolic Panel (01/21/20 12:00) Myoglobin Serum (01/21/20 12:00) Protime With Inr (01/21/20 12:00) Partial Thromboplastin Time (01/21/20 12:00) O2 (01/21/20 12:00) Monitor-Rhythm Ecg Trace Only (01/21/20 12:00) Lipid Panel (01/22/20 06:00) Ed Iv/Invasive Line Start (01/21/20 12:00) BNP (01/21/20 12:00) Ct Head Wo (01/21/20 12:05) Ns Iv 500 Ml (Sodium Chloride 0.9%) (01/21/20 12:15) Troponin I (01/21/20 11:52) Ua Culture If Indicated (01/21/20 12:32) Hydrocortisone Injection (Solu-Cortef In (01/21/20 12:45) Thyroid Stimulating Hormone (01/21/20 12:32) Free T4 (Free Thyroxine) (01/21/20 12:32) Medications Given in ED Current Medications Medications Dose Ordered Sig/Brittany Route Start Time Stop Time Status Last Admin Dose Admin Hydrocortisone Sodium Succinate 50 mg ONCE ONCE IV 01/21/20 12:45 01/21/20 12:46 DC 01/21/20 13:05 50 MG Vital Signs/I&O 01/21/20 11:50 Temp 36.5 Pulse 73 Resp 18 B/P (MAP) 92/74 (80) Pulse Ox 98 Diagnostic Imaging Diagonstic Imaging: CT Comments NAME: MONIQUE QUEEN [facility] REC#: [id number] PT STATUS: REG ER : 1945 PHYSICIAN: JULIANNE MEJIA APRN ADMIT DATE: 01/21/20/ER Draft Date of Exam:01/21/20 CT HEAD WO EXAMINATION: CT head without contrast. TECHNIQUE: Multiple contiguous axial images were obtained through the brain without the use of intravenous contrast. All CT scans use one or more of the following dose optimizing techniques: automated exposure control, MA and/or KvP adjustment based on a patient size and exam type, or iterative reconstruction. HISTORY: Hypotension. Confusion. COMPARISON: CT head on 03/08/2019. FINDINGS: No large acute territorial ischemia, mass, or hemorrhage. No midline shift or mass effect. Decreased attenuation is seen in the periventricular and subcortical white matter. The ventricles and cortical sulci are prominent. The basilar cisterns are patent and unremarkable. The orbits are normal. Mucosal thickening is seen in the bilateral maxillary sinuses. Mastoid air cells are clear. No soft tissue abnormality is seen. No osseus lesions or fractures are seen. IMPRESSION: 1. No large acute territorial ischemia, mass, or hemorrhage. 2. Chronic microvascular disease. 3. Generalized parenchymal volume loss. Dictated on workstation # [id number] Dict: 01/21/20 1303 Trans: 01/21/20 1315 [facility] [id number] Interpreted by: LEONCIO LOPEZ DO Electronically signed by: Departure Communication (Admissions) Time/Spoke to Admitting Phy: 13:[address] Owens, will admit, continue the hydrocortisone twice a day until tomorrow, hold Lasix and lisinopril. Impression Primary Impression: Hypotension Qualified Codes: I95.9 - Hypotension, unspecified Disposition: ADMITTED INPATIENT Condition: Stable Admissions Decision to Admit Reason: Admit from ER (General) Decision to Admit/Date: Jan 21, 2020 Time/Decision to Admit Time: 13:31 Departure-Patient Inst. Referrals: JAMIE OWENS MD (PCP/Family) Primary Care Physician JULIANNE MEJIA APRN Jan 21, 2020 12:04
[2020-01-21 12:11] LABS: CHLORIDE 104 MMOL/L (98-107)
[2020-01-21] MEDS ORDERED: LEVO50TA6 PO (12:11)
[2020-01-21] MEDS ORDERED: GLMP2T PO (12:11)
[2020-01-21 12:12] LABS: POTASSIUM 4.1 MMOL/L (3.6-5.0); PROTHROMBIN TIME PATIENT 13.6 SEC (12.2-14.7); SODIUM 137 MMOL/L (135-145)
[2020-01-21 12:13] LABS: CALCIUM 10.1 MG/DL (8.5-10.1)
[2020-01-21 12:14] LABS: GLUCOSE 210 MG/DL (70-105); TOTAL PROTEIN 7.3 GM/DL (6.4-8.2)
[2020-01-21 12:15] LABS: CARBON DIOXIDE 20 MMOL/L (21-32)
[2020-01-21] MEDS ORDERED: NS IV 500 ML 500 ML IV SCH (12:15)
[2020-01-21 12:16] LABS: BILIRUBIN,TOTAL 0.4 MG/DL (0.1-1.0)
[2020-01-21 12:17] LABS: ALKALINE PHOSPHATASE 34 U/L (40-136); CREATININE SERUM 1.98 MG/DL (0.60-1.30); GFR ESTIMATED 33
[2020-01-21 12:19] LABS: BUN/CREATININE RATIO 12
[2020-01-21 12:20] LABS: ALANINE AMINOTRANSFERASE 12 U/L (0-55)
[2020-01-21 12:21] LABS: MAGNESIUM 2.3 MG/DL (1.6-2.4)
[2020-01-21] MEDS ORDERED: HYDROCORTISONE 100 MG/2 ML (Solu-CORTEF) VIAL IV ONE (12:45)
--- NOTE | 2020-01-21 12:46 | Diagnostic Imaging Report ---
EXAMINATION: Chest 1 view HISTORY: Weakness. Hypertension. COMPARISON: Chest radiograph on 03/10/2019. FINDINGS: The lung volumes are normal. No focal consolidation is seen. No large pleural effusion or pneumothorax is seen. The cardiomediastinal silhouette is enlarged. No acute osseous abnormality is seen. IMPRESSION: 1. Cardiomegaly. No overt pulmonary edema. Dictated by: Dictated on workstation # [id number]
--- NOTE | 2020-01-21 13:16 | Diagnostic Imaging Report ---
EXAMINATION: CT head without contrast. TECHNIQUE: Multiple contiguous axial images were obtained through the brain without the use of intravenous contrast. All CT scans use one or more of the following dose optimizing techniques: automated exposure control, MA and/or KvP adjustment based on a patient size and exam type, or iterative reconstruction. HISTORY: Hypotension. Confusion. COMPARISON: CT head on 03/08/2019. FINDINGS: No large acute territorial ischemia, mass, or hemorrhage. No midline shift or mass effect. Decreased attenuation is seen in the periventricular and subcortical white matter. The ventricles and cortical sulci are prominent. The basilar cisterns are patent and unremarkable. The orbits are normal. Mucosal thickening is seen in the bilateral maxillary sinuses. Mastoid air cells are clear. No soft tissue abnormality is seen. No osseus lesions or fractures are seen. IMPRESSION: 1. No large acute territorial ischemia, mass, or hemorrhage. 2. Chronic microvascular disease. 3. Generalized parenchymal volume loss. Dictated by: Dictated on workstation # [id number]
[2020-01-21 13:41] LABS: BILIRUBIN,URINE NEGATIVE (NEGATIVE); CLARITY,URINE CLEAR; COLOR,URINE YELLOW; GLUCOSE, URINE (UA) 3+ (NEGATIVE); KETONES,URINE NEGATIVE (NEGATIVE); LEUKOCYTE ESTERASE ,URINE NEGATIVE (NEGATIVE); NITRITE,URINE NEGATIVE (NEGATIVE); PH,URINE 5.5 (5-9); PROTEIN,URINE NEGATIVE (NEGATIVE)
[2020-01-21 13:42] LABS: FREE T4 (FREE THYROXINE) 1.19 NG/DL (0.70-1.48)
[2020-01-21 14:18] LABS: WBC,URINE RARE /HPF
[2020-01-21 14:19] LABS: BACTERIA,URINE NEGATIVE /HPF; SQUAMOUS EPITHELIAL CELL,UR 0-2 /HPF
--- NOTE | 2020-01-21 14:23 | NUR ---
MONIQUE QUEEN admitted to room 407-1, with an admitting diagnosis of HYPOTENSION, on 01/21/20 from ER via , accompanied by STAFF.MONIQUE QUEEN introduced to surroundings, call light, bed controls, phone, TV, temperature control, lights, meal times, smoking policy, visitor policy, side rail policy, bathrooms and showers. Patient Rights given to patient in the handbook. MONIQUE QUEEN verbalizes understanding that [facility] is not responsible for the loss or damage to any personal effects or valuables that are kept in the patients posession during their hospitalization. MONIQUE QUEEN verbalizes understanding of Interdisciplinary Patient Education. Patient and/or family were informed about the Rapid Response Team and its purpose.
[2020-01-21 14:28] VITALS: BP 116/81
[2020-01-21] MEDS ORDERED: CATHETER FLUSH 10 ML SYR IV PRN (15:00)
[2020-01-21] MEDS ORDERED: FURO40TA4 PO (15:28)
[2020-01-21] MEDS ORDERED: DILT180C54 PO (15:30)
[2020-01-21 16:04] VITALS: BP 109/71
[2020-01-21] MEDS ORDERED: inSUlin ASPART (NovoLOG) 1 UNIT/0.01 ML (CHARGE PER UNIT) SC SCH ×2 (16:30)
[2020-01-21] MEDS: ENOXAPARIN 40 MG/0.4 ML (LOVENOX) SYR SC SCH (16:32)
[2020-01-21 19:44] VITALS: BP 124/85
[2020-01-21] MEDS ORDERED: risperiDONE 1 MG (RisperDAL) TAB ONE (19:54)
[2020-01-21] MEDS: HYDROCORTISONE 100 MG/2 ML (Solu-CORTEF) VIAL IV SCH (20:27)
[2020-01-21] MEDS ORDERED: risperiDONE 1 MG (RisperDAL) TAB PO PRN (20:45)
[2020-01-21] MEDS: inSUlin ASPART (NovoLOG) 1 UNIT/0.01 ML (CHARGE PER UNIT) SC SCH (21:07)
[2020-01-21] MEDS: CATHETER FLUSH 10 ML SYR IV SCH (22:27)
[2020-01-22] VITALS: BP_SYST 123; BP_SYST 129; BP_DIAS 73; BP_DIAS 85
[2020-01-22 04:00] VITALS: BP 124/83
[2020-01-22 05:45] LABS: BASOPHILS % (AUTO) 0 % (0-10); EOSINOPHILS % (AUTO) 0 % (0-10); HEMATOCRIT 48 % (40-54); HEMOGLOBIN 15.5 G/DL (13.3-17.7); LYMPHOCYTES # (AUTO) 0.6 X 10^3 (1.0-4.0); LYMPHOCYTES % (AUTO) 8 % (12-44); MEAN CORPUSCULAR HEMOGLOBIN 30 PG (25-34); MEAN CORPUSCULAR HGB CONC 32 G/DL (32-36); MEAN CORPUSCULAR VOLUME 93 FL (80-99); MEAN PLATELET VOLUME 10.7 FL (7.4-10.4); MONOCYTES # (AUTO) 0.5 X 10^3 (0.0-1.0); MONOCYTES % (AUTO) 6 % (0-12); NEUTROPHILS # (AUTO) 6.8 X 10^3 (1.8-7.8); NEUTROPHILS % (AUTO) 86 % (42-75); PLATELET COUNT 238 10^3/uL (130-400); RED CELL DISTRIBUTION WIDTH 15.4 % (10.0-14.5); WHITE BLOOD COUNT 7.9 10^3/uL (4.3-11.0)
[2020-01-22] MEDS: inSUlin ASPART (NovoLOG) 1 UNIT/0.01 ML (CHARGE PER UNIT) SC SCH ×4 (06:00→20:32)
[2020-01-22 06:07] LABS: ALBUMIN 3.8 GM/DL (3.2-4.5); POTASSIUM 4.1 MMOL/L (3.6-5.0)
[2020-01-22 06:08] LABS: CALCIUM 10.1 MG/DL (8.5-10.1)
[2020-01-22 06:09] LABS: TOTAL PROTEIN 6.9 GM/DL (6.4-8.2)
[2020-01-22 06:11] LABS: BILIRUBIN,TOTAL 0.4 MG/DL (0.1-1.0)
[2020-01-22 06:13] LABS: CREATININE SERUM 1.7 MG/DL (0.60-1.30)
[2020-01-22] MEDS: CATHETER FLUSH 10 ML SYR IV SCH ×3 (06:39→22:00)
[2020-01-22 07:40] VITALS: BP 157/96
[2020-01-22] MEDS: HYDROCORTISONE 100 MG/2 ML (Solu-CORTEF) VIAL IV SCH (08:55)
[2020-01-22 11:33] VITALS: BP 108/74
--- NOTE | 2020-01-22 14:08 | History & Physical-Hospitalist ---
History of Present Illness HPI/Chief Complaint Patient drove himself to the emergency room with reports of low blood pressure and dizziness since this morning. He thinks he might have taken an extra blood pressure medication. He is very difficult to get any history from him, but in reviewing his old chart he has a history of type 2 diabetes, renal cell carcinoma with bony metastasis status post left nephrectomy. 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 The patient apparently parked in the emergency room ambulance bay area of got out and sat in a wheelchair for none known length of time before he was found and brought into the emergency room. He didn't know enough to tell him that his blood pressure had been low at home and indeed his systolic was less than 90. He has chronic age fibrillation and I do not recall his heart rate prior to IV fluids. His blood pressure did respond to IV fluids failure remains significantly confused and was admitted for further investigation. CT head did not reveal any acute abnormalities and there was no evidence for metastatic disease to the brain. Patient has known previous metastasis to skin and lung. He had not very slow prednisone taper and it been off of the checkpoint inhibitors for many months currently reporting is down to 5 mg. He was given one stress dose of Solu-Medrol in the emergency room prior to admission. There was no evidence for underlying infectious disease. His calcium level was slightly elevated at 10.3 not high enough that this likely contributing to current confusion. The patient denied headache night sweats chills or fever. He had no cough abdominal pain dysuria or change in urinary frequency. He been seen in our office and over concerns for dehydration last was instructed to decrease his furosemide to 20 mg every other day from current 40 mg every other day dose. With his current level of confusion accurate compliance is likely doubtful. Date Seen 01/22/20 Time Seen by a Provider: 10:45 Attending Physician Jamie Domingo MD PCP Jamie Domingo MD Referring Physician Date of Admission Jan 21, 2020 at 13:32 Home Medications & Allergies Home Medications Reviewed patient Home Medication Reconciliation performed by pharmacy medication reconciliations install technician and/or nursing. Patients Allergies have been reviewed. Allergies Allergies Coded Allergies No Known Drug Allergies (Unverified10/20/11) Past Erkqpvt-Amuchh-Fphjfm Hx Past Med/Social Hx: Reviewed and Corrections made Patient Social History Alcohol Use: Denies Use Recreational Drug Use: No Smoking Status: Never a Smoker 2nd Hand Smoke Exposure: No Physical Abuse Screen: No Sexual Abuse: No Recent Foreign Travel: No Contact w/other who traveled: No Recent Hopitalizations: No Recent Infectious Disease Expo: No Immunizations Up To Date Tetanus Booster (TDap): Less than 5yrs Date of Pneumonia Vaccine: Apr 19, 2011 Date of Influenza Vaccine: Apr 19, 2018 Seasonal Allergies Seasonal Allergies: No Past Medical History Surgeries: Nephrectomy Cardiac: Atrial Fibrillation, Hypertension Reproductive: No Gastrointestinal: Gastroesophageal Reflux Endocrine: Diabetes, Non-Insulin dep Cancer: Kidney Did You Recieve Any Treatments: Yes What Type of Treatment Did You: Chemotherapy, Surgical Intervention History of Blood Disorders: No Review of Systems Constitutional: see HPI Physical Exam Physical Exam Vital Signs Vital Signs - First Documented 01/21/20 01/21/20 11:50 14:52 Temp 36.5 Pulse 73 Resp 18 B/P (MAP) 92/74 (80) Pulse Ox 98 O2 Delivery Room Air Capillary Refill : Less Than 3 SecondsLess Than 3 Seconds Height, Weight, BMI Height: 5'10.00" Weight: 185lbs. 1.0oz. 83.008834wg; 30.84 BMI Method:Stated General Appearance: No Apparent Distress, Other (Pleasantly confused) Neck: Full Range of Motion, Normal Inspection, Non Tender Respiratory: Chest Non Tender, Lungs Clear, Normal Breath Sounds, No Accessory Muscle Use, No Respiratory Distress Cardiovascular: No Edema, No Gallop, No JVD, No Murmur, Irregularly Irregular Gastrointestinal: Normal Bowel Sounds, No Organomegaly, No Pulsatile Mass, Non Tender, Soft Extremity: No Pedal Edema, Other (Severe pes planus significant onychomycosis diffusely no evidence for tenia pedis no ulceration of the feet or elsewhere on the body noted.) Neurologic/Psychiatric: Other (Oriented to person only confused moving all extremities) Skin: Normal Color, Warm/Dry Results Results/Procedures Labs Patient resulted labs reviewed. Assessment/Plan Admission Diagnosis 1. Altered mental status aggravated by hypotension. With no headache and the fact the patient has been off of checkpoint inhibitor therapy for many months doubt that active hypophysitis is the underlying cause. Considering his d iabetes I'm concerned about hypoglycemia other concerns include a post ictal states from an unwitnessed seizure at home. Patient will be admitted continuing IV fluids and his blood pressure will allow will likely need resumption of diltiazem and carvedilol for rate control for underlying atrial fibrillation. 2. Atrial fibrillation patient currently off of anticoagulation therapy due to small volume hemoptysis likely due to metastatic renal cell disease to lung will initiate prophylactic Lovenox and monitor but hold other anticoagulant therapy. 3. Type II diabetes mellitus insulin per sliding scale only for now and monitoring blood sugars. 4. Stage III chronic renal disease patient at recent baseline with a creatinine of 1.7. Admission Status: Inpatient Order (span 2 midnights) Reason for Inpatient Admission: See admission diagnosis Clinical Quality Measures AMI/AHF: ASA po Prior to arrival: No DVT/VTE Risk/Contraindication: Risk Factor Score Per Nursin RFS Level Per Nursing on Admit: 4+=Very High Copy Copies To 1: JAMIE DOMINGO MD, MARK D MD Jan 22, 2020 14:08
[2020-01-22 15:32] VITALS: BP 115/75
[2020-01-22] MEDS: ENOXAPARIN 40 MG/0.4 ML (LOVENOX) SYR SC SCH (16:11)
[2020-01-22 20:16] VITALS: BP 110/71
[2020-01-23 00:25] VITALS: BP 109/71
[2020-01-23 04:00] VITALS: BP 131/86
[2020-01-23] MEDS: inSUlin ASPART (NovoLOG) 1 UNIT/0.01 ML (CHARGE PER UNIT) SC SCH ×4 (05:42→22:11)
[2020-01-23] MEDS: predniSONE 10 MG TAB PO SCH (06:04)
[2020-01-23] MEDS: CATHETER FLUSH 10 ML SYR IV SCH ×3 (06:04→22:11)
[2020-01-23 07:43] VITALS: BP 142/82
--- NOTE | 2020-01-23 08:40 | Progress Note - Hospitalist ---
Subjective HPI/CC On Admission Date Seen by Provider: Jan 23, 2020 Time Seen by Provider: 08:00 Patient been confused no evidence for agitation but coming out of his room last night wondering where he was. He apparently was easily redirected. Blood pressure levels of normalized but he was pleasantly confused this morning oriented 1 only he was moving all extremities voicing no complaints difficult to follow a rather random train of thought was an inappropriate word usage at times. Subjective/Events-last exam See above Objective Exam Vital Signs Vital Signs Date Time Temp Pulse Resp B/P (MAP) Pulse Ox O2 Delivery O2 Flow Rate FiO2 01/24/20 08:09 36.2 113 16 128/89 (102) 97 Room Air Capillary Refill : Less Than 3 SecondsLess Than 3 Seconds General Appearance: No Apparent Distress, Obese Neck: Full Range of Motion, Normal Inspection, Non Tender, Supple, Carotid Bruit Respiratory: Chest Non Tender, Lungs Clear, Normal Breath Sounds, No Accessory Muscle Use, No Respiratory Distress Cardiovascular: No Edema, No JVD, No Murmur, Irregularly Irregular Gastrointestinal: Normal Bowel Sounds, No Organomegaly, No Pulsatile Mass, Non Tender, Soft Results/Procedures Lab Patient resulted labs reviewed. Assessment/Plan Assessment and Plan Assess & Plan/Chief Complaint 1. Altered mental status aggravated by hypotension has not improved with normalization of blood pressures. With no headache and the fact the patient has been off of checkpoint inhibitor therapy for many months doubt that active hypophysitis is the underlying cause. Considering his diabetes I'm concerned about hypoglycemia other concerns include a post ictal states from an unwitnessed seizure at home. Heart rate in the 100-110 region we'll resume diltiazem and monitor blood pressure. Continue sliding scale insulin. If no improvement in mentation as the patient lives alone at home and has no family members we'll be recommending [facility] care. 2. Atrial fibrillation patient currently off of anticoagulation therapy due to small volume hemoptysis likely due to metastatic renal cell disease to lung will initiate prophylactic Lovenox and monitor but hold other anticoagulant therapy. 3. Type II diabetes mellitus insulin per sliding scale only for now and monitoring blood sugars. 4. Stage III chronic renal disease patient at recent baseline with a creatinine of 1.7. Clinical Quality Measures AMI/AHF: ASA po Prior to arrival: No DVT/VTE Risk/Contraindication: Risk Factor Score Per Nursin RFS Level Per Nursing on Admit: 4+=Very High JAMIE DOMINGO MD Jan 23, 2020 08:40
[2020-01-23] MEDS ORDERED: GLIM2TAB4 PO (09:05)
[2020-01-23] MEDS ORDERED: LEVO50TA6 PO (09:06)
[2020-01-23] MEDS ORDERED: FURO40TA4 PO (09:09)
[2020-01-23] MEDS ORDERED: FAMO20TA3 PO (09:10)
[2020-01-23] MEDS ORDERED: TRM50T PO (09:12)
[2020-01-23] MEDS ORDERED: LOPE2CAP PO (09:13)
[2020-01-23] MEDS ORDERED: CYAN-23 PO (09:14)
[2020-01-23] MEDS ORDERED: MULT-974 PO (09:15)
--- NOTE | 2020-01-23 09:16 | NUR ---
Patient brought home medications in. Mulit-vitamin 02/03 and KCL can not read the date. Lisinopril bottle date 08/10/19 qty90 Prednisone 10mg date 08/10/19 qty90
[2020-01-23 11:01] VITALS: BP 129/88
--- NOTE | 2020-01-23 13:20 | NUR ---
CM/SS: Visited with pt as to plan for discharge Plan: Undetermined as this time. Pt reports he came from home. Summary: Pt seems a little confused at the time of the visit. Pt reports having had Kidney Cancer and was in treatment at . Pt reports he was diagnosed 4 years ago, and that he has not had home care in the past. Home Care services explained to pt. Pt reports that he does not want to pay for it as he paid $110,000 for treatment at and that he can not afford it. Pt is educated on the Home Care being paid for by his Medicare and his other insurance. He seems ok with that at this time. This worker is concerned as to pt's confusion and his delay in answering questions. Once this worker is finished talking with pt, he reports he is going to stay in his bed and rest. RN is notified about the confusion. This worker will follow up.
--- NOTE | 2020-01-23 13:52 | NUR ---
"RD ASSESSMENT PMHx: afib; HTN; GERD; DM; CA(kidney) PT INTERACTION: Note pt has AMS, per chart review. All diet history is per chart review. Note avg PO intake 100% x2d. Note last BM was 01/20, and pt not currently on bowel regimen. Note recent 31# wt gain x8mon. Note unable to determine current level of DM control, and note unable to determine recent HbA1c. Note pt has presence of wounds (L great toe; R 2nd toe), per chart review. ABNORMAL NUTRITION-RELATED LAB VALUES LOW: alkphos 32; HDL 35 HIGH: BUN 23; cr 1.70; glu 153; TG 174 Est. kcal needs: 3142-5544 kcal | 15-20 kcal/kg Est. Pro needs: 116-136 g Pro | 1.2-1.4 g Pro/kg PES STATEMENT: Inadequate protein intake (NI-5.6.1) related to increased protein needs as evidenced by presence of wounds (L great toe; R 2nd toe) INTERVENTION: Continue with current diet order of CHO 45g/m 3snack diet. Add Ensure HP (vary) to meals TID. Provides 160 kcal and 16 g Pro per serving, for perceived benefit to wound healing. Did not offer diet education on DM management d/t AMS. Will continue to follow and reassess as pt needs, intake, and status change. MONITOR/EVALUATE: PO Intake; Plan of Care; Hydration Status; Weight Status; Lab Values Cheryl Flores, MS, RD, LD"
[2020-01-23 16:11] VITALS: BP 117/80
[2020-01-23] MEDS: ENOXAPARIN 40 MG/0.4 ML (LOVENOX) SYR SC SCH (16:47)
[2020-01-23 19:24] VITALS: BP 112/79
[2020-01-24 00:05] VITALS: BP 132/89
--- NOTE | 2020-01-24 00:35 | NUR ---
NOTIFIED GAULT OF PT 5 MINUTE RUN OF AFIB AT A RATE OF 160 AT THIS TIME. NEW ORDER FOR CORIG 12.5MG BID OBTAINED AT THIS TIME.
[2020-01-24] MEDS: CARVEDILOL 12.5 MG (COREG) TABLET PO SCH ×2 (00:39→08:46)
[2020-01-24 04:20] VITALS: BP 148/92
[2020-01-24] MEDS: inSUlin ASPART (NovoLOG) 1 UNIT/0.01 ML (CHARGE PER UNIT) SC SCH (06:29)
[2020-01-24] MEDS: CATHETER FLUSH 10 ML SYR IV SCH (06:29)
[2020-01-24] MEDS: predniSONE 10 MG TAB PO SCH (06:31)
[2020-01-24 08:09] VITALS: BP 128/89
[2020-01-24] MEDS ORDERED: PRED5TAB PO (11:00)
[2020-01-24] MEDS ORDERED: GLIM1TAB4 PO (11:00)
--- NOTE | 2020-01-24 11:05 | Discharge Inst-Skilled Nursing ---
Discharge Inst-Skilled NF Reconcile Patient Problems Problems Reviewed?: Yes Consult/Follow Up/Orders Skilled NF Admit to: [facility] Certification (SNF) I certify that SNF services are required to be given on an inpatient basis because of the above named patient's need for long-term care on a continuing basis for the conditions(s) for which he/she was receiving inpatient hospital services prior to his/her transfer to the SNF. [facility] Facility Order: Nursing Services, Electric Meter Repairer Helper-Evaluate & Treat, Physical Therapy-Evaluate & Treat, Speech Language-Evaluate & Treat Oxygen Delivery Method: Room Air Discharge Diet: ADA Diet Daily Activity as Tolerated: Yes Resuscitation Status: Do Not Resuscitate New & Resume Previous Orders Jamie Domingo Jan 24, 2020 11:03 Pneu Vac Indicated: Yes JAMIE DOMINGO MD Jan 24, 2020 11:05
[2020-01-24 11:12] VITALS: BP 129/88
--- NOTE | 2020-01-24 12:24 | NUR ---
CM/SS: Visited with pt as to plan for discharge Plan: PT will go to [facility] for skilled stay Summary: Pt seems a little confused today. He is open to going to the facility and is glad it is in [place]. This worker gives him information about what they will do while he is at the facility. He is reminded that the goal is to get him stronger and get him back home. Pt reports feeling ok. Pt is fully dressed with his shoes on in his bed. Pt continues to talk about a cell phone spot billing clerk and other things that are not real understandable. This worker later returns to let pt know that he will be leaving at 1pm today. Pt is ok with that and asked about driving. He is reminded they will pick him up and he will be unable to drive. Information faxed to [facility]. Attestation statement faxed to Dr. Owens for COVID clearance based on facility policy. [facility] can lease picker pt at 1:00pm.
[2020-01-24 12:55] VITALS: BP 129/88
--- NOTE | 2020-01-24 12:55 | NUR ---
REPORT CALLED TO [facility]
--- NOTE | 2020-01-26 11:45 | NUR ---
CM/SS: [employer] notified that pt's car is still parked here in the parking lot. They are given the make and model, Chevy Impala - Singer in color with license tag of [facility]. It has been requested that the car be moved to the snf as pt is no longer here when possible. This worker has located the car so that the facility will know the location and can pick it up. Missy, Reading Teacher from [facility] is notified about the car, and the current location and parking lot. They are working on making arrangements to get it picked up. She will notify this worker when they have arrangements made.
--- NOTE | 2020-02-14 15:16 | Discharge Summary ---
Diagnosis/Chief Complaint Date of Admission Jan 21, 2020 at 13:32 Date of Discharge Jan 24, 2020 at 12:55 Discharge Date: Jan 24, 2020 Admission Diagnosis 1. Altered mental status aggravated by hypotension. With no headache and the fact the patient has been off of checkpoint inhibitor therapy for many months doubt that active hypophysitis is the underlying cause. Considering his diabetes I'm concerned about hypoglycemia other concerns include a post ictal states from an unwitnessed seizure at home. Patient will be admitted continuing IV fluids and his blood pressure will allow will likely need resumption of diltiazem and carvedilol for rate control for underlying atrial fibrillation. 2. Atrial fibrillation patient currently off of anticoagulation therapy due to small volume hemoptysis likely due to metastatic renal cell disease to lung will initiate prophylactic Lovenox and monitor but hold other anticoagulant therapy. 3. Type II diabetes mellitus insulin per sliding scale only for now and monitoring blood sugars. 4. Stage III chronic renal disease patient at recent baseline with a creatinine of 1.7. Primary Care Jamie Domingo MD Discharge Summary Discharge Physical Exam Allergies: Coded Allergies: No Known Drug Allergies (Unverified , 10/20/11) General Appearance: No Apparent Distress Respiratory: Chest Non Tender, Lungs Clear, Normal Breath Sounds, No Accessory Muscle Use, No Respiratory Distress Cardiovascular: No Gallop, No JVD, No Murmur, Irregularly Irregular Hospital Course Was the Problem List Reviewed?: Yes Patient drove himself to the emergency room with reports of low blood pressure and dizziness since this morning. He thinks he might have taken an extra blood pressure medication. He is very difficult to get any history from him, but in reviewing his old chart he has a history of type 2 diabetes, renal cell carcinoma with bony metastasis status post left nephrectomy. 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 The patient apparently parked in the emergency room ambulance [facility] area of [facility] out and sat in a wheelchair for none known length of time before he was found and brought into the emergency room. He didn't know enough to tell him that his blood pressure had been low at home and indeed his systolic was less than 90. He has chronic age fibrillation and I do not recall his heart rate prior to IV fluids. His blood pressure did respond to IV fluids failure remains significantly confused and was admitted for further investigation. CT head did not reveal any acute abnormalities and there was no evidence for metastatic disease to the brain. Patient has known previous metastasis to skin and lung. He had not very slow prednisone taper and it been off of the checkpoint inhibitors for many months currently reporting is down to 5 mg. He was given one stress dose of Solu-Medrol in the emergency room prior to admission. There was no evidence for underlying infectious disease. His calcium level was slightly elevated at 10.3 not high enough that this likely contributing to current confusion. The patient denied headache night sweats chills or fever. He had no cough abdominal pain dysuria or change in urinary frequency. He been seen in our office and over concerns for dehydration last was instructed to decrease his furosemide to 20 mg every other day from current 40 mg every other day dose. With his current level of confusion accurate compliance is likely doubtful. By the second hospital day his heart rate had gone out from the 70s and 80s at rest to predominantly 100 to 120s. Diltiazem was initiated with improvement. Blood pressure had also come up to being mildly elevated again 140s to 150 systolic. Altered mental status persisted a little worse than baseline. Patient had no evidence for agitation but I had significant concerns about him caring for himself at home so he is set up for nursing home admission with speech therapy occupational therapy and physical therapy. We did decrease, per ride to 1 mg daily and resume lisinopril for his blood pressure. Diltiazem was initiated to 180 mg daily with no evidence for hypotension. We'll monitor fingerstick blood sugars and initiated no concentrated sweet diet. Over concerns of dehydration S GLT-2 inhibitor therapy will be held for now. Labs (last 24 hrs) Patient resulted labs reviewed. Discussion & Recommendations Discharge Planning: >30 minutes discharge planning Discharge Home Medications: Active Scripts Active Glimepiride 1 Mg Tablet 1 Mg PO DAILY 30 Days Prednisone 5 Mg Tablet 5 Mg PO DAILY 30 Days Reported Multi-Vitamin Daily (Multivitamin) 1 Each Tablet 1 Each PO DAILY Loperamide (Loperamide HCl) 2 Mg Capsule 4 Mg PO PRN PRN Tramadol HCl 50 Mg Tablet 50 Mg PO Q4H PRN Acid Negative Notcher (FAMOTIDINE) (Famotidine) 20 Mg Tablet 20 Mg PO BID Furosemide 40 Mg Tablet 40 Mg PO EVERY OTHER DAY Levothyroxine Sodium 50 Mcg Tablet 50 Mcg PO DAILY Cartia Xt (Diltiazem HCl) 180 Mg Cap.er.24h 180 Mg PO DAILY Omeprazole 20 Mg Capsule.dr 20 Mg PO DAILY Ocuvite Adult 50 Plus Softgel (C,E,Zinc,Copper 11/Wcdzl2u/Lut) 1 Each Capsule 1 Cap PO DAILY Lisinopril 40 Mg Tablet 40 Mg PO HS Simethicone 125 Mg Capsule 250-375 Mg PO BID PRN Instructions to patient/family Please see electronic discharge instructions given to patient. Clinical Quality Measures AMI/AHF: ASA po Prior to arrival: No DVT/VTE Risk/Contraindication: Risk Factor Score Per Nursin RFS Level Per Nursing on Admit: 4+=Very High JAMIE DOMINGO MD Feb 14, 2020 15:16
== END 2020-01-24 12:55 ==
LOC: EDUNIT# 11:50 → ER 11:51 → 4TH 13:32
PROVIDERS: ADMIT Internal Medicine; ATTEND Internal Medicine
DX: I95.9 Hypotension, unspecified (principal); R41.82 Altered mental status, unspecified; I12.9 Hypertensive chronic kidney disease with stage 1 through stage 4 chronic kidney disease, or unspecified chronic kidney disease; E11.22 Type 2 diabetes mellitus with diabetic chronic kidney disease; N18.3 Chronic kidney disease, stage 3 (moderate); I48.91 Unspecified atrial fibrillation; K21.9 Gastro-esophageal reflux disease without esophagitis; Z79.899 Other long term (current) drug therapy; Z79.4 Long term (current) use of insulin; Z85.830 Personal history of malignant neoplasm of bone; Z92.21 Personal history of antineoplastic chemotherapy; Z85.528 Personal history of other malignant neoplasm of kidney
CPT/HCPCS: 70450; 71045; 80053 ×2; 80061; 81000; 82962 ×4; 83735; 83874; 83880; 84439; 84443; 84484; 85025 ×2; 85610; 85730; 93005; 93041; 96361; 96374; 99284; G0378; 36415

== ENCOUNTER → 2020-02-15 | Outpatient (CLI) | payer MEDICARE, OTHER ==
[~2020-02-15] MED LIST changes: +CYAN-23 PO; +DILT180C54 PO; +FURO40TA4 PO; +GLIM1TAB4 PO; +GLMP2T PO; +LEVO50TA6 PO; +LOPE2CAP PO; +MULT-974 PO; +PRED5TAB PO
== END ==
LOC: WOUNDCARE 12:44
PROVIDERS: ATTEND Surgery
DX: E11.621 Type 2 diabetes mellitus with foot ulcer (principal); L27.1 Localized skin eruption due to drugs and medicaments taken internally; L97.511 Non-pressure chronic ulcer of other part of right foot limited to breakdown of skin; L97.521 Non-pressure chronic ulcer of other part of left foot limited to breakdown of skin; I70.235 Atherosclerosis of native arteries of right leg with ulceration of other part of foot
CPT/HCPCS: 99214

== ENCOUNTER → 2020-02-21 | Outpatient (CLI) | payer MEDICARE | LOC: WOUNDCARE 14:54 | PROVIDERS: ATTEND Surgery | DX: E11.621 Type 2 diabetes mellitus with foot ulcer (principal); L97.511 Non-pressure chronic ulcer of other part of right foot limited to breakdown of skin; L97.521 Non-pressure chronic ulcer of other part of left foot limited to breakdown of skin; L27.1 Localized skin eruption due to drugs and medicaments taken internally | CPT/HCPCS: 99212 ==

== ENCOUNTER → 2020-03-06 | Outpatient (CLI) | payer MEDICARE | LOC: WOUNDCARE 12:27 | PROVIDERS: ATTEND Surgery | DX: E11.621 Type 2 diabetes mellitus with foot ulcer (principal); L97.521 Non-pressure chronic ulcer of other part of left foot limited to breakdown of skin; L97.511 Non-pressure chronic ulcer of other part of right foot limited to breakdown of skin; L27.1 Localized skin eruption due to drugs and medicaments taken internally | CPT/HCPCS: 99211 ==

== ENCOUNTER → 2020-03-08 | Outpatient (CLI) | payer MEDICARE, OTHER | LOC: CARD 12:33 | PROVIDERS: ATTEND Nurse Practitioner Family | DX: Z01.818 Encounter for other preprocedural examination (principal); I51.7 Cardiomegaly | CPT/HCPCS: 93306 ==

== ENCOUNTER → 2020-07-17 | Outpatient (CLI) | payer MEDICARE, OTHER ==
[~2020-07-17] MED LIST changes: +AMLO-251 PO; -AMLO10TA7 PO
--- NOTE | 2020-07-17 13:54 | Diagnostic Imaging Report ---
PROCEDURE: US left lower extremity venous. TECHNIQUE: Multiple real-time grayscale images were obtained over the left lower extremity in various projections. Additional duplex Doppler and color Doppler images were also obtained. INDICATION: Left leg swelling. FINDINGS: Left common femoral vein as well as the upper and mid portions of the superficial femoral veins are widely patent. There does appear to be thrombus in the lower aspect of the superficial femoral vein and extending into the popliteal vein as well as the calf veins. No fluid collection is seen. IMPRESSION: Left lower extremity DVT, as described. Dictated by: Dictated on workstation # [id number]
== END ==
LOC: RAD 13:00
PROVIDERS: ATTEND Nurse Practitioner Family
DX: I82.402 Acute embolism and thrombosis of unspecified deep veins of left lower extremity (principal)

== ENCOUNTER 2021-01-02 15:27 | Outpatient (RCR) | payer MEDICARE, OTHER ==
[~2021-01-02 15:27] MED LIST changes: -LISI-552 PO; -LISI10TA2 PO; +LISI10TA25 PO; +LISI20TA26 PO; -LISI40TA PO; +LISI40TA9 PO
== END 2021-02-11 | disposition home or self-care (01) ==
PROVIDERS: ATTEND Nurse Practitioner Family
DX: I89.0 Lymphedema, not elsewhere classified (principal); E11.9 Type 2 diabetes mellitus without complications; I10 Essential (primary) hypertension; Z86.718 Personal history of other venous thrombosis and embolism; Z86.79 Personal history of other diseases of the circulatory system; Z85.528 Personal history of other malignant neoplasm of kidney; Z90.5 Acquired absence of kidney

== ENCOUNTER → 2021-09-06 | Outpatient (CLI) | payer MEDICARE, OTHER ==
[~2021-09-06] MED LIST changes: -ALPH1TAB8 PO; +BEANO150 UNI1 PO
--- NOTE | 2021-09-06 14:13 | Diagnostic Imaging Report ---
INDICATION: WHEEZING; WEIGHT GAIN. COMPARISON: 01/21/2020 FINDINGS: Frontal and lateral views of the chest demonstrate normal heart size and pulmonary vascularity. The lungs are clear. There are no signs of infiltrate, pleural effusions or pneumothoraces. The visualized osseous structures show no acute abnormalities. IMPRESSION: 1. No acute process. No signs of infiltrates, effusions or pneumothoraces. Dictated by: Dictated on workstation # [id number]
== END ==
LOC: RAD 10:59
PROVIDERS: ATTEND Nurse Practitioner Family
DX: R06.2 Wheezing (principal); R63.5 Abnormal weight gain
CPT/HCPCS: 71046

== ENCOUNTER 2021-11-11 18:50 | Inpatient (IN) | payer MEDICARE, OTHER ==
[~2021-11-11] VITALS: Ht 175.3 cm; Wt 91.3 kg
--- NOTE | 2021-11-11 19:20 | ED General ---
General Chief Complaint: Abdominal/GI Problems Stated Complaint: CONSTIPATION, PROBLEMS URINATING Nursing Triage Note: c/o that it has been 2 days since his last complete BM. Admits that he has taken Senna last this afternoon. He reports that he has had to use more force to get urine out during the last 2 days also. Source of Information: Patient History of Present Illness Date Seen by Provider: Nov 11, 2021 Time Seen by Provider: 19:07 Initial Comments PT ARRIVES VIA POV FROM HOME, LIVES ALONE--A FEMALE IS WITH HIM--HER IS PT'S DPOA. PT HAS NO FAMILY PT STATES HE "CAN'T GO" C/O CONSTIPATION--STATES "I HAD HALF A ONE YESTERDAY AND NONE TODAY" TOOK SENNA X 1 YESTERDAY AND X 2 TODAY--NO RELIEF. ALSO STATES HE "CAN'T URINATE PROPERLY" STATES HE HAS TO PUSH HARD TO GET URINE OUT. NO PAIN/ BURNING ON URINATION HAS PRESSURE IN ABDOMEN BUT NOT PAIN NO NAUSEA/VOMITING NO FEVER NO RECTAL BLEEDING PT IS CURRENTLY BEING TREATED WITH ORAL CHEMO FOR RENAL CELL CARCINOMA--DX IN 2016 AND HAS HAD RIGHT NEPHRECTOMY. STARTED ON NEW ORAL CHEMO TODAY DENIES HISTORY OF CONSTIPATION OR URINARY DIFFICULTY. PCP: DR. DOMINGO ONCOLOGY: [facility] Allergies and Home Medications Allergies Coded Allergies: latex (Verified Allergy, Unknown, 11/11/21) pt reports he is allergic Patient Home Medication List Home Medication List Reviewed: Yes C,E,Zinc,Copper 11/Qrhxn9j/Lut (Ocuvite Adult 50 Plus Softgel) 1 Each Capsule, 1 CAP PO DAILY, (Reported) Entered as Reported by: STEFANIA GUIDRY on 03/09/19 0928 Diltiazem HCl (Cartia Xt) 180 Mg Cap.er.24h, 180 MG PO DAILY, (Reported) Entered as Reported by: NAVEED YOUNGBLOOD on 01/21/20 1530 Famotidine (Acid Steel Analyst (FAMOTIDINE)) 20 Mg Tablet, 20 MG PO BID, (Reported) Entered as Reported by: GEOVANNY RAI on 01/23/20 09 Furosemide (Furosemide) 40 Mg Tablet, 40 MG PO EVERY OTHER DAY, (Reported) Entered as Reported by: GEOVANNY RAI on 01/23/20 09 Glimepiride (Glimepiride) 1 Mg Tablet, 1 MG PO DAILY Prescribed by: JAMIE DOMINGO on 01/24/20 1100 Levothyroxine Sodium (Levothyroxine Sodium) 50 Mcg Tablet, 50 MCG PO DAILY, (Reported) Entered as Reported by: GEOVANNY RAI on 01/23/20 09 Lisinopril (Lisinopril) 40 Mg Tablet, 40 MG PO HS, (Reported) Entered as Reported by: STEFANIA GUIDRY on 03/09/19 09 Loperamide HCl (Loperamide) 2 Mg Capsule, 4 MG PO PRN PRN for DIARRHEA, (Reported) Entered as Reported by: GEOVANNY RAI on 01/23/20 0913 Multivitamin (Multi-Vitamin Daily) 1 Each Tablet, 1 EACH PO DAILY, (Reported) Entered as Reported by: GEOVANNY RAI on 01/23/20 0915 Omeprazole (Omeprazole) 20 Mg Capsule.dr, 20 MG PO DAILY, (Reported) Entered as Reported by: STEFANIA GUIDRY on 03/09/19 0928 Prednisone (Prednisone) 5 Mg Tablet, 5 MG PO DAILY Prescribed by: JAMIE DOMINGO on 01/24/20 1100 Simethicone (Simethicone) 125 Mg Capsule, 250-375 MG PO BID PRN for GAS, (Reported) Entered as Reported by: STEFANIA GUIDRY on 03/09/19 09 Tramadol HCl (Tramadol HCl) 50 Mg Tablet, 50 MG PO Q4H PRN for PAIN-MODERATE (5- 7), (Reported) Entered as Reported by: GEOVANNY RAI on 01/23/20 0912 Review of Systems Review of Systems Constitutional: no symptoms reported Respiratory: no symptoms reported Cardiovascular: no symptoms reported Gastrointestinal: see HPI Genitourinary: see HPI Musculoskeletal: no symptoms reported Skin: no symptoms reported Psychiatric/Neurological: No Symptoms Reported Hematologic/Lymphatic: See HPI Immunological/Allergic: see HPI Past Xjhdozz-Sabzwn-Utmxsy Hx Patient Social History Tobacco Use?: No Substance use?: No Alcohol Use?: No Immunizations Up To Date Tetanus Booster (TDap): Less than 5yrs Seasonal Allergies Seasonal Allergies: No Past Medical History Surgeries: Yes (ORAL, LEFT INGROWN THUMBNAIL REMOVED,L NEPHRECTOMY 2015 ;L KNEE SCOPE 2014) Nephrectomy, Orthopedic Respiratory: No Cardiac: Yes Atrial Fibrillation, Chronic Edema/Swelling, Hypertension Neurological: No Reproductive Disorders: No Genitourinary: Yes (RENAL CELL CANCER; RENAL INSUFFICIENCY) Renal Failure Gastrointestinal: Yes Gastroesophageal Reflux Musculoskeletal: Yes (SPINAL STENOSIS;CHRONIC KNEE PAIN & LEG SWELLING--LEFT > RIGHT;L KNEE SCOPE) Chronic Back Pain Endocrine: Yes (WAS ON INSULIN, NOW ON ORAL MEDICATION) Diabetes, Non-Insulin dep HEENT: No Cancer: Yes Kidney Did You Recieve Any Treatments: Yes What Type of Treatment Did You: Chemotherapy, Surgical Intervention RENAL CELL CARCINOMA DX 2016 HAD LEFT NEPHRECTOMY 2016 AND ANOTHER SURGERY IN 2017 FOR RESIDUAL TUMOR Psychosocial: No Integumentary: No Blood Disorders: No Physical Exam Vital Signs Vital Signs - First Documented Capillary Refill : Less Than 3 Seconds Height, Weight, BMI Height: 5'10.00" Weight: 185lbs. 1.0oz. 83.987735yn; 28.00 BMI Method:Stated General Appearance: No Apparent Distress, WD/WN Neck: Normal Inspection Respiratory: Normal Breath Sounds, No Accessory Muscle Use, No Respiratory Distress Cardiovascular: No Murmur, Tachycardia Gastrointestinal: Soft, Tenderness (MILD GENERALIZED TENDERNESS), Other Back: No CVA Tenderness Extremity: Other (3-4+ EDEMA ON LEFT , 2+ ON RIGHT--WEARING COMPRESSION STOCKINGS.) Neurologic/Psychiatric: Alert, Oriented x3, Normal Mood/Affect, biometrics consultant II-XII Norm as Tested Skin: Normal Color, Warm/Dry Focused Exam Sepsis Stage: Sepsis Possible Source: Pulmonary Lactate Level 11/11/21 20:19: Lactic Acid Level 1.66 Time of Focused Exam: 21:40 Respiratory: Normal Breath Sounds, No Accessory Muscle Use Cardiovascular: No Murmur, Tachycardia Capillary Refill: Less Than 3 Seconds Skin: normal color, warm/dry Lactic Acid Level Laboratory Tests Test 11/11/21 20:19 Lactic Acid Level 1.66 MMOL/L (0.50-2.00) Within 3hrs of presentation: Admin fluids, Admin ABX, Blood cultures prior to ABX's, Focus exam, Lactate level Progress/Results/Core Measures Suspected Sepsis SIRS Temperature: Pulse: 116 Respiratory Rate: 20 Laboratory Tests 11/11/21 20:02: White Blood Count 12.1H Blood Pressure 160 /102 Mean: 121 11/11/21 20:19: Lactic Acid Level 1.66 Laboratory Tests 11/11/21 20:02: Creatinine 1.81H, Platelet Count 197, Total Bilirubin 0.5 Results/Orders Lab Results Laboratory Tests Test 11/11/21 19:37 11/11/21 20:02 11/11/21 20:19 11/11/21 20:27 Range/Units Urine Color YELLOW Urine Clarity CLEAR Urine pH 6.0 5-9 Urine Specific [place] 1.010 L 1.016-1.022 Urine Protein NEGATIVE NEGATIVE Urine Glucose (UA) 3+ H NEGATIVE Urine Ketones NEGATIVE NEGATIVE Urine Nitrite NEGATIVE NEGATIVE Urine Bilirubin NEGATIVE NEGATIVE Urine Urobilinogen 0.2 < = 1.0 MG/DL Urine Leukocyte Esterase NEGATIVE NEGATIVE Urine RBC (Auto) TRACE-I H NEGATIVE Urine RBC NONE /HPF Urine WBC 0-2 /HPF Urine Squamous Epithelial Cells 0-2 /HPF Urine Crystals NONE /LPF Urine Bacteria NEGATIVE /HPF Urine Casts NONE /LPF Urine Mucus NEGATIVE /LPF Urine Culture Indicated NO White Blood Count 12.1 H 4.3-11.0 10^3/uL Red Blood Count 6.41 H 4.30-5.52 10^6/uL Hemoglobin 16.0 13.3-17.7 g/dL Hematocrit 53 40-54 % Mean Corpuscular Volume 82 80-99 fL Mean Corpuscular Hemoglobin 25 25-34 pg Mean Corpuscular Hemoglobin Concent 31 L 32-36 g/dL Red Cell Distribution Width 23.5 H 10.0-14.5 % Platelet Count 197 130-400 10^3/uL Mean Platelet Volume 9.4 9.0-12.2 fL Immature Granulocyte % (Auto) 0 % Neutrophils (%) (Auto) 77 H 42-75 % Lymphocytes (%) (Auto) 8 L 12-44 % Monocytes (%) (Auto) 9 0-12 % Eosinophils (%) (Auto) 5 0-10 % Basophils (%) (Auto) 1 0-10 % Neutrophils # (Auto) 9.4 H 1.8-7.8 10^3/uL Lymphocytes # (Auto) 1.0 1.0-4.0 10^3/uL Monocytes # (Auto) 1.1 H 0.0-1.0 10^3/uL Eosinophils # (Auto) 0.6 H 0.0-0.3 10^3/uL Basophils # (Auto) 0.1 0.0-0.1 10^3/uL Immature Granulocyte # (Auto) 0.1 0.0-0.1 10^3/uL Sodium Level 140 135-145 MMOL/L Potassium Level 4.0 3.6-5.0 MMOL/L Chloride Level 103 98-107 MMOL/L Carbon Dioxide Level 21 21-32 MMOL/L Anion Gap 16 H 5-14 MMOL/L Blood Urea Nitrogen 24 H 7-18 MG/DL Creatinine 1.81 H 0.60-1.30 MG/DL Estimat Glomerular Filtration Rate 39 BUN/Creatinine Ratio 13 Glucose Level 159 H 70-105 MG/DL Calcium Level 9.0 8.5-10.1 MG/DL Corrected Calcium 9.2 8.5-10.1 MG/DL Total Bilirubin 0.5 0.1-1.0 MG/DL Aspartate Amino Transf (AST/SGOT) 16 5-34 U/L Alanine Aminotransferase (ALT/SGPT) 18 0-55 U/L Alkaline Phosphatase 77 40-136 U/L Total Protein 6.7 6.4-8.2 GM/DL Albumin 3.7 3.2-4.5 GM/DL Procalcitonin 0.06 <0.10 NG/ML Lactic Acid Level 1.66 0.50-2.00 MMOL/L Influenza Type A (RT-PCR) Not Detected Not Detecte Influenza Type B (RT-PCR) Not Detected Not Detecte SARS-CoV-2 RNA (RT-PCR) Not Detected Not Detecte My Orders Orders - BARB BROWN DO Bladder Scan (11/11/21 19:14) Acute Abd Series (11/11/21 19:14) Catheter(Urinary) Insert & Ass 03,15 (11/11/21 19:35) Cbc With Automated Diff (11/11/21 19:35) Comprehensive Metabolic Panel (11/11/21 19:35) Ua Culture If Indicated (11/11/21 19:35) Lidocaine 2% (Urojet) (Xylocaine Urojet) (11/11/21 19:45) Lactic Acid Analyzer (11/11/21 20:08) Blood Culture (11/11/21 20:08) Ceftriaxone 1 Gm Pre-Mix (Rocephin 1 Gm (11/11/21 20:15) Azithromycin Injection (Zithromax Inject (11/11/21 20:15) Ed Iv/Invasive Line Start (11/11/21 20:08) Lactated Ringers (Lr 1000 Ml Iv Solution (11/11/21 20:15) Procalcitonin (Pct) (11/11/21 20:02) Covid 19 Inhouse Test (11/11/21 20:23) Influenza A And B By Pcr (11/11/21 20:23) Isolation Central Supply Req (11/11/21 20:23) Ct Chest/Abdomen/Pelvis Wo (11/11/21 20:23) Catheter(Urinary) Insert & Ass ,15 (11/11/21 20:43) Ceftriaxone 1 Gm Pre-Mix (Rocephin 1 Gm (11/11/21 21:45) Azithromycin Injection (Zithromax Inject (11/11/21 21:45) Vital Signs Adult Sepsis Patie Q15M (11/11/21 21:54) Remove Rings In Anticipation O (11/11/21 21:54) Medications Given in ED Current Medications Medications Dose Ordered Sig/Brittany Route Start Time Stop Time Status Last Admin Dose Admin Azithromycin 500 mg/Sodium Chloride 255 ml @ 250 mls/hr ONCE ONCE IV 11/11/21 20:15 11/11/21 21:16 DC 11/11/21 20:50 250 MLS/HR Ceftriaxone Sodium/Dextrose 50 ml @ 100 mls/hr ONCE ONCE IV 11/11/21 20:15 11/11/21 20:44 DC 11/11/21 20:50 100 MLS/HR Lactated Ringer's 1,000 ml @ 0 mls/hr Q0M ONCE IV 11/11/21 20:15 11/11/21 20:16 DC 11/11/21 20:51 999 MLS/HR Lidocaine HCl 10 ml ONCE ONCE TOP 11/11/21 19:45 11/11/21 19:46 DC 11/11/21 19:45 10 ML Vital Signs/I&O 11/11/21 11/11/21 19:01 19:01 Temp 36.6 Pulse 114 116 Resp 18 20 B/P (MAP) 160/102 160/102 (121) Pulse Ox 99 99 O2 Delivery Room Air Room Air 11/12/21 00:00 Output Total 295 ml Balance -295 ml Capillary Refill : Less Than 3 Seconds Blood Pressure Mean: 121 Progress Note : Progress Note PT VOIDED 295 ON HIS OWN, THEN BLADDER SCAN DONE, SHOWING 395 RESIDUAL IN BLADDER AFTER VOIDING CATHETER PLACED WITH IMMEDIATE RETURN OF >1100 ML CLEAR URINE--PRIOR TO RECEIVING ANY IV FLUIDS ON REVIEWING XRAY REPORT, WITH FINDINGS SUSPICIOUS FOR PNEUMONIA, PT NOW REPORTS THAT HE HAS BEEN "SPITTING UP A LITTLE BLOOD" --STATES IT IS NOT NEW, AND THAT HE HAS "A SPOT" ON HIS LEFT LUNG. CT SCAN ORDERED AND SEPSIS PROTOCOL INITIATED NO DETERIORATION IN PT'S CONDITION DURING ER STAY NO COUGH NO DYSPNEA NO HYPOXIA NO FEVER DOES REMAIN TACHYCARDIC IN 110'S PT WISHES TO BE A FULL CODE Diagnostic Imaging Comments ACUTE ABDOMEN XRAYS--PER RADIOLOGIST REPORT AT 2006 COMMENTS: There is opacification in the left perihilar region which is an interval change. Heart size appears unchanged. There is no identified pneumothorax. There is a normal variant azygous lobe. There is no large pleural effusion. There is no identified free intraperitoneal air. There are gas-filled segments of bowel which are not grossly distended. There is a large volume colonic stool. There is a thoracolumbar levoscoliosis. There are vascular calcifications. There is no identified pneumatosis or portal venous gas. IMPRESSION: 1. Large volume colonic stool. 2. No identified acute abdominal radiographic abnormality. 3. Nonspecific left perihilar opacification which is new since September 06, 2021. This may reflect infiltrate and/or atelectasis. Pneumonia and additional alveolar consolidative processes are in the differential diagnosis. CT CHEST/ABDOMEN/PELVIS--PER RADIOLOGIST REPORT AT 2139 Findings: There is a normal variant azygous lobe. There is left upper lobe collapse. There is complete opacification of the left upper lobe bronchus. The heart is not enlarged. There is no pericardial effusion. There are coronary artery calcifications. There is a central low-attenuation in the left paratracheal lymph node measuring 2.3 cm in short axis on axial image 40. This is very likely pathologic. There is limited evaluation of the abdominal parenchymal organs and vasculature and overall assessment for metastatic disease given lack of intravenous contrast. The liver is unremarkable in size and contour. There are multiple gallstones. There is no evidence of acute cholecystitis. There is no intrahepatic or extrahepatic bile duct dilation. The main pancreatic duct is not abnormally dilated. Limited noncontrast assessment of the pancreatic parenchyma is unremarkable. The spleen is normal in size. There is no identified adrenal nodule or mass. The left kidney is absent. Limited noncontrast assessment of the right kidney is unremarkable. There is no right hydronephrosis. There is a Carreon catheter within a collapsed urinary bladder which is otherwise not well evaluated. There is a large volume colonic stool. The intestinal tract is not distended. There is no free intraperitoneal air. There is no drainable fluid collection. There is no sizable volume free pelvic fluid. There are atherosclerotic calcifications. There is no identified abnormally enlarged lymph node in the abdomen or pelvis meeting CT size criteria for adenopathy. There are multilevel degenerative changes of the spine. There is expansion of the right posterior sixth rib. There is grade 1 anterolisthesis of L4 on L5 relating to facet arthropathy. The expansion of the right sixth rib posteriorly is new since prior CT on January 10, 2016. Impression: 1. Complete opacification of the left upper lobe bronchus highly concerning for malignancy at this site. There is associated complete left upper lobe collapse. This may potentially reflect metastatic disease or primary lung malignancy. 2. Abnormally enlarged left paratracheal lymph node highly likely reflecting metastatic cassy disease. 3. Chronic appearing expansion of the right sixth rib posteriorly which is an interval change since January 10, 2016. This could relate to sequela of metastatic lesion. There is no current interval aggressive bone destruction at this location. 4. Large volume colonic stool. Reviewed: Reviewed by Oh Departure Communication (Admissions) 2140--SPOKE WITH DR. CASEY, HOSPITALIST, ACCEPTS PT FOR ADMIT Impression Primary Impression: LEFT SIDED PNEUMONIA Additional Impressions: CONSTIPATION WITH RECTAL IMPACTION Urinary retention Renal cell cancer Metastatic renal cell carcinoma Chronic renal insufficiency Sepsis Disposition: ADMITTED INPATIENT Condition: Stable Admissions Decision to Admit Reason: Admit from ER (General) Decision to Admit/Date: Nov 11, 2021 Time/Decision to Admit Time: 21:45 Departure-Patient Inst. Referrals: JAMIE DOMINGO MD (PCP) Primary Care Physician BARB BROWN DO Nov 11, 2021 19:20
[2021-11-11 19:43] LABS: BILIRUBIN,URINE NEGATIVE (NEGATIVE); CLARITY,URINE CLEAR; COLOR,URINE YELLOW; GLUCOSE, URINE (UA) 3+ (NEGATIVE); KETONES,URINE NEGATIVE (NEGATIVE); LEUKOCYTE ESTERASE ,URINE NEGATIVE (NEGATIVE); NITRITE,URINE NEGATIVE (NEGATIVE); PROTEIN,URINE NEGATIVE (NEGATIVE)
[2021-11-11] MEDS ORDERED: LIDOCAINE UROJET 2% GEL 10 ML PKG TOP ONE (19:45)
[2021-11-11 19:59] LABS: BACTERIA,URINE NEGATIVE /HPF; SQUAMOUS EPITHELIAL CELL,UR 0-2 /HPF; WBC,URINE 0-2 /HPF
--- NOTE | 2021-11-11 20:02 | Diagnostic Imaging Report ---
EXAMINATION: Abdominal radiographs, acute series. DATE: November 11, 2021. CLINICAL INDICATION: 76-year-old male, abdominal pain. COMPARISON: Ultrasound abdomen complete March 09, 2019. CT chest and abdomen January 10, 2016. Chest radiographs September 06, 2021. COMMENTS: There is opacification in the left perihilar region which is an interval change. Heart size appears unchanged. There is no identified pneumothorax. There is a normal variant azygous lobe. There is no large pleural effusion. There is no identified free intraperitoneal air. There are gas-filled segments of bowel which are not grossly distended. There is a large volume colonic stool. There is a thoracolumbar levoscoliosis. There are vascular calcifications. There is no identified pneumatosis or portal venous gas. IMPRESSION: 1. Large volume colonic stool. 2. No identified acute abdominal radiographic abnormality. 3. Nonspecific left perihilar opacification which is new since September 06, 2021. This may reflect infiltrate and/or atelectasis. Pneumonia and additional alveolar consolidative processes are in the differential diagnosis. Dictated by: Dictated on workstation # [id number]
[2021-11-11 20:08] LABS: BASOPHILS # (AUTO) 0.1 10^3/uL (0.0-0.1); BASOPHILS % (AUTO) 1 % (0-10); EOSINOPHILS # (AUTO) 0.6 10^3/uL (0.0-0.3); EOSINOPHILS % (AUTO) 5 % (0-10); HEMATOCRIT 53 % (40-54); LYMPHOCYTES % (AUTO) 8 % (12-44); MEAN CORPUSCULAR HEMOGLOBIN 25 pg (25-34); MEAN CORPUSCULAR HGB CONC 31 g/dL (32-36); MEAN CORPUSCULAR VOLUME 82 fL (80-99); MEAN PLATELET VOLUME 9.4 fL (9.0-12.2); MONOCYTES # (AUTO) 1.1 10^3/uL (0.0-1.0); MONOCYTES % (AUTO) 9 % (0-12); NEUTROPHILS # (AUTO) 9.4 10^3/uL (1.8-7.8); NEUTROPHILS % (AUTO) 77 % (42-75); PLATELET COUNT 197 10^3/uL (130-400); WHITE BLOOD COUNT 12.1 10^3/uL (4.3-11.0)
[2021-11-11] MEDS ORDERED: cefTRIAXone 1 GM PRE-MIX 50 ML IV ONE ×2 (20:15→21:45)
[2021-11-11] MEDS ORDERED: AZITHROMYCIN INJECTION 500 MG in NS (IVPB) 250 ML IV ONE ×2 (20:15→21:45)
[2021-11-11] MEDS ORDERED: LACTATED RINGERS 1,000 ML IV ONE (20:15)
[2021-11-11 20:20] LABS: ALBUMIN 3.7 GM/DL (3.2-4.5)
[2021-11-11 20:23] LABS: TOTAL PROTEIN 6.7 GM/DL (6.4-8.2)
[2021-11-11 20:25] LABS: BILIRUBIN,TOTAL 0.5 MG/DL (0.1-1.0)
[2021-11-11 20:27] LABS: CREATININE SERUM 1.81 MG/DL (0.60-1.30)
--- NOTE | 2021-11-11 21:39 | Diagnostic Imaging Report ---
Procedure: CT chest, abdomen, and pelvis without contrast. Technique: Multiple contiguous axial images were obtained through the chest, abdomen, and pelvis without the use of intravenous contrast. Auto Exposure Controls were utilized during the CT exam to meet ALARA standards for radiation dose reduction. Date: November 11, 2021. Indication: 76-year-old male, difficulty with bowel movements and urinating. History of renal cancer with metastatic disease. Comparison: Chest radiographs September 06, 2021. Abdominal radiographs November 11, 2021. CT chest and abdomen January 10, 2016. Findings: There is a normal variant azygous lobe. There is left upper lobe collapse. There is complete opacification of the left upper lobe bronchus. The heart is not enlarged. There is no pericardial effusion. There are coronary artery calcifications. There is a central low-attenuation in the left paratracheal lymph node measuring 2.3 cm in short axis on axial image 40. This is very likely pathologic. There is limited evaluation of the abdominal parenchymal organs and vasculature and overall assessment for metastatic disease given lack of intravenous contrast. The liver is unremarkable in size and contour. There are multiple gallstones. There is no evidence of acute cholecystitis. There is no intrahepatic or extrahepatic bile duct dilation. The main pancreatic duct is not abnormally dilated. Limited noncontrast assessment of the pancreatic parenchyma is unremarkable. The spleen is normal in size. There is no identified adrenal nodule or mass. The left kidney is absent. Limited noncontrast assessment of the right kidney is unremarkable. There is no right hydronephrosis. There is a Carreon catheter within a collapsed urinary bladder which is otherwise not well evaluated. There is a large volume colonic stool. The intestinal tract is not distended. There is no free intraperitoneal air. There is no drainable fluid collection. There is no sizable volume free pelvic fluid. There are atherosclerotic calcifications. There is no identified abnormally enlarged lymph node in the abdomen or pelvis meeting CT size criteria for adenopathy. There are multilevel degenerative changes of the spine. There is expansion of the right posterior sixth rib. There is grade 1 anterolisthesis of L4 on L5 relating to facet arthropathy. The expansion of the right sixth rib posteriorly is new since prior CT on January 10, 2016. Impression: 1. Complete opacification of the left upper lobe bronchus highly concerning for malignancy at this site. There is associated complete left upper lobe collapse. This may potentially reflect metastatic disease or primary lung malignancy. 2. Abnormally enlarged left paratracheal lymph node highly likely reflecting metastatic cassy disease. 3. Chronic appearing expansion of the right sixth rib posteriorly which is an interval change since January 10, 2016. This could relate to sequela of metastatic lesion. There is no current interval aggressive bone destruction at this location. 4. Large volume colonic stool. Dictated by: Dictated on workstation # [id number]
[2021-11-11 22:48] VITALS: BP 165/100
[2021-11-11] MEDS ORDERED: NS IV 1000 ML 1,000 ML ONE (23:05)
[2021-11-11 23:50] VITALS: BP 160/102
[2021-11-12] VITALS (7 sets, daily range): BP systolic 131–164; BP diastolic 70–92
[2021-11-12] MEDS ORDERED: ONDANSETRON 4 MG/2 ML (SDV) Z0FRAN IV PRN (00:15)
[2021-11-12] MEDS ORDERED: ACETAMINOPHEN 500 MG TAB (TYLENOL) PO PRN (00:15)
[2021-11-12] MEDS ORDERED: IBUPROFEN TABLET 200 MG TAB PO PRN (00:15)
[2021-11-12] MEDS ORDERED: RT-ALBUTEROL SULF 2.5 MG/3 ML PRE-MIX VIAL INH PRN (00:15)
[2021-11-12] MEDS: NS IV 1000 ML 1,000 ML IV SCH ×2 (00:34→05:31)
[2021-11-12] MEDS ORDERED: BUME1TAB8 PO ×2 (01:14→14:40)
[2021-11-12] MEDS ORDERED: SPIR50TA4 PO ×2 (01:14→14:40)
[2021-11-12] MEDS ORDERED: EMPA25TA PO ×2 (01:14→14:40)
[2021-11-12] MEDS ORDERED: GABA-486 PO ×2 (01:14→01:17)
[2021-11-12] MEDS ORDERED: [UNRECOGNIZED DRUG - CODE] PO ×2 (01:14→14:40)
[2021-11-12] MEDS ORDERED: APIX5TAB PO ×2 (01:14→14:40)
[2021-11-12] MEDS ORDERED: LISI20TA26 PO ×2 (01:14→14:40)
[2021-11-12] MEDS ORDERED: GLIM2TAB4 PO ×2 (01:14→14:40)
[2021-11-12 06:09] LABS: BASOPHILS # (AUTO) 0.1 10^3/uL (0.0-0.1); BASOPHILS % (AUTO) 1 % (0-10); EOSINOPHILS # (AUTO) 0.4 10^3/uL (0.0-0.3); EOSINOPHILS % (AUTO) 4 % (0-10); HEMATOCRIT 49 % (40-54); HEMOGLOBIN 14.7 g/dL (13.3-17.7); LYMPHOCYTES # (AUTO) 1.1 10^3/uL (1.0-4.0); LYMPHOCYTES % (AUTO) 10 % (12-44); MEAN CORPUSCULAR HEMOGLOBIN 25 pg (25-34); MEAN CORPUSCULAR HGB CONC 30 g/dL (32-36); MEAN CORPUSCULAR VOLUME 83 fL (80-99); MEAN PLATELET VOLUME 9.7 fL (9.0-12.2); MONOCYTES # (AUTO) 0.9 10^3/uL (0.0-1.0); MONOCYTES % (AUTO) 9 % (0-12); NEUTROPHILS # (AUTO) 8.4 10^3/uL (1.8-7.8); NEUTROPHILS % (AUTO) 77 % (42-75); PLATELET COUNT 190 10^3/uL (130-400); WHITE BLOOD COUNT 10.8 10^3/uL (4.3-11.0)
[2021-11-12 06:31] LABS: ALBUMIN 3.2 GM/DL (3.2-4.5); BILIRUBIN,TOTAL 0.4 MG/DL (0.1-1.0); CALCIUM 8.3 MG/DL (8.5-10.1); CREATININE SERUM 1.49 MG/DL (0.60-1.30); TOTAL PROTEIN 5.7 GM/DL (6.4-8.2)
[2021-11-12] MEDS: inSUlin ASPART (NovoLOG) 1 UNIT/0.01 ML (CHARGE PER UNIT) SC SCH ×4 (06:53→21:08)
[2021-11-12] MEDS: polyethylene glycoL POWDER 17 GM (MIRALAX) PACK PO SCH (09:30)
[2021-11-12] MEDS ORDERED: LORATADINE (CLARITIN) 10 MG TAB PO ONE (10:30)
--- NOTE | 2021-11-12 10:48 | Physical Therapy Evaluation ---
PT Evaluation-General Medical Diagnosis Admission Date Nov 11, 2021 at 21:55 Medical Diagnosis: pneumonia/metastatic renal cancer/sepsis Onset Date: Nov 11, 2021 Therapy Diagnosis Therapy Diagnosis: debility/weakness Height/Weight Height (Feet): 5 Height (Inches): 10.00 Weight (Pounds): 185 Weight (Ounces): 1.0 Precautions Precautions/Isolations: Fall Prevention, Standard Precautions Referral Physician: Giselle Reason for Referral: Evaluation/Treatment Medical History Pertinent Medical History: Atrial Fib, DM, HTN, Neuropathy, Renal Insufficiency Current History ER secondary to constipation (receiving oral chemo) Reviewed History: Yes Social History Home: Single Level Current Living Status: Alone PT Steps Into Home: 3 Prior Prior Level of Function SCALE: Activities may be completed with or without assistive devices. 2-Elpurfozrj-bgmwrug completes the activity by him/herself with no assistance from a helper. 5-Set-up or Clean-up Assistance-helper sets up or cleans up; patient completes activity. [place] assists only prior to or following the activity. 4-Supervision or Touching Assistance-helper provides verbal cues and/or touchi ng/steadying and/or contact guard assistance as patient completes activity. Assistance may be provided throughout the activity or intermittently. 3-Partial/Moderate Assistance-helper does LESS THAN HALF the effort. [place] lifts, holds or supports trunk or limbs, but provides less than half the effort. 2-Substantial/Maximal Assistance-helper does MORE THAN HALF the effort. [place] lifts or holds trunk or limbs and provides more than half the effort. 4-Ljzkpcvef-qaouvp does ALL the effort. Patient does none of the effort to complete the activity. Or, the assistance of 2 or more helpers is required for the patient to complete the activity. If activity was not attempted, code reason: 7-Patient Refused. 9-Not Applicable-not attempted and the patient did not perform the activity before the current illness, exacerbation or injury. 10-Not Attempted due to Environmental Limitations-(lack of equipment, weather restraints, etc.). 88-Not Attempted due to Medical Conditions or Safety Concerns. Bed Mobility: 6 Transfers (B,C,W/C): 6 Gait: 6 Stairs: 6 Indoor Mobility (Ambulation): Independent Stairs: Independent Prior Devices Use: None has FWW, 4WW and a cane PT Evaluation-Current Subjective Patient agrees to PT. No c/o at this time. Objective Patient Orientation: Normal For Age Attachments: Carroen Catheter, IV ROM/Strength ROM Lower Extremities bilateral LE WFL Strength Lower Extremities 3+/5 grossly bilateral LE Integumentary/Posture Integumentary refer to nursing notes Bladder Incontinence: Carreon Cath Posture slightly kyphotic Neuromuscular (Tone, Coordination, Reflexes) grossly intact Sensory Vision: Functional Hearing: Functional Sensation Right Lower Extremit: Impaired Sensation Left Lower Extremity: Impaired Transfers Roll Left to Right (QC): 6 Lying to Sitting/Side of Bed(Q: 6 Sit to Stand (QC): 4 Chair/Cur-kv-Uonhn Xfer(QC): 4 Gait Mode of Locomotion: Walk Anticipated Mode of Locomotion: Walk Walk 10 feet (QC): 4 Walk 50 ft with 2 Turns(QC): 4 Walk 150 ft (QC): 4 Distance: 600' Gait Assistive Device: FWW Comments/Gait Description SBA for safety for initial evaluation/safe and functional gait sequence Balance Sitting Static: Normal Sitting Dynamic: Normal Standing Static: Normal Standing Dynamic: Normal Assessment/Needs Patient has noted edema bilateral LE's which is chronic per patient report. Patient tolerated treatment well and is up in recliner with needs met. Rehab Potential: Guarded PT Shelter Goals Greeting Card Editor Goals PT Shelter Goals Time Frame: November 23, 2021 Roll Left & Right (QC): 6 Sit to Lying (QC): 6 Lying-Sitting on Side/Bed(QC): 6 Sit to Stand (QC): 6 Chair/Qee-lh-Prnrn Xfer(QC): 6 Toilet Transfer (QC): 6 Walk 10 feet (QC): 6 Walk 50ft with 2 Turns (QC): 6 Walk 150 ft (QC): 6 PT Plan Problem List Problem List: Functional Strength Treatment/Plan Treatment Plan: Continue Plan of Care Treatment Plan: Bed Mobility, Education, Functional Activity [place], Functional Strength, Gait, Safety, Therapeutic Exercise, Transfers Treatment Duration: November 23, 2021 Frequency: 6 times per week Estimated Hrs Per Day: .25 hour per day Time/GCodes Time In: 1025 Time Out: 1039 Total Billed Treatment Time: 14 Total Billed Treatment 1 visit EVMod 14 min LIYAH BATRES PT Nov 12, 2021 10:48
--- NOTE | 2021-11-12 11:13 | History & Physical ---
SINDY THAKKAR 11/12/21 1113: History of Present Illness History of Present Illness Reason for visit/HPI CC: Constipation HPI: The patient is a 76 YO male with a PMH of renal cell carcinoma, spinal stenosis, DM, and AFib who presented to the ED yesterday on 11/11/21 due to complaints of constipation. He reports that on 11/10/21 he only had a partial bowel movement, and then on 11/11/21 he had no bowel movements. He took Senna 1x on 11/10/21, and then 2x on 11/11/21 with no relief. Imaging in the ED showed evidence of a left side pneumonia and impacted stool. The patient also had trouble emptying his bladder between 11/10/21 and 11/11/21. He currently has a folley catheter placed. The patient today reports that he has been able to evacuate his bowels through enemas he received in the hospital. He denies any pain. He does mention coughing up some blood between Thursday and Thursday. Date of Admission Nov 11, 2021 at 21:55 Date Seen by a Provider: Nov 12, 2021 Time Seen by a Provider: 09:30 I consulted on this patient on 11/12/21 11:05 Attending Physician Patria Casey DO Admitting Physician Jamie Owens MD Consult Allergies and Home Medications Allergies Coded Allergies: latex (Verified Allergy, Unknown, 11/11/21) pt reports he is allergic Patient Home Medication List Albuterol Sulfate (Proventil Hfa) 6.7 Gm Hfa.aer.ad, 2 PUFF INH Q6H PRN for SHORTNESS OF BREATH, (Reported) Entered as Reported by: YAIR GONZALEZ on 11/12/211439 Last Action: Reviewed Apixaban (Eliquis) 5 Mg Tablet, 5 MG PO BID, (Reported) Entered as Reported by: YAIR GONZALEZ on 11/12/211439 Last Action: Reviewed Bumetanide (Bumetanide) 1 Mg Tablet, 1 MG PO 0800,1500, (Reported) Entered as Reported by: YAIR GONZALEZ on 11/12/211439 Last Action: Reviewed C,E,Zinc,Copper 11/Uvsdw7b/Lut (Ocuvite Adult 50 Plus Softgel) 1 Each Capsule, 1 CAP PO DAILY, (Reported) Entered as Reported by: STEFANIA GUIDRY on 03/09/19927 Last Action: Reviewed Diltiazem HCl (Diltiazem 24Hr ER) 180 Mg Cap.er.24h, 180 MG PO DAILY, (Reported) Entered as Reported by: YAIR GONZALEZ on 11/12/211439 Last Action: Reviewed Empagliflozin (Jardiance) 25 Mg Tablet, 25 MG PO DAILY, (Reported) Entered as Reported by: YAIR GONZALEZ on 11/12/211439 Last Action: Reviewed Gabapentin (Neurontin) 300 Mg Capsule, 300 MG PO BID, (Reported) Entered as Reported by: YAIR GONZALEZ on 11/12/211439 Last Action: Reviewed Glimepiride (Glimepiride) 2 Mg Tablet, 2 MG PO BID, (Reported) Entered as Reported by: YAIR GONZALEZ on 11/12/211439 Last Action: Reviewed Levothyroxine Sodium (Levothyroxine Sodium) 50 Mcg Tablet, 50 MCG PO DAILY, (Reported) Entered as Reported by: GEOVANNY RAI on 01/23/20905 Last Action: Reviewed Lisinopril (Lisinopril) 20 Mg Tablet, 30 MG PO DAILY, (Reported) Entered as Reported by: YAIR GONZALEZ on 11/12/211439 Last Action: Reviewed Loratadine (Claritin) 10 Mg Tablet, 10 MG PO HS, (Reported) Entered as Reported by: YAIR GONZALEZ on 11/12/211439 Last Action: Reviewed Omeprazole (Omeprazole) 20 Mg Capsule.dr, 20 MG PO DAILY, (Reported) Entered as Reported by: STEFANIA GUIDRY on 03/09/19927 Last Action: Reviewed Spironolactone (Spironolactone) 50 Mg Tablet, 50 MG PO DAILY, (Reported) Entered as Reported by: YAIR GONZALEZ on 11/12/211439 Last Action: Reviewed Tivozanib HCl (Fotivda) 1.34 Mg Capsule, 1.34 MG PO DAILY, (Reported) Entered as Reported by: YAIR GONZALEZ on 11/12/211439 Last Action: Reviewed Tramadol HCl (Tramadol HCl) 50 Mg Tablet, 50 MG PO Q4H PRN for PAIN-MODERATE (5- 7), (Reported) Entered as Reported by: GEOVANNY RAI on 01/23/20 0912 Last Action: Reviewed Discontinued Medications Apixaban (Eliquis) 5 Mg Tablet, 5 MG PO BID Discontinued Reason: Duplicate Order Prescribed by: STEPHEN MACDONALD on 11/12/21113 Last Action: Discontinued Bumetanide (Bumetanide) 1 Mg Tablet, 1 MG PO DAILY Discontinued Reason: Duplicate Order Prescribed by: STEPHEN MACDONALD on 11/12/21113 Last Action: Discontinued Diltiazem HCl (Cartia Xt) 180 Mg Cap.er.24h, 180 MG PO DAILY, (Reported) Discontinued Reason: Provider Change Entered as Reported by: NAVEED YOUNGBLOOD on 01/21/20 1530 Last Action: Discontinued Empagliflozin (Jardiance) 25 Mg Tablet, 25 MG PO DAILY Discontinued Reason: Duplicate Order Prescribed by: STEPHEN MACDONALD on 11/12/21113 Last Action: Discontinued Famotidine (Acid Assistant Analyst (FAMOTIDINE)) 20 Mg Tablet, 20 MG PO BID, (Reported) Discontinued Reason: No Longer Taking Entered as Reported by: GEOVANNY RAI on 01/23/20 0910 Last Action: Discontinued Furosemide (Furosemide) 40 Mg Tablet, 40 MG PO EVERY OTHER DAY, (Reported) Discontinued Reason: No Longer Taking Entered as Reported by: GEOVANNY RAI on 01/23/20 0909 Last Action: Discontinued Gabapentin (Gabapentin) 100 Mg Capsule, 300 MG PO BID Discontinued Reason: Duplicate Order Prescribed by: STEPHEN MACDONALD on 11/12/21116 Last Action: Discontinued Glimepiride (Glimepiride) 1 Mg Tablet, 1 MG PO DAILY Discontinued Reason: Duplicate Order Prescribed by: JAMIE OWENS on 01/24/20 1100 Last Action: Discontinued Lisinopril (Lisinopril) 40 Mg Tablet, 40 MG PO HS, (Reported) Discontinued Reason: No Longer Taking Entered as Reported by: STEFANIA GUIDRY on 03/09/19 0903 Last Action: Discontinued Lisinopril (Lisinopril) 20 Mg Tablet, 20 MG PO BID Discontinued Reason: Duplicate Order Prescribed by: STEPHEN MACDONALD on 11/12/21113 Last Action: Discontinued Loperamide HCl (Loperamide) 2 Mg Capsule, 4 MG PO PRN PRN for DIARRHEA, (Reported) Discontinued Reason: No Longer Taking Entered as Reported by: GEOVANNY RAI on 01/23/2013 Last Action: Discontinued Multivitamin (Multi-Vitamin Daily) 1 Each Tablet, 1 EACH PO DAILY, (Reported) Discontinued Reason: No Longer Taking Entered as Reported by: GEOVANNY RAI on 01/23/2015 Last Action: Discontinued Prednisone (Prednisone) 5 Mg Tablet, 5 MG PO DAILY Discontinued Reason: No Longer Taking Prescribed by: JAMIE OWENS on 01/24/20 1100 Last Action: Discontinued Simethicone (Simethicone) 125 Mg Capsule, 250-375 MG PO BID PRN for GAS, (Reported) Discontinued Reason: No Longer Taking Entered as Reported by: STEFANIA GUIDRY on 03/09/19 09 Last Action: Discontinued Spironolactone (Spironolactone) 50 Mg Tablet, 50 MG PO DAILY Discontinued Reason: Duplicate Order Prescribed by: STEPHEN MACDONALD on 11/12/21113 Last Action: Discontinued Tivozanib HCl (Fotivda) 1.34 Mg Capsule, 1.34 MG PO DAILY Discontinued Reason: Duplicate Order Prescribed by: STEPHEN MACDONALD on 11/12/21113 Last Action: Discontinued Past Lepucck-Mzdikr-Uelqox Hx Patient Social History Tobacco Use?: No Smoking Status: Never a Smoker Smokeless Tobacco Frequency: Never a User Use of E-Cig and/or Vaping [place]: Never a User Substance use?: No Alcohol Use?: No Pt feels they are or have been: No Immunizations Up To Date Date of Influenza Vaccine: Apr 19, 2018 First/Initial COVID19 Vaccinat: 2020 Second COVID19 Vaccination Gurwinder: 2020 Date of Pneumonia Vaccine: Apr 19, 2011 Seasonal Allergies Seasonal Allergies: No Current Status Advance Directives: Yes Advance Directive Location: Home Communicates: Verbally Primary Language: [place] Preferred Spoken Language: [place] Is interpretation needed?: No Sensory deficits: Vision impairment Additional sensory deficits: SENECA-CAYUGA Past Medical History Surgeries: Nephrectomy, Orthopedic Atrial Fibrillation, Chronic Edema/Swelling, Hypertension Renal Failure Gastroesophageal Reflux Chronic Back Pain Diabetes, Non-Insulin dep Kidney Did You Recieve Any Treatments: Yes What Type of Treatment Did You: Chemotherapy, Surgical Intervention RENAL CELL CARCINOMA DX 2016 HAD LEFT NEPHRECTOMY 2016 AND ANOTHER SURGERY IN 2017 FOR RESIDUAL TUMOR Blood Disorders: No Review of Systems Constitutional: No chills, No diaphoresis, No fever EENTM: No blurred vision, No double vision Respiratory: hemoptysis; No short of breath Cardiovascular: No chest pain; edema; No palpitations Gastrointestinal: No abdominal pain, No constipation (currently resolved ) Genitourinary: other (folley catheter in place) Psychiatric/Neurological: Denies Anxiety, Denies Depressed, Denies Emotional Problems Physical Exam Vital Signs Vital Signs - First Documented 11/12/21 08:05 O2 Flow Rate 0.00 Capillary Refill : Less Than 3 Seconds Height, Weight, BMI Height: 5'10.00" Weight: 185lbs. 1.0oz. 83.004494du; 29.71 BMI Method:Stated General Appearance: No Apparent Distress, WD/WN Eyes: Bilateral Eye Normal Inspection, Bilateral Eye PERRL, Bilateral Eye EOMI HEENT: PERRL/EOMI, Pharynx Normal Neck: Full Range of Motion, Normal Inspection, Non Tender, Supple Respiratory: Chest Non Tender, No Accessory Muscle Use, No Respiratory Distress, Crackles (Left lower lung ) Cardiovascular: Regular Rate, Rhythm, No Murmur, Normal Peripheral Pulses Gastrointestinal: Normal Bowel Sounds, No Organomegaly, No Pulsatile Mass, Non Tender, Soft Neurologic/Psychiatric: Alert, Oriented x3, No Motor/Sensory Deficits, Normal Mood/Affect Skin: Normal Color, Warm/Dry Lymphatic: No Adenopathy Assessment/Plan Assessment and Plan Assessment: Left side post obstructive pneumonia Renal cell carcinoma Fecal impaction Chronic renal insufficiency DM Spinal stenosis AFib Lower extremity edema Plan: Left side post obstructive pneumonia Renal cell carcinoma The patient will continue on IV Azithromycin and Ceftriaxone. IV fluids will be stopped. Dr. Blanco, the patient's heme/onc physician, was contacted and is up to date on the patient's status. CT imaging will be shared with Dr. Blanco. He will continue on his oral chemotherapy. Fecal impaction Resolved with enema. PT can eat a regular diet. Recommend adequate hydration and fiber intake. Continue on Miralax daily. DM Afib Continue on home medications Spinal stenosis Recommend ambulation. PT could be candidate for inpatient rehab. Physical therapy consulted. Chronic renal insufficiency Monitor creatinine and GFR. PATRIA CASEY DO 11/13/21 0538: History of Present Illness History of Present Illness Reason for visit/HPI Chief complaint: Abdominal pain with constipation History of present illness: This is a 76-year-old white male clinic patient of Dr. Owens and Dr. 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 I did speak with Dr. Rodgers on the phone who requested CT scan to be clouded and she will arrange follow-up with interventional pulmonology for debulking of the endobronchial lesion in the near future. In the meantime we will continue bowel evacuation Carreon catheter placed due to urinary retention and strengthening along with IV antibiotics. Allergies and Home Medications Allergies Coded Allergies: latex (Verified Allergy, Unknown, 11/11/21) pt reports he is allergic Patient Home Medication List Home Medication List Reviewed: Yes Albuterol Sulfate (Proventil Hfa) 6.7 Gm Hfa.aer.ad, 2 PUFF INH Q6H PRN for SHORTNESS OF BREATH, (Reported) Entered as Reported by: YAIR GONZALEZ on 11/12/211439 Last Action: Reviewed Apixaban (Eliquis) 5 Mg Tablet, 5 MG PO BID, (Reported) Entered as Reported by: YAIR GONZALEZ on 11/12/211439 Last Action: Reviewed Bumetanide (Bumetanide) 1 Mg Tablet, 1 MG PO 0800,1500, (Reported) Entered as Reported by: YAIR GONZALEZ on 11/12/211439 Last Action: Reviewed C,E,Zinc,Copper 11/Yzfrd8i/Lut (Ocuvite Adult 50 Plus Softgel) 1 Each Capsule, 1 CAP PO DAILY, (Reported) Entered as Reported by: STEFANIA GUIDRY on 03/09/19 0928 Last Action: Reviewed Diltiazem HCl (Diltiazem 24Hr ER) 180 Mg Cap.er.24h, 180 MG PO DAILY, (Reported) Entered as Reported by: YAIR GONZALEZ on 11/12/211439 Last Action: Reviewed Empagliflozin (Jardiance) 25 Mg Tablet, 25 MG PO DAILY, (Reported) Entered as Reported by: YAIR GONZALEZ on 11/12/211439 Last Action: Reviewed Gabapentin (Neurontin) 300 Mg Capsule, 300 MG PO BID, (Reported) Entered as Reported by: YAIR GONZALEZ on 11/12/211439 Last Action: Reviewed Glimepiride (Glimepiride) 2 Mg Tablet, 2 MG PO BID, (Reported) Entered as Reported by: YAIR GONZALEZ on 11/12/211439 Last Action: Reviewed Levothyroxine Sodium (Levothyroxine Sodium) 50 Mcg Tablet, 50 MCG PO DAILY, (Reported) Entered as Reported by: GEOVANNY RAI on 01/23/20905 Last Action: Reviewed Lisinopril (Lisinopril) 20 Mg Tablet, 30 MG PO DAILY, (Reported) Entered as Reported by: YAIR GONZALEZ on 11/12/211439 Last Action: Reviewed Loratadine (Claritin) 10 Mg Tablet, 10 MG PO HS, (Reported) Entered as Reported by: YAIR GONZALEZ on 11/12/211439 Last Action: Reviewed Omeprazole (Omeprazole) 20 Mg Capsule.dr, 20 MG PO DAILY, (Reported) Entered as Reported by: STEFANIA GUIDRY on 03/09/19927 Last Action: Reviewed Spironolactone (Spironolactone) 50 Mg Tablet, 50 MG PO DAILY, (Reported) Entered as Reported by: YAIR GONZALEZ on 11/12/211439 Last Action: Reviewed Tivozanib HCl (Fotivda) 1.34 Mg Capsule, 1.34 MG PO DAILY, (Reported) Entered as Reported by: YAIR GOZNALEZ on 11/12/211439 Last Action: Reviewed Tramadol HCl (Tramadol HCl) 50 Mg Tablet, 50 MG PO Q4H PRN for PAIN-MODERATE (5- 7), (Reported) Entered as Reported by: GEOVANNY RAI on 01/23/20911 Last Action: Reviewed Discontinued Medications Apixaban (Eliquis) 5 Mg Tablet, 5 MG PO BID Discontinued Reason: Duplicate Order Prescribed by: STEPHEN MACDONALD on 11/12/21113 Last Action: Discontinued Bumetanide (Bumetanide) 1 Mg Tablet, 1 MG PO DAILY Discontinued Reason: Duplicate Order Prescribed by: STEPHEN MACDONALD on 11/12/21113 Last Action: Discontinued Diltiazem HCl (Cartia Xt) 180 Mg Cap.er.24h, 180 MG PO DAILY, (Reported) Discontinued Reason: Provider Change Entered as Reported by: NAVEED YOUNGBLOOD on 01/21/20 1530 Last Action: Discontinued Empagliflozin (Jardiance) 25 Mg Tablet, 25 MG PO DAILY Discontinued Reason: Duplicate Order Prescribed by: STEPHEN MACDONALD on 11/12/21113 Last Action: Discontinued Famotidine (Acid Assistant Analyst (FAMOTIDINE)) 20 Mg Tablet, 20 MG PO BID, (Reported) Discontinued Reason: No Longer Taking Entered as Reported by: GEOVANNY RAI on 01/23/20 09 Last Action: Discontinued Furosemide (Furosemide) 40 Mg Tablet, 40 MG PO EVERY OTHER DAY, (Reported) Discontinued Reason: No Longer Taking Entered as Reported by: GEOVANNY RAI on 01/23/20 0909 Last Action: Discontinued Gabapentin (Gabapentin) 100 Mg Capsule, 300 MG PO BID Discontinued Reason: Duplicate Order Prescribed by: STEPHEN MACDONALD on 11/12/21116 Last Action: Discontinued Glimepiride (Glimepiride) 1 Mg Tablet, 1 MG PO DAILY Discontinued Reason: Duplicate Order Prescribed by: JAMIE OWENS on 01/24/20 1100 Last Action: Discontinued Lisinopril (Lisinopril) 40 Mg Tablet, 40 MG PO HS, (Reported) Discontinued Reason: No Longer Taking Entered as Reported by: STEFANIA GUIDRY on 03/09/19 0903 Last Action: Discontinued Lisinopril (Lisinopril) 20 Mg Tablet, 20 MG PO BID Discontinued Reason: Duplicate Order Prescribed by: STEPHEN MACDONALD on 11/12/21113 Last Action: Discontinued Loperamide HCl (Loperamide) 2 Mg Capsule, 4 MG PO PRN PRN for DIARRHEA, (Reported) Discontinued Reason: No Longer Taking Entered as Reported by: GEOVANNY RAI on 01/23/20 0913 Last Action: Discontinued Multivitamin (Multi-Vitamin Daily) 1 Each Tablet, 1 EACH PO DAILY, (Reported) Discontinued Reason: No Longer Taking Entered as Reported by: GEOVANNY RAI on 01/23/20 0915 Last Action: Discontinued Prednisone (Prednisone) 5 Mg Tablet, 5 MG PO DAILY Discontinued Reason: No Longer Taking Prescribed by: JAMIE OWENS on 01/24/20 1100 Last Action: Discontinued Simethicone (Simethicone) 125 Mg Capsule, 250-375 MG PO BID PRN for GAS, (Reported) Discontinued Reason: No Longer Taking Entered as Reported by: STEFANIA GUIDRY on 03/09/19902 Last Action: Discontinued Spironolactone (Spironolactone) 50 Mg Tablet, 50 MG PO DAILY Discontinued Reason: Duplicate Order Prescribed by: STEPHEN MACDONALD on 11/12/21113 Last Action: Discontinued Tivozanib HCl (Fotivda) 1.34 Mg Capsule, 1.34 MG PO DAILY Discontinued Reason: Duplicate Order Prescribed by: STEPHEN MACDONALD on 11/12/21113 Last Action: Discontinued Past Axcsfmt-Bnyakc-Nvipsx Hx Patient Social History Marrital Status: single Employed/Student: retired Smoking Status: Unknown if Ever Smoked Past Medical History Surgeries: Nephrectomy Atrial Fibrillation, High Cholesterol, Hypertension Kidney Infection Gastroesophageal Reflux Degenerate Disk Disease, Chronic Back Pain Review of Systems Constitutional: see HPI, malaise, weakness EENTM: no symptoms reported Respiratory: cough, dyspnea on exertion Cardiovascular: no symptoms reported Gastrointestinal: constipation (currently resolved ) Genitourinary: other (folley catheter in place) Musculoskeletal: back pain Skin: no symptoms reported Psychiatric/Neurological: No Symptoms Reported All Other Systems Reviewed Negative Unless Noted: Yes Physical Exam General Appearance: No Apparent Distress, WD/WN Eyes: Bilateral Eye Normal Inspection, Bilateral Eye PERRL, Bilateral Eye EOMI HEENT: PERRL/EOMI, Normal ENT Inspection, Pharynx Normal Neck: Full Range of Motion, Normal Inspection, Non Tender, Supple, Carotid Bruit Respiratory: Chest Non Tender, No Accessory Muscle Use, No Respiratory Distress, Crackles (Left lower lung ), Decreased Breath Sounds Cardiovascular: Regular Rate, Rhythm, No Edema, No Gallop, No JVD, No Murmur, Normal Peripheral Pulses, Irregularly Irregular Gastrointestinal: Normal Bowel Sounds, No Organomegaly, No Pulsatile Mass, Non Tender, Soft Back: Normal Inspection, No CVA Tenderness, Decreased Range of Motion Extremity: Normal Capillary Refill, Normal Inspection, Normal Range of Motion, Non Tender, No Calf Tenderness, No Pedal Edema Neurologic/Psychiatric: Alert, Oriented x3, No Motor/Sensory Deficits, Normal Mood/Affect, Abnormal Gait, Motor Weakness (Lower extremity weakness) Skin: Normal Color, Warm/Dry Lymphatic: No Adenopathy Assessment/Plan Assessment and Plan Carreon catheter Antibiotics Oxygen supplementation Bowel regimen Home meds Supportive care PT OT Problems: (1) left sided pneumonia (2) Metastatic renal cell carcinoma Status: Acute (3) Sepsis Status: Acute (4) Urinary retention Status: Acute (5) Non-insulin dependent diabetes mellitus (6) Constipation (7) Chronic renal insufficiency Status: Acute (8) Renal cell cancer Status: Acute Admission Diagnosis Admission Status: Inpatient Order (span 2 midnights) Reason for Inpatient Admission: pna sepsis Supervisory-Addendum Brief Verification & Attestation Participated in pt care: history, MDM, physical Personally performed: exam, history, MDM, supervision of care Care discussed with: Medical Student Procedures: n/a Results interpretation: Verified all documentation Verification and Attestation of Medical Student E/M Service A medical student performed and documented this service in my presence. I reviewed and verified all information documented by the medical student and made modifications to such information, when appropriate. I personally performed the physical exam and medical decision making. Patria Casey Nov 13, 2021,05:40 SINDY THAKKAR Nov 12, 2021 11:13 PATRIA CASEY DO Nov 13, 2021 05:38
--- NOTE | 2021-11-12 11:21 | Occupational Therapy Eval ---
OT Evaluation-General/PLF Medical Diagnosis Admission Date Nov 11, 2021 at 21:55 Medical Diagnosis: pneumonia/metastatic renal cancer/sepsis Onset Date: Nov 11, 2021 Therapy Diagnosis Therapy Diagnosis: metastic renal cancer Height/Weight Height (Feet): 5 Height (Inches): 10.00 Weight (Pounds): 185 Weight (Ounces): 1.0 Precautions Precautions/Isolations: Fall Prevention, Standard Precautions Referral Physician: Giselle Referral Reason: Evaluation/Treatment Medical History Pertinent Medical History: Atrial Fib, DM, HTN, Neuropathy, Renal Insufficiency Additional Medical History Neuropathy, renal cell carcinoma Current History ER secondary to constipation (receiving oral chemo) Per patient, he lives alone in a single story home. He was indep with adls. He reports receiving meals on wheels. He owns a FWW, 4WW, and cane but was not using prior to admission. He has a cleaning lady "every so often." Social History Home: Single Level Current Living Status: Alone Steps Into Home: 3 ADL-Prior Level of Function SCALE: Activities may be completed with or without assistive devices. 1-Wqpaqibsut-ggntsfn completes the activity by him/herself with no assistance from a helper. 5-Set-up or Clean-up Assistance-helper sets up or cleans up; patient completes activity. [place] assists only prior to or following the activity. 4-Supervision or Touching Assistance-helper provides verbal cues and/or touching/steadying and/or contact guard assistance as patient completes activity. Assistance may be provided throughout the activity or intermittently. 3-Partial/Moderate Assistance-helper does LESS THAN HALF the effort. [place] lifts, holds or supports trunk or limbs, but provides less than half the effort. 2-Substantial/Maximal Assistance-helper does MORE THAN HALF the effort. [place] lifts or holds trunk or limbs and provides more than half the effort. 0-Kmnafdoas-vlvdsc does ALL the effort. Patient does none of the effort to complete the activity. Or, the assistance of 2 or more helpers is required for the patient to complete the activity. If activity was not attempted, code reason: 7-Patient Refused. 9-Not Applicable-not attempted and the patient did not perform the activity before the current illness, exacerbation or injury. 10-Not Attempted due to Environmental Limitations-(lack of equipment, weather restraints, etc.). 88-Not Attempted due to Medical Conditions or Safety Concerns. Self Care: Independent Functional Cognition: Independent DME/Equipment: Grab Bars, Tub/Shower Drive Self: Yes OT Current Status Subjective Pt very talkative, requires cues to move onto next topic/activity. 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 Mental Status/Objective Patient Orientation: Person, Place, Situation Current Hearing Aids: No Dentures/Partials: No Hand Dominance: Right Upper Extremity ROM Impaired R shoulder at baseline. AROM to ~90 degrees. AAROM ~130 degrees Elbow-distally WNL Upper Extremity Strength R shoulder 2/5 L shoulder: 3+/5 Elbow-distally: 4/5 ADL-Treatment Eating (QC): 6 Oral Hygiene (QC): 5 Lower Body Dressing (QC): 4 (per clinica judgment) On/Off Footwear (QC): 4 Pt very talkative, requires cues to continue onto next topic/activity. Sit<>stand: Supervision. Pt able to transfer on/off commode with SBA for management of lines. No unsteadiness. Denies need to have BM, Carreon catheter present. Pt initially resistant to donning/doffing socks as he reports pain in bilateral feet. After a few minutes, pt verbalizes "ok, I'll show you how I do my socks." With extra time, he was able to don/doff without assist. Pt exhibits bilateral LE edema, currently wearing compression stockings. No difficulty reaching toes. Pt reports he normally only has difficulty with making his bed at home. Education on energy conservation and adaptive strategies to ease task. No further OT services warranted at this time. Education OT Patient Education: Energy conservation, Modified ADL techniques, Purpose of tx/functional activities Teaching Recipient: Patient Teaching Methods: Discussion Response to Teaching: Verbalize Understanding, Return Demonstration OT Prison Goals [employer] Goals 1=Demonstrate adherence to instructed precautions during ADL tasks. 2=Patient will verbalize/demonstrate understanding of assistive devices/modifications for ADL. 3=Patient will improve strength/tolerance for activity to enable patient to perform ADL's. OT Education/Plan Problem List/Assessment Assessment: No Skilled OT Needs ID'd Discharge Recommendations Plan/Recommendations: Discontinue OT Therapy Discharge Recommendati: Meals on Wheels, Homemaker Support, Home & Family Equpiment Recommendations-D/C: Bath Chair Treatment Plan/Plan of Care Treatment,Training & Education: Yes Patient would benefit from OT for education, treatment and training to promote independence in ADL's, mobility, safety and/or upper extremity function for ADL's. Plan of Care: ADL Retraining Treatment Duration: Nov 12, 2021 Frequency: 1 time per week Estimated Hrs Per Day: .25 hour per day Rehab Potential: Guarded Time/GCodes Start Time: 10:48 Stop Time: 11:11 Total Time Billed (hr/min): 23 Billed Treatment Time 1 visit EVL (10 min) ADL (13 min) Yokasta Herrera OT Nov 12, 2021 11:21
[2021-11-12] MEDS ORDERED: LORA10TA76 PO (14:40)
[2021-11-12] MEDS ORDERED: RT-ALBUINH INH (14:40)
[2021-11-12] MEDS ORDERED: GABA300C PO (14:40)
[2021-11-12] MEDS ORDERED: DILT180C85 PO (14:40)
[2021-11-12] MEDS ORDERED: diphenhydrAMINE 25 MG TAB (BENADRYL) PO PRN (19:30)
[2021-11-12] MEDS ORDERED: guaiFENesin/CODEINE (ROBITUSSIN AC) 10ML UDC PO PRN (19:30)
[2021-11-12] MEDS ORDERED: PATIENT MAY USE OWN MEDS, ALL MC SCH (19:30)
[2021-11-12] MEDS ORDERED: DOCUSATE SODIUM 100 MG (COLACE) CAP PO PRN (19:30)
[2021-11-12] MEDS ORDERED: MELATONIN 3 MG TABLET PO PRN (19:30)
[2021-11-12] MEDS ORDERED: ALPRAZolam 0.25 MG (XANAX) TAB PO PRN (19:30)
[2021-11-12] MEDS ORDERED: CALCIUM CARBONATE 500 MG (TUMS) TAB.CHEW PO PRN (19:30)
[2021-11-12] MEDS ORDERED: HYDROcodone/APAP 5 MG/325 MG (LORTAB) TAB PO PRN (19:30)
[2021-11-12] MEDS ORDERED: LOPERAMIDE 2 MG (IMODIUM) TABLET PO PRN (19:30)
[2021-11-12] MEDS ORDERED: AZITHROMYCIN 500 MG/NS 250 ML IVPB IV SCH ×2 (21:00)
[2021-11-12] MEDS: APIXABAN 5 MG (ELIQUIS) TABLET PO SCH (21:25)
[2021-11-12] MEDS: GABAPENTIN 100 MG (NEURONTIN) CAP PO SCH (21:26)
[2021-11-12] MEDS: cefTRIAXone 1 GM/50 ML (PRE-MIX) IV SCH (21:26)
[2021-11-12] MEDS: LORATADINE (CLARITIN) 10 MG TAB PO SCH (21:26)
[2021-11-12] MEDS: GLIMEPIRIDE 2 MG (AMARYL) TAB PO SCH (21:26)
[2021-11-13 04:12] VITALS: BP 163/99
[2021-11-13] MEDS: inSUlin ASPART (NovoLOG) 1 UNIT/0.01 ML (CHARGE PER UNIT) SC SCH ×4 (05:50→20:49)
[2021-11-13 06:40] LABS: BASOPHILS # (AUTO) 0.1 10^3/uL (0.0-0.1); BASOPHILS % (AUTO) 1 % (0-10); EOSINOPHILS # (AUTO) 0.5 10^3/uL (0.0-0.3); EOSINOPHILS % (AUTO) 5 % (0-10); HEMATOCRIT 50 % (40-54); HEMOGLOBIN 15.1 g/dL (13.3-17.7); LYMPHOCYTES % (AUTO) 10 % (12-44); MEAN CORPUSCULAR HEMOGLOBIN 25 pg (25-34); MEAN CORPUSCULAR HGB CONC 30 g/dL (32-36); MEAN CORPUSCULAR VOLUME 82 fL (80-99); MEAN PLATELET VOLUME 9.4 fL (9.0-12.2); MONOCYTES % (AUTO) 9 % (0-12); NEUTROPHILS # (AUTO) 7.6 10^3/uL (1.8-7.8); NEUTROPHILS % (AUTO) 75 % (42-75); PLATELET COUNT 184 10^3/uL (130-400); WHITE BLOOD COUNT 10.2 10^3/uL (4.3-11.0)
[2021-11-13 07:10] LABS: ALBUMIN 3.4 GM/DL (3.2-4.5)
[2021-11-13 07:11] LABS: POTASSIUM 3.7 MMOL/L (3.6-5.0)
[2021-11-13 07:12] LABS: CALCIUM 8.8 MG/DL (8.5-10.1)
[2021-11-13 07:13] LABS: TOTAL PROTEIN 6.1 GM/DL (6.4-8.2)
[2021-11-13 07:15] LABS: BILIRUBIN,TOTAL 0.4 MG/DL (0.1-1.0)
[2021-11-13 07:17] LABS: CREATININE SERUM 1.3 MG/DL (0.60-1.30)
[2021-11-13 07:33] VITALS: BP 162/105
[2021-11-13] MEDS: GLIMEPIRIDE 2 MG (AMARYL) TAB PO SCH ×2 (09:41→20:44)
[2021-11-13] MEDS: LORATADINE (CLARITIN) 10 MG TAB PO SCH ×2 (09:41→20:44)
[2021-11-13] MEDS: LEVOTHYROXINE 50 MCG (LEVOTHROID) TAB PO SCH (09:41)
[2021-11-13] MEDS: GABAPENTIN 100 MG (NEURONTIN) CAP PO SCH ×2 (09:41→20:44)
[2021-11-13] MEDS: PANTOPRAZOLE 20 MG TABLET (PROTONIX) PO SCH (09:41)
[2021-11-13] MEDS: polyethylene glycoL POWDER 17 GM (MIRALAX) PACK PO SCH (09:42)
[2021-11-13] MEDS: EMPAGLIFLOZIN 10 MG TABLET (JARDIANCE) PO SCH (09:42)
[2021-11-13] MEDS: APIXABAN 5 MG (ELIQUIS) TABLET PO SCH ×2 (09:42→20:44)
[2021-11-13] MEDS ORDERED: RT-ALBUTEROL SULF 2.5 MG/3 ML PRE-MIX VIAL INH PRN (09:45)
[2021-11-13] MEDS ORDERED: FUROSEMIDE 40 MG/4 ML INJ (LASIX) IVP ONE (10:00)
[2021-11-13] MEDS ORDERED: FUROSEMIDE 40 MG/4 ML INJ (LASIX) ONE (10:06)
[2021-11-13] MEDS ORDERED: FUROSEMIDE 40 MG/4 ML INJ (LASIX) IVP NR (10:15)
--- NOTE | 2021-11-13 10:20 | Progress Note ---
SINDY THAKKAR 11/13/21 1020: Subjective Date Seen by a Provider: Nov 13, 2021 Time Seen by a Provider: 09:15 Subjective/Events-last exam The patient was sitting in his chair and was not in acute distress. He reports increased lower extremity swelling over night in both legs, but the left leg is worse than the right. He reports some pain in his lower extremities associated with the swelling. He continues with the folley catheter placed. He reports his last BM was yesterday morning, which required an enema. He denies any other changes over night. Review of Systems General: No Chills, No Night Sweats HEENT: No Head Aches, No Visual Changes Pulmonary: No Dyspnea, No Cough Cardiovascular: No: Chest Pain, Palpitations Gastrointestinal: No: Nausea, Vomiting Genitourinary: Other (folley catheter placed) Focused Exam Lactate Level 11/11/21 20:19: Lactic Acid Level 1.66 Time of Focused Exam: 21:40 Objective Exam Last Set of Vital Signs Vital Signs Date Time Temp Pulse Resp B/P (MAP) Pulse Ox O2 Delivery O2 Flow Rate FiO2 11/13/21 08:56 Room Air 11/13/21 08:30 99 0.00 11/13/21 07:33 36.9 106 18 162/105 (124) 11/11/21 23:50 21 Capillary Refill : Less Than 3 Seconds I&O Intake and Output 11/13/21 00:00 Intake Total 2350 ml Output Total 2450 ml Balance -100 ml Intake Oral 2050 ml IV Total 300 ml Output Urine Total 2450 ml # Voids 1 General: Alert, Oriented X3, Cooperative, No Acute Distress HEENT: Atraumatic, PERRLA Neck: Supple, No JVD, No LAD Lungs: Clear to Auscultation Heart: No Murmurs, Other (irregular ) Abdomen: Soft, No Tenderness, No Hepatosplenomegaly, No Masses Extremities: No Clubbing, No Cyanosis, Other (bilateral edema of lower extremities left worse than right side) Skin: No Significant Lesion Neuro: Normal Speech, Sensation Intact Results Lab Laboratory Tests 11/12/21 16:54: Glucometer 114H 11/12/21 20:03: Glucometer 139H 11/13/21 05:20: Glucometer 102 11/13/21 06:27: White Blood Count 10.2, Red Blood Count 6.09H, Hemoglobin 15.1, Hematocrit 50, Mean Corpuscular Volume 82, Mean Corpuscular Hemoglobin 25, Mean Corpuscular Hemoglobin Concent 30L, Red Cell Distribution Width 23.3H, Platelet Count 184, Mean Platelet Volume 9.4, Immature Granulocyte % (Auto) 0, Neutrophils (%) (Auto) 75, Lymphocytes (%) (Auto) 10L, Monocytes (%) (Auto) 9, Eosinophils (%) (Auto) 5, Basophils (%) (Auto) 1, Neutrophils # (Auto) 7.6, Lymphocytes # (Auto) 1.0, Monocytes # (Auto) 1.0, Eosinophils # (Auto) 0.5H, Basophils # (Auto) 0.1, Immature Granulocyte # (Auto) 0.0, Sodium Level 141, Potassium Level 3.7, Chloride Level 105, Carbon Dioxide Level 22, Anion Gap 14, Blood Urea Nitrogen 17, Creatinine 1.30, Estimat Glomerular Filtration Rate 58, BUN/Creatinine Ratio 13, Glucose Level 91, Calcium Level 8.8, Corrected Calcium 9.3, Total Bilirubin 0.4, Aspartate Amino Transf (AST/SGOT) 14, Alanine Aminotransferase (ALT/SGPT) 20, Alkaline Phosphatase 66, Total Protein 6.1L, Albumin 3.4 Microbiology 11/11/21 Blood Culture - Preliminary, Resulted No growth Assessment/Plan Assessment/Plan Assess & Plan/Chief Complaint Assessment: Left side post obstructive pneumonia Renal cell carcinoma Fecal impaction Urinary retention DM Spinal stenosis AFib Lower extremity edema DVT prophylaxis Plan: Left side post obstructive pneumonia Renal cell carcinoma Continue IV Ceftriaxone and Azithromycin therapy. Continue chemotherapy, managed by Dr. Blanco. Fecal impaction Monitor BMs. Encourage PO intake. DM AFib DVT prophylaxis. Continue home meds. Eliquis 5mg covering for DVT prophylaxis. Lower extremtity edema Started compression wrappings today. PT will start IV Lasix 40mg. PT/OT. Urinary retention Discontinue folley catheter. Clinical Quality Measures Admission Status Admission Dx Assessment: Left side post obstructive pneumonia Renal cell carcinoma Fecal impaction Chronic renal insufficiency DM Spinal stenosis AFib Lower extremity edema Plan: Left side post obstructive pneumonia Renal cell carcinoma The patient will continue on IV Azithromycin and Ceftriaxone. IV fluids will be stopped. Dr. Blanco, the patient's heme/onc physician, was contacted and is up to date on the patient's status. CT imaging will be shared with Dr. Blanco. He will continue on his oral chemotherapy. Fecal impaction Resolved with enema. PT can eat a regular diet. Recommend adequate hydration and fiber intake. Continue on Miralax daily. DM Afib Continue on home medications Spinal stenosis Recommend ambulation. PT could be candidate for inpatient rehab. Physical therapy consulted. Chronic renal insufficiency Monitor creatinine and GFR. PATRIA CASEY DO 11/14/21 0523: Subjective Subjective/Events-last exam Patient doing much better Carreon will be discontinued today Bowel regimen maintained Antibiotics continue Discharge plan for tomorrow PT and OT ordered Review of Systems General: Fatigue, Malaise Neurological: Weakness Objective Exam General: Alert, Oriented X3, Cooperative, No Acute Distress Lungs: Clear to Auscultation, Normal Air Movement Heart: Regular Rate, Normal S1, Normal S2, No Murmurs Psych/Mental Status: Mental Status NL, Mood NL Assessment/Plan Assessment/Plan Assess & Plan/Chief Complaint Supportive care Discharge tomorrow Supervisory-Addendum Brief Verification & Attestation Participated in pt care: history, MDM, physical Personally performed: exam, history, MDM, supervision of care Care discussed with: Medical Student Procedures: n/a Results interpretation: Verified all documentation Verification and Attestation of Medical Student E/M Service A medical student performed and documented this service in my presence. I reviewed and verified all information documented by the medical student and made modifications to such information, when appropriate. I personally performed the physical exam and medical decision making. Patria Casey Nov 14, 2021,05:22 SINDY THAKKAR Nov 13, 2021 10:20 PATRIA CASEY DO Nov 14, 2021 05:23
--- NOTE | 2021-11-13 11:05 | Occupational Therapy Eval ---
OT Evaluation-General/PLF Medical Diagnosis Admission Date Nov 11, 2021 at 21:55 Medical Diagnosis: pneumonia/metastatic renal cancer/sepsis Onset Date: Nov 11, 2021 Therapy Diagnosis Therapy Diagnosis: n/a Height/Weight Height (Feet): 5 Height (Inches): 10.00 Weight (Pounds): 185 Weight (Ounces): 1.0 Precautions Precautions/Isolations: Fall Prevention, Standard Precautions Referral Physician: Giselle Referral Reason: Evaluation/Treatment Medical History Pertinent Medical History: Atrial Fib, DM, HTN, Neuropathy, Renal Insufficiency Additional Medical History renal cell carcinoma, spinal stenosis, DM, afib, HTN, GERD, chronic back pain. Current History ED 11/11 c/o constipation, imaging revealed L PNA and impacted stool Social History Home: Single Level Current Living Status: Alone Steps Into Home: 3 ADL-Prior Level of Function SCALE: Activities may be completed with or without assistive devices. 3-Itnlajjgcf-eiwbmtv completes the activity by him/herself with no assistance from a helper. 5-Set-up or Clean-up Assistance-helper sets up or cleans up; patient completes activity. [place] assists only prior to or following the activity. 4-Supervision or Touching Assistance-helper provides verbal cues and/or touching/steadying and/or contact guard assistance as patient completes activity. Assistance may be provided throughout the activity or intermittently. 3-Partial/Moderate Assistance-helper does LESS THAN HALF the effort. [place] lifts, holds or supports trunk or limbs, but provides less than half the effort. 2-Substantial/Maximal Assistance-helper does MORE THAN HALF the effort. [place] lifts or holds trunk or limbs and provides more than half the effort. 8-Hwissghbj-uzokby does ALL the effort. Patient does none of the effort to complete the activity. Or, the assistance of 2 or more helpers is required for the patient to complete the activity. If activity was not attempted, code reason: 7-Patient Refused. 9-Not Applicable-not attempted and the patient did not perform the activity before the current illness, exacerbation or injury. 10-Not Attempted due to Environmental Limitations-(lack of equipment, weather restraints, etc.). 88-Not Attempted due to Medical Conditions or Safety Concerns. ADL PLOF Comments Pt reports IND with ADLs and functional mobility at PLOF using walker or cane. He has meals on wheels and a cleaning lady. Self Care: Independent Functional Cognition: Independent DME/Equipment: Grab Bars, Tub/Shower OT Current Status Subjective New OT orders received, OT evaluated pt on 11/12/21 and discharged. OT evalu ation completed again on this date due to receiving new orders. Pt up in recliner, agreeable to OT Tx. Pt has no concerns with his ability to complete ADLs at discharge and feels like he is at his PLOF. Mental Status/Objective Patient Orientation: Person, Place, Time, Situation Current Hearing Aids: No Dentures/Partials: No Hand Dominance: Right Upper Extremity ROM WFL ADL-Treatment Eating (QC): 6 Oral Hygiene (QC): 6 On/Off Footwear (QC): 6 Other Treatments Pt seated in recliner, agreeable to OT Tx. Pt donned gripper socks inde pendently, then used FWW to stand at sink and brush teeth independently. Pt returned to recliner, states no concerns with his ability to complete ADLs at this time, and feels like he is at his PLOF. Pt was independent with breakfast. Pt declined donning clothing at this time, due to plans to remove catheter later. Per clinical judgment, pt would have no difficulties with UE/LE dressing at this time. 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 2=Patient will verbalize/demonstrate understanding of assistive devices/modifications for ADL. 3=Patient will improve strength/tolerance for activity to enable patient to perform ADL's. OT Education/Plan Problem List/Assessment Assessment: No Skilled OT Needs ID'd No skilled OT services indicated at this time, as pt is independent with ADLs and at PLOF. D/C from OT Discharge Recommendations Plan/Recommendations: Discharge/Goals Met Treatment Plan/Plan of Care Patient would benefit from OT for education, treatment and training to promote independence in ADL's, mobility, safety and/or upper extremity function for ADL's. Plan of Care: ADL Retraining Treatment Duration: Nov 12, 2021 Frequency: 1 time per week Estimated Hrs Per Day: .25 hour per day Rehab Potential: Guarded Time/GCodes Start Time: 10:00 Stop Time: 10:16 Total Time Billed (hr/min): 16 Billed Treatment Time 1, KRISTI MATTA OT Nov 13, 2021 11:05
[2021-11-13 11:28] VITALS: BP 161/104
--- NOTE | 2021-11-13 13:56 | Physical Therapy Daily Note ---
PT Daily Note-Current Subjective Patient consented to treat and has no new complaints. Pain Location: No Pain Reported Mental Status Patient Orientation: Person, Place, Situation Transfers SCALE: Activities may be completed with or without assistive devices. 7-Tysqqzoarv-azhdixz completes the activity by him/herself with no assistance from a helper. 5-Set-up or Clean-up Assistance-helper sets up or cleans up; patient completes activity. [place] assists only prior to or following the activity. 4-Supervision or Touching Assistance-helper provides verbal cues and/or touching/steadying and/or contact guard assistance as patient completes activity. Assistance may be provided throughout the activity or intermittently. 3-Partial/Moderate Assistance-helper does LESS THAN HALF the effort. [place] lifts, holds or supports trunk or limbs, but provides less than half the effort. 2-Substantial/Maximal Assistance-helper does MORE THAN HALF the effort. [place] lifts or holds trunk or limbs and provides more than half the effort. 3-Gfgsatxzv-llaqie does ALL the effort. Patient does none of the effort to complete the activity. Or, the assistance of 2 or more helpers is required for the patient to complete the activity. If activity was not attempted, code reason: 7-Patient Refused. 9-Not Applicable-not attempted and the patient did not perform the activity before the current illness, exacerbation or injury. 10-Not Attempted due to Environmental Limitations-(lack of equipment, weather restraints, etc.). 88-Not Attempted due to Medical Conditions or Safety Concerns. Sit to Stand (QC): 4 Weight Bearing Right Lower Extremity: Right Full Weight Bearing Left Lower Extremity: Left Full Weight Bearing Gait Training Does the Patient Walk?: Yes Distance: 800' Walk 10 feet (QC): 4 (SBA) Walk 50 ft with 2 Turns(QC): 4 (SBA) Walk 150 ft (QC): 4 (SBA) Gait Assistive Device: FWW Wheelchair Training Does the Pt Use a Wheelchair?: No Type of Wheelchair: N/A Treatments Ambulation, transfers Assessment Current Status: Good Progress Patient was able to walk long distances today with SBA and FWW. Patient reports that he has a hunched posture while walking, for comfort due to spinal stenosis. Patient was left in chair with call light, and all needs met. PT Retirement Goals Retirement Goals PT Retirement Goals Time Frame: November 23, 2021 Roll Left & Right (QC): 6 Sit to Lying (QC): 6 Lying-Sitting on Side/Bed(QC): 6 Sit to Stand (QC): 6 Chair/Kjv-bj-Bquvm Xfer(QC): 6 Toilet Transfer (QC): 6 Walk 10 feet (QC): 6 Walk 50ft with 2 Turns (QC): 6 Walk 150 ft (QC): 6 PT Plan Problem List Problem List: Activity Tolerance, Functional Strength, Safety, Balance, Gait, Transfer, Bed Mobility, ROM Treatment/Plan Treatment Plan: Continue Plan of Care Treatment Plan: Bed Mobility, Education, Functional Activity [place], Functional Strength, Gait, Safety, Therapeutic Exercise, Transfers Treatment Duration: November 23, 2021 Frequency: 6 times per week Estimated Hrs Per Day: .25 hour per day Patient and/or Family Agrees t: Yes Safety Risks/Education Patient Education: Gait Training, Transfer Techniques, Correct Positioning, Safety Issues Teaching Recipient: Patient Teaching Methods: Discussion Response to Teaching: Verbalize Understanding Time/GCodes Time In: 1334 Time Out: 1349 Total Billed Treatment Time: 15 Total Billed Treatment 1 visit FA 15min MATTEO SHAW PT Nov 13, 2021 13:56
[2021-11-13] MEDS: BUMETANIDE 1 MG (BUMEX) TAB PO SCH (14:32)
[2021-11-13 16:10] VITALS: BP 166/96
[2021-11-13 19:50] VITALS: BP 166/100
[2021-11-13] MEDS ORDERED: hydrALAZINE (APRESOLINE) 25 MG TAB PO PRN (20:30)
[2021-11-13] MEDS ORDERED: hydrALAZINE (APRESOLINE) 25 MG TAB PO ONE (20:30)
[2021-11-13] MEDS ORDERED: hydrALAZINE (APRESOLINE) 25 MG TAB ONE (20:35)
[2021-11-13] MEDS: cefTRIAXone 1 GM/50 ML (PRE-MIX) IV SCH (20:45)
[2021-11-13] MEDS ORDERED: AZITHROMYCIN 250 MG TAB (ZITHROMAX) PO SCH (21:00)
[2021-11-14] VITALS: BP 170/103
[2021-11-14 04:00] VITALS: BP 161/93
[2021-11-14 05:59] LABS: BASOPHILS # (AUTO) 0.1 10^3/uL (0.0-0.1); BASOPHILS % (AUTO) 1 % (0-10); EOSINOPHILS # (AUTO) 0.7 10^3/uL (0.0-0.3); EOSINOPHILS % (AUTO) 6 % (0-10); HEMATOCRIT 54 % (40-54); HEMOGLOBIN 16.6 g/dL (13.3-17.7); LYMPHOCYTES # (AUTO) 1.1 10^3/uL (1.0-4.0); LYMPHOCYTES % (AUTO) 10 % (12-44); MEAN CORPUSCULAR HEMOGLOBIN 25 pg (25-34); MEAN CORPUSCULAR HGB CONC 31 g/dL (32-36); MEAN CORPUSCULAR VOLUME 82 fL (80-99); MEAN PLATELET VOLUME 9.3 fL (9.0-12.2); MONOCYTES # (AUTO) 1.1 10^3/uL (0.0-1.0); MONOCYTES % (AUTO) 9 % (0-12); NEUTROPHILS # (AUTO) 8.3 10^3/uL (1.8-7.8); NEUTROPHILS % (AUTO) 74 % (42-75); PLATELET COUNT 170 10^3/uL (130-400); WHITE BLOOD COUNT 11.3 10^3/uL (4.3-11.0)
[2021-11-14 06:07] LABS: ALBUMIN 3.6 GM/DL (3.2-4.5); POTASSIUM 3.8 MMOL/L (3.6-5.0)
[2021-11-14 06:08] LABS: CALCIUM 9.2 MG/DL (8.5-10.1)
[2021-11-14 06:10] LABS: TOTAL PROTEIN 6.7 GM/DL (6.4-8.2)
[2021-11-14 06:12] LABS: BILIRUBIN,TOTAL 0.5 MG/DL (0.1-1.0)
[2021-11-14 06:13] LABS: CREATININE SERUM 1.47 MG/DL (0.60-1.30)
[2021-11-14] MEDS: inSUlin ASPART (NovoLOG) 1 UNIT/0.01 ML (CHARGE PER UNIT) SC SCH ×2 (06:28→11:57)
[2021-11-14 08:10] VITALS: BP 169/96
[2021-11-14] MEDS: LORATADINE (CLARITIN) 10 MG TAB PO SCH (08:35)
[2021-11-14] MEDS: APIXABAN 5 MG (ELIQUIS) TABLET PO SCH (08:35)
[2021-11-14] MEDS: GABAPENTIN 100 MG (NEURONTIN) CAP PO SCH (08:35)
[2021-11-14] MEDS: PANTOPRAZOLE 20 MG TABLET (PROTONIX) PO SCH (08:35)
[2021-11-14] MEDS: LEVOTHYROXINE 50 MCG (LEVOTHROID) TAB PO SCH (08:36)
[2021-11-14] MEDS: BUMETANIDE 1 MG (BUMEX) TAB PO SCH (08:42)
[2021-11-14] MEDS ORDERED: [UNRECOGNIZED DRUG - OTHER] PO SCH (09:00)
[2021-11-14] MEDS ORDERED: SPIRONOLACTONE 25 MG (ALDACTONE) TAB PO SCH (09:00)
--- NOTE | 2021-11-14 09:06 | Physical Therapy Daily Note ---
PT Daily Note-Current Subjective Pt agrees to PT. Pt has no complaints of pain but states his legs are itching today. Mental Status Patient Orientation: Normal For Age Transfers SCALE: Activities may be completed with or without assistive devices. 0-Cdbjhtoieg-eekyiyo completes the activity by him/herself with no assistance from a helper. 5-Set-up or Clean-up Assistance-helper sets up or cleans up; patient completes activity. [place] assists only prior to or following the activity. 4-Supervision or Touching Assistance-helper provides verbal cues and/or touching/steadying and/or contact guard assistance as patient completes activity. Assistance may be provided throughout the activity or intermittently. 3-Partial/Moderate Assistance-helper does LESS THAN HALF the effort. [place] lifts, holds or supports trunk or limbs, but provides less than half the effort. 2-Substantial/Maximal Assistance-helper does MORE THAN HALF the effort. [place] lifts or holds trunk or limbs and provides more than half the effort. 6-Uvrqrhswo-xczalz does ALL the effort. Patient does none of the effort to complete the activity. Or, the assistance of 2 or more helpers is required for the patient to complete the activity. If activity was not attempted, code reason: 7-Patient Refused. 9-Not Applicable-not attempted and the patient did not perform the activity before the current illness, exacerbation or injury. 10-Not Attempted due to Environmental Limitations-(lack of equipment, weather restraints, etc.). 88-Not Attempted due to Medical Conditions or Safety Concerns. Sit to Stand (QC): 5 SBA for sit to stand Weight Bearing Right Lower Extremity: Right Full Weight Bearing Left Lower Extremity: Left Full Weight Bearing Gait Training Does the Patient Walk?: Yes Distance: 800' Walk 10 feet (QC): 4 Walk 50 ft with 2 Turns(QC): 4 Walk 150 ft (QC): 4 Gait Persons Needed: 1 Gait Assistive Device: FWW CGA for amb. Wheelchair Training Does the Pt Use a Wheelchair?: No Assessment Current Status: Good Progress Pt amb. with ease and has no LOB. Pt tends to leave walker behind in room due to not using one at home. PT Care Home Goals Care Home Goals PT Care Home Goals Time Frame: November 23, 2021 Roll Left & Right (QC): 6 Sit to Lying (QC): 6 Lying-Sitting on Side/Bed(QC): 6 Sit to Stand (QC): 6 Chair/Sup-xh-Bvurd Xfer(QC): 6 Toilet Transfer (QC): 6 Walk 10 feet (QC): 6 Walk 50ft with 2 Turns (QC): 6 Walk 150 ft (QC): 6 PT Plan Treatment/Plan Treatment Plan: Continue Plan of Care Treatment Plan: Bed Mobility, Education, Functional Activity [place], Functional Strength, Gait, Safety, Therapeutic Exercise, Transfers Treatment Duration: November 23, 2021 Frequency: 6 times per week Estimated Hrs Per Day: .25 hour per day Patient and/or Family Agrees t: Yes Time/GCodes Time In: 815 Time Out: 829 Total Billed Treatment Time: 14 Total Billed Treatment 1, FA (14 min) LIYAH BATRES PT Nov 14, 2021 09:06
[2021-11-14] MEDS: EMPAGLIFLOZIN 10 MG TABLET (JARDIANCE) PO SCH (09:32)
[2021-11-14] MEDS: GLIMEPIRIDE 2 MG (AMARYL) TAB PO SCH (09:32)
[2021-11-14] MEDS: polyethylene glycoL POWDER 17 GM (MIRALAX) PACK PO SCH (09:33)
--- NOTE | 2021-11-14 10:19 | Diagnostic Imaging Report ---
INDICATION: Pneumonia. Time of Exam: 9:16 AM Correlation is made with prior chest from 09/06/2021. Heart size normal. There is infiltrate that has developed in the left upper lobe and left perihilar region. Right lung is clear. There is no effusion or pneumothorax. IMPRESSION: Development of left upper lobe pneumonia. Dictated by: Dictated on workstation # [id number]
[2021-11-14 11:00] VITALS: BP 152/104
[2021-11-14] MEDS ORDERED: HYDR-3923 PO (11:13)
[2021-11-14] MEDS ORDERED: AMOX1TAB12 PO (11:13)
--- NOTE | 2021-11-14 11:14 | Discharge Summary ---
Diagnosis/Chief Complaint Date of Admission Nov 11, 2021 at 21:55 Date of Discharge Discharge Date: Nov 14, 2021 Discharge Diagnosis Assessment: Left side post obstructive pneumonia Renal cell carcinoma Fecal impaction Urinary retention DM Spinal stenosis AFib Lower extremity edema DVT prophylaxis Plan: Left side post obstructive pneumonia Renal cell carcinoma Continue IV Ceftriaxone and Azithromycin therapy. Continue chemotherapy, managed by Dr. Blanco. Fecal impaction Monitor BMs. Encourage PO intake. DM AFib DVT prophylaxis. Continue home meds. Eliquis 5mg covering for DVT prophylaxis. Lower extremtity edema Started compression wrappings today. PT will start IV Lasix 40mg. PT/OT. Urinary retention Discontinue folley catheter. Reason Hospital Visit Chief complaint: Abdominal pain with constipation History of present illness: This is a 76-year-old white male clinic patient of Dr. Owens and Dr. 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 I did speak with Dr. Rodgers on the phone who requested CT scan to be clouded and she will arrange follow-up with interventional pulmonology for debulking of the endobronchial lesion in the near future. In the meantime we will continue bowel evacuation Carreon catheter placed due to urinary retention and strengthening along with IV antibiotics. Discharge Summary Discharge Physical Examination Allergies: Coded Allergies: latex (Verified Allergy, Unknown, 11/11/21) pt reports he is allergic Vitals & I&Os Vital Signs Date Time Temp Pulse Resp B/P (MAP) Pulse Ox O2 Delivery O2 Flow Rate FiO2 11/14/21 14:15 36.7 104 18 152/104 98 Room Air 0.00 11/11/21 23:50 21 General Appearance: Alert, Oriented X3, Cooperative Respiratory: Clear to Auscultation Cardiovascular: Regular Rate Neuro: Normal Gait, Normal Speech, Strength at 5/5 X4 Ext Hospital Course Was the Problem List Reviewed?: Yes Brief Hospital Course: Patient was admitted on 11/11/21 and discharged 11/14/21. Patient was admitted from the ED to the 4th floor. He presented to the ED on 11/11/21 with complaints of constipation. He was also found to have urinary retention in the ED and a folley catheter was placed. CT Imaging in the ED revealed evidence of large colonic stool volume, and a L upper lobe post obstructive pneumonia. White count in the ED was 12.1 Patient was started on IV Azithromycin and Ceftriaxone for his post obstructive pneumonia. He had an enema in the hospital which resulted in a bowel movement on his first day of admission. He had lower extremity edema in the hospital which was managed with compression wrapping and Lasix 40mg. Contact with the patient's cancer physician, Dr. Blanco, for renal cell carcinoma was made, and she was updated on his clinical status on 11/12/21. His folley catheter was removed on 11/13/21. He was started on oral Azithromycin 250mg on 11/13/21, while he continued on the IV ceftriaxone. On discharge, patient was sent home on Augmentin 875mg 2 PO BID for 6 days and Hydralazine HCl 25 Mg PO Q6H PRN. His pharmacy is [facility] in [place]. Chest Xray on 11/14/21 continues to show evidence of a L upper lobe pneumonia. Dr. Blanco plans to schedule the PT with intervention pulmonology in the near term for his post obstructive pneumonia. This summary does not include the entirety of the patient's visit and is only a short description of pertinent lab values and information. For the complete hospital course, please refer to the patient's chart. Date of Admission: 11/11/21 Date of Discharge: 11/14/21 Attending Physician: Dr. Patria Casey, DO Admission Diagnosis: Post obstructive pneumonia, fecal impaction Discharge Diagnosis: Post obstructive pneumonia, renal cell carcinoma SINDY THAKKAR Nov 14, 2021 12:14 Labs (last 24 hrs) Laboratory Tests 11/11/21 19:37: Urine Color YELLOW, Urine Clarity CLEAR, Urine pH 6.0, Urine Specific [place] 1.010L, Urine Protein NEGATIVE, Urine Glucose (UA) 3+H, Urine Ketones NEGATIVE, Urine Nitrite NEGATIVE, Urine Bilirubin NEGATIVE, Urine Urobilinogen 0.2, Urine Leukocyte Esterase NEGATIVE, Urine RBC (Auto) TRACE-IH, Urine RBC NONE, Urine WBC 0-2, Urine Squamous Epithelial Cells 0-2, Urine Crystals NONE, Urine Bacteria NEGATIVE, Urine Casts NONE, Urine Mucus NEGATIVE, Urine Culture Indicated NO 11/11/21 20:02: White Blood Count 12.1H, Red Blood Count 6.41H, Hemoglobin 16.0, Hematocrit 53, Mean Corpuscular Volume 82, Mean Corpuscular Hemoglobin 25, Mean Corpuscular Hemoglobin Concent 31L, Red Cell Distribution Width 23.5H, Platelet Count 197, Mean Platelet Volume 9.4, Immature Granulocyte % (Auto) 0, Neutrophils (%) (Auto) 77H, Lymphocytes (%) (Auto) 8L, Monocytes (%) (Auto) 9, Eosinophils (%) (Auto) 5, Basophils (%) (Auto) 1, Neutrophils # (Auto) 9.4H, Lymphocytes # (Auto) 1.0, Monocytes # (Auto) 1.1H, Eosinophils # (Auto) 0.6H, Basophils # (Auto) 0.1, Immature Granulocyte # (Auto) 0.1, Sodium Level 140, Potassium Level 4.0, Chloride Level 103, Carbon Dioxide Level 21, Anion Gap 16H, Blood Urea Nitrogen 24H, Creatinine 1.81H, Estimat Glomerular Filtration Rate 39, BUN/Creatinine Ratio 13, Glucose Level 159H, Calcium Level 9.0, Corrected Calcium 9.2, Total Bilirubin 0.5, Aspartate Amino Transf (AST/SGOT) 16, Alanine Aminotransferase (ALT/SGPT) 18, Alkaline Phosphatase 77, Total Protein 6.7, Albumin 3.7, Procalcitonin 0.06 11/11/21 20:19: Lactic Acid Level 1.66 11/11/21 20:27: Influenza Type A (RT-PCR) Not Detected, Influenza Type B (RT-PCR) Not Detected, SARS-CoV-2 RNA (RT-PCR) Not Detected 11/12/21 05:39: White Blood Count 10.8, Red Blood Count 5.94H, Hemoglobin 14.7, Hematocrit 49, Mean Corpuscular Volume 83, Mean Corpuscular Hemoglobin 25, Mean Corpuscular Hemoglobin Concent 30L, Red Cell Distribution Width 23.3H, Platelet Count 190, Mean Platelet Volume 9.7, Immature Granulocyte % (Auto) 1, Neutrophils (%) (Auto) 77H, Lymphocytes (%) (Auto) 10L, Monocytes (%) (Auto) 9, Eosinophils (%) (Auto) 4, Basophils (%) (Auto) 1, Neutrophils # (Auto) 8.4H, Lymphocytes # (Auto) 1.1, Monocytes # (Auto) 0.9, Eosinophils # (Auto) 0.4H, Basophils # (Auto) 0.1, Immature Granulocyte # (Auto) 0.1, Sodium Level 144, Potassium Level 4.0, Chloride Level 106, Carbon Dioxide Level 23, Anion Gap 15H, Blood Urea Nitrogen 21H, Creatinine 1.49H, Estimat Glomerular Filtration Rate 49, BUN/Creatinine Ratio 14, Glucose Level 105, Calcium Level 8.3L, Corrected Calcium 8.9, Total Bilirubin 0.4, Aspartate Amino Transf (AST/SGOT) 12, Alanine Aminotransferase (ALT/SGPT) 18, Alkaline Phosphatase 71, Total Protein 5.7L, Albumin 3.2 11/12/21 16:54: Glucometer 114H 11/12/21 20:03: Glucometer 139H 11/13/21 05:20: Glucometer 102 11/13/21 06:27: White Blood Count 10.2, Red Blood Count 6.09H, Hemoglobin 15.1, Hematocrit 50, Mean Corpuscular Volume 82, Mean Corpuscular Hemoglobin 25, Mean Corpuscular Hemoglobin Concent 30L, Red Cell Distribution Width 23.3H, Platelet Count 184, Mean Platelet Volume 9.4, Immature Granulocyte % (Auto) 0, Neutrophils (%) (Auto) 75, Lymphocytes (%) (Auto) 10L, Monocytes (%) (Auto) 9, Eosinophils (%) (Auto) 5, Basophils (%) (Auto) 1, Neutrophils # (Auto) 7.6, Lymphocytes # (Auto) 1.0, Monocytes # (Auto) 1.0, Eosinophils # (Auto) 0.5H, Basophils # (Auto) 0.1, Immature Granulocyte # (Auto) 0.0, Sodium Level 141, Potassium Level 3.7, Chloride Level 105, Carbon Dioxide Level 22, Anion Gap 14, Blood Urea Nitrogen 17, Creatinine 1.30, Estimat Glomerular Filtration Rate 58, BUN/Creatinine Ratio 13, Glucose Level 91, Calcium Level 8.8, Corrected Calcium 9.3, Total Bilirubin 0.4, Aspartate Amino Transf (AST/SGOT) 14, Alanine Aminotransferase (ALT/SGPT) 20, Alkaline Phosphatase 66, Total Protein 6.1L, Albumin 3.4 11/13/21 10:28: Glucometer 144H 11/13/21 16:22: Glucometer 137H 11/13/21 19:58: Glucometer 173H 11/14/21 05:32: White Blood Count 11.3H, Red Blood Count 6.66H, Hemoglobin 16.6, Hematocrit 54, Mean Corpuscular Volume 82, Mean Corpuscular Hemoglobin 25, Mean Corpuscular Hemoglobin Concent 31L, Red Cell Distribution Width 23.6H, Platelet Count 170, Mean Platelet Volume 9.3, Immature Granulocyte % (Auto) 1, Neutrophils (%) (Auto) 74, Lymphocytes (%) (Auto) 10L, Monocytes (%) (Auto) 9, Eosinophils (%) (Auto) 6, Basophils (%) (Auto) 1, Neutrophils # (Auto) 8.3H, Lymphocytes # (Auto) 1.1, Monocytes # (Auto) 1.1H, Eosinophils # (Auto) 0.7H, Basophils # (Auto) 0.1, Immature Granulocyte # (Auto) 0.1, Sodium Level 140, Potassium Level 3.8, Chloride Level 102, Carbon Dioxide Level 20L, Anion Gap 18H, Blood Urea Nitrogen 19H, Creatinine 1.47H, Estimat Glomerular Filtration Rate 50, BUN/Creatinine Ratio 13, Glucose Level 109H, Calcium Level 9.2, Corrected Calcium 9.5, Total Bilirubin 0.5, Aspartate Amino Transf (AST/SGOT) 19, Alanine Aminotransferase (ALT/SGPT) 10, Alkaline Phosphatase 68, Total Protein 6.7, Albumin 3.6 11/14/21 11:17: Glucometer 135H Microbiology 11/11/21 Blood Culture - Preliminary, Resulted No growth Pending Labs Microbiology Date/Time Source Procedure Growth Status 11/11/21 20:27 Peripheral Lt Hand Blood Culture - Preliminary No growth Resulted 11/11/21 20:19 Peripheral Rt Ac Blood Culture - Preliminary No growth Resulted Laboratory Tests 11/11/21 19:37: Urine Color YELLOW, Urine Clarity CLEAR, Urine pH 6.0, Urine Specific [place] 1.010, Urine Protein NEGATIVE, Urine Glucose (UA) 3+, Urine Ketones NEGATIVE, Urine Nitrite NEGATIVE, Urine Bilirubin NEGATIVE, Urine Urobilinogen 0.2, Urine Leukocyte Esterase NEGATIVE, Urine RBC (Auto) TRACE-I, Urine RBC NONE, Urine WBC 0-2, Urine Squamous Epithelial Cells 0-2, Urine Crystals NONE, Urine Bacteria NEGATIVE, Urine Casts NONE, Urine Mucus NEGATIVE, Urine Culture Indicated NO 11/11/21 20:02: White Blood Count 12.1, Red Blood Count 6.41, Hemoglobin 16.0, Hematocrit 53, Mean Corpuscular Volume 82, Mean Corpuscular Hemoglobin 25, Mean Corpuscular Hemoglobin Concent 31, Red Cell Distribution Width 23.5, Platelet Count 197, Mean Platelet Volume 9.4, Immature Granulocyte % (Auto) 0, Neutrophils (%) (Auto) 77, Lymphocytes (%) (Auto) 8, Monocytes (%) (Auto) 9, Eosinophils (%) (Auto) 5, Basophils (%) (Auto) 1, Neutrophils # (Auto) 9.4, Lymphocytes # (Auto) 1.0, Monocytes # (Auto) 1.1, Eosinophils # (Auto) 0.6, Basophils # (Auto) 0.1, Immature Granulocyte # (Auto) 0.1, Sodium Level 140, Potassium Level 4.0, Chloride Level 103, Carbon Dioxide Level 21, Anion Gap 16, Blood Urea Nitrogen 24, Creatinine 1.81, Estimat Glomerular Filtration Rate 39, BUN/Creatinine Ratio 13, Glucose Level 159, Calcium Level 9.0, Corrected Calcium 9.2, Total Bilirubin 0.5, Aspartate Amino Transf (AST/SGOT) 16, Alanine Aminotransferase (ALT/SGPT) 18, Alkaline Phosphatase 77, Total Protein 6.7, Albumin 3.7, Procalcitonin 0.06 11/11/21 20:19: Lactic Acid Level 1.66 11/11/21 20:27: Influenza Type A (RT-PCR) Not Detected, Influenza Type B (RT-PCR) Not Detected, SARS-CoV-2 RNA (RT-PCR) Not Detected 11/12/21 05:39: White Blood Count 10.8, Red Blood Count 5.94, Hemoglobin 14.7, Hematocrit 49, Mean Corpuscular Volume 83, Mean Corpuscular Hemoglobin 25, Mean Corpuscular Hemoglobin Concent 30, Red Cell Distribution Width 23.3, Platelet Count 190, Mean Platelet Volume 9.7, Immature Granulocyte % (Auto) 1, Neutrophils (%) (Auto) 77, Lymphocytes (%) (Auto) 10, Monocytes (%) (Auto) 9, Eosinophils (%) (Auto) 4, Basophils (%) (Auto) 1, Neutrophils # (Auto) 8.4, Lymphocytes # (Auto) 1.1, Monocytes # (Auto) 0.9, Eosinophils # (Auto) 0.4, Basophils # (Auto) 0.1, Immature Granulocyte # (Auto) 0.1, Sodium Level 144, Potassium Level 4.0, Chloride Level 106, Carbon Dioxide Level 23, Anion Gap 15, Blood Urea Nitrogen 21, Creatinine 1.49, Estimat Glomerular Filtration Rate 49, BUN/Creatinine Ratio 14, Glucose Level 105, Calcium Level 8.3, Corrected Calcium 8.9, Total Bilirubin 0.4, Aspartate Amino Transf (AST/SGOT) 12, Alanine Aminotransferase (ALT/SGPT) 18, Alkaline Phosphatase 71, Total Protein 5.7, Albumin 3.2 11/12/21 16:54: Glucometer 114 11/12/21 20:03: Glucometer 139 11/13/21 05:20: Glucometer 102 11/13/21 06:27: White Blood Count 10.2, Red Blood Count 6.09, Hemoglobin 15.1, Hematocrit 50, Mean Corpuscular Volume 82, Mean Corpuscular Hemoglobin 25, Mean Corpuscular Hemoglobin Concent 30, Red Cell Distribution Width 23.3, Platelet Count 184, Mean Platelet Volume 9.4, Immature Granulocyte % (Auto) 0, Neutrophils (%) (Auto) 75, Lymphocytes (%) (Auto) 10, Monocytes (%) (Auto) 9, Eosinophils (%) (Auto) 5, Basophils (%) (Auto) 1, Neutrophils # (Auto) 7.6, Lymphocytes # (Auto) 1.0, Monocytes # (Auto) 1.0, Eosinophils # (Auto) 0.5, Basophils # (Auto) 0.1, Immature Granulocyte # (Auto) 0.0, Sodium Level 141, Potassium Level 3.7, Chloride Level 105, Carbon Dioxide Level 22, Anion Gap 14, Blood Urea Nitrogen 17, Creatinine 1.30, Estimat Glomerular Filtration Rate 58, BUN/Creatinine Ratio 13, Glucose Level 91, Calcium Level 8.8, Corrected Calcium 9.3, Total Bilirubin 0.4, Aspartate Amino Transf (AST/SGOT) 14, Alanine Aminotransferase (ALT/SGPT) 20, Alkaline Phosphatase 66, Total Protein 6.1, Albumin 3.4 11/13/21 10:28: Glucometer 144 11/13/21 16:22: Glucometer 137 11/13/21 19:58: Glucometer 173 11/14/21 05:32: White Blood Count 11.3, Red Blood Count 6.66, Hemoglobin 16.6, Hematocrit 54, Mean Corpuscular Volume 82, Mean Corpuscular Hemoglobin 25, Mean Corpuscular Hemoglobin Concent 31, Red Cell Distribution Width 23.6, Platelet Count 170, Mean Platelet Volume 9.3, Immature Granulocyte % (Auto) 1, Neutrophils (%) (Auto) 74, Lymphocytes (%) (Auto) 10, Monocytes (%) (Auto) 9, Eosinophils (%) (Auto) 6, Basophils (%) (Auto) 1, Neutrophils # (Auto) 8.3, Lymphocytes # (Auto) 1.1, Monocytes # (Auto) 1.1, Eosinophils # (Auto) 0.7, Basophils # (Auto) 0.1, Immature Granulocyte # (Auto) 0.1, Sodium Level 140, Potassium Level 3.8, Chloride Level 102, Carbon Dioxide Level 20, Anion Gap 18, Blood Urea Nitrogen 19, Creatinine 1.47, Estimat Glomerular Filtration Rate 50, BUN/Creatinine Ratio 13, Glucose Level 109, Calcium Level 9.2, Corrected Calcium 9.5, Total Bilirubin 0.5, Aspartate Amino Transf (AST/SGOT) 19, Alanine Aminotransferase (ALT/SGPT) 10, Alkaline Phosphatase 68, Total Protein 6.7, Albumin 3.6 11/14/21 11:17: Glucometer 135 Discharge Home Medications: Active Scripts Active Amox Tr-K Clv 875-125 mg Tab (Amoxicillin/Potassium Clav) 875 Mg-125 Mg Tablet 1 Each PO BID Hydralazine HCl 25 Mg Tablet 25 Mg PO Q6H PRN Reported Claritin (Loratadine) 10 Mg Tablet 10 Mg PO HS Eliquis (Apixaban) 5 Mg Tablet 5 Mg PO BID Spironolactone 50 Mg Tablet 50 Mg PO DAILY Proventil Hfa (Albuterol Sulfate) 6.7 Gm Hfa.aer.ad 2 Puff INH Q6H PRN Neurontin (Gabapentin) 300 Mg Capsule 300 Mg PO BID Lisinopril 20 Mg Tablet 30 Mg PO DAILY TAKES 1 & (20MG) TABS Bumetanide 1 Mg Tablet 1 Mg PO 0800,1500 Jardiance (Empagliflozin) 25 Mg Tablet 25 Mg PO DAILY Fotivda (Tivozanib HCl) 1.34 Mg Capsule 1.34 Mg PO DAILY Diltiazem 24Hr ER (Diltiazem HCl) 180 Mg Cap.er.24h 180 Mg PO DAILY Glimepiride 2 Mg Tablet 2 Mg PO BID Tramadol HCl 50 Mg Tablet 50 Mg PO Q4H PRN Levothyroxine Sodium 50 Mcg Tablet 50 Mcg PO DAILY Omeprazole 20 Mg Capsule.dr 20 Mg PO DAILY Ocuvite Adult 50 Plus Softgel (C,E,Zinc,Copper 11/Bkibj9j/Lut) 1 Each Capsule 1 Cap PO DAILY Instructions to patient/family Please see electronic discharge instructions given to patient. Diagnosis/Problems Diagnosis/Problems (1) left sided pneumonia (2) Metastatic renal cell carcinoma Status: Acute (3) Sepsis Status: Acute (4) Urinary retention Status: Acute (5) Non-insulin dependent diabetes mellitus (6) Constipation (7) Chronic renal insufficiency Status: Acute (8) Renal cell cancer Status: Acute PATRIA CASEY DO Nov 14, 2021 11:14
--- NOTE | 2021-11-14 11:57 | Progress Note ---
Progress Note n/a SINDY THAKKAR Nov 14, 2021 11:57
--- NOTE | 2021-11-14 12:14 | Progress Note ---
SINDY THAKKAR 11/14/21 1214: Progress Note Brief Hospital Course: Patient was admitted on 11/11/21 and discharged 11/14/21. Patient was admitted from the ED to the 4th floor. He presented to the ED on 11/11/21 with complaints of constipation. He was also found to have urinary retention in the ED and a folley catheter was placed. CT Imaging in the ED revealed evidence of large colonic stool volume, and a L upper lobe post obstructive pneumonia. White count in the ED was 12.1 Patient was started on IV Azithromycin and Ceftriaxone for his post obstructive pneumonia. He had an enema in the hospital which resulted in a bowel movement on his first day of admission. He had lower extremity edema in the hospital which was managed with compression wrapping and Lasix 40mg. Contact with the patient's cancer physician, Dr. Blanco, for renal cell carcinoma was made, and she was updated on his clinical status on 11/12/21. His folley catheter was removed on 11/13/21. He was started on oral Azithromycin 250mg on 11/13/21, while he continued on the IV ceftriaxone. On discharge, patient was sent home on Augmentin 875mg 2 PO BID for 6 days and Hydralazine HCl 25 Mg PO Q6H PRN. His pharmacy is [facility] in [place]. Chest Xray on 11/14/21 continues to show evidence of a L upper lobe pneumonia. Dr. Blanco plans to schedule the PT with intervention pulmonology in the near term for his post obstructive pneumonia. This summary does not include the entirety of the patient's visit and is only a short description of pertinent lab values and information. For the complete hospital course, please refer to the patient's art. Date of Admission: 11/11/21 Date of Discharge: 11/14/21 Attending Physician: Dr. Patria Desai DO Admission Diagnosis: Post obstructive pneumonia, fecal impaction Discharge Diagnosis: Post obstructive pneumonia, renal cell carcinoma PATRIA DESAI DO 11/15/21 0545: Supervisory-Addendum Brief Verification & Attestation Participated in pt care: history, MDM, physical Personally performed: exam, history, MDM, supervision of care Care discussed with: Medical Student Procedures: n/a Results interpretation: Verified all documentation Verification and Attestation of Medical Student E/M Service A medical student performed and documented this service in my presence. I reviewed and verified all information documented by the medical student and made modifications to such information, when appropriate. I personally performed the physical exam and medical decision making. Patria Desai, Nov 15, 2021,05:45 SINDY THAKKAR Nov 14, 2021 12:14 PATRIA DESAI DO Nov 15, 2021 05:45
[2021-11-14] MEDS ORDERED: hydrALAZINE (APRESOLINE) 25 MG TAB PO NR (13:15)
[2021-11-14 14:15] VITALS: BP 152/104
--- NOTE | 2021-11-15 13:24 | Physician Query Clarification ---
PQ-Uncertain Diagnosis Admission/Discharge Admission Date: Nov 11, 2021 at 21:55 Discharge Date: Nov 14, 2021 at 14:15 Dr. Desai, The medical record reflects the following clinical scenario: History/Risk Factors: post obstructive pneumonia, mets to lungs Clinical Findings: lactic acid 1.66, WBC 12.1, T 36.0, P 16, R 20, BP 162/110 Treatment: IV Ceftriaxone, IV Azithromycin Question: Is sepsis a clinically valid diagnosis? Sepsis was documented in the ER record and H&P with no further documentation in the medical record. Sepsis was not listed in the final diagnoses on the DS. Please document a response in Progress Note or Discharge Summary. 1. Yes, clinically valid, condition resolved. 2. No, condition ruled out. 3. Other, with explanation of clinical findings. 4. Undetermined, no explanation for clinical findings. PHYSICIAN RESPONSE Diagnosis clinically valid: No, conditon ruled out Please remember a lack of response to the above will prompt a phone page by [facility]/Coding staff. In responding to this query, please exercise your independent professional judgment. The purpose of this communication is to more accurately reflect the complexity of your patients condition. The fact that a question is asked does not imply that any particular answer is desired or expected. Thank you for your timely response to this clarification. Requestors name: Huang THIS PHYSICIAN QUERY FORM IS A PERMANENT PART OF THE MEDICAL RECORD HUANG VALDERRAMA Nov 15, 2021 13:24 JUWAN DESAI DO Nov 15, 2021 20:48
== END 2021-11-14 14:15 | disposition home or self-care (01) | DRG 194 ==
LOC: EDUNIT# 18:50 → ER 18:54 → 4TH 21:55
PROVIDERS: ADMIT Internal Medicine; ATTEND Internal Medicine
DX: J18.9 Pneumonia, unspecified organism (principal); C78.02 Secondary malignant neoplasm of left lung; C78.01 Secondary malignant neoplasm of right lung; R33.9 Retention of urine, unspecified; K56.41 Fecal impaction; I12.9 Hypertensive chronic kidney disease with stage 1 through stage 4 chronic kidney disease, or unspecified chronic kidney disease; E11.22 Type 2 diabetes mellitus with diabetic chronic kidney disease; N18.9 Chronic kidney disease, unspecified; Z79.84 Long term (current) use of oral hypoglycemic drugs; Z20.822 Contact with and (suspected) exposure to COVID-19; I48.91 Unspecified atrial fibrillation; R60.0 Localized edema; K21.9 Gastro-esophageal reflux disease without esophagitis; M48.00 Spinal stenosis, site unspecified; H54.7 Unspecified visual loss; H91.90 Unspecified hearing loss, unspecified ear; Z85.528 Personal history of other malignant neoplasm of kidney; Z79.52 Long term (current) use of systemic steroids; Z91.040 Latex allergy status
CPT/HCPCS: 36415; 51702; 71046; 71250; 74022; 74176; 80053; 81000; 82947; 83605; 84145; 85025; 87040; 87636; 94664; 94760